=== PATIENT | female | born 1995 | race Caucasian/White ===

== ENCOUNTER 2020-03-09 17:46 | Emergency (ER) | payer OTHER, SELFPAY ==
--- NOTE | 2020-03-09 | XR_ITS ---
EXAMINATION: CHEST 1 VIEW CLINICAL INFORMATION: Shortness of breath. COMPARISON: August 08, 2018. TECHNIQUE: An AP view of the chest is provided. FINDINGS: The cardiac silhouette is not enlarged. The mediastinal and hilar contours are unremarkable. There are neither pleural effusions nor pneumothoraces. There are no consolidations. The osseous structures are unremarkable. XR/XR chest 1V IMPRESSION: No evidence for acute disease.
[2020-03-09 17:58] VITALS: BP 105/75; PULSE 90; RESP 16; TEMP 37.1; O2SAT 99; BMI 32.5
--- NOTE | 2020-03-09 19:06 | ED.GENADULT ---
HPI - General Adult General Chief complaint: General Medical Stated complaint: covid symptoms Time Seen by Provider: 03/09/20 18:06 History of Present Illness HPI narrative: Patient complains of cough body aches runny nose for 2 days after exposure to a COVID positive patient at work, there is no shortness of breath no fever no chills no chest pain no abdominal pain no nausea no vomiting no diarrhea no skin rash Related Data Allergies Allergy/AdvReac Type Severity Reaction Status Date / Time acetaminophen [ACETAMINOPHEN] Allergy Intermediate RASH Unverified 01/12/20 16:22 amoxicillin [AMOXICILLIN] Allergy Intermediate N/V Unverified 01/12/20 16:22 adhesive tape [ADHESIVE TAPE] Allergy Unknown UNKNOWN Unverified 01/12/20 16:22 Penicillins [PCN] Allergy Unknown VOMITING Unverified 01/12/20 16:22 Anesthetics - Gm Type- AdvReac Severe heart rate Unverified 01/12/20 16:22 Parabens drops [ANESTHETICS - GM TYPE] Antibiotic Allergy Unknown vomit Uncoded 03/16/19 00:00 unspecified anesthetic Allergy Unknown lowers Uncoded 03/16/19 00:00 heart rate Review of Systems Review of Systems: Review of systems is positive for cough runny nose body aches There is no chest pain no sputum no shortness of breath no abdominal pain no nausea no vomiting no diarrhea no rash no numbness no weakness no dizziness no confusion no headache Yes all other systems are reviewed and are negative PMFSH Past Medical History Source: nursing notes reviewed Medical History (Updated 03/09/20 @ 19:50 by ARLETTE Arrington) Colostomy hernia Diverticula of colon Hernia SVT (supraventricular tachycardia) Social History Social History Alcohol intake: never Smoked in Last 30 Days: No Use of substances other than those prescribed or required for medical reasons: No Substance Use Type: Marijuana Advance Directives: No Advance Directives Information Provided: Yes Physical Exam Vital Signs: Vital Signs: Last Vital Signs Temp 98.7 F 03/09/20 17:58 Pulse 90 03/09/20 17:58 Resp 16 03/09/20 17:58 BP 105/75 03/09/20 17:58 Pulse Ox 99 03/09/20 17:58 Body Mass Index 32.5 General appearance is A&O x3, speaking in full sentences, no respiratory distress no acute distress and comfortable appearing The eyes are clear no redness no discharge The neck is supple The chest is CTA bilaterally, no adventitious sounds with full equal symmetrical breath sounds The heart no murmurs The abdomen soft nontender Extremities no rash no edema Neuro no focal deficit Course Course Course Narrative: Chest x-ray was normal and patient is discharged home, she remained comfortable throughout ER visit Discharge Plan Discharge Clinical Impression: Acute viral syndrome Patient Disposition: Home, Self-Care Additional Instructions: Chest x-ray was negative COVID test results will be called to you in 2-3 days by phone A negative test does not rule out COVID, if you still have cough and symptoms you may have COVID that was missed by our test so should wear a mask and keep distance from other people as you may be very contagious Return to ER any worse condition or any concerns Stand Alone Forms: Work/School Release
== END 2020-03-09 20:12 | disposition home or self-care (01) ==
PROVIDERS: Physician Assistant Medical; Emergency Provider Emergency Medicine; PCP Nurse Practitioner Family
DX: B34.9 Viral infection, unspecified (principal); R05 Cough; Z20.828 Contact with and (suspected) exposure to other viral communicable diseases
CPT/HCPCS: 71045; 99283; 99284; U0003

== ENCOUNTER 2020-04-29 14:54 | Emergency (ER) | payer OTHER, SELFPAY ==
[2020-04-29 16:54] VITALS: BP 149/89; PULSE 74; RESP 14; TEMP 36.8; O2SAT 100; BMI 32.5
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
== END 2020-04-29 18:12 | disposition home or self-care (01) ==
PROVIDERS: Emergency Provider Emergency Medicine; PCP Nurse Practitioner Family
DX: S39.012A Strain of muscle, fascia and tendon of lower back, initial encounter (principal); S16.1XXA Strain of muscle, fascia and tendon at neck level, initial encounter; V59.9XXA Occupant (driver) (passenger) of pick-up truck or van injured in unspecified traffic accident, initial encounter; Y93.9 Activity, unspecified; Y92.410 Unspecified street and highway as the place of occurrence of the external cause; Y99.9 Unspecified external cause status; Z79.899 Other long term (current) drug therapy
CPT/HCPCS: 99284

== ENCOUNTER 2022-02-28 23:22 | Emergency (ER) | payer MEDICAID, SELFPAY ==
[2022-02-28 23:37] VITALS: BP 142/90; PULSE 93; RESP 18; TEMP 36.8; O2SAT 97; BMI 34.0
[2022-03-01 01:28] LABS: MANUAL DIFF FLAG NO
[2022-03-01 01:29] LABS: Basophils Absolute Auto 0.1 X10*3/uL (0.0-0.2); Basophils Percent Auto 0.4 % (0-2); Eosinophils Absolute Auto 0.1 X10*3/uL (0.0-0.4); Eosinophils Percent Auto 0.5 % (0-4); Hematocrit 37.8 % (37.0-47.0); Hemoglobin 11.9 g/dl (12.0-16.0); Imm Gran Abs Auto 0.08 X10*3/uL (0.00-0.03); Imm Gran Pct Auto 0.6 % (0.0-0.4); Lymphocytes Absolute Auto 1.9 X10*3/uL (1.2-4.9); Mean Corpuscular HGB Conc 31.5 g/dl (31.0-35.0); Mean Corpuscular Hemoglobin 26.4 pg (27.0-33.0); Mean Corpuscular Volume 83.8 fL (80.0-98.0); Monocytes Absolute Auto 0.8 X10*3/uL (0.1-1.2); Monocytes Percent Auto 6.3 % (2-11); Neutrophils Absolute Auto 9.7 x10*3/uL (2.0-8.3); Neutrophils Percent Auto 77.2 % (45-73); Platelet Count 331 X10*3/uL (160-400); Red Blood Count 4.51 X10*6/uL (4.20-5.50); Red Cell Distribution Width 13.7 % (11.0-16.0); White Blood Count 12.6 X10*3/uL (4.8-10.8)
[2022-03-01 01:57] LABS: Alanine Aminotransferase 16 U/L (0-31); Albumin Level 4.3 g/dL (3.5-5.0); Alkaline Phosphatase 66 U/L (39-117); Anion Gap 18 (12-20); Aspartate Amino Transferase 19 U/L (5-31); Bilirubin Total 0.6 mg/dL (0.0-1.0); Blood Urea Nitrogen 9 mg/dL (9-16); Calcium 9.4 mg/dL (8.4-10.2); Carbon Dioxide 22 mmol/L (22-29); Chloride 103 mmol/L (96-108); Creatinine Clr Calc Pharmacy 104.2; Estimated Glomerular Filt Rate > 60; Glucose Random 106 mg/dL (60-115); Sodium 139 mmol/L (135-145); Total Protein 7.6 g/dL (6.5-8.0)
--- NOTE | 2022-03-01 01:58 | ED_ITS ---
HPI - Skin/Abscess/Foreign Bdy General Chief complaint: Skin/Abscess/Foreign Body Stated complaint: cyst behind ear Time Seen by Provider: 03/01/22 01:35 Source: patient Mode of arrival: ambulatory Limitations: no limitations History of Present Illness HPI narrative: Patient comes to the emergency room complaining of cellulitis/abscess behind her left ear. Patient states it has been about 4-5 days. Area behind the left ear on the neck is red, warm and swollen. Related Data Previous Rx's Medication Instructions Recorded cyclobenzaprine 10 mg tablet 5 mg PO TID PRN muscle spasm #20 04/29/20 tabs ibuprofen 800 mg tablet 800 mg PO Q8H PRN pain #30 tabs 04/29/20 ibuprofen 600 mg tablet 600 mg PO TID PRN fever or pain 03/01/22 #14 tabs mupirocin 2 % topical ointment 1 appl topical TID #15 grams 03/01/22 sulfamethoxazole 800 1 tab PO BID #13 tabs 03/01/22 mg-trimethoprim 160 mg tablet (Bactrim DS) Allergies Allergy/AdvReac Type Severity Reaction Status Date / Time adhesive tape [ADHESIVE TAPE] Allergy Unknown UNKNOWN Unverified 01/12/20 16:22 Anesthetics - Gm Type- AdvReac Severe heart rate Unverified 01/12/20 16:22 Parabens drops [ANESTHETICS - GM TYPE] unspecified anesthetic Allergy Unknown lowers Uncoded 03/16/19 00:00 heart rate Review of Systems Review of Systems: Constitutional : No Weight loss, No Fever, No Chills, No Night Sweats, No Fatigue, No Malaise ENT/Mouth : No Hearing loss, No Ear Pain, No Nasal Congestion, No Sinus Pain, No Hoarseness, No sore throat, No Rhinorrhea, No Swallowing Difficulty Eyes: No Eye Pain, No Swelling, No Redness, No Foreign Body, No Discharge, No Vision Changes Cardiovascular : No Chest Pain, No SOB, No Dyspnea on Exertion, No Orthopnea, No Edema, No Palpitations Respiratory : No Cough, No Sputum, No Wheezing, No Smoke Exposure, No Dyspnea Gastrointestinal : No Nausea, No Vomiting, No Diarrhea, No Constipation, No ab dominal Pain, No Hematochezia, No Melena Genitourinary : no irregular bleeding, No Dysuria, No Urinary Frequency, No Hematuria, No Urinary Incontinence, No Urgency, No Flank Pain, No Urinary Flow Changes, No Hesitancy Musculoskeletal : No joint pain, No Myalgias, No Joint Swelling Skin : Cellulitis under the left ear on the left side of neck Neuro : No Weakness, No Numbness, No Paresthesias, No Loss of Consciousness, No Dizziness, No Headache Psych : No Anxiety/Panic, No Depression, No SI/HI/AH/VH, No Social Issues, Heme/Lymph: No Bruising, No Bleeding,No Lymphadenopathy Endocrine : No Polyuria, No Polydipsia, No Temperature Intolerance [facility] Past Medical History Medical History Colostomy hernia Diverticula of colon Hernia SVT (supraventricular tachycardia) Surgical History History of colostomy reversal History of reversal of ileostomy Hx of ileostomy Social History Social History Alcohol intake: never Substance Use Type: Marijuana Advance Directives: No Advance Directives Information Provided: No Physical Exam Vital Signs: Vital Signs: Last Vital Signs Temp 98.2 F 02/28/22 23:37 Pulse 93 02/28/22 23:37 Resp 18 02/28/22 23:37 BP 142/90 H 02/28/22 23:37 Pulse Ox 97 02/28/22 23:37 O2 Del Method 02/28/22 23:37 BMI result Body Mass Index 34.0 Const: Other: Appearance: Alert. Oriented X3. No acute distress. Eyes: Pupils equal, round and reactive to light. ENT: Pharynx normal. See skin below Neck: Normal inspection. Neck supple. No lymph nodes noted. No crepitus CVS: Normal heart rate and rhythm. Pulses normal. Normal S1 and S2 Respiratory: No respiratory distress. Breath sounds normal. No Wheezing. No rales Abdomen: Soft and nontender. No rigidity. No distention. Skin: Skin warm and dry. Patient has with oozing, honey colored crusting on the skin on both earlobes, some areas of the face and chest, patient has a small abscess on the left side of the neck under the left earlobe, patient has multiple excoriations in the face and the chest from picking her skin, impetigo present Extremities: No lower extremity edema. No Lacerations. No Rash Neuro: Oriented X 3. No motor deficit. No sensory deficit. Moving all extremities. No slurred speech. CN 2 through 12 grossly intact Psych: calm, cooperative, normal affect Course Course Course Narrative: Patient has impetigo in her ear lobes and some areas of her face from picking her skin. There is an abscess in the left side of the neck under the left ear lobe. On bedside ultrasound there is a very small abscess, confirmed with Doppler, no flow present. Not a lymph node. Area was numbed with 1% lidocaine 2 mL, a 16 gauge syringe was inserted and aspirated, very small amount pus was extracted, 0.2 mL at the most Patient was given Bactrim in the emergency room. MDM - Skin/Abscess/Foreign Bdy Lab Data Result diagrams: 02/28/22 23:44 02/28/22 23:44 Labs: Lab Results 02/28/22 Range/Units 23:44 WBC 12.6 H (4.8-10.8) X10*3/uL RBC 4.51 (4.20-5.50) X10*6/uL Hgb 11.9 L (12.0-16.0) g/dl Hct 37.8 (37.0-47.0) % MCV 83.8 (80.0-98.0) fL MCH 26.4 L (27.0-33.0) pg MCHC 31.5 (31.0-35.0) g/dl RDW 13.7 (11.0-16.0) % Plt Count 331 (160-400) X10*3/uL MPV 12.0 (9.4-12.3) fL Immature Gran % (Auto) 0.6 H (0.0-0.4) % Neut % (Auto) 77.2 H (45-73) % Lymph % (Auto) 15.0 L (20-40) % Mcminn % (Auto) 6.3 (2-11) % Eos % (Auto) 0.5 (0-4) % Baso % (Auto) 0.4 (0-2) % Lymph # (Auto) 1.9 (1.2-4.9) X10*3/uL Mcminn # (Auto) 0.8 (0.1-1.2) X10*3/uL Eos # (Auto) 0.1 (0.0-0.4) X10*3/uL Baso # (Auto) 0.1 (0.0-0.2) X10*3/uL Abs Immat Gran (auto) 0.08 H (0.00-0.03) X10*3/uL Absolute Neuts (auto) 9.7 H (2.0-8.3) x10*3/uL Absolute Nucleated RBC 0.000 (0.0-0.012) X10*3/uL Nucleated RBC % (auto) 0.0 (0.0-0.2) /100WBC Procedures Abscess I/D Site: neck Side (if applicable): left Local Anesthetic: lidocaine 1% Amount of anesthesia used (mL): 2 Technique: needle aspiration Amount of fluid expressed (mL): 0.2 Sent for culture/gram staining?: No Irrigation: No Packing used?: none Discharge Plan Discharge Clinical Impression: Abscess of skin or subcutaneous tissue, Impetigo Patient Disposition: Home, Self-Care Instructions: Impetigo (ED), Abscess (ED) Additional Instructions: Please follow-up with your primary care physician tomorrow. If you have any worsening or new symptoms, please return to the emergency room or call 911 Prescriptions: New sulfamethoxazole-trimethoprim [Bactrim DS] 800-160 mg tablet 1 tab PO BID Qty: 13 0RF mupirocin 2 % ointment 1 appl topical TID Qty: 15 0RF Rx Instructions: Apply on affected areas ibuprofen 600 mg tablet 600 mg PO TID PRN (Reason: fever or pain) Qty: 14 0RF No Action cyclobenzaprine 10 mg tablet 5 mg PO TID PRN (Reason: muscle spasm) Qty: 20 0RF ibuprofen 800 mg tablet 800 mg PO Q8H PRN (Reason: pain) Qty: 30 0RF
[2022-03-01] MEDS: Sulfamethox/Trimeth 800/160 TABLET 1 TAB PO (02:03)
[2022-03-01 02:06] VITALS: BP 127/77; PULSE 100; RESP 16; TEMP 36.6; O2SAT 98
--- NOTE | 2022-03-01 02:10 | PC.NURSE ---
discharged instructions reviewed with pt. Pt verbalizes understanding.
[2022-03-01] MEDS: Ibuprofen 600 MG TABLET PO (02:12)
== END 2022-03-01 02:14 | disposition home or self-care (01) ==
PROVIDERS: Emergency Provider Emergency Medicine; PCP Nurse Practitioner Family
DX: L02.11 Cutaneous abscess of neck (principal); L01.00 Impetigo, unspecified
CPT/HCPCS: 10060; 36415; 80053; 85025; 99284

== ENCOUNTER 2022-08-24 04:35 | Emergency (ER) | payer MEDICAID, SELFPAY ==
--- NOTE | ~2022-08-24 | CT_ITS ---
EXAMINATION: CT ABDOMEN AND PELVIS WITHOUT CONTRAST CLINICAL INFORMATION: Abdominal pain COMPARISON: CT abdomen pelvis 11/27/2019 TECHNIQUE: Multidetector volumetric imaging was performed from the superior aspect of the liver through the pubic symphysis. Sagittal and coronal reformatted images were obtained on the technologist's workstation. This CT examination was performed using dose optimization techniques as appropriate, variously including the following: *Automated exposure control *Adjustment of mA and/or kV according to patient size (this includes techniques or standardized protocols for targeted exams where dose is matched to indication/reason for exam; i.e. extremities or head) *Use of iterative reconstruction technique DLP: 504 mGy-cm FINDINGS: Visualized lung bases are well aerated. Similar mild elongation of the right hepatic lobe. There is overall diffusely decreased attenuation of the liver. The gallbladder is normal in appearance. The pancreas, spleen and adrenal glands are unremarkable. Symmetrically sized kidneys. No renal calculi or hydronephrosis of either kidney. There is mild asymmetric perinephric stranding on the left kidney. Mild wall thickening of the proximal left ureter. Normal caliber loops of small and large bowel. Mild colonic stool burden. Anastomotic suture lines within the right left abdomen are unremarkable. Normal caliber abdominal aorta. Similar appearing postsurgical changes of the anterior abdominal wall. The bladder is normal in appearance. Unremarkable CT appearance of the uterus. Small amount of free pelvic fluid. Possible right adnexal cysts versus serpiginous fluid structure of the right adnexa. No inguinal lymphadenopathy. No acute osseous abnormality. CT/CT abdomen pelvis wo IV con IMPRESSION: 1. Mild asymmetric perinephric stranding on the left kidney with mild wall thickening of the proximal left ureter. Findings are nonspecific but may represent a recently passed stone. Pyelonephritis/ureteritis is also within the differential. Correlation with urinalysis recommended. 2. Possible right adnexal cysts versus serpiginous fluid structure of the right adnexa. This may be further evaluated with dedicated pelvic ultrasound if clinically indicated. 3. Diffusely decreased liver attenuation suggesting hepatic steatosis. Correlation with liver enzymes recommended. Fleischner guidelines were followed.
[2022-08-24 04:50] VITALS: BP 112/82; PULSE 120; O2SAT 99
[2022-08-24 04:55] VITALS: BP 118/67; PULSE 116; RESP 20; TEMP 37.5; O2SAT 98; BMI 25.7
--- NOTE | 2022-08-24 06:39 | ED_ITS ---
HPI - General Adult General Chief complaint: Abdominal Pain Stated complaint: flank back pain Time Seen by Provider: 08/24/22 06:35 Source: patient and EMS Mode of arrival: EMS Limitations: no limitations History of Present Illness HPI narrative: Patient is a 26 year old assigned female at with no reported medical history presenting to the emergency department today with left lower back pain and flank pain. Patient states that starting yesterday she began to have left sided low back pain that radiates around into her abdomen. Patient denies any dizziness, lightheadedness, nausea, vomiting, fever, chills, blurry vision, double vision, loss of vision, chest pain, difficulty breathing, shortness of breath, night sweats, pain with urination, increased urinary frequency, increased urinary urgency, blood in her urine or stool, syncope or a near syncopal episode, recent trauma or falls, bowel incontinence, bladder incontinence, bowel retention, bladder retention, or any other complaints at this time. Onset (ago): day(s) (1) Location: back and abdomen Radiation: abdomen Severity: mild Relieving factors: none Exacerbating factors: none Associated symptoms: denies other symptoms Treatments prior to arrival: none Related Data Previous Rx's Medication Instructions Recorded cyclobenzaprine 10 mg tablet 5 mg PO TID PRN muscle spasm #20 04/29/20 tabs ibuprofen 800 mg tablet 800 mg PO Q8H PRN pain #30 tabs 04/29/20 ibuprofen 600 mg tablet 600 mg PO TID PRN fever or pain 03/01/22 #14 tabs mupirocin 2 % topical ointment 1 appl topical TID #15 grams 03/01/22 sulfamethoxazole 800 1 tab PO BID #13 tabs 03/01/22 mg-trimethoprim 160 mg tablet (Bactrim DS) cephalexin 500 mg capsule 500 mg PO Q6H 7 days #28 caps 08/24/22 ondansetron 4 mg disintegrating 4 mg PO Q8H 3 days #9 tabs 08/24/22 tablet Allergies Allergy/AdvReac Type Severity Reaction Status Date / Time adhesive tape [ADHESIVE TAPE] Allergy Unknown UNKNOWN Unverified 01/12/20 16:22 Anesthetics - Gm Type- AdvReac Severe heart rate Unverified 01/12/20 16:22 Parabens drops [ANESTHETICS - GM TYPE] unspecified anesthetic Allergy Unknown lowers Uncoded 03/16/19 00:00 heart rate Review of Systems Constitutional: Constitutional: Reports no additional constitutional complaints, Denies chills, Denies fever(s) and Denies night sweats Eyes: Eyes: Reports no additional eye complaints, Denies blurry vision, Denies change in vision, Denies diplopia, Denies eye discharge, Denies loss of vision and Denies eye pain ENT: Denies dizziness Cardiovascular: Cardiovascular: Reports no additional cardiovascular complaints, Denies chest pain, Denies lightheadedness, Denies Loss of Consciousness and Denies dyspnea Respiratory: Respiratory: Reports no additional respiratory complaints and Denies dyspnea Gastrointestinal: Gastrointestinal: Reports no additional gastrointestinal complaints, Reports abdominal pain, Denies melena, Denies hematochezia, Denies change in bowel habits and Denies change in stool character Genitourinary: Genitourinary: Denies hematuria, Denies urinary frequency, Denies dysuria, Denies urinary incontinence, Denies urinary hesitancy and Denies urinary urgency Musculoskeletal: Musculoskeletal: Reports no additional musculoskeletal complaints, Reports back pain, Denies numbness and Denies tingling Neurologic: Denies dizziness, Denies loss of vision, Denies numbness and Denies tingling Psychiatric: Psychiatric: Reports no additional psychiatric complaints Endocrine: Endocrine: Reports no additional endocrine complaints Hematologic/Lymphatic: Hematologic/Lymphatic: Reports no additional hematologic/lymphatic complaints Allergic/Immunologic: Allergic/Immunologic: Reports no additional allergic/immunologic complaints [facility] Past Medical History Attestation statement: The following information was validated with the patient. Source: old records reviewed and nursing notes reviewed Medical History Colostomy hernia Diverticula of colon Hernia SVT (supraventricular tachycardia) Surgical History History of colostomy reversal History of reversal of ileostomy Hx of ileostomy Social History Social History Alcohol intake: never Substance Use Type: Marijuana Advance Directives: No Advance Directives Information Provided: No Physical Exam ED Vital Signs: Vital Signs - 24 hr 08/24/22 04:55 08/24/22 07:34 08/24/22 09:56 Temperature 99.5 F 98.8 F Pulse Rate 116 H 110 H 104 H Respiratory Rate 20 20 16 Blood Pressure 118/67 111/77 99/55 L Pulse Oximetry 98 98 98 Oxygen Delivery Method Room Air Room Air Room Air 08/24/22 12:03 Temperature 100.6 F H Pulse Rate 99 Respiratory Rate 18 Blood Pressure 102/68 Pulse Oximetry 97 Oxygen Delivery Method Room Air BMI result Body Mass Index 25.7 Const General: cooperative, no acute distress, alert and awake Nutritional Appearance: well nourished Orientation/consciousness: patient oriented x3 Limitations: no limitations HENMT Head: Yes normal to inspection and Yes atraumatic Ears: hearing grossly normal bilaterally and external ears normal General nose exam: Normal external nose present, no nasal discharge noted and no epistaxis Face and sinus: Yes normal facial exam, No abrasion and No laceration Mouth: Normal oral and palatal mucosa present, no drooling and no muffled voice Eyes General: appearance normal, both eyes and all related structures Periorbital: periorbital findings normal Eyelids: Yes eyelids normal Conjunctivae: conjunctivae normal Pupils: Equal, round and reactive pupils present EOM: EOMs intact bilaterally Neck Neck: Yes normal visual inspection, Yes full ROM and Yes no lymphadenopathy Chest Chest palpation & inspection: normal inspection of the chest Resp Effort & Inspection: normal respiratory effort and able to speak in complete sentences Auscultation: clear to auscultation bilaterally Cardio Rate: regular rate Rhythm: regular rhythm GI Inspection: Yes normal to inspection Palpation (GI): Soft to palpation, not firm, nontender and no guarding Neuro General: patient oriented x3 and moves all extremities Cranial nerves: Yes Equal, round and reactive pupils present Cognition (Neuro): normal cognition Motor exam (neuro): 5/5 motor strength present throughout Sensory Exam: Normal double simultaneous stimulation for sensation Coordination: [id number] test normal Extrem General: Yes normal to inspection, Yes full ROM and Yes capillary refill normal Psych Appearance: grossly normal Mental Status: mental status grossly normal Affect: normal affect Attitude: cooperative Thought process: Normal thought process present Thought content: Normal thought content present Insight: Good insight present (Psych) Medications Administered Discontinued Medications Generic Name Dose Route Start Last Admin Trade Name Freq PRN Reason Stop Dose Admin Sodium Chloride 1,000 mls @ 999 mls/hr 08/24/22 11:30 08/24/22 11:59 Ns IV 08/24/22 12:30 999 mls/hr .Q1H1M ROSITA Administration Ceftriaxone Sodium 2 gm/ 50 mls @ 100 mls/hr 08/24/22 11:25 08/24/22 11:59 Sodium Chloride IV 08/24/22 11:54 100 mls/hr ONCE ONE Administration Ketorolac Tromethamine 15 mg 08/24/22 11:54 08/24/22 12:00 Ketorolac Tromethamine 15 Mg/Ml Vial IVPUSH 08/24/22 11:55 15 mg ONCE ONE Administration Oxycodone HCl 10 mg 08/24/22 06:59 08/24/22 07:47 Oxycodone Hcl Immed Release 5 Mg Tablet PO 08/24/22 07:00 10 mg ONCE ONE Administration Medical Decision Making Medical Decision Making [facility] Narrative: Patient is a 26 year old assigned female at with no reported medical history presenting to the emergency department today with abdominal pain. Patient's physical exam was unremarkable. Patient's blood work showed an elevated WBC count of 16.2. Patient's urine showed an acute infection. Patient's abdomen/pelvis CT showed possible left sided hydronpehrosis. Patient's clinical presentation is not consistent with sepsis (@1230). I explained my physical exam findings as well as all test results to the patient. I answered all questions asked by the patient. I stressed the importance of the patient taking her medication as prescribed. I stressed the importance of the patient following up with her primary care provider. I stressed the importance of the patient returning to the emergency department immediately if her symptoms were to worsen or if she were to develop any dizziness, shortness of breath, difficulty breathing, chest pain, blurry vision, loss of vision, nausea, vomiting, abdomin al pain, fever, chills, back pain, or any other complaints. Patient verbalized agreement and understanding with this treatment plan and discharge. Differential Diagnosis Differential Diagnoses: The differential diagnosis associated with the presentation includes UTI, pyelonephritis Lab Data [facility] Lab Attestation statement: I reviewed the patient's lab results. 08/24/22 07:41 08/24/22 07:41 Labs: Lab Results 08/24/22 08/24/22 08/24/22 Range/Units 07:41 07:41 07:41 WBC 16.2 H (4.8-10.8) X10*3/uL RBC 4.54 (4.20-5.50) X10*6/uL Hgb 12.2 (12.0-16.0) g/dl Hct 37.4 (37.0-47.0) % MCV 82.4 (80.0-98.0) fL MCH 26.9 L (27.0-33.0) pg MCHC 32.6 (31.0-35.0) g/dl RDW 14.2 (11.0-16.0) % Plt Count 242 D (160-400) X10*3/uL MPV 11.9 (9.4-12.3) fL Immature Gran % (Auto) 0.9 H (0.0-0.4) % Neut % (Auto) 79.0 H (45-73) % Lymph % (Auto) 9.8 L (20-40) % [place] % (Auto) 10.0 (2-11) % Eos % (Auto) 0.0 (0-4) % Baso % (Auto) 0.3 (0-2) % Lymph # (Auto) 1.6 (1.2-4.9) X10*3/uL [place] # (Auto) 1.6 H (0.1-1.2) X10*3/uL Eos # (Auto) 0.0 (0.0-0.4) X10*3/uL Baso # (Auto) 0.1 (0.0-0.2) X10*3/uL Abs Immat Gran (auto) 0.14 H (0.00-0.03) X10*3/uL Absolute Neuts (auto) 12.8 H (2.0-8.3) x10*3/uL Absolute Nucleated RBC 0.000 (0.0-0.012) X10*3/uL Nucleated RBC % (auto) 0.0 (0.0-0.2) /100WBC Smear Tech's Comments VERIFIED Sodium 136 (135-145) mmol/L Potassium 3.4 (3.3-5.1) mmol/L Chloride 101 (96-108) mmol/L Carbon Dioxide 26 (22-29) mmol/L Anion Gap 12 (12-20) BUN 5 L (9-16) mg/dL Creatinine 0.90 (0.5-1.4) mg/dL Estim Creat Clear Calc 88.9 Estimated GFR > 60 Random Glucose 126 H (60-115) mg/dL Lactic Acid (0.5-2.0) mmol/L Calcium 9.2 (8.4-10.2) mg/dL Magnesium 1.8 (1.6-2.6) mg/dL Total Bilirubin 1.2 H (0.0-1.0) mg/dL AST 12 (5-31) U/L ALT 15 (0-31) U/L Alkaline Phosphatase 50 (39-117) U/L Total Protein 6.5 (6.5-8.0) g/dL Albumin 4.0 (3.5-5.0) g/dL Beta HCG, Quant < 2 mIU/mL Urine Color Urine Appearance Urine pH (5.0-9.0) Ur Specific [place] (1.005-1.025) Urine Protein (Neg-Trace) mg/dL Urine Glucose (UA) (Negative) mg/dL Urine Ketones (Negative) mg/dL Urine Blood (Negative) Urine Nitrite (Negative) Ur Leukocyte Esterase (Negative) Urine RBC (0-2) /HPF Urine WBC (0-5) /HPF Ur Squamous Epith Cells (0-2) /HPF Urine Bacteria (None Seen) Hyaline Casts (0-2) /LPF Urine Opiates Screen (Not Detect) Urine Fentanyl Screen (Not Detect) Ur Barbiturates Screen (Not Detect) Ur Phencyclidine Scrn (Not Detect) Ur Amphetamines Screen (Not Detect) U Benzodiazepines Scrn (Not Detect) Urine Cocaine Screen (Not Detect) U Marijuana (THC) Screen (Not Detect) COVID-19 (MENG) Negative (Negative) COVID-19 Clin Com See Note 08/24/22 08/24/22 08/24/22 Range/Units 11:08 11:08 11:49 WBC (4.8-10.8) X10*3/uL RBC (4.20-5.50) X10*6/uL Hgb (12.0-16.0) g/dl Hct (37.0-47.0) % MCV (80.0-98.0) fL MCH (27.0-33.0) pg MCHC (31.0-35.0) g/dl RDW (11.0-16.0) % Plt Count (160-400) X10*3/uL MPV (9.4-12.3) fL Immature Gran % (Auto) (0.0-0.4) % Neut % (Auto) (45-73) % Lymph % (Auto) (20-40) % [place] % (Auto) (2-11) % Eos % (Auto) (0-4) % Baso % (Auto) (0-2) % Lymph # (Auto) (1.2-4.9) X10*3/uL [place] # (Auto) (0.1-1.2) X10*3/uL Eos # (Auto) (0.0-0.4) X10*3/uL Baso # (Auto) (0.0-0.2) X10*3/uL Abs Immat Gran (auto) (0.00-0.03) X10*3/uL Absolute Neuts (auto) (2.0-8.3) x10*3/uL Absolute Nucleated RBC (0.0-0.012) X10*3/uL Nucleated RBC % (auto) (0.0-0.2) /100WBC Smear Tech's Comments Sodium (135-145) mmol/L Potassium (3.3-5.1) mmol/L Chloride (96-108) mmol/L Carbon Dioxide (22-29) mmol/L Anion Gap (12-20) BUN (9-16) mg/dL Creatinine (0.5-1.4) mg/dL Estim Creat Clear Calc Estimated GFR Random Glucose (60-115) mg/dL Lactic Acid 1.0 (0.5-2.0) mmol/L Calcium (8.4-10.2) mg/dL Magnesium (1.6-2.6) mg/dL Total Bilirubin (0.0-1.0) mg/dL AST (5-31) U/L ALT (0-31) U/L Alkaline Phosphatase (39-117) U/L Total Protein (6.5-8.0) g/dL Albumin (3.5-5.0) g/dL Beta HCG, Quant mIU/mL Urine Color Yellow Urine Appearance Turbid Urine pH 5.5 (5.0-9.0) Ur Specific [place] <= 1.005 (1.005-1.025) Urine Protein 30 (1+) H (Neg-Trace) mg/dL Urine Glucose (UA) Negative (Negative) mg/dL Urine Ketones Negative (Negative) mg/dL Urine Blood Small (1+) H (Negative) Urine Nitrite Negative (Negative) Ur Leukocyte Esterase Large (3+) H (Negative) Urine RBC 0-2 (0-2) /HPF Urine WBC >50 H (0-5) /HPF Ur Squamous Epith Cells 0-2 (0-2) /HPF Urine Bacteria 4+ (None Seen) Hyaline Casts 0-2 (0-2) /LPF Urine Opiates Screen Not Detected (Not Detect) Urine Fentanyl Screen POSITIVE H (Not Detect) Ur Barbiturates Screen Not Detected (Not Detect) Ur Phencyclidine Scrn Not Detected (Not Detect) Ur Amphetamines Screen Not Detected (Not Detect) U Benzodiazepines Scrn Not Detected (Not Detect) Urine Cocaine Screen POSITIVE H (Not Detect) U Marijuana (THC) Screen POSITIVE H (Not Detect) COVID-19 (MENG) (Negative) COVID-19 Clin Com Independent Interpretation I performed an independent interpretation of an: Plain X-Ray Interpretation: My interpretation is in agreement with the radiologist's impression of this imaging study. EXAMINATION: CT ABDOMEN AND PELVIS WITHOUT CONTRAST? CLINICAL INFORMATION: Abdominal pain? COMPARISON: CT abdomen pelvis 11/27/2019 TECHNIQUE: Multidetector volumetric imaging was performed from the superior aspect of the liver through the pubic symphysis. Sagittal and coronal reformatted images were obtained on the technologist's workstation.? This CT examination was performed using dose optimization techniques as appropriate, variously including the following: *Automated exposure control *Adjustment of mA and/or kV according to patient size (this includes techniques or standardized protocols for targeted exams where dose is matched to indication/reason for exam; i.e. extremities or head) *Use of iterative reconstruction technique DLP: 504 mGy-cm FINDINGS: Visualized lung bases are well aerated. Similar mild elongation of the right hepatic lobe. There is overall diffusely decreased attenuation of the liver. The gallbladder is normal in appearance. The pancreas, spleen and adrenal glands are unremarkable. Symmetrically sized kidneys. No renal calculi or hydronephrosis of either kidney. There is mild asymmetric perinephric stranding on the left kidney. Mild wall thickening of the proximal left ureter. Normal caliber loops of small and large bowel. Mild colonic stool burden. Anastomotic suture lines within the right left abdomen are unremarkable. Normal caliber abdominal aorta. Similar appearing postsurgical changes of the anterior abdominal wall. The bladder is normal in appearance. Unremarkable CT appearance of the uterus. Small amount of free pelvic fluid. Possible right adnexal cysts versus serpiginous fluid structure of the right adnexa. No inguinal lymphadenopathy. No acute osseous abnormality. CT/CT abdomen pelvis wo IV con IMPRESSION: 1.? Mild asymmetric perinephric stranding on the left kidney with mild wall thickening of the proximal left ureter. Findings are nonspecific but may represent a recently passed stone. Pyelonephritis/ureteritis is also within the differential. Correlation with urinalysis recommended. 2.? Possible right adnexal cysts versus serpiginous fluid structure of the right adnexa. This may be further evaluated with dedicated pelvic ultrasound if clinically indicated. 3.? Diffusely decreased liver attenuation suggesting hepatic steatosis. Correlation with liver enzymes recommended. ? Fleischner guidelines were followed. Dictated By: Isaias Rainey MD Signed By: Electronically signed by Isaias Rainey MD 08/24/22 0918 Discharge Plan Discharge Clinical Impression: Pyelonephritis Patient Disposition: Home, Self-Care Instructions: Kidney Infection (ED) Additional Instructions: Follow up with your primary care provider. Return to the emergency department immediately if your symptoms worsen or if you develop any dizziness, shortness of breath, difficulty breathing, chest pain, blurry vision, loss of vision, nausea, vomiting, abdominal pain, fever, chills, back pain, or any other compla ints. Prescriptions: New cephalexin 500 mg capsule 500 mg PO Q6H 7 Days Qty: 28 0RF ondansetron 4 mg tablet,disintegrating 4 mg PO Q8H 3 Days Qty: 9 0RF No Action cyclobenzaprine 10 mg tablet 5 mg PO TID PRN (Reason: muscle spasm) Qty: 20 0RF ibuprofen 800 mg tablet 800 mg PO Q8H PRN (Reason: pain) Qty: 30 0RF sulfamethoxazole-trimethoprim [Bactrim DS] 800-160 mg tablet 1 tab PO BID Qty: 13 0RF mupirocin 2 % ointment 1 appl topical TID Qty: 15 0RF Rx Instructions: Apply on affected areas ibuprofen 600 mg tablet 600 mg PO TID PRN (Reason: fever or pain) Qty: 14 0RF Referrals: [facility] [Primary Care Provider] - Stand Alone Forms: Work/School Release Interventions: ED Discharge Assessment Last Done: 08/24/22 13:06 Discharge Date/Time: 08/24/22 13:09 Print Language: Lao
[2022-08-24 07:34] VITALS: BP 111/77; PULSE 110; RESP 20; TEMP 37.1; O2SAT 98
[2022-08-24] MEDS: oxyCODONE HCl Immed Release 5 MG TABLET 10 MG PO (07:47)
[2022-08-24 07:55] LABS: Basophils Absolute Auto 0.1 X10*3/uL (0.0-0.2); Basophils Percent Auto 0.3 % (0-2); Hematocrit 37.4 % (37.0-47.0); Hemoglobin 12.2 g/dl (12.0-16.0); Imm Gran Abs Auto 0.14 X10*3/uL (0.00-0.03); Imm Gran Pct Auto 0.9 % (0.0-0.4); Lymphocytes Absolute Auto 1.6 X10*3/uL (1.2-4.9); Lymphocytes Percent Auto 9.8 % (20-40); MANUAL DIFF FLAG SCAN; Mean Corpuscular HGB Conc 32.6 g/dl (31.0-35.0); Mean Corpuscular Hemoglobin 26.9 pg (27.0-33.0); Mean Corpuscular Volume 82.4 fL (80.0-98.0); Mean Platelet Volume 11.9 fL (9.4-12.3); Monocytes Absolute Auto 1.6 X10*3/uL (0.1-1.2); Neutrophils Absolute Auto 12.8 x10*3/uL (2.0-8.3); Platelet Count 242 X10*3/uL (160-400); Red Blood Count 4.54 X10*6/uL (4.20-5.50); Red Cell Distribution Width 14.2 % (11.0-16.0); SCAN SMEAR FLAG 1; White Blood Count 16.2 X10*3/uL (4.8-10.8)
--- NOTE | 2022-08-24 07:55 | PC.NURSE ---
Pt sleeping, respirations even and unlabored. Upon waking up for medications pt complains of 10/10 pain. Labs drawn, awaiting CT scan
[2022-08-24 07:59] LABS: COVID-19 Test Negative (Negative); IDNOW Serial# BCCEAD1C
[2022-08-24 08:13] LABS: Alanine Aminotransferase 15 U/L (0-31); Alkaline Phosphatase 50 U/L (39-117); Anion Gap 12 (12-20); Aspartate Amino Transferase 12 U/L (5-31); Bilirubin Total 1.2 mg/dL (0.0-1.0); Blood Urea Nitrogen 5 mg/dL (9-16); Calcium 9.2 mg/dL (8.4-10.2); Carbon Dioxide 26 mmol/L (22-29); Chloride 101 mmol/L (96-108); Creatinine Clr Calc Pharmacy 88.9; Estimated Glomerular Filt Rate > 60; Glucose Random 126 mg/dL (60-115); Magnesium 1.8 mg/dL (1.6-2.6); Potassium 3.4 mmol/L (3.3-5.1); Sodium 136 mmol/L (135-145); Total Protein 6.5 g/dL (6.5-8.0)
[2022-08-24 08:14] LABS: HCG Quantitative < 2 mIU/mL
[2022-08-24 08:36] LABS: SLIDE REVIEW VERIFIED
[2022-08-24 09:56] VITALS: BP 99/55; PULSE 104; RESP 16; O2SAT 98
[2022-08-24 11:19] LABS: Appearance Urine Turbid; Color Urine Yellow; Glucose Urine UA Negative (Negative); Leukocyte Esterase Urine Large (3+) (Negative); Nitrite Urine Negative (Negative); PH 5.5 (5.0-9.0); Specific Gravity - Urine <= 1.005 (1.005-1.025); UMIC TRIGGER UACC YES; Urine Blood Small (1+) (Negative); Urine Ketones Negative (Negative); Urine Protein 30 (1+) mg/dL (Neg-Trace)
[2022-08-24 11:30] LABS: Amphetamine Screen Urine Not Detected (Not Detect); Barbiturates, Urine Not Detected (Not Detect); Benzodiazepines Screen Urine Not Detected (Not Detect); Cannabinoid Screen Urine POSITIVE (Not Detect); Cocaine Screen Urine POSITIVE (Not Detect); Fentanyl, urine POSITIVE (Not Detect); Opiate Screen Urine Not Detected (Not Detect); Phencyclidine Screen Urine Not Detected (Not Detect)
[2022-08-24 11:31] LABS: Bacteria Urine 4+ (None Seen); Hyaline Casts Urine 0-2 /LPF (0-2); RBC Urine 0-2 /HPF (0-2); Squamous Epithelial Cell Urine 0-2 /HPF (0-2); UACC Culture Trigger YES; WBC Urine >50 /HPF (0-5)
[2022-08-24] MEDS: 0.9 % Sodium Chloride 1,000 ML 999 ML IV (11:59)
[2022-08-24] MEDS: cefTRIAXone sodium 2 GM in 0.9 % Sodium Chloride 50 ML IV (11:59)
[2022-08-24] MEDS: Ketorolac Tromethamine 15 MG/ML VIAL IVPUSH (12:00)
[2022-08-24 12:03] VITALS: BP 102/68; PULSE 99; RESP 18; TEMP 38.1; O2SAT 97
--- NOTE | 2022-08-24 12:58 | MHC.RECOVRN ---
Met with pt in ED6 after provider requested t/w speak with pt regarding UDS +fentanyl. Pt laying in bed, awake, alert, easily engages in conversation. Pt states I only smoke weed, I don't know where fentanyl would come from. Pt educated regarding pressed pills, signs/symptoms of withdrawal, discussed risk of overdose, and harm reduction. Pt actively listened during education. Denies questions or concerns, encouraged to reach out to t/w if needed.
== END 2022-08-24 13:09 | disposition home or self-care (01) ==
PROVIDERS: Physician Assistant Medical; Emergency Provider Emergency Medicine
DX: N12 Tubulo-interstitial nephritis, not specified as acute or chronic (principal); M54.50 Low back pain, unspecified; Z20.822 Contact with and (suspected) exposure to COVID-19; Z20.828 Contact with and (suspected) exposure to other viral communicable diseases; Z79.899 Other long term (current) drug therapy
CPT/HCPCS: 36415; 74176; 80053; 80307; 81001; 83605; 83735; 84702; 85025; 87040; 87086; 87088; 87186; 87635; 96361; 96374; 96375; 99285; J0696; J1885

== ENCOUNTER 2023-02-01 17:10 | Emergency (ER) | payer MEDICAID, SELFPAY | END 2023-02-01 20:33 | disposition left against medical advice (07) | LOC: HO.ED 20:20 | PROVIDERS: Emergency Provider Emergency Medicine; PCP Nurse Practitioner Family | DX: R42 Dizziness and giddiness (principal) ==

== ENCOUNTER 2023-02-01 21:28 | Inpatient (IN) | payer MEDICAID, SELFPAY ==
[2023-02-01 22:21] VITALS: BP 103/73; PULSE 97; RESP 28; TEMP 36; O2SAT 98; BMI 30.1
[2023-02-02] VITALS (8 sets, daily range): BP systolic 118–146; BP diastolic 74–97; PULSE 78–200; RESP 12–26; TEMP 36.8–37; O2SAT 98–100
--- NOTE | 2023-02-02 01:00 | PC.NURSE ---
Pt brought in via w/c from W/R, Pt lethargic, unable to keep conversation, needing redirection to stay awake for assessment. Pt A&Ox3, reports 10/10 constant left hand pain after getting bite by unknown dog yesterday around 5pm. IV line established, blood work collected and sent to lab. Left hand swelling noted with small laceration to palm of hand.
--- NOTE | 2023-02-02 01:12 | ED.GENADULT ---
HPI - General Adult General Chief complaint: Animal Bite Stated complaint: Dog bite Time Seen by Provider: 02/02/23 00:43 Source: patient, RN notes reviewed and old records reviewed Mode of arrival: ambulatory Limitations: no limitations History of Present Illness HPI narrative: 27-year-old female presents for evaluation of a dog bite to her left hand Patient reports that she was bit by dog at 4:30 p.m. yesterday afternoon, approximately 9 hours ago. She states that she did not know the dog, dog not have a call in and was ?a street dog. ? Therefore there is no way for her to determine rabies vaccination status of the dog in question Patient's only injury is her left hand He states that she came to the ED after the accident but then had to leave to pick her daughter up Patient returned to the ED complaining of worsening pain, redness Patient reports smoking marijuana but denies any other drug use She denies any medical history She does not know when her last tetanus shot was Related Data Previous Rx's Medication Instructions Recorded cyclobenzaprine 10 mg tablet 5 mg (1/2 x 10 mg) PO TID PRN 04/29/20 muscle spasm #20 tabs ibuprofen 800 mg tablet 800 mg PO Q8H PRN pain #30 tabs 04/29/20 ibuprofen 600 mg tablet 600 mg PO TID PRN fever or pain 03/01/22 #14 tabs mupirocin 2 % topical ointment 1 appl topical TID #15 grams 03/01/22 sulfamethoxazole 800 1 tab PO BID #13 tabs 03/01/22 mg-trimethoprim 160 mg tablet (Bactrim DS) cephalexin 500 mg capsule 500 mg PO Q6H 7 days #28 caps 08/24/22 ondansetron 4 mg disintegrating 4 mg PO Q8H 3 days #9 tabs 08/24/22 tablet Allergies Allergy/AdvReac Type Severity Reaction Status Date / Time adhesive tape [ADHESIVE TAPE] Allergy Unknown UNKNOWN Verified 02/02/23 01:22 Anesthetics - Gm Type- AdvReac Severe heart rate Verified 02/02/23 01:22 Parabens drops [ANESTHETICS - GM TYPE] amoxicillin AdvReac Anaphylaxis Verified 02/02/23 01:22 unspecified anesthetic Allergy Unknown lowers Uncoded 03/16/19 00:00 heart rate Review of Systems Constitutional: Constitutional: Denies chills and Denies fever(s) Musculoskeletal: Musculoskeletal: Reports arthralgias, Reports joint swelling, Reports limited range of motion and Reports stiffness Integumentary/Breasts: Skin/Breast: Reports erythema and Reports wounds Comments: Left hand PMFSH Past Medical History Medical History Colostomy hernia Diverticula of colon Hernia SVT (supraventricular tachycardia) Surgical History History of colostomy reversal History of reversal of ileostomy Hx of ileostomy Social History Social History Alcohol intake: never Substance Use Type: Marijuana Physical Exam ED Vital Signs: Vital Signs - 24 hr 02/01/23 22:21 Temperature 96.8 F Pulse Rate 97 Respiratory Rate 28 H Blood Pressure 103/73 Pulse Oximetry 98 Oxygen Delivery Method Room Air BMI result Body Mass Index 30.1 Const Other: Patient is somewhat sleepy but arouses to verbal stimuli and will doze off intermittently during the encounter General: no acute distress Nutritional Appearance: well nourished Orientation/consciousness: patient oriented x3 HENMT Head: Yes normocephalic and Yes atraumatic Eyes Eyelids: Yes eyelids normal Conjunctivae: conjunctivae normal Sclerae: sclerae normal Corneas: corneas normal Pupils: Equal, round and reactive pupils present EOM: EOMs intact bilaterally Neck Neck: Yes full ROM Resp Effort & Inspection: normal respiratory effort, able to speak in complete sentences and not labored Cardio Rate: regular rate Rhythm: regular rhythm GI Inspection: No distended Palpation (GI): Soft to palpation, not firm, nontender, no guarding and not rigid Auscultation: normoactive bowel sounds Skin Other: Patient has marked edema almost globally to left hand. There are multiple bite love to the palm and dorsal surface of the left hand. There are scattered bite love to the left 2nd 3rd and 4th fingers. There are no deep lacerations, but mostly superficial puncture wounds. There is some drainage from the wound on the palmar surface of the left hand General skin exam: no rashes or lesions noted and elasticity normal Neuro General: patient oriented x3 Cranial nerves: Yes Equal, round and reactive pupils present and Yes Bilaterally intact EOM present Cognition (Neuro): normal cognition Extrem Other: Patient has significantly reduced range of motion to the fingers left hand. She is unable to fully extend them at the DA P or PIP joints. She is also able to fully make a fist/flex the fingers due to pain swelling. There is no redness edema extending beyond the left wrist. Medications Administered Generic Name Dose Route Start Last Admin Trade Name Freq PRN Reason Stop Dose Admin Sodium Chloride 1,000 mls @ 999 mls/hr 02/02/23 01:00 02/02/23 01:32 Ns IV 02/02/23 02:00 999 mls/hr .Q1H1M ROSITA Administration Discontinued Medications Generic Name Dose Route Start Last Admin Trade Name Freq PRN Reason Stop Dose Admin Diphtheria/Tetanus/Acell Pertussis 0.5 ml 02/02/23 00:51 02/02/23 01:32 Diphth,Pertus(Acell),Tet Adult 0.5 Ml Syringe IM 02/02/23 00:52 0.5 ml .ONCE ONE Administration Ketorolac Tromethamine 30 mg 02/02/23 00:49 02/02/23 01:30 Ketorolac Tromethamine 30 Mg/Ml Vial IVPUSH 02/02/23 00:50 30 mg ONCE ONE Administration Medical Decision Making Medical Decision Making [facility] Narrative: Patient had a dog bite that happened about 9 hours prior to my evaluation. She has marked edema with some drainage from the wound on the palmar surface. She has significantly reduced range of motion of flexion and extension of fingers. There is concern for developing tenosynovitis.. Will plan to admit for IV antibiotic, labs including blood cultures and x-ray imaging pending. The patient has a reported anaphylactic allergy to amoxicillin, so we will not administer Unasyn. Instead will treat with ceftriaxone and metronidazole for dog bite. Patient was updated on rabies vaccine status as well as status posterior. Differential Diagnosis Differential Diagnoses: The differential diagnosis associated with the presentation includes Cellulitis Tenosynovitis Abscess Sepsis Hand fracture Rabies exposure Admission/Observation Consideration of admission/observation: Escalation of care including admission/observation considered Patient will be admitted for IV antibiotics given the significant edema of the hand and progressing cellulitis Consult Healthcare Provider Management of the patient was discussed with: Safety Engineer [employer] (Orthopedic PA, Diana Gillis. She agrees with admission and IV antibiotic. The orthopedic team will see her in the morning) Lab Data [facility] Lab Attestation statement: I reviewed the patient's lab results. Patient has a leukocytosis of 14.4 with a left shift. No significant anemia. 02/02/23 01:18 02/02/23 01:18 Labs: Lab Results 02/02/23 02/02/23 Range/Units 01:18 01:20 WBC 14.4 H (4.8-10.8) X10*3/uL RBC 4.69 (4.20-5.50) X10*6/uL Hgb 12.4 (12.0-16.0) g/dl Hct 38.7 (37.0-47.0) % MCV 82.5 (80.0-98.0) fL MCH 26.4 L (27.0-33.0) pg MCHC 32.0 (31.0-35.0) g/dl RDW 14.6 (11.0-16.0) % Plt Count 302 (160-400) X10*3/uL MPV 11.3 (9.4-12.3) fL Immature Gran % (Auto) 0.6 H (0.0-0.4) % Neut % (Auto) 80.6 H (45-73) % Lymph % (Auto) 10.3 L (20-40) % [place] % (Auto) 7.8 (2-11) % Eos % (Auto) 0.3 (0-4) % Baso % (Auto) 0.4 (0-2) % Lymph # (Auto) 1.5 (1.2-4.9) X10*3/uL [place] # (Auto) 1.1 (0.1-1.2) X10*3/uL Eos # (Auto) 0.1 (0.0-0.4) X10*3/uL Baso # (Auto) 0.1 (0.0-0.2) X10*3/uL Abs Immat Gran (auto) 0.09 H (0.00-0.03) X10*3/uL Absolute Neuts (auto) 11.6 H (2.0-8.3) x10*3/uL Absolute Nucleated RBC 0.000 (0.0-0.012) X10*3/uL Nucleated RBC % (auto) 0.0 (0.0-0.2) /100WBC Lactic Acid 1.4 (0.5-2.0) mmol/L Discharge Plan Discharge Clinical Impression: Bite by animal, Cellulitis Patient Disposition: Admitted As Inpatient
--- NOTE | 2023-02-02 01:54 | PM.IMHP ---
History of Present Illness Date of Service: 02/02/23 Chief Complaint: dog bite 27F denies significant pmh, presented with left hand pain after dog bite same day as presentation, denies fever, chills. has increased pain, decreased ROM. in ED non septic, given rocephin, flagyl (amoxil allergy). Review of Systems Review of Systems: Yes all other systems are reviewed and are negative [facility] Medical History Diverticula of colon Colostomy hernia Hernia SVT (supraventricular tachycardia) Surgical History History of colostomy reversal History of reversal of ileostomy Hx of ileostomy Social History Alcohol intake: never Substance Use Type: Marijuana Advance Directives: No Advance Directives Information Provided: No Meds Allergies Allergy/AdvReac Type Severity Reaction Status Date / Time adhesive tape [ADHESIVE TAPE] Allergy Unknown UNKNOWN Verified 02/02/23 01:22 Anesthetics - Gm Type- AdvReac Severe heart rate Verified 02/02/23 01:22 Parabens drops [ANESTHETICS - GM TYPE] amoxicillin AdvReac Anaphylaxis Verified 02/02/23 01:22 unspecified anesthetic Allergy Unknown lowers Uncoded 03/16/19 00:00 heart rate Active Medications: Current Medications Sodium Chloride (Ns) 1,000 mls @ 999 mls/hr IV .Q1H1M ROSITA Stop: 02/02/23 02:00 Last Admin: 02/02/23 01:32 Dose: 999 mls/hr Ceftriaxone Sodium 1 gm/ (Sodium Chloride) 50 mls @ 100 mls/hr IV Q24H ROSITA Metronidazole (Flagyl) 500 mg in 100 mls @ 100 mls/hr IV Q12H [facility] Sodium Chloride (0.9 % Sodium Chloride Flush 3 Ml Syringe) 3 ml IVFLUSH QSHIFT [facility] Physical Exam Vital Signs and Narrative: Vital Signs: Last Vital Signs Temp 98.6 F 02/02/23 01:42 Pulse 81 02/02/23 01:42 Resp 18 02/02/23 01:42 BP 120/74 02/02/23 01:42 Pulse Ox 100 02/02/23 01:42 O2 Del Method Room Air 02/02/23 01:42 BMI result Body Mass Index 30.1 lethargic, in distress, left hand swelling, erythema, puncture love (see ed note for picture) Results Labs 02/02/23 01:18 02/02/23 01:18 Labs: Laboratory Results - last 24 hr 02/02/23 02/02/23 01:18 01:20 MCV 82.5 MCH 26.4 L MCHC 32.0 RDW 14.6 Plt Count 302 MPV 11.3 Immature Gran % (Auto) 0.6 H Neut % (Auto) 80.6 H Lymph % (Auto) 10.3 L [place] % (Auto) 7.8 Eos % (Auto) 0.3 Baso % (Auto) 0.4 Lymph # (Auto) 1.5 [place] # (Auto) 1.1 Eos # (Auto) 0.1 Baso # (Auto) 0.1 Abs Immat Gran (auto) 0.09 H Absolute Neuts (auto) 11.6 H Absolute Nucleated RBC 0.000 Nucleated RBC % (auto) 0.0 Anion Gap 15 Estim Creat Clear Calc 93.5 Estimated GFR > 60 Random Glucose 75 Lactic Acid 1.4 Calcium 10.1 D C-Reactive Protein 0.57 H Ethyl Alcohol < 10 Assessment and Plan (1) Cellulitis: Status: Acute Plan 27F presented with left hand pain after dog bite left hand cellulitis due to dog bite has pcn allergy rocephin, flagyl follow up cultures ortho consult received rabies and tetatnus in ed full code patient with significant animal bite induced cellulitis in high risk area (hand) rewuiring iv antibiotics and sepcialist evaluation, therefore, expected to require atleast 2 midnights inpatient Time Spent With Patient Time: Total time managing care of this patient today ____ minutes. Quality Stroke Does the patient have a stroke diagnosis?: No VTE Prior VTE?: No VTE Risk Level:: Medical - low VTE Device Contraindication: Treatment Not Indicated VTE Drug Contraindication: Treatment Not Indicated
--- NOTE | 2023-02-02 03:03 | PC.NURSE ---
Domestic animal bite reporting form faxed. Rabies vaccine order set faxed over to pharmacy and short stay.
--- NOTE | 2023-02-02 04:14 | PC.NURSE ---
Upon revital pt appeared to be sleeping, awakens with verbal stimuli, HR noted to be in the 180's. Pt placed on bedside monitor, EKG obtained, Dr. Levine made aware. Pt denies CP, reports Hx of SVT. Pt requesting to use beside commode. Pt bared down and converted from sinus tach to NSR. No new orders at this time.
--- NOTE | 2023-02-02 04:41 | MHC.EDTECH ---
Pt belongings sent with security to [facility] after RN noticed to kitchen knives sticking out of pt bookbag. Pt only has her laptop with her
--- NOTE | 2023-02-02 04:48 | PC.NURSE ---
Addendum entered by Nu Sow RN 02/02/23 08:10: knives taken by security. according to BF they are his. will deffer to security for proper handling of weapons. Original Note: Upon medication administration, Pt was sleeping with arm in backpack, this manual writer noted two kitchen knifes in bag, security notified, belongings secured in decon for safety.
--- NOTE | 2023-02-02 07:14 | PHA.MEDREC ---
Pharmacy Consult ? Medication Reconciliation Pharmacy has completed the medication reconciliation.
--- NOTE | 2023-02-02 09:30 | PM.CNOR ---
History of Present Illness HPI Consult date: 02/02/23 Chief complaint: Dog bite Narrative: 27 yo with 24 hr s/p dog bite to volar left hand Urine + for fentanyl/cocaine/opiate. Patient denies drug use PMFSH Past Medical History Medical History Diverticula of colon Colostomy hernia Hernia SVT (supraventricular tachycardia) Surgical History Surgical History History of colostomy reversal History of reversal of ileostomy Hx of ileostomy Social History Social History Alcohol intake: current Alcohol intake frequency: holidays/special occasions only Patient Tobacco Use Status: Never used Tobacco Smoked in Last 30 Days: No Use of substances other than those prescribed or required for medical reasons: No Substance Use Type: Marijuana Advance Directives: No Advance Directives Information Provided: No Nutrition Risks: No Nutritional Risk Meds Allergies Allergy/AdvReac Type Severity Reaction Status Date / Time adhesive tape [ADHESIVE TAPE] Allergy Unknown UNKNOWN Verified 02/02/23 01:22 Anesthetics - Gm Type- AdvReac Severe heart rate Verified 02/02/23 01:22 Parabens drops [ANESTHETICS - GM TYPE] amoxicillin AdvReac Anaphylaxis Verified 02/02/23 01:22 unspecified anesthetic Allergy Unknown lowers Uncoded 03/16/19 00:00 heart rate Active Medications: Current Medications Ceftriaxone Sodium 1 gm/ (Sodium Chloride) 50 mls @ 100 mls/hr IV Q24H ROSITA Metronidazole (Flagyl) 500 mg in 100 mls @ 100 mls/hr IV Q12H [facility] Sodium Chloride (0.9 % Sodium Chloride Flush 3 Ml Syringe) 3 ml IVFLUSH QSHIFT ROSITA Home Medications Medication Instructions Recorded Confirmed Last Taken Type No Known Home Meds 02/02/23 02/02/23 Unknown History Physical Exam Vital Signs: Vital Signs: Last Vital Signs Temp 98.6 F 02/02/23 01:42 Pulse 110 H 02/02/23 07:46 Resp 21 H 02/02/23 07:46 BP 119/88 02/02/23 07:46 Pulse Ox 99 02/02/23 07:46 O2 Del Method Room Air 02/02/23 07:46 BMI result Body Mass Index 30.1 Extrem: Other: exam difficult as patient is only partially responsive to verbal cues. She is arousable. Her left hand has a wound over the palmar crease just ulnar to the thenar emminenece. Sensation is grossly intact and she can move her digits although painful. She has minimal pain wiht passive stretch and the flexor compartment appears unaffected. There is swelling of the thenar emminence and pain with palpation. Results Labs 02/02/23 01:18 02/02/23 01:18 Labs: Abnormal lab results 02/02/23 02/02/23 Range/Units 01:18 04:16 WBC 14.4 H (4.8-10.8) X10*3/uL MCH 26.4 L (27.0-33.0) pg Immature Gran % (Auto) 0.6 H (0.0-0.4) % Neut % (Auto) 80.6 H (45-73) % Lymph % (Auto) 10.3 L (20-40) % Abs Immat Gran (auto) 0.09 H (0.00-0.03) X10*3/uL Absolute Neuts (auto) 11.6 H (2.0-8.3) x10*3/uL C-Reactive Protein 0.57 H (< or = 0.50) mg/dL Urine Opiates Screen POSITIVE H (Not Detect) Urine Fentanyl Screen POSITIVE H (Not Detect) Urine Cocaine Screen POSITIVE H (Not Detect) H & H 02/02/23 Range/Units 01:18 Hgb 12.4 (12.0-16.0) g/dl Hct 38.7 (37.0-47.0) % All other labs normal. Assessment and Plan (1) Bite by animal: Status: Acute Plan Dog bite with swelling No apparent tendon or nerve injury although exam difficult 2/2 patient somnulence Thenar emminence swollen but not obviosuly infected I recommend splint immobilization and elevation and continue IV abx Will eval again to insure swelling improved and should be NPO after midnight in case it worsens Time Spent With Patient Time: Total time managing care of this patient today ____ minutes. Procedures Date of Service Date of Service: 02/02/23
--- NOTE | 2023-02-02 09:47 | PC.NURSE ---
SPLINT APPLIED BY ELLY DUMONT
--- NOTE | 2023-02-02 13:01 | PM.EVENT ---
Event Note Date of Service: 02/02/23 Event Note: Date of service at discharge: 02/02/23 discharge summary: Final diagnosis: Hand cellulitis Polysubstance use. Patient was admitted for left hand cellulitis after dog bite : Started on IV antibiotic and blood cultures sent-seen by Ortho plan was to re-evaluate in the morning if does not improve she needs surgical procedure, in addition patient's urine is also positive for cocaine, opioids, fentanyl. Patient came to the floor this morning and decided to go against medical advice-she said she wants to go to her (could not explain the reason). She understand the risk of leaving against medical advice including worsening of her hand infection as well as says progressed to sepsis, limb loss, even . She also refused to talk to the Addiction Team. Told when she was leaving we can give p.o. antibiotic but not as good as IV. Also told her to go to nearest emergency room and get further treatment for her cellulitis . She understands the risks fully, alert oriented x3, able to repeat to be back. She decided to leave AMA. Staff was present during above conversation. Time Spent With Patient Time: Total time managing care of this patient today ____ minutes.
--- NOTE | 2023-02-02 13:01 | PC.NURSE ---
Patient left AMA, said she is concerned about her partner who uses drugs, and hasn't picked up her calls. Nurse co supervisor grounds and landscape and MD are aware. MD and myself tried to educate the patient about the health risks of leaving AMA. The patient left at 12:55pm.
--- NOTE | 2023-02-02 13:40 | MHC.RECOVRN ---
This health science writer received addiction consult. Pt admitted for dog bite infection. Pt UDS positive opiates, fentanyl, tess. Upon chart review, pt states only smokes cannabis. This health science writer went to meet with patient, patient had left AMA.
== END 2023-02-02 12:55 | disposition left against medical advice (07) | DRG 383 ==
LOC: HO.ED 02-02 01:46 → HO.EDOVER 02-02 01:56 → HO.S3 02-02 08:43
PROVIDERS: Admitting Provider Internal Medicine; Emergency Provider Emergency Medicine; Visit Provider Internal Medicine
DX: L03.114 Cellulitis of left upper limb (principal); I47.10 Supraventricular tachycardia, unspecified; S60.572A Other superficial bite of hand of left hand, initial encounter; W54.0XXA Bitten by dog, initial encounter; Z88.0 Allergy status to penicillin; Z23 Encounter for immunization; Z20.3 Contact with and (suspected) exposure to rabies
CPT/HCPCS: 36415; 73130; 80048; 80307; 83605; 85025; 85652; 86140; 87040; 90375; 90675; 90715; 93005; 99221; 99285; J0696; J1885; J2270; J2405

== ENCOUNTER → 2023-02-02 01:52 | Outpatient (BNV) | payer MEDICAID, SELFPAY | PROVIDERS: Admitting Provider Internal Medicine; Emergency Provider Emergency Medicine; Visit Provider Orthopaedic Surgery | DX: T14.8XXA Other injury of unspecified body region, initial encounter (principal) | CPT/HCPCS: 99223 ==

== ENCOUNTER → 2023-02-02 01:52 | Outpatient (BNV) | payer MEDICAID, SELFPAY | PROVIDERS: Admitting Provider Internal Medicine; Emergency Provider Emergency Medicine; Visit Provider Internal Medicine | DX: L03.114 Cellulitis of left upper limb (principal); S61.452A Open bite of left hand, initial encounter; W54.0XXA Bitten by dog, initial encounter | CPT/HCPCS: 99222; 99499 ==

== ENCOUNTER 2023-02-03 09:51 | Inpatient (IN) | payer MEDICAID, SELFPAY ==
[2023-02-03 10:35] VITALS: BP 118/80; BP 124/80; PULSE 104; PULSE 114; RESP 15; TEMP 36.5; O2SAT 100; O2SAT 98; BMI 31.0
--- NOTE | 2023-02-03 11:10 | ED_ITS ---
HPI - General Adult General Chief complaint: General Medical Stated complaint: dog bite Time Seen by Provider: 02/03/23 11:10 Source: patient, EMS, RN notes reviewed and old records reviewed Mode of arrival: EMS Limitations: no limitations History of Present Illness HPI narrative: 27 year old female with pmhx significant for polysubstance abuse presents to the ED today via EMS with left hand pain/ swelling s/p dog bite yesterday at 0430. Endorses dog bite to left hand by straclarence rebolledobull with unknown vaccination status. She was [place] [facility] [place] where she received IV antibiotics and rabies vaccination. She was evaluated by the orthopedic surgery team and was admitted to medicine for cellulitis with developing tenosynovitis for treatment with IV antibiotics however left AMA to go find my . She presents this morning with increased heart rate (noted to be 150 bpm at home) and worsening pain/ swelling of the left hand, now extending to her left wrist and forearm. Rates pain 10/10, worse with movement of the hand. Denies any drainage from the wound. Endorses nausea without vomiting. Denies fever, chills, chest pain, SOB, left elbow or left shoulder pain. Endorses occasional cocaine use. Denies IVDU. Related Data Previous Rx's Medication Instructions Recorded cefuroxime axetil 500 mg tablet 500 mg PO Q12H #14 tabs 02/03/23 metronidazole 500 mg tablet 500 mg PO Q12H #14 tabs 02/03/23 Allergies Allergy/AdvReac Type Severity Reaction Status Date / Time adhesive tape [ADHESIVE TAPE] Allergy Unknown UNKNOWN Verified 02/02/23 01:22 Anesthetics - Gm Type- AdvReac Severe heart rate Verified 02/02/23 01:22 Parabens drops [ANESTHETICS - GM TYPE] amoxicillin AdvReac Anaphylaxis Verified 02/02/23 01:22 unspecified anesthetic Allergy Unknown lowers Uncoded 03/16/19 00:00 heart rate Review of Systems 2 Review of Systems: Constitutional: No fever, chills, fatigue, night sweats, weight changes ENT/Mouth: No ear pain, hearing loss, nasal congestion, sinus pain, rhinorrhea, sore throat Eyes: No eye pain, swelling, redness, vision changes, discharge Cardio: No chest pain, palpitations, CESPEDES, orthopnea, peripheral edema Pulm: No SOB, cough, sputum, wheezing, dyspnea, hemoptysis GI: + nausea, No vomiting, hematemesis, abdominal pain, diarrhea, constipation, hematochezia, melena : No irregular bleeding, dysuria, frequency, urgency, hesitancy, hematuria, flank pain, urinary flow changes, urinary incontinence or retention MSK: No back pain, neck pain, + left hand/wrist/forearm pain Skin: No lesions, rashes Neuro: No weakness, numbness, paresthesias, LOC, dizziness, headache All other systems reviewed and are negative. [facility] Past Medical History Attestation statement: The following information was validated with the patient. Source: old records reviewed and nursing notes reviewed Medical History Diverticula of colon Colostomy hernia Hernia SVT (supraventricular tachycardia) Surgical History History of colostomy reversal History of reversal of ileostomy Hx of ileostomy Social History Social History Household Members: Spouse Housing: Apartment Do you presently have visiting nurse or other home services: No Alcohol intake: current Alcohol intake frequency: holidays/special occasions only Patient Tobacco Use Status: Never used Tobacco Smoked in Last 30 Days: No Use of substances other than those prescribed or required for medical reasons: Yes Substance Use Type: Marijuana Advance Directives: No Advance Directives Information Provided: No Nutrition Risks: No Nutritional Risk Patient : No Physical Exam ED Vital Signs: Vital Signs - 24 hr 02/03/23 10:35 02/03/23 12:16 Temperature 97.7 F 98.7 F Pulse Rate 104 H 80 Respiratory Rate 15 14 Blood Pressure 124/80 118/77 Pulse Oximetry 100 100 Oxygen Delivery Method Room Air Room Air BMI result Body Mass Index 31.0 Patient initially tachycardic to 104. Normotensive and afebrile. Const General: cooperative, no acute distress, alert, awake and poor hygiene Orientation/consciousness: patient oriented x3 Limitations: no limitations HENMT Head: Yes normal to inspection Ears: hearing grossly normal bilaterally Eyes General: appearance normal, both eyes and all related structures Pupils: Equal, round and reactive pupils present EOM: EOMs intact bilaterally Neck Neck: Yes normal visual inspection Resp Effort & Inspection: normal respiratory effort and able to speak in complete sentences Auscultation: clear to auscultation bilaterally Cardio Rate: regular rate Rhythm: regular rhythm Heart sounds: S1 normal heart sound present and S2 normal heart sound present Peripheral pulses: Peripheral pulses 2+ throughout Back/Spine/Pelvis Other: No midline spinous tenderness. No step off deformity. Skin Other: + Refer to images below + Left hand with significant edema, erythema, and warmth extending from finger tips to mid-forearm. No lymphangitis. + Puncture wound noted to dorsum of left hand with a second puncture wound noted to the palmar aspect of the left hand at the base of the 4th digit without fluctuance, drainage, or pointing. Abrasion to the palmar aspect of left hand. No active bleeding. Rashes: no rashes Neuro General: patient oriented x3 and gait normal Cranial nerves: Yes Equal, round and reactive pupils present Extrem Other: + Refer to images below + Limited ROM of left fingers due to swelling. Unable to close left fist + 2+ radial pulses b/l + Capillary refill <2 seconds to b/l UE Psych Other: + Somnolent but easily arousable Appearance: disheveled Course Course Course Narrative: 1205-- CBC with leukocytosis to 12.8 with left shift. Chemistry without acute electrolyte abnormalities requiring intervention. Lactic acid 0.8. COVID negative. > Xray of left hand obtained yesterday without osseous abnormality however show significant soft tissue swelling. There is no need to repeat imaging at this time. > Patient initially tachycardic to 104 however now normalized. She is normotensive and afebrile. I do not suspect sepsis. > Patient receiving IV ceftriaxone and flagyl at this time and toradol and tylenol for pain. 1239-- Discussed case with supervising Dominique CHONG. I consulted Brendan Mullins (ARLETTE) and Dr. Myles with orthopedic surgery who evaluated patient in ED and agree that this patient would benefit from admission to medicine for IV antibiotic therapy. > Discussed case with hospitalist Dr. Souza and Marina Matos (ARLETTE) who agree to admit patient to medicine for cellulitis and IV antibiotic therapy. Marina Matos to put in admission orders. Medications Administered Discontinued Medications Generic Name Dose Route Start Last Admin Trade Name Freq PRN Reason Stop Dose Admin Acetaminophen 650 mg 02/03/23 12:23 02/03/23 12:39 Acetaminophen 325 Mg Tablet PO 02/03/23 12:24 650 mg ONCE ONE Administration Ceftriaxone Sodium 2 gm/ 50 mls @ 100 mls/hr 02/03/23 11:35 02/03/23 12:40 Sodium Chloride IV 02/03/23 12:04 Infused ONCE ONE Infusion Metronidazole 500 mg in 100 mls @ 100 mls/hr 02/03/23 11:35 02/03/23 13:38 Flagyl IV 02/03/23 12:34 Infused ONCE ONE Infusion Vancomycin HCl 2,000 mg in 500 mls @ 250 mls/hr 02/03/23 13:45 02/03/23 17:07 Vancomycin/Ns IV 02/03/23 15:44 Infused ONCE ONE Infusion Ibuprofen 600 mg 02/03/23 10:46 02/03/23 10:49 Ibuprofen 600 Mg Tablet PO 02/03/23 10:47 600 mg ONCE ONE Administration Ketorolac Tromethamine 30 mg 02/03/23 12:23 02/03/23 12:38 Ketorolac Tromethamine 30 Mg/Ml Vial IVPUSH 02/03/23 12:24 30 mg ONCE ONE Administration Morphine Sulfate 2 mg 02/03/23 13:18 02/03/23 14:29 Morphine Sulfate 4 Mg/Ml Cartridge IVPUSH 2 mg Q4H PRN Administration Pain, Severe (Pain Scale 7-10) Protocol Ondansetron HCl 4 mg 02/03/23 10:42 02/03/23 10:45 Ondansetron Odt 4 Mg Tab.Rapdis TRANSLINGU 02/03/23 10:43 4 mg ONCE ONE Administration Sodium Chloride 3 ml 02/03/23 16:00 02/03/23 15:06 0.9 % Sodium Chloride Flush 3 Ml Syringe IVFLUSH Not Given QSHIFT [facility] Medical Decision Making Medical Decision Making MDM Narrative: 27 year old female with pmhx significant for polysubstance abuse presents to the ED today via EMS with left hand pain/ swelling s/p dog bite yesterday at 0430. Patient initially tachycardic to 104, now HR has normalized. She is normotensive and afebrile. Patient appears disheveled and somnolent however easily arousable. AOX3. Left hand with significant edema, erythema, and warmth extending from finger tips to mid-forearm. Puncture wound noted to dorsum of left hand with a second puncture wound noted to the palmar aspect of the left hand at the base of the 4th digit without fluctuance, drainage, or pointing. Abrasion to the palmar aspect of left hand. No active bleeding. Limited ROM of left fingers due to swelling with inability to close left fist. NV intact distally. Exam non focal. Clinical concern for cellulitis, tenosynovitis, abscess. Plan at this time is to obtain labs, give IV abx/ pain control, consult orthopedics/hospitalist and present for re-admission. Differential Diagnosis Differential Diagnoses: The differential diagnosis associated with the presentation includes As above. Admission/Observation Consideration of admission/observation: Escalation of care including admission/observation considered Patient admitted to medicine to receive intravenous antibiotics for cellulitis. Consult Healthcare Provider Management of the patient was discussed with: Hospitalist (Dr. Souza, Marina Matos (ARLETTE)) and Skein Winder (Orthopedic surgery (Brendan Mullins and Dr. Myles)) Lab Data MDM Lab Attestation statement: I reviewed the patient's lab results. As above. 02/03/23 12:03 02/03/23 12:03 Labs: Lab Results 02/03/23 Range/Units 12:03 WBC 12.8 H (4.8-10.8) X10*3/uL RBC 4.65 (4.20-5.50) X10*6/uL Hgb 12.3 (12.0-16.0) g/dl Hct 38.9 (37.0-47.0) % MCV 83.7 (80.0-98.0) fL MCH 26.5 L (27.0-33.0) pg MCHC 31.6 (31.0-35.0) g/dl RDW 14.7 (11.0-16.0) % Plt Count 273 (160-400) X10*3/uL MPV 12.1 (9.4-12.3) fL Immature Gran % (Auto) 0.5 H (0.0-0.4) % Neut % (Auto) 82.6 H (45-73) % Lymph % (Auto) 9.2 L (20-40) % [place] % (Auto) 6.9 (2-11) % Eos % (Auto) 0.6 (0-4) % Baso % (Auto) 0.2 (0-2) % Lymph # (Auto) 1.2 (1.2-4.9) X10*3/uL [place] # (Auto) 0.9 (0.1-1.2) X10*3/uL Eos # (Auto) 0.1 (0.0-0.4) X10*3/uL Baso # (Auto) 0.0 (0.0-0.2) X10*3/uL Abs Immat Gran (auto) 0.07 H (0.00-0.03) X10*3/uL Absolute Neuts (auto) 10.6 H (2.0-8.3) x10*3/uL Absolute Nucleated RBC 0.000 (0.0-0.012) X10*3/uL Nucleated RBC % (auto) 0.0 (0.0-0.2) /100WBC Sodium 137 (135-145) mmol/L Potassium 4.0 (3.3-5.1) mmol/L Chloride 107 (96-108) mmol/L Carbon Dioxide 22 (22-29) mmol/L Anion Gap 12 (12-20) BUN 8 L (9-16) mg/dL Creatinine 0.69 (0.5-1.4) mg/dL Estim Creat Clear Calc 125.5 Estimated GFR > 60 Random Glucose 93 (60-115) mg/dL Lactic Acid 0.8 (0.5-2.0) mmol/L Calcium 9.1 D (8.4-10.2) mg/dL Magnesium 2.1 (1.6-2.6) mg/dL Total Bilirubin 0.5 (0.0-1.0) mg/dL AST 14 (5-31) U/L ALT 12 (0-31) U/L Alkaline Phosphatase 49 (39-117) U/L Total Protein 6.9 (6.5-8.0) g/dL Albumin 3.9 (3.5-5.0) g/dL COVID-19 (MENG) Negative (Negative) COVID-19 Clin Com See Note External Record Review External record reviewed: Inpatient record Prescription Management I considered prescription management with: Pain Medication and Antibiotic Chronic Conditions Patient?s care impacted by: Other (polysubstance abuse) Social Determinants Patient?s care significantly limited by Social Determinants of Health including: Low income, Alcoholism and drug addiction in family, Problems related to primary support group and Other Social Determinant of Health Critical Care Time Critical Care Time Critical Care Time: Yes Total Critical Care Time: 60 Attestation: Critical care time in the amount of 60 minutes has been provided to the patient in terms of direct patient care, frequent reevaluation, consultation with hospitalist and orthopedic surgery, review and interpretation of medical data and results, and management of potentially life-threatening conditions. This is all outside of any medical procedures. Discharge Plan Discharge Clinical Impression: Bite by animal, Cellulitis Patient Disposition: Left Against Medical Advice Interventions: ED Discharge Assessment Last Done: 02/03/23 17:19 Discharge Date/Time: 02/03/23 18:02
[2023-02-03 12:16] VITALS: BP 118/77; PULSE 80; RESP 14; TEMP 37.1; O2SAT 100
[2023-02-03 12:18] VITALS: PULSE 86
--- NOTE | 2023-02-03 12:19 | PC.NURSE ---
pt a&ox4, vss, air sampling and monitoring applied - NSR, reporting increased 10/10 pain/swelling/warmth to left hand, seen at ED yesterday for same - left AMA, prior plan for sx consult. 20G IV right hand placed by EMS, delay in abx due to add on blood cultures, tech at bedside drawing cultures. medicated per JUN. no new orders at this time.
[2023-02-03 12:33] LABS: Alanine Aminotransferase 12 U/L (0-31); Albumin Level 3.9 g/dL (3.5-5.0); Alkaline Phosphatase 49 U/L (39-117); Anion Gap 12 (12-20); Aspartate Amino Transferase 14 U/L (5-31); Bilirubin Total 0.5 mg/dL (0.0-1.0); Blood Urea Nitrogen 8 mg/dL (9-16); Calcium 9.1 mg/dL (8.4-10.2); Carbon Dioxide 22 mmol/L (22-29); Chloride 107 mmol/L (96-108); Creatinine Clr Calc Pharmacy 125.5; Estimated Glomerular Filt Rate > 60; Glucose Random 93 mg/dL (60-115); Magnesium 2.1 mg/dL (1.6-2.6); Sodium 137 mmol/L (135-145); Total Protein 6.9 g/dL (6.5-8.0)
--- NOTE | 2023-02-03 13:33 | P.HPHOSP_ITS ---
History of Present Illness Date of Service: 02/03/23 Attending physician on admission: [facility] Chief Complaint: dog bite, hand swelling/infection 27-year-old female with history of polysubstance abuse presents to the ED for evaluation of dog bite to the left hand that occurred yesterday morning. She was admitted to Medicine for management of cellulitis related to dog bite yesterday and left against medical advice later that day. She return to the ED earlier today for re-evaluation with worsening erythema and swelling of the left hand. Patient reports she did not know the dog or vaccination status and was given rabies vaccine and tetanus updated while in the ED yesterday. X-ray of the left hand yesterday did not reveal any acute osseous abnormality but showed soft tissue swelling along the dorsum of the hand. She was evaluated by Orthopedic surgery yesterday who did not appreciate any abscess but recommended admission for IV antibiotics. While in the ED yesterday, urine tox screen positive for cocaine, fentanyl, opiates. Patient today denies any IV drug use but does endorse occasional cocaine use as well as marijuana. She is endorsing worsening pain and swelling of the left hand with erythema spreading to the forearm. In the ED, vital stable, no fevers. There is a leukocytosis of 12.8. Renal function and electrolyte levels normal. COVID-19 negative. In the ED, received IV ceftriaxone and Flagyl as well as IV ketorolac and acetaminophen. She is still rating her pain a 10/10. She is here today with her who is disheveled and somnolant but arousable in the exam room. Review of Systems 2 Review of Systems: General: No fevers, malaise, unintentional weight loss Cardiovascular: No chest pain, palpitations, or leg edema Respiratory: No shortness of breath, wheezing, cough GI: No abdominal pain, nausea, vomiting, diarrhea, constipation, melena, hematochezia : No dysuria, hematuria, increased urinary frequency, decreased urinary output MSK: No myalgia, back pain Neuro: No headaches, weakness, paresthesias Skin: +redness, +warmth, +swelling left hand PMFSH Medical History Diverticula of colon Colostomy hernia Hernia SVT (supraventricular tachycardia) Surgical History History of colostomy reversal History of reversal of ileostomy Hx of ileostomy Social History Household Members: Spouse Housing: Apartment Do you presently have visiting nurse or other home services: No Alcohol intake: current Alcohol intake frequency: holidays/special occasions only Patient Tobacco Use Status: Never used Tobacco Smoked in Last 30 Days: No Use of substances other than those prescribed or required for medical reasons: Yes Substance Use Type: Marijuana Advance Directives: No Advance Directives Information Provided: No Patient : No Meds Allergies Allergy/AdvReac Type Severity Reaction Status Date / Time adhesive tape [ADHESIVE TAPE] Allergy Unknown UNKNOWN Verified 02/02/23 01:22 Anesthetics - Gm Type- AdvReac Severe heart rate Verified 02/02/23 01:22 Parabens drops [ANESTHETICS - GM TYPE] amoxicillin AdvReac Anaphylaxis Verified 02/02/23 01:22 unspecified anesthetic Allergy Unknown lowers Uncoded 03/16/19 00:00 heart rate Home Medications Medication Instructions Recorded Confirmed Last Taken Type No Known Home Meds 02/02/23 02/02/23 Unknown History Physical Exam 2 Vital Signs and Narrative: Vital Signs: Last Vital Signs Temp 98.7 F 02/03/23 12:16 Pulse 80 02/03/23 12:16 Resp 14 02/03/23 12:16 BP 118/77 02/03/23 12:16 Pulse Ox 100 02/03/23 12:16 O2 Del Method Room Air 02/03/23 12:16 BMI result Body Mass Index 31.0 Constitutional - Awake and Alert, No apparent distress Eyes - PERRLA, EOMI Cardiovascular - S1S2, RRR, No edema. 2+ radial pulses Respiratory - Normal lung expansion, Normal respiratory effort, No respiratory distress, CTA bilaterally Extremities - no calf tenderness bilaterally, no swelling MSK - see below. Unable to close left fist with limited rom fingers 2/2 swelling Skin - Significant swelling left hand with erythema and warmth extending the mid forearm with punture wound to the dorsum of the hand without purulent drainage or fluctuance. The palmar aspect of the hand has puncture wound at the base of the 4th finger and abrasion Neurological - Alert & oriented x3, sensation in tact Psychological - Appropriate affect Results Labs 02/03/23 12:03 02/03/23 12:03 Labs: Laboratory Results - last 24 hr 02/03/23 12:03 MCV 83.7 MCH 26.5 L MCHC 31.6 RDW 14.7 Plt Count 273 MPV 12.1 Immature Gran % (Auto) 0.5 H Neut % (Auto) 82.6 H Lymph % (Auto) 9.2 L [place] % (Auto) 6.9 Eos % (Auto) 0.6 Baso % (Auto) 0.2 Lymph # (Auto) 1.2 [place] # (Auto) 0.9 Eos # (Auto) 0.1 Baso # (Auto) 0.0 Abs Immat Gran (auto) 0.07 H Absolute Neuts (auto) 10.6 H Absolute Nucleated RBC 0.000 Nucleated RBC % (auto) 0.0 Anion Gap 12 Estim Creat Clear Calc 125.5 Estimated GFR > 60 Random Glucose 93 Lactic Acid 0.8 Calcium 9.1 D Magnesium 2.1 Total Bilirubin 0.5 AST 14 ALT 12 Alkaline Phosphatase 49 Total Protein 6.9 Albumin 3.9 COVID-19 (MENG) Negative COVID-19 Clin Com See Note Assessment and Plan (1) Cellulitis: Status: Acute (2) Bite by animal: Status: Acute Plan 27-year-old female with history of polysubstance abuse admitted for cellulitis left hand secondary to dog bite #Cellulitis LUE due to dog bite -received initial rabies vaccine in ED, tetanus updated 02/02 -Requires follow up rabies vaccines on D3 (02/05), D7 (02/09), and D14 (02/16) -IV vancomycin, ceftriaxone, and Flagyl (patient is penicillin allergic)- initiated 02/03 -pain management p.r.n. -appreciate orthopedic surgery input -per Orthopedic surgery, no abscess appreciated. Hold on further imaging -follow CBC, cultures # polysubstance abuse -patient admits to cocaine use -urine tox screen positive for cocaine, opiates, fentanyl -addiction medicine consult DVT prophylaxis- SCPs, early ambulation Full code Pt requires inpatient stay at least 2 midnights for management of acute extensive cellulitis of the left upper extremity secondary to dog bite with significantly limited range of motion requiring IV antibiotics and close monitoring with x-ray consultation Time Spent With Patient Time: Total time managing care of this patient today ____ minutes. Quality Stroke Does the patient have a stroke diagnosis?: No VTE Prior VTE?: No VTE Risk Level:: Medical - moderate - high VTE Device Contraindication: N/A - Device Ordered VTE Drug Contraindication: Treatment Not Indicated
--- NOTE | 2023-02-03 14:19 | PM.CNOR ---
History of Present Illness HPI Consult date: 02/03/23 Chief complaint: cellulitis dog bite Narrative: 27 yo female with h/o IVDU who sustained a dog bite to the left hand 2 days ago. She noticed increased pain and swelling - she was seen in the ED 1 day ago received iv abx and left AMA. She returns today with worsening pain. She was given another dose of iv abx and admitted to the medical service and orthopedics was consulted for further recommendations. Review of Systems Review of Systems: Yes all other systems are reviewed and are negative [facility] Past Medical History Medical History Diverticula of colon Colostomy hernia Hernia SVT (supraventricular tachycardia) Surgical History Surgical History History of colostomy reversal History of reversal of ileostomy Hx of ileostomy Social History Social History Household Members: Spouse Housing: Apartment Do you presently have visiting nurse or other home services: No Alcohol intake: current Alcohol intake frequency: holidays/special occasions only Patient Tobacco Use Status: Never used Tobacco Smoked in Last 30 Days: No Use of substances other than those prescribed or required for medical reasons: Yes Substance Use Type: Marijuana Advance Directives: No Advance Directives Information Provided: No Nutrition Risks: No Nutritional Risk Patient : No Meds Allergies Allergy/AdvReac Type Severity Reaction Status Date / Time adhesive tape [ADHESIVE TAPE] Allergy Unknown UNKNOWN Verified 02/02/23 01:22 Anesthetics - Gm Type- AdvReac Severe heart rate Verified 02/02/23 01:22 Parabens drops [ANESTHETICS - GM TYPE] amoxicillin AdvReac Anaphylaxis Verified 02/02/23 01:22 unspecified anesthetic Allergy Unknown lowers Uncoded 03/16/19 00:00 heart rate Active Medications: Current Medications Acetaminophen (Acetaminophen 325 Mg Tablet) 650 mg PO Q6H PRN PRN Reason: Pain, Mild (Pain Scale 1-3) Docusate Sodium (Docusate Sodium 100 Mg Capsule) 100 mg PO DAILY PRN PRN Reason: Constipation Vancomycin HCl (Vancomycin/Ns) 2,000 mg in 500 mls @ 250 mls/hr IV ONCE ONE Stop: 02/03/23 15:44 Ceftriaxone Sodium 1 gm/ (Sodium Chloride) 50 mls @ 100 mls/hr IV Q24H RSOITA Metronidazole (Flagyl) 500 mg in 100 mls @ 100 mls/hr IV Q12H ROSITA Ketorolac Tromethamine (Ketorolac Tromethamine 30 Mg/Ml Vial) 15 mg IVPUSH Q6H PRN PRN Reason: Pain, Moderate(Pain Scale 4-6) Stop: 02/08/23 13:17 Morphine Sulfate (Morphine Sulfate 4 Mg/Ml Cartridge) 2 mg IVPUSH Q4H PRN; Protocol PRN Reason: Pain, Severe (Pain Scale 7-10) Ondansetron HCl (Ondansetron Hcl 4 Mg/2 Ml Vial) 4 mg IVPUSH Q8H PRN PRN Reason: Nausea and Vomiting Pharmacy Consult (Consult Rx Vancomycin Dosing) 1 each MISCELLANE DAILY PRN PRN Reason: Consult order Sodium Chloride (0.9 % Sodium Chloride Flush 3 Ml Syringe) 3 ml IVFLUSH QSHIFT ROSITA Physical Exam Vital Signs: Vital Signs: Last Vital Signs Temp 98.7 F 02/03/23 12:16 Pulse 80 02/03/23 12:16 Resp 14 02/03/23 12:16 BP 118/77 02/03/23 12:16 Pulse Ox 100 02/03/23 12:16 O2 Del Method Room Air 02/03/23 12:16 BMI result Body Mass Index 31.0 Const: General: cooperative and no acute distress Orientation/consciousness: patient oriented x3 Resp: Effort & Inspection: normal respiratory effort and able to speak in complete sentences Cardio: Peripheral pulses: Peripheral pulses 2+ throughout Neuro: General: patient oriented x3 Extrem: Other: Left hand puncture wound on the palmar aspect of the hand and also on the dorsum of the hand. There is diffuse swelling and redness throughout hte hand - no localized abscess noted. No fluctulance. She has pain with flex/ext of the digits, pulses present. Results Labs 02/03/23 12:03 02/03/23 12:03 Labs: Abnormal lab results 02/03/23 Range/Units 12:03 WBC 12.8 H (4.8-10.8) X10*3/uL MCH 26.5 L (27.0-33.0) pg Immature Gran % (Auto) 0.5 H (0.0-0.4) % Neut % (Auto) 82.6 H (45-73) % Lymph % (Auto) 9.2 L (20-40) % Abs Immat Gran (auto) 0.07 H (0.00-0.03) X10*3/uL Absolute Neuts (auto) 10.6 H (2.0-8.3) x10*3/uL BUN 8 L (9-16) mg/dL H & H 02/03/23 Range/Units 12:03 Hgb 12.3 (12.0-16.0) g/dl Hct 38.9 (37.0-47.0) % All other labs normal. Assessment and Plan (1) Cellulitis: Status: Acute (2) Bite by animal: Status: Acute Plan Continue IV abx-splint for comfort -no surgical intervention at this time as there is no evidence of obvious abscess formation -will continue to follow Time Spent With Patient Time: Total time managing care of this patient today ____ minutes. Procedures Date of Service Date of Service: 02/03/23
--- NOTE | 2023-02-03 14:41 | PHA.MEDREC ---
Pharmacy Consult ? Medication Reconciliation Pharmacy has completed the medication reconciliation. Patient reports no medications at home.
[2023-02-03 14:58] VITALS: BP 109/58; PULSE 84; RESP 15; TEMP 36.4
--- NOTE | 2023-02-03 17:06 | PC.NURSE ---
pt requesting to leave AMA, advised by this RN and ED provider of risks. admitting provider notified.
--- NOTE | 2023-02-03 17:23 | PC.NURSE ---
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 IV removed, splint placed by ortho intact.
--- NOTE | 2023-02-03 17:34 | PM.DS ---
DS: Providers Provider Date of Service: 02/03/23 <ARLETTE Hernandez - Last Filed: 02/03/23 17:38> Date of admission: 02/03/23 13:12 <ARLETTE Hernandez - Last Filed: 02/03/23 17:38> Date of discharge: 02/03/23 <ARLETTE Hernandez - Last Filed: 02/03/23 17:38> Primary care physician: None Physician <ARLETTE Hernandez - Last Filed: 02/03/23 17:38> Admitting clinician: Marina Matos <ARLETTE Hernandez - Last Filed: 02/03/23 17:38> Attending physician on admission: Yang Beebe <ARLETTE Hernandez - Last Filed: 02/03/23 17:38> Consults: 02/03/23 12:53 Consult to Orthopedics Routine Consulting Provider: [facility] Reason for consultation: hand cellulitis, dog bite 02/03/23 13:51 Addiction Medicine Routine Consulting Provider: Addiction Covering Reason for consultation: polysubstance abuse <ARLETTE Hernandez - Last Filed: 02/03/23 17:38> Attending physician on discharge: Landry Souza <ARLETTE Hernandez - Last Filed: 02/03/23 17:38> Discharging clinician: Marina Matos <ARLETTE Hernandez - Last Filed: 02/03/23 17:38> DS: Diagnosis Discharge Diagnosis (1) Cellulitis: Status: Acute <ARLETTE Hernandez - Last Filed: 02/03/23 17:38> (2) Bite by animal: Status: Acute <ARLETTE Hernandez - Last Filed: 02/03/23 17:38> DS: Summary Hospital Course Hospital Course: HPI and admission by this author 02/03/2023: 27-year-old female with history of polysubstance abuse presents to the ED for evaluation of dog bite to the left hand that occurred yesterday morning. She was admitted to Medicine for management of cellulitis related to dog bite yesterday and left against medical advice later that day. She return to the ED earlier today for re-evaluation with worsening erythema and swelling of the left hand. Patient reports she did not know the dog or vaccination status and was given rabies vaccine and tetanus updated while in the ED yesterday. X-ray of the left hand yesterday did not reveal any acute osseous abnormality but showed soft tissue swelling along the dorsum of the hand. She was evaluated by Orthopedic surgery yesterday who did not appreciate any abscess but recommended admission for IV antibiotics. While in the ED yesterday, urine tox screen positive for cocaine, fentanyl, opiates. Patient today denies any IV drug use but does endorse occasional cocaine use as well as marijuana. She is endorsing worsening pain and swelling of the left hand with erythema spreading to the forearm. In the ED, vital stable, no fevers. There is a leukocytosis of 12.8. Renal function and electrolyte levels normal. COVID-19 negative. In the ED, received IV ceftriaxone and Flagyl as well as IV ketorolac and acetaminophen. She is still rating her pain a 10/10. She is here today with her who is disheveled and somnolant but arousable in the exam room. Hospital course: Patient readmitted for IV antibiotics for management of worsening cellulitis of the left upper extremity related to dog bite after leaving against medical advice yesterday. She was admitted on ceftriaxone and Flagyl. Unfortunately, patient is again leaving against medical advice. She has been educated on the risks of worsening infection, sepsis, bacteremia, loss of limb, or . She has signed AMA form. She is alert and oriented x3 and expresses understanding. Advised to return for worsening symptoms. Prescriptions for cefuroxime 500 mg b.i.d. and Flagyl 500 mg b.i.d. sent to pharmacy. <ARLETTE Hernandez - Last Filed: 02/03/23 17:38> Status at Discharge Functional status at discharge: independent ambulation <ARLETTE Hernandez - Last Filed: 02/03/23 17:38> Time Spent with Patient Time attestation: Total time managing care of this patient today ____ minutes. <ARLETTE Hernandez - Last Filed: 02/03/23 17:38> Discharge coordination time: Greater than 30 minutes <ARLETTE Hernandez - Last Filed: 02/03/23 17:38> Quality: Safe Use of Opioids Does Pt have an Active Cancer Diagnosis on the Problem List?: No <ARLETTE Hernandez - Last Filed: 02/03/23 17:38> Quality: Stroke Does the patient have a stroke diagnosis?: No <ARLETTE Hernandez - Last Filed: 02/03/23 17:38> Physical Exam Vital Signs: Vital Signs: Last Vital Signs Temp 97.5 F 02/03/23 14:58 Pulse 84 02/03/23 14:58 Resp 15 02/03/23 14:58 BP 109/58 L 02/03/23 14:58 Pulse Ox 100 02/03/23 12:16 O2 Del Method Room Air 02/03/23 14:58 BMI result Body Mass Index 31.0 <ARLETTE Hernandez - Last Filed: 02/03/23 17:38> Const: Other: Alert, oriented x3 left AMA <Landry Souza MD - Last Filed: 02/13/23 07:21> DS: Data Data Completed and Pending Labs on day of discharge: Laboratory Results - last 24 hr 02/03/23 12:03 WBC 12.8 H RBC 4.65 Hgb 12.3 Hct 38.9 MCV 83.7 MCH 26.5 L MCHC 31.6 RDW 14.7 Plt Count 273 MPV 12.1 Immature Gran % (Auto) 0.5 H Neut % (Auto) 82.6 H Lymph % (Auto) 9.2 L [place] % (Auto) 6.9 Eos % (Auto) 0.6 Baso % (Auto) 0.2 Lymph # (Auto) 1.2 [place] # (Auto) 0.9 Eos # (Auto) 0.1 Baso # (Auto) 0.0 Abs Immat Gran (auto) 0.07 H Absolute Neuts (auto) 10.6 H Absolute Nucleated RBC 0.000 Nucleated RBC % (auto) 0.0 Sodium 137 Potassium 4.0 Chloride 107 Carbon Dioxide 22 Anion Gap 12 BUN 8 L Creatinine 0.69 Estim Creat Clear Calc 125.5 Estimated GFR > 60 Random Glucose 93 Lactic Acid 0.8 Calcium 9.1 D Magnesium 2.1 Total Bilirubin 0.5 AST 14 ALT 12 Alkaline Phosphatase 49 Total Protein 6.9 Albumin 3.9 COVID-19 (MENG) Negative COVID-19 Clin Com See Note <ARLETTE Hernandez - Last Filed: 02/03/23 17:38> Discharge Plan Discharge Anticipated Discharge Date/Time: 02/03/23 17:27 <ARLETTE Hernandez - Last Filed: 02/03/23 17:38> Patient Disposition: Left Against Medical Advice <ARLETTE Hernandez - Last Filed: 02/03/23 17:38> Discharge Diagnosis: Cellulitis left upper extremity, dog bite <ARLETTE Hernandez - Last Filed: 02/03/23 17:38> Cellulitis left upper extremity, dog bite <Landry Souza MD - Last Filed: 02/13/23 07:21> Referrals: Physician,None [Primary Care Provider] - 1 Week <ARLETTE Hernandez - Last Filed: 02/03/23 17:38> Discharge Medications: New metronidazole 500 mg tablet 500 mg PO Q12H Qty: 14 0RF Rx Instructions: DO NOT DRINK ALCOHOL WHILE ON MEDICATION cefuroxime axetil 500 mg tablet 500 mg PO Q12H Qty: 14 0RF <ARLETTE Hernandez - Last Filed: 02/03/23 17:38> Discharge Orders: Discharge Order (Routine); Ordered 02/03/23 Ordered By: Marina Matos <ARLETTE Hernandez - Last Filed: 02/03/23 17:38> Diet: Advance to usual diet <ARLETTE Hernandez - Last Filed: 02/03/23 17:38> Advance to usual diet <Landry Souza MD - Last Filed: 02/13/23 07:21> Activity on Discharge: As tolerated <ARLETTE Hernandez - Last Filed: 02/03/23 17:38> As tolerated <Landry Souza MD - Last Filed: 02/13/23 07:21> Stand Alone Forms: Against Medical Advice <ARLETTE Hernandez - Last Filed: 02/03/23 17:38> Care Plan Goals: YOU ARE LEAVING AGAINST MEDICAL ADVICE You have a worsening cellulitis secondary to a dog bite that requires antibiotics. I am sending you home with flagyl and cefuroxime. Take as prescribed. I do not feel these will be adequate and strongly advise you remain in the hospital for IV antibiotics as well as your rabies vaccinations. Return to the ED for any fevers, worsening erythema, swelling, pain, purulent drainage. You have been advised of the risks of leaving against medical advice which include worsening infection, sepsis, bacteremia, loss of limb, . You were also given a rabies prophylactic vaccination yesterday. You require additional rabies vaccine from our ed 02/05, 02/09, and 02/16 <ARLETTE Hernandez - Last Filed: 02/03/23 17:38> Health Concerns: as above <ARLETTE Hernandez - Last Filed: 02/03/23 17:38> Plan of Treatment: as above <ARLETTE Hernandez - Last Filed: 02/03/23 17:38> Assessment: as above <ARLETTE Hernandez - Last Filed: 02/03/23 17:38> Discharge Date/Time: 02/03/23 18:00 <ARLETTE Hernandez - Last Filed: 02/03/23 17:38>
--- NOTE | 2023-02-03 18:01 | PC.NURSE ---
pt declined to wait for paperwork. advised that medications would go to her pharmacy. pt acknowledged understand and stated she would pick them up on her way home. provider aware.
== END 2023-02-03 18:00 | disposition left against medical advice (07) | DRG 383 ==
LOC: HO.ED 11:31 → HO.EDOVER 13:37 → HO.S3 17:23 → HO.EDOVER 17:33
PROVIDERS: Physician Assistant Medical; Admitting Provider Physician Assistant; Emergency Provider Student in an Organized Health Care Education/Training Program; Visit Provider Internal Medicine
DX: L03.114 Cellulitis of left upper limb (principal); F19.10 Other psychoactive substance abuse, uncomplicated; S60.572A Other superficial bite of hand of left hand, initial encounter; W54.0XXA Bitten by dog, initial encounter; Z20.822 Contact with and (suspected) exposure to COVID-19
CPT/HCPCS: 36415; 80053; 83605; 83735; 85025; 87040; 87635; 99221; 99285; J0696; J1885; J2270; J3370

== ENCOUNTER → 2023-02-03 13:12 | Outpatient (BNV) | payer MEDICAID, SELFPAY | PROVIDERS: Admitting Provider Physician Assistant; Emergency Provider Student in an Organized Health Care Education/Training Program; Visit Provider Physician Assistant | DX: L03.90 Cellulitis, unspecified (principal); T14.8XXA Other injury of unspecified body region, initial encounter | CPT/HCPCS: 99231 ==

== ENCOUNTER → 2023-02-03 13:12 | Outpatient (BNV) | payer MEDICAID, SELFPAY | PROVIDERS: Admitting Provider Physician Assistant; Emergency Provider Student in an Organized Health Care Education/Training Program; Visit Provider Physician Assistant | DX: L03.90 Cellulitis, unspecified (principal); T14.8XXA Other injury of unspecified body region, initial encounter | CPT/HCPCS: 99223; 99239 ==

== ENCOUNTER 2023-02-04 14:05 | Emergency (ER) | payer MEDICAID, SELFPAY ==
[2023-02-04 14:15] VITALS: BP 119/78; PULSE 104; RESP 20; TEMP 37; O2SAT 99; BMI 32.1
[2023-02-04 14:44] LABS: MANUAL DIFF FLAG NO
[2023-02-04 14:45] LABS: Basophils Percent Auto 0.2 % (0-2); Eosinophils Absolute Auto 0.1 X10*3/uL (0.0-0.4); Eosinophils Percent Auto 1.2 % (0-4); Hematocrit 34.1 % (37.0-47.0); Imm Gran Abs Auto 0.06 X10*3/uL (0.00-0.03); Imm Gran Pct Auto 0.6 % (0.0-0.4); Lymphocytes Absolute Auto 0.9 X10*3/uL (1.2-4.9); Lymphocytes Percent Auto 8.4 % (20-40); Mean Corpuscular HGB Conc 32.3 g/dl (31.0-35.0); Mean Corpuscular Hemoglobin 26.4 pg (27.0-33.0); Mean Platelet Volume 11.7 fL (9.4-12.3); Monocytes Absolute Auto 0.6 X10*3/uL (0.1-1.2); Monocytes Percent Auto 5.2 % (2-11); Neutrophils Absolute Auto 9.1 x10*3/uL (2.0-8.3); Neutrophils Percent Auto 84.4 % (45-73); Platelet Count 271 X10*3/uL (160-400); Red Blood Count 4.16 X10*6/uL (4.20-5.50); Red Cell Distribution Width 14.7 % (11.0-16.0); White Blood Count 10.7 X10*3/uL (4.8-10.8)
[2023-02-04 15:05] LABS: Lactic Acid 0.9 mmol/L (0.5-2.0)
[2023-02-04 15:07] LABS: C Reactive Protein 4.52 mg/dL (< or = 0.50)
[2023-02-04 17:55] VITALS: BP 126/85; PULSE 95; RESP 18; TEMP 36.7; O2SAT 100
== END 2023-02-04 19:04 | disposition left against medical advice (07) ==
PROVIDERS: Emergency Provider Emergency Medicine
DX: M79.602 Pain in left arm (principal); Z79.899 Other long term (current) drug therapy
CPT/HCPCS: 36415; 83605; 85025; 86140; 87040; 99282; 99283

== ENCOUNTER 2023-05-31 06:38 | Emergency (ER) | payer MEDICAID, SELFPAY ==
[2023-05-31 07:13] VITALS: BP 131/77; PULSE 84; RESP 16; TEMP 36.2; O2SAT 100; BMI 29.2
--- NOTE | 2023-05-31 08:07 | ED_ITS ---
HPI - General Adult General Chief complaint: ETOH/Substance Use Stated complaint: Seeking Detox Time Seen by Provider: 05/31/23 06:49 Source: patient Mode of arrival: ambulatory History of Present Illness HPI narrative: 27-year-old female who arrives stating that she is in withdrawals from heroin and crack, she states that her last use was 6 hours ago. She denies any other medical history, denies being SI or HI and denies any fever/chills/shortness of breath/chest pain/palpitations. Related Data Previous Rx's Medication Instructions Recorded cefuroxime axetil 500 mg tablet 500 mg PO Q12H #14 tabs 02/03/23 metronidazole 500 mg tablet 500 mg PO Q12H #14 tabs 02/03/23 Allergies Allergy/AdvReac Type Severity Reaction Status Date / Time adhesive tape [ADHESIVE TAPE] Allergy Unknown UNKNOWN Verified 02/04/23 14:25 Anesthetics - Gm Type- AdvReac Severe heart rate Verified 02/04/23 14:25 Parabens drops [ANESTHETICS - GM TYPE] amoxicillin AdvReac Anaphylaxis Verified 02/04/23 14:25 unspecified anesthetic Allergy Unknown lowers Uncoded 02/04/23 14:25 heart rate Review of Systems Review of Systems: Pertinent positives and negatives as stated in HPI [facility] Past Medical History Source: nursing notes reviewed Medical History Diverticula of colon Colostomy hernia Hernia SVT (supraventricular tachycardia) Surgical History History of colostomy reversal History of reversal of ileostomy Hx of ileostomy Social History Social History Household Members: Spouse Housing: Apartment Do you presently have visiting nurse or other home services: No Alcohol intake: current Alcohol intake frequency: holidays/special occasions only Patient Tobacco Use Status: Never used Tobacco Substance Use Type: Marijuana Physical Exam ED Vital Signs: Vital Signs - 24 hr 05/31/23 07:13 Temperature 97.1 F Pulse Rate 84 Respiratory Rate 16 Blood Pressure 131/77 Pulse Oximetry 100 Oxygen Delivery Method Room Air BMI result Body Mass Index 29.2 VITAL SIGNS: Reviewed. GENERAL: Well developed, well nourished, in no acute distress. HEAD: Normocephalic/atraumatic EYES: PERRLA, EOMI EARS: Ext canals without abnormality NOSE: Nares patent bilateral OROPHARYNX: no oral lesions noted, posterior pharynx clear NECK: Supple, no adenopathy LUNGS: Normal breath sounds. No adventitious sounds or accessory muscle use. SpO2<100> CARDIOVASCULAR: Regular rate and rhythm without noted murmurs ABDOMEN: Soft, non-tender, non-distended with bowel sounds. MUSCULOSKELETAL: No tenderness, deformities, or effusions noted on gross inspection. EXTREMITIES: No cyanosis, clubbing or edema. SKIN: Inspection of the skin reveals no rashes NEUROLOGIC: Alert and oriented x 3. Strength and sensation to light touch were grossly intact x 4, cranial nerves 2-12 are grossly intact. Medical Decision Making Medical Decision Making [facility] Narrative: 27-year-old female with history and clinical presentation of polysubstance use, there are no reported or observed signs of psychiatric complaints, there are no constitutional symptoms, patient is homeless, will provide 0.1mg clonidine as well as information regarding [facility] and shelters. Review of vital signs are within normal limits. Differential Diagnosis Differential Diagnoses: The differential diagnosis associated with the presentation includes Please see the discussion above Admission/Observation Consideration of admission/observation: Escalation of care including admission/observation considered Please see the discussion above Discharge Plan Discharge Clinical Impression: Polysubstance use disorder Patient Disposition: Home, Self-Care Instructions: Polysubstance Abuse (ED) Additional Instructions: Please follow-up with the shelters and temporary housing resources that you have been provided. In addition, I highly encourage you to follow-up with the [facility], you have been provided information for this resource which is here in [place]. Return to the ER for any worsening symptoms. Prescriptions: No Action metronidazole 500 mg tablet 500 mg PO Q12H Qty: 14 0RF Rx Instructions: DO NOT DRINK ALCOHOL WHILE ON MEDICATION cefuroxime axetil 500 mg tablet 500 mg PO Q12H Qty: 14 0RF
[2023-05-31] MEDS: cloNIDine HCL 0.1 MG TABLET PO (08:20)
[2023-05-31] MEDS: Naloxone HCl Nasal TAKE HOME 4 MG SPRAY 8 MG NOSTRILALT (08:20)
[2023-05-31 08:23] VITALS: BP 127/78; PULSE 65; PULSE 95; RESP 16
--- NOTE | 2023-05-31 08:41 | PC.NURSE ---
pt discharged with take home narcan and resources for detox. pt given warm blankets and food to warm up for now. pt aware that will need to leave once bed is needed since they are already discharged.
== END 2023-05-31 09:24 | disposition home or self-care (01) ==
PROVIDERS: Emergency Provider Student in an Organized Health Care Education/Training Program
DX: F11.23 Opioid dependence with withdrawal (principal); F14.23 Cocaine dependence with withdrawal; Z79.899 Other long term (current) drug therapy; Z71.51 Drug abuse counseling and surveillance of drug abuser
CPT/HCPCS: 99284

== ENCOUNTER 2023-06-06 04:09 | Emergency (ER) | payer MEDICAID, SELFPAY ==
[2023-06-06 04:16] VITALS: BP 136/68; PULSE 110; O2SAT 99; BMI 28.6
--- NOTE | 2023-06-06 04:20 | PC.NURSE ---
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
[2023-06-06 04:23] VITALS: BP 127/81; PULSE 102; RESP 17; TEMP 37.1; O2SAT 96
--- NOTE | 2023-06-06 04:36 | ED.OVERDOSE ---
HPI - Overdose General Chief Complaint: Overdose Stated Complaint: Wants Detox Time Seen by Provider: 06/06/23 04:32 Source: patient Limitations: no limitations History of Present Illness HPI Narrative: Patient with history of polysubstance abuse heroin and cocaine been here multiple times comes here asking for help but been sleeping since he arrived patient is homeless Related Data Previous Rx's Medication Instructions Recorded cefuroxime axetil 500 mg tablet 500 mg PO Q12H #14 tabs 02/03/23 metronidazole 500 mg tablet 500 mg PO Q12H #14 tabs 02/03/23 Allergies Allergy/AdvReac Type Severity Reaction Status Date / Time adhesive tape [ADHESIVE TAPE] Allergy Unknown UNKNOWN Verified 02/04/23 14:25 Anesthetics - Gm Type- AdvReac Severe heart rate Verified 02/04/23 14:25 Parabens drops [ANESTHETICS - GM TYPE] amoxicillin AdvReac Anaphylaxis Verified 02/04/23 14:25 unspecified anesthetic Allergy Unknown lowers Uncoded 02/04/23 14:25 heart rate Review of Systems Review of Systems: Yes all other systems are reviewed and are negative [facility] Past Medical History Medical History Diverticula of colon Colostomy hernia Hernia SVT (supraventricular tachycardia) Surgical History History of colostomy reversal History of reversal of ileostomy Hx of ileostomy Social History Social History Household Members: Spouse Housing: Apartment Do you presently have visiting nurse or other home services: No Alcohol intake: current Alcohol intake frequency: a few times a week Patient Tobacco Use Status: Never used Tobacco Substance Use Type: Crack/Cocaine Last Used Substance: Just Prior to Admission Advance Directives: No Advance Directives Information Provided: No Physical Exam Vital Signs: Vital Signs: Last Vital Signs Temp 98.7 F 06/06/23 04:23 Pulse 102 H 06/06/23 04:23 Resp 17 06/06/23 04:23 BP 127/81 06/06/23 04:23 Pulse Ox 96 06/06/23 04:23 O2 Del Method Room Air 06/06/23 04:23 BMI result Body Mass Index 28.6 Appearance: Sleeping but easily arousable No acute distress. Eyes: PERRL ENT: Pharynx normal. Oral Mucosa moist Neck: Normal inspection. Neck supple. CVS: Normal heart rate and rhythm. Pulses normal. Respiratory: No respiratory distress. Equal air entry bilateral, no wheezing/rales/rhonchi Abdomen: Soft and nontender. Bowel sounds are present, no mass palpable, no CVA tenderness Skin: Skin warm and dry. Normal skin color. Normal skin turgor. Extremities: No lower extremity edema. No calf tenderness psych: Mood stable Neuro: Intoxicated no focal deficits Medical Decision Making Medical Decision Making MDM Narrative: Patient with polysubstance abuse denies any significant depression or SI does not want any detox like to sleep in the ER would like to go home when wakes up Discharge Plan Discharge Clinical Impression: Polysubstance abuse Patient Disposition: Still a Patient Instructions: Polysubstance Abuse (ED) Additional Instructions: Stop using drugs Follow-up with detox Prescriptions: No Action metronidazole 500 mg tablet 500 mg PO Q12H Qty: 14 0RF Rx Instructions: DO NOT DRINK ALCOHOL WHILE ON MEDICATION cefuroxime axetil 500 mg tablet 500 mg PO Q12H Qty: 14 0RF
[2023-06-06 06:47] VITALS: PULSE 77; O2SAT 98
[2023-06-06 07:21] VITALS: BP 102/69; PULSE 78; RESP 19; O2SAT 95
--- NOTE | 2023-06-06 09:50 | PC.NURSE ---
aox4. calm, coop. pt is now awake. eating breakfast. no resp distress. +CMS. mesaged md ward to see if pt ready for d/c as prev shift said when pt awakens can be d/c'd. attempting to call [facility] for a ride- pt is unsure of which [facility] center she goes to. no answer from [facility]
[2023-06-06 10:00] VITALS: BP 102/63; PULSE 83; RESP 16; TEMP 36.4; O2SAT 98
--- NOTE | 2023-06-06 10:03 | PC.NURSE ---
tried another [facility] location. no answer
--- NOTE | 2023-06-06 10:05 | PC.NURSE ---
tried third location of [facility] at [facility] as pt states unaware of which one she attends. no answer
--- NOTE | 2023-06-06 10:17 | PC.NURSE ---
pt ate breakfast well. currently eating ice cream. conversing without distress. able to sign paper. aox4. answers all questions appropriately. breathing well. +CMS. denies pain. no si/hi. no iv present. per md ward ready for discharge
--- NOTE | 2023-06-06 10:18 | PC.NURSE ---
pt states has place to go in [facility]
--- NOTE | 2023-06-06 10:36 | PC.NURSE ---
given narcan take home kit per MAR- pt educated, demonstrates knows how to use. walked in the [place] to [facility]. pt dressed herself in [place], given all belongings and a bus pass. eating ice creams after her breakfast. talking. answers all questions appropriately.
== END 2023-06-06 10:38 | disposition home or self-care (01) ==
PROVIDERS: Emergency Provider Internal Medicine
DX: F19.10 Other psychoactive substance abuse, uncomplicated (principal)
CPT/HCPCS: 99283; 99285

== ENCOUNTER 2023-09-30 07:38 | Emergency (ER) | payer OTHER, SELFPAY ==
[2023-09-30 07:49] VITALS: BP 118/84; PULSE 64; O2SAT 99
--- NOTE | 2023-09-30 07:49 | ED.PSYCH ---
HPI - Psych General Chief Complaint: General Medical Stated Complaint: SI STATEMENTS EARLIER ,NO LONGER FEELS SI PER EMS Time Seen by Provider: 09/30/23 07:41 Source: patient, EMS and old records reviewed Mode of arrival: EMS Limitations: other (not answering much) History of Present Illness ED Provider: SHELIA HPI Narrative: 27 yo female with PMH of polysubstance abuse who was in police custody last night and reportedly all night made SI statements she now states she feels better but will not answer many questions. She denies trauma. MD complaint: feels depressed Onset (ago): week(s) Duration: intermittent History of same: Yes Relieving factors: none Exacerbating factors: drug use and other Context: recent drug abuse and significant life stressor Associated psychiatric symptoms: depression Associated symptoms: denies other symptoms Treatments prior to arrival: none Related Data Previous Rx's ?Medication ?Instructions ?Recorded cefuroxime axetil 500 mg tablet 500 mg PO Q12H #14 tabs 02/03/23 metronidazole 500 mg tablet 500 mg PO Q12H #14 tabs 02/03/23 Allergies Allergy/AdvReac Type Severity Reaction Status Date / Time adhesive tape [ADHESIVE TAPE] Allergy Unknown UNKNOWN Verified 09/30/23 07:53 Anesthetics - Gm Type- AdvReac Severe heart rate Verified 09/30/23 07:53 Parabens drops [ANESTHETICS - GM TYPE] amoxicillin AdvReac Anaphylaxis Verified 09/30/23 07:53 unspecified anesthetic Allergy Unknown lowers Uncoded 09/30/23 07:53 heart rate Review of Systems Review of Systems: Constitutional : No Fever, No Chills ENT/Mouth : No Ear Pain, No Nasal Congestion, No sore throat Eyes: No Eye Pain, No Swelling, No Redness Cardiovascular : No Chest Pain, No SOB Respiratory : No Cough, No Sputum, No Dyspnea Gastrointestinal : No Nausea, No Vomiting, No Diarrhea, No Hematochezia, No Melena Genitourinary : No Dysuria, No Urinary Frequency, No Hematuria Musculoskeletal : No Myalgias Skin : No Skin Lesions, No rash Neuro : No Weakness, No Numbness, No Paresthesias, No Dizziness, No Headache Psych : positive Anxiety, positive Depression, no SI/HI All other systems reviewed and are negative PMFSH Past Medical History Attestation statement: The following information was validated with the patient. Source: old records reviewed Medical History Diverticula of colon Colostomy hernia Hernia SVT (supraventricular tachycardia) Surgical History History of colostomy reversal History of reversal of ileostomy Hx of ileostomy Social History Social History Household Members: Spouse Housing: Apartment Do you presently have visiting nurse or other home services: No Alcohol intake: current Alcohol intake frequency: a few times a week Patient Tobacco Use Status: Never used Tobacco Substance Use Type: Crack/Cocaine Advance Directives: No Do you have a plan to hurt others: No Plan Physical Exam Vital Signs: Vital Signs: Last Vital Signs Temp 98.6 F 09/30/23 12:16 Pulse 66 09/30/23 12:16 Resp 16 09/30/23 12:16 BP 125/77 09/30/23 12:16 Pulse Ox 100 09/30/23 12:16 O2 Del Method Room Air 09/30/23 12:16 BMI result Body Mass Index 31.1 Appearance: sleepy but woken by voice Oriented X3. No acute distress. Eyes: Pupils equal, round and reactive to light. ENT: Pharynx normal. atraumatic Neck: Normal inspection. Neck supple. CVS: Normal heart rate and rhythm. Pulses normal. Respiratory: No respiratory distress. Breath sounds normal. Abdomen: Soft and nontender. Skin: Skin warm and dry. multiple scabbed picked areas but no abscess or cellulitis noted Extremities: No lower extremity edema. Neuro: Oriented X 3. No motor deficit. No sensory deficit. CN2-12 intact Course Course Course Narrative: observation care revealed that the patient does not meet psychiatric necessity for hospitalization. final disposition discussed with the patient. The patient completed observation care at 2pm. Total time in observation care was 6 hours. Medical Decision Making Medical Decision Making [facility] Narrative: 27 yo female with PMH of polysubstance abuse here with c/o making SI statements all night she is very withdrawn appears sleepy but no trauma - at this time will monitor obtain labs, drug screen offer CARE team and addiction medicine consult service. Differential Diagnosis Differential Diagnoses: The differential diagnosis associated with the presentation includes polysubstance abuse, depression, SI Admission/Observation Consideration of admission/observation: Escalation of care including admission/observation considered physician observation started at 807am pending CARE team Consult Healthcare Provider Management of the patient was discussed with: Behavioral Health Provider cleared patient declines any services Lab Data MDM Lab Attestation statement: I reviewed the patient's lab results. 09/30/23 08:21 09/30/23 08:21 Labs: Lab Results 09/30/23 09/30/23 Range/Units 08:21 10:36 WBC 9.1 (4.8-10.8) X10*3/uL RBC 4.59 (4.20-5.50) X10*6/uL Hgb 12.8 (12.0-16.0) g/dl Hct 39.3 (37.0-47.0) % MCV 85.6 (80.0-98.0) fL MCH 27.9 (27.0-33.0) pg MCHC 32.6 (31.0-35.0) g/dl RDW 15.7 (11.0-16.0) % Plt Count 276 (160-400) X10*3/uL MPV 11.7 (9.4-12.3) fL Immature Gran % (Auto) 0.5 H (0.0-0.4) % Neut % (Auto) 73.8 H (45-73) % Lymph % (Auto) 17.9 L (20-40) % [place] % (Auto) 6.6 (2-11) % Eos % (Auto) 0.8 (0-4) % Baso % (Auto) 0.4 (0-2) % Lymph # (Auto) 1.6 (1.2-4.9) X10*3/uL [place] # (Auto) 0.6 (0.1-1.2) X10*3/uL Eos # (Auto) 0.1 (0.0-0.4) X10*3/uL Baso # (Auto) 0.0 (0.0-0.2) X10*3/uL Abs Immat Gran (auto) 0.05 H (0.00-0.03) X10*3/uL Absolute Neuts (auto) 6.7 (2.0-8.3) x10*3/uL Absolute Nucleated RBC 0.000 (0.0-0.012) X10*3/uL Nucleated RBC % (auto) 0.0 (0.0-0.2) /100WBC Sodium 143 (135-145) mmol/L Potassium 3.3 (3.3-5.1) mmol/L Chloride 105 (96-108) mmol/L Carbon Dioxide 27 (22-29) mmol/L Anion Gap 14 (12-20) BUN 8 L (9-16) mg/dL Creatinine 0.80 (0.5-1.4) mg/dL Estim Creat Clear Calc 100.6 Estimated GFR > 60 Random Glucose 94 (60-115) mg/dL Calcium 9.1 (8.4-10.2) mg/dL Total Bilirubin 0.5 (0.0-1.0) mg/dL Direct Bilirubin 0.2 (0.0-0.5) mg/dL AST 14 (5-31) U/L ALT 16 (0-31) U/L Alkaline Phosphatase 49 (39-117) U/L Total Protein 7.0 (6.5-8.0) g/dL Albumin 4.2 (3.5-5.0) g/dL Beta HCG, Quant < 2 mIU/mL Urine Opiates Screen POSITIVE H (Not Detect) Ur Buprenorphine Scrn Not Detected (Not Detect) ng/mL Ur Oxycodone Screen Not Detected (Not Detect) ng/mL Urine Methadone Screen Not Detected (Not Detect) ng/mL Urine Fentanyl Screen POSITIVE H (Not Detect) Ur Barbiturates Screen Not Detected (Not Detect) Ur Phencyclidine Scrn Not Detected (Not Detect) Ur Amphetamines Screen Not Detected (Not Detect) U Benzodiazepines Scrn Not Detected (Not Detect) Urine Cocaine Screen POSITIVE H (Not Detect) U Marijuana (THC) Screen Not Detected (Not Detect) Independent Historian Clinical information obtained from an independent historian. History obtained from or confirmed by: EMS External Record Review External record reviewed: Inpatient record Social Determinants Patient?s care significantly limited by Social Determinants of Health including: Problems related to primary support group Discharge Plan Discharge Clinical Impression: Polysubstance abuse Patient Disposition: Home, Self-Care Instructions: Polysubstance Abuse (ED) Additional Instructions: return for any worsening symptoms or concerns. Prescriptions: No Action metronidazole 500 mg tablet 500 mg PO Q12H Qty: 14 0RF Rx Instructions: DO NOT DRINK ALCOHOL WHILE ON MEDICATION cefuroxime axetil 500 mg tablet 500 mg PO Q12H Qty: 14 0RF Print Language: Welsh
[2023-09-30 07:52] VITALS: BP 127/82; PULSE 81; RESP 16; TEMP 36.8; O2SAT 93; BMI 31.1
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
--- NOTE | 2023-09-30 08:21 | PC.NURSE ---
pt belongings searched by security. belongings obtained/placed in the pod closet.
[2023-09-30 08:25] LABS: MANUAL DIFF FLAG NO
[2023-09-30 08:34] LABS: Basophils Percent Auto 0.4 % (0-2); Eosinophils Absolute Auto 0.1 X10*3/uL (0.0-0.4); Eosinophils Percent Auto 0.8 % (0-4); Hematocrit 39.3 % (37.0-47.0); Hemoglobin 12.8 g/dl (12.0-16.0); Imm Gran Abs Auto 0.05 X10*3/uL (0.00-0.03); Imm Gran Pct Auto 0.5 % (0.0-0.4); Lymphocytes Absolute Auto 1.6 X10*3/uL (1.2-4.9); Lymphocytes Percent Auto 17.9 % (20-40); Mean Corpuscular HGB Conc 32.6 g/dl (31.0-35.0); Mean Corpuscular Hemoglobin 27.9 pg (27.0-33.0); Mean Corpuscular Volume 85.6 fL (80.0-98.0); Mean Platelet Volume 11.7 fL (9.4-12.3); Monocytes Absolute Auto 0.6 X10*3/uL (0.1-1.2); Monocytes Percent Auto 6.6 % (2-11); Neutrophils Absolute Auto 6.7 x10*3/uL (2.0-8.3); Neutrophils Percent Auto 73.8 % (45-73); Platelet Count 276 X10*3/uL (160-400); Red Blood Count 4.59 X10*6/uL (4.20-5.50); Red Cell Distribution Width 15.7 % (11.0-16.0); White Blood Count 9.1 X10*3/uL (4.8-10.8)
[2023-09-30 08:48] LABS: Alanine Aminotransferase 16 U/L (0-31); Albumin Level 4.2 g/dL (3.5-5.0); Alkaline Phosphatase 49 U/L (39-117); Anion Gap 14 (12-20); Aspartate Amino Transferase 14 U/L (5-31); Bilirubin Direct 0.2 mg/dL (0.0-0.5); Bilirubin Total 0.5 mg/dL (0.0-1.0); Blood Urea Nitrogen 8 mg/dL (9-16); Calcium 9.1 mg/dL (8.4-10.2); Carbon Dioxide 27 mmol/L (22-29); Chloride 105 mmol/L (96-108); Creatinine Clr Calc Pharmacy 100.6; Estimated Glomerular Filt Rate > 60; Glucose Random 94 mg/dL (60-115); Potassium 3.3 mmol/L (3.3-5.1); Sodium 143 mmol/L (135-145)
[2023-09-30 08:53] LABS: HCG Quantitative < 2 mIU/mL
--- NOTE | 2023-09-30 10:36 | PC.NURSE ---
urine obtained/sent to lab.
--- NOTE | 2023-09-30 10:49 | PC.NURSE ---
pt speaking w/ CARE team at this time.
[2023-09-30 11:00] LABS: Amphetamine Screen Urine Not Detected (Not Detect); Barbiturates, Urine Not Detected (Not Detect); Benzodiazepines Screen Urine Not Detected (Not Detect); Buprenorphine Scr Not Detected (Not Detect); Cannabinoid Screen Urine Not Detected (Not Detect); Cocaine Screen Urine POSITIVE (Not Detect); Fentanyl, urine POSITIVE (Not Detect); Methadone Screen, Urine Not Detected (Not Detect); Opiate Screen Urine POSITIVE (Not Detect); Oxycodone Screen Urine Not Detected (Not Detect); Phencyclidine Screen Urine Not Detected (Not Detect)
[2023-09-30 12:16] VITALS: BP 125/77; PULSE 66; RESP 16; TEMP 37; O2SAT 100
[2023-09-30] MEDS: Naloxone HCl Nasal TAKE HOME 4 MG SPRAY 8 MG NOSTRILALT (14:06)
[2023-09-30 14:10] VITALS: BP 125/77; PULSE 66; RESP 16; TEMP 37; O2SAT 100
== END 2023-09-30 14:11 | disposition home or self-care (01) ==
PROVIDERS: Emergency Provider Emergency Medicine
DX: F19.10 Other psychoactive substance abuse, uncomplicated (principal); R45.851 Suicidal ideations; F41.9 Anxiety disorder, unspecified; F32.A Depression, unspecified; Z79.899 Other long term (current) drug therapy
CPT/HCPCS: 36415; 80048; 80076; 80307; 84702; 85025; 99283; S9485

== ENCOUNTER 2023-11-29 04:00 | Emergency (ER) | payer MEDICAID, SELFPAY ==
--- NOTE | ~2023-11-29 | CT_ITS ---
EXAMINATION: CT brain and CT cervical spine. CLINICAL INDICATION: AMS. COMPARISON: Cervical spine x-ray 05/10/2007. TECHNIQUE: 2 mm thin axial and reformatted 2 mm thin sagittal and coronal images of cervical spine were obtained. Subsequently axial 3 mm thin and reformatted 2 mm thin sagittal and coronal and images of cervical spine were obtained. DLP [id number]. This CT examination was performed using dose optimization technique as appropriate, variously including the following: Automated exposure control Adjustment of MA and/or KV according to patient size(this includes techniques or standardized protocols for targeted exams where dose is matched to indication/reason for exam; extremities or head. Use of iterative reconstruction techniques. FINDINGS: Brain: There is no acute intra-axial, extra-axial bleed, masses or midline shift. There is no acute infarction evolution. There is no edema. The uribe to white matter differentiation is maintained normal. The lateral ventricles are symmetrical in size and configuration without enlargement. Bone windows reveal no calvarial abnormality. There is no scalp soft tissue abnormality. Cervical spine: There is mild straightening of cervical lordosis. There is mild positional scoliosis of cervical dorsal junction. The vertebral heights, alignment and disc heights are normal. There is no visible acute fracture, dislocation or subluxation seen. The prevertebral and paravertebral soft tissues are normal. CT/CT cervical spine wo IV con IMPRESSION: Unremarkable CT brain without contrast. Mild straightening of cervical lordosis otherwise unremarkable CT cervical spine exam.
--- NOTE | ~2023-11-29 | CT_ITS ---
EXAMINATION: CT brain and CT cervical spine. CLINICAL INDICATION: AMS. COMPARISON: Cervical spine x-ray 05/10/2007. TECHNIQUE: 2 mm thin axial and reformatted 2 mm thin sagittal and coronal images of cervical spine were obtained. Subsequently axial 3 mm thin and reformatted 2 mm thin sagittal and coronal and images of cervical spine were obtained. DLP 1622. This CT examination was performed using dose optimization technique as appropriate, variously including the following: Automated exposure control Adjustment of MA and/or KV according to patient size(this includes techniques or standardized protocols for targeted exams where dose is matched to indication/reason for exam; extremities or head. Use of iterative reconstruction techniques. FINDINGS: Brain: There is no acute intra-axial, extra-axial bleed, masses or midline shift. There is no acute infarction evolution. There is no edema. The uribe to white matter differentiation is maintained normal. The lateral ventricles are symmetrical in size and configuration without enlargement. Bone windows reveal no calvarial abnormality. There is no scalp soft tissue abnormality. Cervical spine: There is mild straightening of cervical lordosis. There is mild positional scoliosis of cervical dorsal junction. The vertebral heights, alignment and disc heights are normal. There is no visible acute fracture, dislocation or subluxation seen. The prevertebral and paravertebral soft tissues are normal. CT/CT head/brain wo IV con IMPRESSION: Unremarkable CT brain without contrast. Mild straightening of cervical lordosis otherwise unremarkable CT cervical spine exam.
--- NOTE | ~2023-11-29 | XR_ITS ---
Examination: Chest and left wrist:. CLINICAL INDICATION: Found underground with AMS. COMPARISON: Chest 03/09/2020 and right wrist 01/25/2011. FINDINGS: Chest one view: The lungs are expanded and clear. The heart size and pulmonary vascularity is normal. No gross bony abnormality seen. Left wrist: There is no visible acute fracture, dislocation or subluxation. The soft tissues are normal. There is soft tissue abrasion along the volar aspect of distal forearm. XR/XR chest 1V IMPRESSION: 1. Unremarkable chest exam. 2. There is soft tissue abrasion along the volar aspect of distal forearm. No acute fracture or dislocation seen.
--- NOTE | ~2023-11-29 | XR_ITS ---
Examination: Chest and left wrist:. CLINICAL INDICATION: Found underground with AMS. COMPARISON: Chest 03/09/2020 and right wrist 01/25/2011. FINDINGS: Chest one view: The lungs are expanded and clear. The heart size and pulmonary vascularity is normal. No gross bony abnormality seen. Left wrist: There is no visible acute fracture, dislocation or subluxation. The soft tissues are normal. There is soft tissue abrasion along the volar aspect of distal forearm. XR/XR wrist LT min 3V IMPRESSION: 1. Unremarkable chest exam. 2. There is soft tissue abrasion along the volar aspect of distal forearm. No acute fracture or dislocation seen.
[2023-11-29 04:12] VITALS: BP 105/72; BP 97/57; PULSE 81; PULSE 83; RESP 16; TEMP 36.8; O2SAT 100; O2SAT 99; BMI 31.6
--- NOTE | 2023-11-29 05:46 | PC.NURSE ---
resting quietly on stretcher, with eyes closed, resp with ease, cont plan of care
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
--- NOTE | 2023-11-29 07:05 | PC.NURSE ---
report given to Radha PATEL
[2023-11-29] MEDS: Diphth,Pertus(ACell),Tet Adult 0.5 ML SYRINGE IM (07:10)
[2023-11-29 07:13] VITALS: BP 114/84; PULSE 92; RESP 16; TEMP 36.8; O2SAT 100
--- NOTE | 2023-11-29 07:14 | PC.NURSE ---
this RN resumed care of pt at 0645. a&ox4. vss and up to date. pt c/o 1010 pain in left forearm - affected area wrapped by previous RN. tetanus shot administered per provider order. pt aware urine sample is needed. pt waiting to go to CT at this time. no sob/wob noted. respirations even/unlabored. plan of care ongoing. call hyman placed within reach.
[2023-11-29 08:10] LABS: MANUAL DIFF FLAG NO
[2023-11-29 08:15] LABS: Basophils Absolute Auto 0.1 X10*3/uL (0.0-0.2); Basophils Percent Auto 0.8 % (0-2); Eosinophils Percent Auto 0.3 % (0-4); Hematocrit 35.5 % (37.0-47.0); Hemoglobin 11.8 g/dl (12.0-16.0); Imm Gran Abs Auto 0.04 X10*3/uL (0.00-0.03); Imm Gran Pct Auto 0.4 % (0.0-0.4); Lymphocytes Absolute Auto 2.2 X10*3/uL (1.2-4.9); Lymphocytes Percent Auto 23.7 % (20-40); Mean Corpuscular HGB Conc 33.2 g/dl (31.0-35.0); Mean Corpuscular Hemoglobin 27.8 pg (27.0-33.0); Mean Corpuscular Volume 83.5 fL (80.0-98.0); Mean Platelet Volume 11.6 fL (9.4-12.3); Monocytes Absolute Auto 0.7 X10*3/uL (0.1-1.2); Monocytes Percent Auto 8.1 % (2-11); Neutrophils Absolute Auto 6.1 x10*3/uL (2.0-8.3); Neutrophils Percent Auto 66.7 % (45-73); Platelet Count 389 X10*3/uL (160-400); Red Blood Count 4.25 X10*6/uL (4.20-5.50); Red Cell Distribution Width 14.1 % (11.0-16.0); White Blood Count 9.2 X10*3/uL (4.8-10.8)
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
[2023-11-29 08:23] LABS: Amphetamine Screen Urine Not Detected (Not Detect); Barbiturates, Urine Not Detected (Not Detect); Benzodiazepines Screen Urine Not Detected (Not Detect); Buprenorphine Scr Not Detected (Not Detect); Cannabinoid Screen Urine Not Detected (Not Detect); Cocaine Screen Urine POSITIVE (Not Detect); Fentanyl, urine POSITIVE (Not Detect); Methadone Screen, Urine Positive (Not Detect); Opiate Screen Urine POSITIVE (Not Detect); Oxycodone Screen Urine Not Detected (Not Detect); Phencyclidine Screen Urine Not Detected (Not Detect)
[2023-11-29 08:28] LABS: Salicylate < 5.0 mg/dL (15-30)
[2023-11-29 08:34] LABS: Alanine Aminotransferase 17 U/L (0-31); Albumin Level 4.3 g/dL (3.5-5.0); Alkaline Phosphatase 53 U/L (39-117); Anion Gap 13 (12-20); Aspartate Amino Transferase 28 U/L (5-31); Bilirubin Total 0.7 mg/dL (0.0-1.0); Blood Urea Nitrogen 9 mg/dL (9-16); Calcium 9.3 mg/dL (8.4-10.2); Carbon Dioxide 27 mmol/L (22-29); Chloride 106 mmol/L (96-108); Creatinine Clr Calc Pharmacy 101.8; Estimated Glomerular Filt Rate > 60; Ethanol < 10 mg/dL; Glucose Random 103 mg/dL (60-115); HCG Quantitative < 2 mIU/mL; Magnesium 2.4 mg/dL (1.6-2.6); Potassium 3.3 mmol/L (3.3-5.1); Sodium 143 mmol/L (135-145); Total Protein 7.2 g/dL (6.5-8.0)
[2023-11-29 08:47] VITALS: BP 129/78; PULSE 83; RESP 16; O2SAT 100
--- NOTE | 2023-11-29 10:00 | PC.NURSE ---
pt continues to be ready for discharge but does not seem sober enough to leave at this time. woke pt up so she is able to have sandwich/gingerale. will discharge pt when appropriate.
[2023-11-29 12:25] VITALS: BP 129/85; PULSE 93; RESP 16; O2SAT 100
[2023-11-29 14:06] VITALS: BP 140/85; PULSE 89; RESP 16; O2SAT 97
[2023-11-29 14:07] VITALS: BP 140/85; PULSE 89; RESP 16; TEMP 36.8; O2SAT 97
== END 2023-11-29 14:08 | disposition home or self-care (01) ==
PROVIDERS: Physician Assistant; Emergency Provider Emergency Medicine
DX: S61.512A Laceration without foreign body of left wrist, initial encounter (principal); S50.812A Abrasion of left forearm, initial encounter; S61.532A Puncture wound without foreign body of left wrist, initial encounter; R51.9 Headache, unspecified; R07.89 Other chest pain; M25.532 Pain in left wrist; Y08.89XA Assault by other specified means, initial encounter; Y93.89 Activity, other specified; Y92.89 Other specified places as the place of occurrence of the external cause; Y99.8 Other external cause status; Z79.899 Other long term (current) drug therapy; Z23 Encounter for immunization
CPT/HCPCS: 36415; 70450; 71045; 72125; 73110; 80053; 80179; 80307; 83735; 84702; 85025; 90471; 90715; 99284

== ENCOUNTER 2023-12-06 20:22 | Emergency (ER) | payer MEDICAID, SELFPAY ==
[2023-12-06 20:33] VITALS: BP 101/50; PULSE 125; RESP 22; TEMP 36.9; O2SAT 100; BMI 27.5
--- NOTE | 2023-12-06 21:20 | MHC.EDTECH ---
Pt changed over by security, pt had narcotics in her bra [facility], pt changed over into a green hospital gown, pt is uncooperative at the moment and refusing all care by this Tech
--- NOTE | 2023-12-06 21:51 | MHC.EDTECH ---
PT is refusing vital signs
--- NOTE | 2023-12-06 23:54 | ED.GENADULT ---
HPI - General Adult General Chief complaint: Overdose Stated complaint: OD, 4mg narcan, alert Time Seen by Provider: 12/06/23 23:30 Source: patient, EMS and RN notes reviewed Mode of arrival: EMS Limitations: other (Patient not cooperative with H&P) History of Present Illness ED Provider: Bettye MOYA narrative: 28-year-old female presents for evaluation of reported drug overdose Patient was found lying in the street with a reported overdose on heroin per EMS The patient was given nasal Narcan 4 mg by EMS with good effect Per EMS, the patient was complaining of abdominal pain that she rated as 8/10 She offers no complaints when I asked her if she had any She acknowledge my presence in the room but did not answer any questions other than to say ?I do not know when I asked why she wasn't answering questions. When I asked her if she used any drugs today that was reported by EMS she only shrugs her shoulders I asked her if she had any abdominal pain and she did not reply at all Apparently EMS found the patient with drug paraphernalia when they found the patient. Related Data Allergies Allergy/AdvReac Type Severity Reaction Status Date / Time acetaminophen [From Tylenol] Allergy Rash Verified 12/06/23 20:36 amoxicillin Allergy Rash Verified 12/06/23 20:36 Review of Systems Review of Systems: The patient is not cooperative with review of systems questioning [facility] Social History Social History Smoked in Last 30 Days: Yes Use of substances other than those prescribed or required for medical reasons: Yes Substance Use Type: Crack/Cocaine and Heroin Substance Use Frequency: Chronic Longstanding Last Used Substance: Just Prior to Admission Advance Directives: No Advance Directives Information Provided: No Do you have a plan to hurt others: No Plan Patient : No Physical Exam ED Vital Signs: Vital Signs - 24 hr 12/06/23 20:33 12/07/23 00:25 12/07/23 01:34 Temperature 98.4 F 99.5 F Pulse Rate 125 H 96 92 Respiratory Rate 22 H 25 H 23 H Blood Pressure 101/50 L 105/67 117/81 Pulse Oximetry 100 100 100 Oxygen Delivery Method Room Air Room Air Room Air 12/07/23 05:15 12/07/23 05:59 12/07/23 07:58 Temperature 97.8 F 98.0 F 98.1 F Pulse Rate 93 93 98 Respiratory Rate 22 H 21 H 17 Blood Pressure 134/91 H 131/89 119/74 Pulse Oximetry 98 100 100 Oxygen Delivery Method Room Air Room Air Room Air 12/07/23 08:00 12/07/23 10:00 12/07/23 12:02 Temperature 98.1 F 98.8 F Pulse Rate 86 98 108 H Respiratory Rate 14 22 H 23 H Blood Pressure 130/84 138/91 H 123/80 Pulse Oximetry 100 100 Oxygen Delivery Method Room Air Room Air BMI result Body Mass Index 27.5 Const Other: No obvious signs of trauma. General: comfortable, no acute distress, alert and awake Nutritional Appearance: well nourished [facility] Head: Yes normocephalic and Yes atraumatic Throat: Yes posterior oropharynx normal Eyes Eyelids: Yes eyelids normal Conjunctivae: conjunctivae normal Sclerae: sclerae normal Corneas: corneas normal Pupils: Equal, round and reactive pupils present EOM: EOMs intact bilaterally Neck Neck: Yes full ROM Resp Effort & Inspection: normal respiratory effort, able to speak in complete sentences, no audible wheezes and not labored Auscultation: clear to auscultation bilaterally Cardio Rate: regular rate Rhythm: regular rhythm GI Inspection: No distended Palpation (GI): Soft to palpation, not firm, no guarding and not rigid Skin General skin exam: no rashes or lesions noted and elasticity normal Neuro Cranial nerves: Yes Equal, round and reactive pupils present and Yes Bilaterally intact EOM present Extrem Other: Moving all extremities well without any obvious deformities Course Course Course Narrative: 2945 12/07/23 -- patient seen by addiction medicine (ronit). Declining any services at this time. Patient to be discharged home with Narcan. > patient ambulating with steady gait. She has been treated with potassium 4 hypokalemia at 2.8. All other labs WNL. She is stable for discharge home at this time. Observation care revealed that the patient does not meet medical necessity for hospitalization. Final disposition discussed with the patient. The patient completed observation care at 1231, total time in observation care was 16 hours. Medications Administered Discontinued Medications Generic Name Dose Route Start Last Admin Trade Name Freq PRN Reason Stop Dose Admin Potassium Chloride 40 meq 12/07/23 00:57 12/07/23 08:51 Potassium Chloride Er 20 Meq Tab.Er.Prt PO 12/07/23 00:58 40 meq ONCE ONE Administration Medical Decision Making Medical Decision Making [facility] Narrative: 28-year-old female presents for evaluation of reported drug overdose. The patient does not offer any complaints to me, she does not confirm or deny that she was using drugs. There are no objective signs of trauma. The patient did have good effect from Narcan by EMS which indicates a likely drug overdose. I ordered labs and a drug screen. Differential Diagnosis Differential Diagnoses: The differential diagnosis associated with the presentation includes Substance abuse Overdose Encephalopathy Bipolar disorder Delirium Lab Data [facility] Lab Attestation statement: I reviewed the patient's lab results. Patient has a mild leukocytosis to 11.8 K which is likely related to substance abuse. Hemoglobin is just below normal 11.9, this may be her baseline. Patient's electrolytes were significant for a potassium of 2.8, renal function within normal limits, mild elevation of AST, ALT in total bilirubin which may also be related to substance abuse. She has no abdominal tenderness on exam but did complain of abdominal pain for EMS. Plan to re-evaluate when sober and offered addiction medicine consult if the patient would like it 12/07/23 00:31 12/07/23 00:31 Labs: Lab Results 12/07/23 12/07/23 Range/Units 00:31 01:37 WBC 11.8 H (4.8-10.8) X10*3/uL RBC 4.38 (4.20-5.50) X10*6/uL Hgb 11.9 L (12.0-16.0) g/dl Hct 37.2 (37.0-47.0) % MCV 84.9 (80.0-98.0) fL MCH 27.2 (27.0-33.0) pg MCHC 32.0 (31.0-35.0) g/dl RDW 14.6 (11.0-16.0) % Plt Count 242 (160-400) X10*3/uL MPV 11.7 (9.4-12.3) fL Immature Gran % (Auto) 0.5 H (0.0-0.4) % Neut % (Auto) 96.1 H (45-73) % Lymph % (Auto) 2.3 L (20-40) % [place] % (Auto) 0.7 L (2-11) % Eos % (Auto) 0.1 (0-4) % Baso % (Auto) 0.3 (0-2) % Lymph # (Auto) 0.3 L (1.2-4.9) X10*3/uL [place] # (Auto) 0.1 (0.1-1.2) X10*3/uL Eos # (Auto) 0.0 (0.0-0.4) X10*3/uL Baso # (Auto) 0.0 (0.0-0.2) X10*3/uL Abs Immat Gran (auto) 0.06 H (0.00-0.03) X10*3/uL Absolute Neuts (auto) 11.4 H (2.0-8.3) x10*3/uL Absolute Nucleated RBC 0.000 (0.0-0.012) X10*3/uL Nucleated RBC % (auto) 0.0 (0.0-0.2) /100WBC Smear Tech's Comments VERIFIED Sodium 141 (135-145) mmol/L Potassium 2.8 L* (3.3-5.1) mmol/L Chloride 104 (96-108) mmol/L Carbon Dioxide 27 (22-29) mmol/L Anion Gap 13 (12-20) BUN 10 (9-16) mg/dL Creatinine 0.95 (0.5-1.4) mg/dL Estim Creat Clear Calc 85.3 Estimated GFR > 60 Random Glucose 99 (60-115) mg/dL Calcium 9.6 (8.4-10.2) mg/dL Total Bilirubin 1.5 H (0.0-1.0) mg/dL AST 78 H (5-31) U/L ALT 34 H (0-31) U/L Alkaline Phosphatase 83 (39-117) U/L Total Protein 6.7 (6.5-8.0) g/dL Albumin 4.1 (3.5-5.0) g/dL Lipase 17 (8-78) U/L Beta HCG, Quant < 2 mIU/mL Salicylates < 5.0 L (15-30) mg/dL Acetaminophen < 3 (<30) mcg/mL Ethyl Alcohol < 10 mg/dL COVID-19 ([facility]) Negative (Negative) COVID-19 Clin Com See Note Discharge Plan Discharge Clinical Impression: Drug overdose, Acute hypokalemia Patient Disposition: Home, Self-Care Instructions: Adult Overdose (ED) Additional Instructions: You met with addiction medicine today and are declining any services at this time. Take them Narcan has been provided to you. Return with new or worsening symptoms. Stop doing drugs. This can kill you. You may follow up with the [facility] outpatient. [facility]: [phone] [place] [id number] Referrals: [facility] [Primary Care Provider] - Print Language: Latvian
[2023-12-07] VITALS (8 sets, daily range): BP systolic 105–138; BP diastolic 67–91; PULSE 86–108; RESP 14–25; TEMP 36.6–37.5; O2SAT 98–100
[2023-12-07 00:41] LABS: Basophils Percent Auto 0.3 % (0-2); Eosinophils Percent Auto 0.1 % (0-4); Hematocrit 37.2 % (37.0-47.0); Hemoglobin 11.9 g/dl (12.0-16.0); Imm Gran Abs Auto 0.06 X10*3/uL (0.00-0.03); Imm Gran Pct Auto 0.5 % (0.0-0.4); Lymphocytes Absolute Auto 0.3 X10*3/uL (1.2-4.9); Lymphocytes Percent Auto 2.3 % (20-40); MANUAL DIFF FLAG SCAN; Mean Corpuscular Hemoglobin 27.2 pg (27.0-33.0); Mean Corpuscular Volume 84.9 fL (80.0-98.0); Mean Platelet Volume 11.7 fL (9.4-12.3); Monocytes Absolute Auto 0.1 X10*3/uL (0.1-1.2); Monocytes Percent Auto 0.7 % (2-11); Neutrophils Absolute Auto 11.4 x10*3/uL (2.0-8.3); Neutrophils Percent Auto 96.1 % (45-73); Platelet Count 242 X10*3/uL (160-400); Red Blood Count 4.38 X10*6/uL (4.20-5.50); Red Cell Distribution Width 14.6 % (11.0-16.0); SCAN SMEAR FLAG 1; White Blood Count 11.8 X10*3/uL (4.8-10.8)
[2023-12-07 00:54] LABS: Alanine Aminotransferase 34 U/L (0-31); Albumin Level 4.1 g/dL (3.5-5.0); Alkaline Phosphatase 83 U/L (39-117); Anion Gap 13 (12-20); Aspartate Amino Transferase 78 U/L (5-31); Bilirubin Total 1.5 mg/dL (0.0-1.0); Blood Urea Nitrogen 10 mg/dL (9-16); Calcium 9.6 mg/dL (8.4-10.2); Carbon Dioxide 27 mmol/L (22-29); Chloride 104 mmol/L (96-108); Creatinine Clr Calc Pharmacy 85.3; Estimated Glomerular Filt Rate > 60; Ethanol < 10 mg/dL; Glucose Random 99 mg/dL (60-115); Lipase 17 U/L (8-78); Potassium 2.8 mmol/L (3.3-5.1); Sodium 141 mmol/L (135-145); Total Protein 6.7 g/dL (6.5-8.0)
[2023-12-07 00:59] LABS: SLIDE REVIEW VERIFIED
[2023-12-07 01:00] LABS: HCG Quantitative < 2 mIU/mL
[2023-12-07 01:06] LABS: Acetaminophen LAB < 3 mcg/mL (<30); Salicylate < 5.0 mg/dL (15-30)
[2023-12-07 01:59] LABS: COVID-19 Test Negative (Negative); IDNOW Serial# 08D9AD1C
--- NOTE | 2023-12-07 08:07 | PC.NURSE ---
patient found to be covered in dry feces by this RN,patient woke up to verbal stimuli. patient linens changed and gown changed. patient requested apple juice and water. patient brought apple juice and water. patient diet tray ordered. patient VSS
--- NOTE | 2023-12-07 08:11 | MHC.EDTECH ---
This tech went to introduce herself, pt requested apple juice ans water, call [facility] within reach.
--- NOTE | 2023-12-07 08:33 | MHC.RECOVRN ---
Pts referral currently being reviewed by [facility].
[2023-12-07] MEDS: Potassium Chloride ER 20 MEQ TAB.ER.PRT 40 MEQ PO (08:51)
--- NOTE | 2023-12-07 08:52 | PC.NURSE ---
patient medicated per MAR
--- NOTE | 2023-12-07 09:26 | PC.NURSE ---
patient sitting up eating breakfast
--- NOTE | 2023-12-07 09:37 | MHC.EDTECH ---
Pt had 100% of breakfast, call [facility] within reach.
--- NOTE | 2023-12-07 12:02 | MHC.RECOVRN ---
Addendum entered by Jocelyn Cevallos 12/07/23 12:03: Pt accepted to [facility] pending phone screen. Pts RN attempting to have pt call intake. Original Note: Attempted to meet with pt to complete SUDE. Pt somnolent, unable to engage in conversation.
--- NOTE | 2023-12-07 12:42 | MHC.RECOVRN ---
Met with pt to attempt to complete SUDE, pt declining SUDE and requesting discharge. No longer interested in ATS. Pt denies questions or concerns for t/w. Pt encouraged to present as walk in to [facility] if desired. Provider aware.
--- NOTE | 2023-12-07 13:08 | PC.NURSE ---
patient ambulated off of unit with steady gait and belongings
--- NOTE | 2023-12-07 13:08 | PC.NURSE ---
patient refused take home narcan
== END 2023-12-07 13:09 | disposition home or self-care (01) ==
PROVIDERS: Physician Assistant; Emergency Provider Emergency Medicine
DX: T40.1X1A Poisoning by heroin, accidental (unintentional), initial encounter (principal); R40.4 Transient alteration of awareness; Y92.488 Other paved roadways as the place of occurrence of the external cause; E87.6 Hypokalemia; Z11.52 Encounter for screening for COVID-19; Z79.899 Other long term (current) drug therapy
CPT/HCPCS: 36415; 80053; 80143; 80179; 80307; 83690; 84702; 85025; 87635; 99285

== ENCOUNTER 2024-06-26 07:41 | Emergency (ER) | payer MEDICAID, SELFPAY ==
--- NOTE | ~2024-06-26 | CT_ITS ---
CLINICAL HISTORY: ams CT head without contrast Comparison: 11/29/2023 Findings: No intra-axial mass, midline shift, hydrocephalus, or acute hemorrhage. No significant atrophy-like change or white matter disease. There is no sinus or mastoid fluid. The orbits are within normal limits. No skull fracture. IMPRESSION: 1. No acute intracranial findings. This document has been electronically signed by: Rodger Johnson MD on 06/26/2024 18:46:42
[2024-06-26 07:47] VITALS: BP 106/68; PULSE 128
--- NOTE | 2024-06-26 07:52 | ED_ITS ---
HPI - General Adult General Chief complaint: ETOH/Substance Use Stated complaint: FOUND UNRESPONSIVE Time Seen by Provider: 06/26/24 08:02 Source: patient and EMS Mode of arrival: EMS Limitations: altered mental status (under the influence of drugs ) History of Present Illness ED Provider: ARLETTE Sorenson HPI narrative: 28-year-old female presents to the emergency department after being found unresponsive behind a building, 1st responders gave Narcan( 6 mg IN) , patient arousable immediately after Narcan, medication had good effect. She presents unclear why she is here she states she is fine and continues to fall asleep during my assessment. Denies falls, trauma. Tells me she did not use drugs however. She is sleeping and appears to be in no acute distress. Denies chest pain, shortness of breath, nausea, vomiting, abdominal pain, headache, vision changes, dizziness, weakness, headache, suicidal and homicidal ideation. Related Data Previous Rx's ?Medication ?Instructions ?Recorded cefuroxime axetil 500 mg tablet 500 mg PO Q12H #14 tabs 02/03/23 metronidazole 500 mg tablet 500 mg PO Q12H #14 tabs 02/03/23 bacitracin 500 unit/gram topical 1 appl topical Q8H #14 grams 11/29/23 ointment sulfamethoxazole 800 1 tab PO BID 7 days #14 tabs 11/29/23 mg-trimethoprim 160 mg tablet (Bactrim DS) Allergies Allergy/AdvReac Type Severity Reaction Status Date / Time adhesive tape [ADHESIVE TAPE] Allergy Unknown UNKNOWN Verified 06/26/24 08:11 acetaminophen [From Tylenol] Allergy Rash Verified 06/26/24 08:11 Anesthetics - Gm Type- AdvReac Severe heart rate Verified 06/26/24 08:11 Parabens drops [ANESTHETICS - GM TYPE] amoxicillin AdvReac Anaphylaxis Verified 06/26/24 08:11 unspecified anesthetic Allergy Unknown lowers Uncoded 12/08/23 14:42 heart rate Review of Systems Review of Systems: Yes all other systems are reviewed and are negative PMFSH Past Medical History Attestation statement: The following information was validated with the patient. Source: old records reviewed and nursing notes reviewed Medical History Diverticula of colon Colostomy hernia Hernia SVT (supraventricular tachycardia) Surgical History History of colostomy reversal History of reversal of ileostomy Hx of ileostomy Social History Social History Household Members: Spouse Housing: Apartment Do you presently have visiting nurse or other home services: No Alcohol intake: current Alcohol intake frequency: does not drink Patient Tobacco Use Status: Never used Tobacco Substance Use Type: Crack/Cocaine and Heroin Advance Directives: Yes Advance Directives Information Provided: Yes Advance Directives on File: No Do you have a plan to hurt others: No Plan Physical Exam ED Vital Signs: Vital Signs - 24 hr 06/26/24 08:10 06/26/24 12:33 06/26/24 21:15 Temperature 98.2 F 97.2 F 99.5 F Pulse Rate 93 104 H 102 H Respiratory Rate 16 14 18 Blood Pressure 113/84 114/85 Pulse Oximetry 100 94 97 Oxygen Delivery Method Room Air Room Air Room Air BMI result Body Mass Index 35.5 vss Appearance: Alert.? Oriented X3.? No acute distress.? Head: Normocephalic, atraumatic, no step-offs or deformities Eyes: Pupils equal, round and reactive to light.? Neck: Normal inspection.? Neck supple.? CVS: Normal heart rate and rhythm.? Pulses normal.? Respiratory: No respiratory distress.? Breath sounds normal.? Abdomen: Soft and nontender.? Skin: Skin warm and dry.? Normal skin color.? Normal skin turgor.? Extremities: No lower extremity edema.? No calf ttp. 5/5 strength to bilateral upper and lower extremities Neuro: Oriented X 3.? No motor deficit.? No sensory deficit. CN 2-12 intact Course Reevaluation(s) Reevaluation #1: Urine positive for opiates, fentanyl, cocaine, marijuana. Ambulatory with steady gait normal coordination. Nonfocal neurological assessment. Patient is seen by recovery who feels as though he would she would be appropriate for detox. Pending bed search. At this time patient will be placed into observation to allow more time to be evaluated by recovery and placement for to be found. Time: 16:07 Medical Decision Making Medical Decision Making MDM Narrative: 28-year-old female presents with substance abuse was found unresponsive by first responders find the building. No falls or trauma physical exam benign history and physical exam concerning for polysubstance abuse. No signs of trauma to head, neck, chest, abdomen or pelvis. Plan labs, UA. patient is awake, alert and oriented x3. Patient denies SI or HI labs were not obtained, patient does not want to get blood work at this Toxicology positive for opiates, fentanyl cocaine and marijuana patient declines waiting for a SUDE eval at this time, 06:00, patient being discharged, ending physician observation Differential Diagnosis Differential Diagnoses: The differential diagnosis associated with the presentation includes ( history and physical exam concerning for polysubstance abuse. No signs of trauma to head, neck, chest, abdomen or pelvis.) Admission/Observation Consideration of admission/observation: Escalation of care including admission/observation considered Lab Data Labs: Lab Results 06/26/24 Range/Units 13:56 Urine Opiates Screen POSITIVE H (Not Detect) Ur Buprenorphine Scrn Not Detected (Not Detect) ng/mL Ur Oxycodone Screen Not Detected (Not Detect) ng/mL Urine Methadone Screen Not Detected (Not Detect) ng/mL Urine Fentanyl Screen POSITIVE H (Not Detect) Ur Barbiturates Screen Not Detected (Not Detect) Ur Phencyclidine Scrn Not Detected (Not Detect) Ur Amphetamines Screen Not Detected (Not Detect) U Benzodiazepines Scrn Not Detected (Not Detect) Urine Cocaine Screen POSITIVE H (Not Detect) U Marijuana (THC) Screen POSITIVE H (Not Detect) External Record Review External record reviewed: Inpatient record, Office record, Outpatient record, Prior outpatient labs, Prior outpatient radiology, Primary care record and Outside ED record Chronic Conditions Patient?s care impacted by: Other (see hpi ) Critical Care Time Critical Care Time Critical Care Time: No Discharge Plan Discharge Clinical Impression: Polysubstance abuse Patient Disposition: Home, Self-Care Instructions: Polysubstance Abuse (ED) Additional Instructions: Overdose You were seen in our Emergency Department for an overdose today. You received narcan in order to reverse the effects of overdose. Narcan only lasts about 45 min to 1 hour in the system. You may have been given narcan to take home with you today, please keep it near you if you are going to use again, so others can use it if needed.? The number one risk for fatal overdose is using alone? [facility] is a 17/11 hotline where you can be on the phone with someone while you use, and they can call for help if they suspect an overdose: [phone] Things to look out for when you leave include severe vomiting or diarrhea, headaches, muscle cramps, fever, coughing, chest pain, or if you feel so short of breath you cannot walk to the bathroom. Please seek care and return any time for worsening symptoms.? You may have been provided with safer injection?items, please take time to take care of YOU and your health. Use new supplies whenever possible to lessen the chances of infections and other illnesses.? If you need more supplies, please go [facility],? [address] [place] [address] OR you can call or text to coordinate delivery of safer supplies. If you decide you want to stop or cut down on how much you?re using, please call the numbers on the list provided to you or you can come to our outpatient Addiction Treatment office [facility] (M-F 9am-5p) [address] [place] [address], [address] [place], [place]. [phone] Prescriptions: No Action sulfamethoxazole-trimethoprim [Bactrim DS] 800-160 mg tablet 1 tab PO BID 7 Days Qty: 14 0RF bacitracin 500 unit/gram ointment 1 appl topical Q8H Qty: 14 0RF metronidazole 500 mg tablet 500 mg PO Q12H Qty: 14 0RF Rx Instructions: DO NOT DRINK ALCOHOL WHILE ON MEDICATION cefuroxime axetil 500 mg tablet 500 mg PO Q12H Qty: 14 0RF Print Language: Cambodian
[2024-06-26 08:10] VITALS: PULSE 93; RESP 16; TEMP 36.8; O2SAT 100; BMI 35.5
--- NOTE | 2024-06-26 08:12 | PC.NURSE ---
brought to room 7 for pipe changer d/t patient not getting out of bed to ambulate to the bathroom. awake during pipe changer, requesting warm blankets. able to obtain oral temp. belongings place in [facility]. belongings list in chart
[2024-06-26 12:33] VITALS: BP 113/84; PULSE 104; RESP 14; TEMP 36.2; O2SAT 94
--- NOTE | 2024-06-26 13:01 | HO.SUDE ---
Met with Sigrid in [facility] where she presented as quite disorganized. Pt was able to awaken and become alert enough to have a discussion. She reported smoking crack and heroin, unable to recall the exact amount. She stated she only smokes it and never has injected. She states that in the past she has been on methadone. She is willing to provide a urine sample and is considering going to ATS. Pt stated I wish I could go back to the day I used and just not use . Pt recognizes that her substance use has negatively impacted her life and relationships. She denies SI/HI/AH/VH. Pt at that time was falling asleep and was not able to contribute meaningfully in the conversation.
--- NOTE | 2024-06-26 14:06 | PC.NURSE ---
patient is able to ambulate to the bathroom, eating and drinking. when asked if interested in detox, patient replies I'm still thinking about it . provided urine sample which was sent to the lab
[2024-06-26 14:14] LABS: Amphetamine Screen Urine Not Detected (Not Detect); Barbiturates, Urine Not Detected (Not Detect); Benzodiazepines Screen Urine Not Detected (Not Detect); Buprenorphine Scr Not Detected (Not Detect); Cannabinoid Screen Urine POSITIVE (Not Detect); Cocaine Screen Urine POSITIVE (Not Detect); Fentanyl, urine POSITIVE (Not Detect); Methadone Screen, Urine Not Detected (Not Detect); Opiate Screen Urine POSITIVE (Not Detect); Oxycodone Screen Urine Not Detected (Not Detect); Phencyclidine Screen Urine Not Detected (Not Detect)
--- NOTE | 2024-06-26 15:12 | MHC.RECOVRN ---
Addendum entered by Gauri Chino RN 06/26/24 15:32: Per staff at [facility] there are no available beds today. Original Note: [facility] referral sent to [facility] in [place] per pt's request.
--- NOTE | 2024-06-26 20:22 | PC.NURSE ---
Pt currently sleeping at the bedside. Breath are even regular and unlabored. No apparent distress noted. Monitoring is ongoing.
[2024-06-26 21:15] VITALS: BP 114/85; PULSE 102; RESP 18; TEMP 37.5; O2SAT 97
--- NOTE | 2024-06-27 00:54 | PC.NURSE ---
Pt continues to be sleeing at the bedside. No apparent distress noted. Breaths are even regular and unlabored with equal chest rises. Monitoring is ongoing.
--- NOTE | 2024-06-27 05:55 | PC.NURSE ---
Pt is awake, aox4, walking with a steady gait, expresses desire to leave. Request food and drink and both provided. Denies SI/HI. made aware.
[2024-06-27 06:01] VITALS: BP 121/93; PULSE 101; RESP 18; TEMP 36.6; O2SAT 100
[2024-06-27 06:16] VITALS: BP 121/93; PULSE 101; RESP 18; TEMP 36.4; O2SAT 100
== END 2024-06-27 06:17 | disposition home or self-care (01) ==
PROVIDERS: Physician Assistant; Emergency Provider Emergency Medicine
DX: R40.4 Transient alteration of awareness (principal); F11.10 Opioid abuse, uncomplicated; F14.10 Cocaine abuse, uncomplicated; F12.10 Cannabis abuse, uncomplicated; Z51.81 Encounter for therapeutic drug level monitoring; Z79.899 Other long term (current) drug therapy
CPT/HCPCS: 70450; 80307; 99284; S9485

== ENCOUNTER → 2024-06-26 16:07 | Outpatient (BNV) | payer MEDICAID, SELFPAY | PROVIDERS: Emergency Provider Emergency Medicine; Visit Provider Specialist | DX: R41.82 Altered mental status, unspecified (principal) | CPT/HCPCS: 70450 ==

== ENCOUNTER 2024-10-11 03:29 | Inpatient (IN) | payer MEDICAID, SELFPAY ==
[2024-10-11] VITALS (23 sets, daily range): BP systolic 90–195; BP diastolic 38–89; PULSE 67–200; RESP 14–22; TEMP 36.4–38.4; O2SAT 94–100; BMI 21.6
--- NOTE | ~2024-10-11 | CT_ITS ---
CLINICAL HISTORY: septic work up CT chest with contrast Comparison: None Findings: The heart is normal size. The visualized thyroid and mediastinum are unremarkable. The lungs exhibit mild dependent changes. The upper abdomen is unremarkable. The bones are intact. IMPRESSION: No acute process in the chest. This document has been electronically signed by: Abhilash Ocampo MD on 10/11/2024 06:34:07
--- NOTE | ~2024-10-11 | CT_ITS ---
CLINICAL HISTORY: septic work up CT abdomen and pelvis with contrast Comparison: None Findings: No consolidation or effusion. The liver, gallbladder, spleen, adrenal glands, pancreas, kidneys, ureters and bladder are unremarkable. No bowel obstruction. Small volume free fluid in the pelvis, axial image 78. There is abnormal phlegmon with possible pockets of abscess in the suggestion of tiny foci of free air along the anterior abdominal and pelvic wall. Significant skin thickening is noted as is subcutaneous edema. No acute osseous finding. Reference axial image 99, series 22 there is a 2 cm asymmetric complex fluid collection in the left perianal region. Impression: Prominent phlegmon with the appearance of small multiloculated fluid collections along the anterior abdominal wall with possible foci of free air. Developing abscesses suspected. Repeat imaging with oral contrast could be considered to exclude this appearance of free air in fact reflecting tethered small bowel loops. Prominent skin thickening and subcutaneous edema. Possible left perianal abscess. This document has been electronically signed by: Abhilash Ocampo MD on 10/11/2024 06:30:16
--- NOTE | ~2024-10-11 | CT_ITS ---
CLINICAL HISTORY: Altered mental status CT head without contrast Comparison: CT/SR - CT HEAD/BRAIN WO IV CON - 06/26/24 16:32 EST Findings: No intra-axial mass, midline shift, hydrocephalus, or acute hemorrhage. No significant atrophy-like change or white matter disease. The visualized paranasal sinuses and mastoid air cells are normal. The orbits are within normal limits. No skull fracture. IMPRESSION: 1. No acute intracranial findings. This document has been electronically signed by: Abhilash Ocampo MD on 10/11/2024 06:33:21
--- NOTE | 2024-10-11 03:21 | ECG_ITS ---
Test Reason : tachy Blood Pressure : */* mmHG Vent. Rate : 86 BPM Atrial Rate : 86 BPM P-R Int : 130 ms QRS Dur : 88 ms QT Int : 338 ms P-R-T Axes : 34 52 47 degrees QTcB Int : 404 ms Normal sinus rhythm Normal ECG When compared with ECG of 02-Feb-2023 03:51, Vent. rate has decreased by 104 bpm Non-specific change in ST segment in Inferior leads ST no longer depressed in Lateral leads T wave inversion no longer evident in Inferior leads Nonspecific T wave abnormality no longer evident in Lateral leads Referred By: Esteban Laird Electronically Signed By: Keegan Irene
[2024-10-11] MEDS: 0.9 % Sodium Chloride 1,000 ML 999 ML IV (03:38)
[2024-10-11] MEDS: diazePAM 10 MG/2 ML CARTRIDGE 5 MG IVPUSH (03:38)
--- NOTE | 2024-10-11 03:39 | ED.AMS ---
HPI - Altered Mental Status General Chief Complaint: General Medical Stated Complaint: tachycardic 200's/?drug use Time Seen by Provider: 10/11/24 03:33 Source: EMS and old records reviewed Mode of arrival: EMS Limitations: other (clinical condition) History of Present Illness ED Provider: HPI narrative: 28-year-old woman with a history of polysubstance use, [place], bystanders called EMS as she was acting erratic, was scott to be in high 90s to 200s on monitor, admitted to crack cocaine use and fentanyl use, also complaining of abdominal pain, his history of colostomy and reversal of colostomy and ileostomy. At the time of my initial evaluation patient is lethargic, with intermittent episodes of agitation. Related Data Previous Rx's ?Medication ?Instructions ?Recorded cefuroxime axetil 500 mg tablet 500 mg PO Q12H #14 tabs 02/03/23 metronidazole 500 mg tablet 500 mg PO Q12H #14 tabs 02/03/23 bacitracin 500 unit/gram topical 1 appl topical Q8H #14 grams 11/29/23 ointment sulfamethoxazole 800 1 tab PO BID 7 days #14 tabs 11/29/23 mg-trimethoprim 160 mg tablet (Bactrim DS) Allergies Allergy/AdvReac Type Severity Reaction Status Date / Time adhesive tape [ADHESIVE TAPE] Allergy Unknown UNKNOWN Verified 10/11/24 03:37 acetaminophen [From Tylenol] Allergy Rash Verified 10/11/24 03:37 Anesthetics - Gm Type- AdvReac Severe heart rate Verified 10/11/24 03:37 Parabens drops [ANESTHETICS - GM TYPE] amoxicillin AdvReac Anaphylaxis Verified 10/11/24 03:37 unspecified anesthetic Allergy Unknown lowers Uncoded 10/11/24 03:37 heart rate Review of Systems Constitutional: Constitutional: Reports as per HPI (Not able to obtain due to her medical condition) [facility] Past Medical History Medical History Diverticula of colon Colostomy hernia Hernia SVT (supraventricular tachycardia) Surgical History History of colostomy reversal History of reversal of ileostomy Hx of ileostomy Social History Social History Household Members: Spouse Housing: Apartment Do you presently have visiting nurse or other home services: No Alcohol intake: current Alcohol intake frequency: does not drink Patient Tobacco Use Status: Never used Tobacco Use of substances other than those prescribed or required for medical reasons: Yes Substance Use Type: Crack/Cocaine and Opiates Substance Use Frequency: Chronic Longstanding Last Used Substance: Just Prior to Admission Advance Directives: No Advance Directives Information Provided: Yes Do you have a plan to hurt others: No Plan Physical Exam ED Vital Signs: Vital Signs - 24 hr 10/11/24 03:32 10/11/24 03:49 10/11/24 04:03 Temperature 100.3 F 100.3 F Pulse Rate 190 H 190 H Respiratory Rate 17 Blood Pressure 124/66 98/52 L Pulse Oximetry 94 Oxygen Delivery Method Room Air 10/11/24 04:13 10/11/24 04:45 10/11/24 04:53 Temperature Pulse Rate 181 H 175 H 168 H Respiratory Rate Blood Pressure 104/47 L 105/40 L 102/38 L Pulse Oximetry Oxygen Delivery Method 10/11/24 05:16 10/11/24 06:00 10/11/24 06:15 Temperature Pulse Rate 167 H 88 79 Respiratory Rate 15 14 Blood Pressure 103/42 L 94/49 L 99/57 L Pulse Oximetry 97 100 Oxygen Delivery Method Room Air Room Air 10/11/24 06:43 10/11/24 06:57 10/11/24 07:01 Temperature 97.5 F Pulse Rate 81 88 Respiratory Rate 16 17 Blood Pressure 105/60 90/59 L Pulse Oximetry 99 98 Oxygen Delivery Method Room Air Room Air BMI result Body Mass Index 21.6 Const Other: Gen: ?Disheveled, no facial trauma HEENT: Pupils 2 mm, reactive to light CV: Tachycardic and regular Resp: ?No wheezing rales rhonchi no stridor moving air well Abd: ?Scars from prior surgery with some surrounding erythema, bowel sounds present MSK: FROM, strength 5/5 all extremities Skin: Erythema of the abdomen Neuro: ?Intermittent episodes of agitation and lethargy, noted to be moving upper and lower extremities symmetrically Medications Administered Generic Name Dose Route Start Last Admin Trade Name Freq PRN Reason Stop Dose Admin Ceftriaxone Sodium 1 gm 10/11/24 05:00 10/11/24 05:02 Ceftriaxone Sodium 1 Gm Vial IVPUSH 1 gm Q12H ROSITA Administration Lactated Ringer's 1,000 mls @ 0 mls/hr 10/11/24 04:15 10/11/24 05:36 Lr IV Infused .Q0M ROSITA Infusion Wide Open Vancomycin HCl 1,500 mg/ 500 mls @ 333.333 mls/hr 10/11/24 07:03 10/11/24 07:08 Sodium Chloride IV 10/11/24 08:32 333.33 mls/hr ONCE ONE Administration Discontinued Medications Generic Name Dose Route Start Last Admin Trade Name Freq PRN Reason Stop Dose Admin Adenosine 6 mg 10/11/24 05:38 10/11/24 05:44 Adenosine 6 Mg/2 Ml Vial IVPUSH 10/11/24 05:39 6 mg ONCE ONE Administration Adenosine 12 mg 10/11/24 05:56 10/11/24 05:56 Adenosine 6 Mg/2 Ml Vial IVPUSH 10/11/24 05:57 12 mg STAT STA Administration Diazepam 5 mg 10/11/24 03:33 10/11/24 03:38 Diazepam 10 Mg/2 Ml Cartridge IVPUSH 10/11/24 03:34 5 mg STAT STA Administration Diltiazem HCl 10 mg 10/11/24 03:59 10/11/24 04:45 Diltiazem Hcl 50 Mg/10 Ml Vial IVPUSH 10/11/24 04:00 10 mg STAT STA Administration Diltiazem HCl 20 mg 10/11/24 05:14 10/11/24 05:16 Diltiazem Hcl 50 Mg/10 Ml Vial IVPUSH 10/11/24 05:15 20 mg STAT STA Administration Sodium Chloride 1,000 mls @ 999 mls/hr 10/11/24 03:45 10/11/24 05:00 Ns IV 10/11/24 04:45 Infused .Q1H1M ROSITA Infusion Acetaminophen 1,000 mg in 100 mls @ 400 mls/hr 10/11/24 04:01 10/11/24 04:23 Ofirmev IV 10/11/24 04:15 Infused ONCE ONE Infusion Calcium Gluconate 2 gm in 100 mls @ 400 mls/hr 10/11/24 05:59 10/11/24 06:40 Calcium Gluconate IV 10/11/24 06:13 Infused ONCE ONE Infusion Vancomycin HCl 1,500 mg/ 500 mls @ 333.333 mls/hr 10/11/24 06:40 10/11/24 07:06 Sodium Chloride IV 10/11/24 08:09 Not Given POSTOP ONE Iohexol 100 ml 10/11/24 04:33 10/11/24 04:33 Iohexol 350 Mg/Ml 100 Ml Infus..Btl IV 10/11/24 04:34 85 ml ONCE ONE Administration Medical Decision Making Medical Decision Making [facility] Narrative: Evaluated with what appears to be overdose, she is tachycardic, this appears to be either sinus tachycardia but isn't very regular rhythm so possibly SVT likely due to crack cocaine use that she admits to and she also has opiates on board and so this is a mixed picture, possibly PCP as well, we will medicate with benzos for further workup, she was noted to be tachycardic and febrile on this is likely due to some sympathomimetic effect, but would also consider workup for infectious etiologies. We will obtain imaging of the brain just to make sure there is no underlying spontaneous brain bleed, imaging of the chest abdomen and pelvis for further workup as well as urinalysis for drugs of abuse and also infection. As far as treating a heart rate that would be cautious about giving her any rate control medications or front instead we will give fluids, benzos as a 1st line of treatment 04:23 patient's heart rate is coming down, we are holding off Cardizem, receiving fluids, we will order ceftriaxone as based on her workup she is meeting SIRS criteria 04:57 urine came back positive for opiates and cocaine, there is evidence for UTI she is receiving IV antibiotics 537: Heart rate is still 1 150s, we will hold off additional Cardizem we will give adenosine she does have history of SVT will trial adenosine as not to affect her blood pressure more. She is getting 1/3 L of IV fluids. 05:57, was given 6 and then 12 mg of adenosine converted to sinus rhythm, ECG with 86 beats per minute no underlying WPW or QTC prolongation, she is still slightly hypotensive and I believe this is from receiving Cardizem, we will give calcium gluconate. BP 105/60 Maps have been over 65, we will add additional antibiotic coverage for CT findings as below. let Dr. Lowry know who told me he will be involved in pt's care Prominent phlegmon with the appearance of small multiloculated fluid collections along the anterior abdominal wall with possible foci of free air. Developing abscesses suspected. Repeat imaging with oral contrast could be considered to exclude this appearance of free air in fact reflecting tethered small bowel loops. Prominent skin thickening and subcutaneous edema. Possible left perianal abscess. Differential Diagnosis Differential Diagnoses: The differential diagnosis associated with the presentation includes Admission/Observation Consideration of admission/observation: Escalation of care including admission/observation considered Consult Healthcare Provider Management of the patient was discussed with: Hospitalist Lab Data MDM Lab Attestation statement: I reviewed the patient's lab results. 10/11/24 03:35 10/11/24 03:35 Labs: Lab Results 10/11/24 10/11/24 Range/Units 03:35 04:02 WBC 14.9 H (4.8-10.8) X10*3/uL RBC 3.96 L (4.20-5.50) X10*6/uL Hgb 10.6 L (12.0-16.0) g/dl Hct 32.3 L (37.0-47.0) % MCV 81.6 (80.0-98.0) fL MCH 26.8 L (27.0-33.0) pg MCHC 32.8 (31.0-35.0) g/dl RDW 14.5 (11.0-16.0) % Plt Count 447 H D (160-400) X10*3/uL MPV 10.8 (9.4-12.3) fL Immature Gran % (Auto) 0.5 H (0.0-0.4) % Neut % (Auto) 82.6 H (45-73) % Lymph % (Auto) 10.6 L (20-40) % [place] % (Auto) 5.9 (2-11) % Eos % (Auto) 0.1 (0-4) % Baso % (Auto) 0.3 (0-2) % Lymph # (Auto) 1.6 (1.2-4.9) X10*3/uL [place] # (Auto) 0.9 (0.1-1.2) X10*3/uL Eos # (Auto) 0.0 (0.0-0.4) X10*3/uL Baso # (Auto) 0.1 (0.0-0.2) X10*3/uL Abs Immat Gran (auto) 0.08 H (0.00-0.03) X10*3/uL Absolute Neuts (auto) 12.3 H (2.0-8.3) x10*3/uL Absolute Nucleated RBC 0.000 (0.0-0.012) X10*3/uL Nucleated RBC % (auto) 0.0 (0.0-0.2) /100WBC Hold Blue Top SEE NOTE Sodium 141 (135-145) mmol/L Potassium 3.7 D (3.3-5.1) mmol/L Chloride 107 (96-108) mmol/L Carbon Dioxide 24 (22-29) mmol/L Anion Gap 14 (12-20) BUN 15 (9-16) mg/dL Creatinine 0.93 (0.5-1.4) mg/dL Estim Creat Clear Calc 80.2 Estimated GFR > 60 Random Glucose 143 H (60-115) mg/dL Calcium 8.9 D (8.4-10.2) mg/dL Magnesium 2.0 (1.6-2.6) mg/dL Total Bilirubin 0.4 (0.0-1.0) mg/dL AST 32 H (5-31) U/L ALT 15 (0-31) U/L Alkaline Phosphatase 64 (39-117) U/L Troponin I High Sens 24.5 H (<3.5-17.0) ng/L Total Protein 7.8 (6.5-8.0) g/dL Albumin 3.9 (3.5-5.0) g/dL TSH 1.45 (0.32-4.0) uIU/mL Urine Color Yellow Urine Appearance Cloudy Urine pH 5.5 (5.0-9.0) Ur Specific [place] >= 1.030 H (1.005-1.025) Urine Protein 30 (1+) H (Neg-Trace) mg/dL Urine Glucose (UA) Negative (Negative) mg/dL Urine Ketones Trace (Negative) mg/dL Urine Blood Negative (Negative) Urine Nitrite Positive H (Negative) Ur Leukocyte Esterase Large (3+) H (Negative) Urine RBC 0-2 (0-2) /HPF Urine WBC >50 H (0-5) /HPF Ur Squamous Epith Cells 0-2 (0-2) /HPF Urine Bacteria 4+ (None Seen) Hyaline Casts 0-2 (0-2) /LPF Urine Opiates Screen POSITIVE H (Not Detect) Ur Buprenorphine Scrn Not Detected (Not Detect) ng/mL Ur Oxycodone Screen Not Detected (Not Detect) ng/mL Urine Methadone Screen Not Detected (Not Detect) ng/mL Urine Fentanyl Screen POSITIVE H (Not Detect) Ur Barbiturates Screen Not Detected (Not Detect) Ur Phencyclidine Scrn Not Detected (Not Detect) Ur Amphetamines Screen Not Detected (Not Detect) U Benzodiazepines Scrn Not Detected (Not Detect) Urine Cocaine Screen POSITIVE H (Not Detect) U Marijuana (THC) Screen Not Detected (Not Detect) Influenza Type A (PCR) NEGATIVE (Negative) Influenza Type B (PCR) NEGATIVE (Negative) RSV RNA Qual (PCR) NEGATIVE (Negative) SARS-CoV-2 RNA (RT-PCR) NEGATIVE (Negative) Independent Interpretation I performed an independent interpretation of an: EKG (188 beats per minute sinus tach versus SVT) Critical Care Time Critical Care Time Critical Care Time: Yes Total Critical Care Time: 75 Attestation: Time is exclusive of separately billable procedures. Time includes: direct patient care, patient reassessment, coordination of patient care, interpretation of data (laboratory data, pulse oximetry, arterial blood gases and chest xrays), review of patient's medical records, medical consultation and documentation of patient care. Procedures excluded from critical care time: central intravenous line placement and electrocardiography. Discharge Plan Discharge Clinical Impression: UTI (urinary tract infection), Polysubstance abuse, SVT (supraventricular tachycardia) Patient Disposition: Admitted As Inpatient Prescriptions: No Action sulfamethoxazole-trimethoprim [Bactrim DS] 800-160 mg tablet 1 tab PO BID 7 Days Qty: 14 0RF bacitracin 500 unit/gram ointment 1 appl topical Q8H Qty: 14 0RF metronidazole 500 mg tablet 500 mg PO Q12H Qty: 14 0RF Rx Instructions: DO NOT DRINK ALCOHOL WHILE ON MEDICATION cefuroxime axetil 500 mg tablet 500 mg PO Q12H Qty: 14 0RF Print Language: Tajik
[2024-10-11 03:41] LABS: MANUAL DIFF FLAG NO
[2024-10-11 03:43] LABS: Basophils Absolute Auto 0.1 X10*3/uL (0.0-0.2); Basophils Percent Auto 0.3 % (0-2); Eosinophils Percent Auto 0.1 % (0-4); Hematocrit 32.3 % (37.0-47.0); Hemoglobin 10.6 g/dl (12.0-16.0); Imm Gran Abs Auto 0.08 X10*3/uL (0.00-0.03); Imm Gran Pct Auto 0.5 % (0.0-0.4); Lymphocytes Absolute Auto 1.6 X10*3/uL (1.2-4.9); Lymphocytes Percent Auto 10.6 % (20-40); Mean Corpuscular HGB Conc 32.8 g/dl (31.0-35.0); Mean Corpuscular Hemoglobin 26.8 pg (27.0-33.0); Mean Corpuscular Volume 81.6 fL (80.0-98.0); Mean Platelet Volume 10.8 fL (9.4-12.3); Monocytes Absolute Auto 0.9 X10*3/uL (0.1-1.2); Monocytes Percent Auto 5.9 % (2-11); Neutrophils Absolute Auto 12.3 x10*3/uL (2.0-8.3); Neutrophils Percent Auto 82.6 % (45-73); Platelet Count 447 X10*3/uL (160-400); Red Blood Count 3.96 X10*6/uL (4.20-5.50); Red Cell Distribution Width 14.5 % (11.0-16.0); White Blood Count 14.9 X10*3/uL (4.8-10.8)
[2024-10-11 04:05] LABS: Alanine Aminotransferase 15 U/L (0-31); Albumin Level 3.9 g/dL (3.5-5.0); Alkaline Phosphatase 64 U/L (39-117); Anion Gap 14 (12-20); Aspartate Amino Transferase 32 U/L (5-31); Bilirubin Total 0.4 mg/dL (0.0-1.0); Blood Urea Nitrogen 15 mg/dL (9-16); Calcium 8.9 mg/dL (8.4-10.2); Carbon Dioxide 24 mmol/L (22-29); Chloride 107 mmol/L (96-108); Creatinine Clr Calc Pharmacy 80.2; Estimated Glomerular Filt Rate > 60; Glucose Random 143 mg/dL (60-115); Potassium 3.7 mmol/L (3.3-5.1); Sodium 141 mmol/L (135-145); Total Protein 7.8 g/dL (6.5-8.0)
[2024-10-11 04:06] LABS: Troponin-I High Sensitivity 24.5 ng/L (<3.5-17.0)
[2024-10-11] MEDS: Acetaminophen 1,000 MG/100 ML PIGGYBACK 400 MG IV (04:08)
[2024-10-11 04:13] LABS: Appearance Urine Cloudy; Color Urine Yellow; Glucose Urine UA Negative (Negative); Leukocyte Esterase Urine Large (3+) (Negative); Nitrite Urine Positive (Negative); PH 5.5 (5.0-9.0); Specific Gravity - Urine >= 1.030 (1.005-1.025); UMIC TRIGGER UACC YES; Urine Blood Negative (Negative); Urine Ketones Trace mg/dL (Negative); Urine Protein 30 (1+) mg/dL (Neg-Trace)
[2024-10-11 04:20] LABS: TSH reflex Free T4 1.45 uIU/mL (0.32-4.0)
[2024-10-11 04:25] LABS: Bacteria Urine 4+ (None Seen); Hyaline Casts Urine 0-2 /LPF (0-2); RBC Urine 0-2 /HPF (0-2); Squamous Epithelial Cell Urine 0-2 /HPF (0-2); UACC Culture Trigger YES; WBC Urine >50 /HPF (0-5)
[2024-10-11] MEDS: Lactated Ringers 1,000 ML 1000 ML IV (04:25)
[2024-10-11] MEDS: iohexoL 350 MG/ML 100 ML INFUS..BTL IV (04:33)
[2024-10-11] MEDS: dilTIAZem HCL 50 MG/10 ML VIAL 10 MG IVPUSH (04:45)
[2024-10-11 04:48] LABS: Amphetamine Screen Urine Not Detected (Not Detect); Barbiturates, Urine Not Detected (Not Detect); Benzodiazepines Screen Urine Not Detected (Not Detect); Buprenorphine Scr Not Detected (Not Detect); Cannabinoid Screen Urine Not Detected (Not Detect); Cocaine Screen Urine POSITIVE (Not Detect); Fentanyl, urine POSITIVE (Not Detect); Influenza A PCR NEGATIVE (Negative); Influenza B PCR NEGATIVE (Negative); Methadone Screen, Urine Not Detected (Not Detect); Opiate Screen Urine POSITIVE (Not Detect); Oxycodone Screen Urine Not Detected (Not Detect); Phencyclidine Screen Urine Not Detected (Not Detect); Resp Syncy Virus RNA Qual PCR NEGATIVE (Negative); SARS COV2 PCR INHOUSE NEGATIVE (Negative)
[2024-10-11] MEDS: cefTRIAXone sodium 1 GM VIAL IVPUSH (05:02)
[2024-10-11] MEDS: dilTIAZem HCL 50 MG/10 ML VIAL 20 MG IVPUSH (05:16)
[2024-10-11] MEDS: Adenosine 6 MG/2 ML VIAL IVPUSH (05:44)
[2024-10-11] MEDS: Adenosine 6 MG/2 ML VIAL 12 MG IVPUSH (05:56)
[2024-10-11] MEDS: Calcium Gluconate/NaCl,Iso-Osm 2 GM/100 ML PLAST..BAG IV (06:05)
--- NOTE | 2024-10-11 06:15 | PC.NURSE ---
Pt arrived via EMS [place] [employer] [place] with erratic behavior. Pt arrives reporting use of crack/cocaine and fentanyl. Mildly agitated. SVT on the monitor with HR in the 190's. Otherwise VSS. IV lines placed; 20G L AC and 18G on the R FA. Pt tolerated well. Labs obtained and pt medicated as per JUN. 2L of fluids given along with cardizem with no effect on cardiac activity or HR. Pt changed over into hospital attire. Multiple accumulation of dirt and callous on both feet. Red warm swollen area noted on the LLQ. Pt reports discomfort and guarding in that area. Pt warm to touch with rectal temp 100.3. Tylenol given. Straight cath done per verbal order. Approx 25cc of yellow urine collected and sent to the lab. Pt tolerated well. Following administration of fluids, ab, and cardizem pt continued to be in SVT and HR 170-180's. Adenosine 6mg given via ivpush with no effect. A second dose of Adenosine 12mg given IV with good effect and NSR on monitor, HR 80;s. Pt tolerated well. Pt is currently sleeping in no apparent distress. BP has remained 90-105's systolic. Breaths are even regular and unlabored. Monitoring is ongoing.
--- NOTE | 2024-10-11 07:03 | PC.NURSE ---
assumed care of pt approx 0700. resting comfortably in bed. Respirations even and unlabored. BP's soft, low 90's systolic. pt is afebrile.
[2024-10-11] MEDS: vancomycin HCL 1,500 MG in 0.9 % Sodium Chloride 500 ML 333.33 MG IV (07:08)
--- NOTE | 2024-10-11 07:10 | PC.NURSE ---
provider placed wrong order for patient vanco dosing, asked this RN to correct with 1500mg vanco IV
[2024-10-11] MEDS: Lactated Ringers 1,000 ML 100 ML IVCONT ×2 (08:36→18:32)
--- NOTE | 2024-10-11 08:43 | PC.NURSE ---
Per , will change lovenox timing to later today
--- NOTE | 2024-10-11 08:47 | P.HPHOSP_ITS ---
History of Present Illness Date of Service: 10/11/24 Chief Complaint: AMS 8-year-old female with a past medical history of polysubstance use, SVT, prior intra-abdominal surgery with colostomy and reversal who was brought to [facility] ED by EMS for erratic behavior. The patient is currently sedated and unable to provide a meaningful history. Hence the history is obtained from the ED provider's note. Apparently the patient was acting erratically at a gas station at which point EMS was called. She was noted to be tachycardic 90s to 200 on monitor. Reportedly the patient admitted to using crack cocaine and fentanyl. Patient also reportedly complained of abdominal pain and stated a history of colostomy and reversal. In the emergency room the patient was found to be in SVT and was treated with 10 mg of IV Cardizem with initial improvement in heart rate. Subsequently her heart rate increased and was given 6 mg followed by 12 mg of adenosine at which point she converted to normal sinus rhythm. The patient did have a drop in blood pressure at this time which was felt secondary to medications. Further workup revealed leukocytosis of 14,000, CT imaging with findings suggestive of early abscess of the anterior abdominal wall. The patient has been treated with IV ceftriaxone and IV vancomycin along with multiple L of fluid. She had been sedated with IV diazepam. She will now be admitted for further workup. The patient is seen and examined in the ED around 08:30. She is sedated but does respond to verbal stimuli. She is able to tell me her name and that she is at [facility]. She is not oriented to date nor the circumstances under which he is in the emergency room. Review of Systems 2 Review of Systems: unable to complete ROS due to mental status [facility] Medical History Diverticula of colon Colostomy hernia Hernia SVT (supraventricular tachycardia) Surgical History History of colostomy reversal History of reversal of ileostomy Hx of ileostomy Social History Household Members: Spouse Housing: Apartment Do you presently have visiting nurse or other home services: No Alcohol intake: current Alcohol intake frequency: does not drink Patient Tobacco Use Status: Tobacco use Unknown Use of substances other than those prescribed or required for medical reasons: Yes Substance Use Type: Crack/Cocaine and Opiates Substance Use Frequency: Chronic Longstanding Last Used Substance: Just Prior to Admission Advance Directives: No Advance Directives Information Provided: Yes Do you have a plan to hurt others: No Plan Nutrition Risks: No Nutritional Risk Meds Allergies Allergy/AdvReac Type Severity Reaction Status Date / Time adhesive tape [ADHESIVE TAPE] Allergy Unknown UNKNOWN Verified 10/11/24 03:37 acetaminophen [From Tylenol] Allergy Rash Verified 10/11/24 03:37 Anesthetics - Gm Type- AdvReac Severe heart rate Verified 10/11/24 03:37 Parabens drops [ANESTHETICS - GM TYPE] amoxicillin AdvReac Anaphylaxis Verified 10/11/24 03:37 unspecified anesthetic Allergy Unknown lowers Uncoded 10/11/24 03:37 heart rate Active Medications: Current Medications Ceftriaxone Sodium (Ceftriaxone Sodium 1 Gm Vial) 1 gm IVPUSH Q12H [facility] Last Admin: 10/11/24 05:02 Dose: 1 gm Lactated Ringer's (Lr) 1,000 mls @ 100 mls/hr IVCONT .Q10H [facility] Last Admin: 10/11/24 08:36 Dose: 100 mls/hr Melatonin (Melatonin 3 Mg Tablet) 6 mg PO BEDTIME PRN PRN Reason: Insomnia Pharmacy Consult (Consult Rx Vancomycin Dosing) 1 each MISCELLANE DAILY PRN PRN Reason: Consult order Sodium Chloride (0.9 % Sodium Chloride Flush 3 Ml Syringe) 3 ml IVFLUSH QSHIFT [facility] Physical Exam 2 Vital Signs and Narrative: Vital Signs: Last Vital Signs Temp 97.6 F 10/11/24 08:03 Pulse 88 10/11/24 08:19 Resp 16 10/11/24 08:19 BP 111/75 10/11/24 08:19 Pulse Ox 97 10/11/24 08:19 O2 Del Method Room Air 10/11/24 08:19 BMI result Body Mass Index 21.6 Const: Other: Constitutional - lethargic but responds to verbal stimuli; oriented to self and location, otherwise disoriented Eyes - PERRLA, EOMI Cardiovascular - S1S2, RRR, No edema Respiratory - Normal lung expansion, Normal respiratory effort, No respiratory distress, CTA bilaterally Gastrointestinal - soft, thickening of skin with erythema and warmth most pronounced in the lower abdominal wall; indurated without fluctuance - No CVA tenderness Extremities - no calf tenderness bilaterally, no swelling Musculoskeletal - Normal inspection, normal ROM Skin - Warm/Dry Neurological - sedated; moving all 4 extremities spontaneous Results Labs 10/11/24 03:35 10/11/24 03:35 Labs: Laboratory Results - last 24 hr 10/11/24 10/11/24 03:35 04:02 MCV 81.6 MCH 26.8 L MCHC 32.8 RDW 14.5 Plt Count 447 H D MPV 10.8 Immature Gran % (Auto) 0.5 H Neut % (Auto) 82.6 H Lymph % (Auto) 10.6 L [place] % (Auto) 5.9 Eos % (Auto) 0.1 Baso % (Auto) 0.3 Lymph # (Auto) 1.6 [place] # (Auto) 0.9 Eos # (Auto) 0.0 Baso # (Auto) 0.1 Abs Immat Gran (auto) 0.08 H Absolute Neuts (auto) 12.3 H Absolute Nucleated RBC 0.000 Nucleated RBC % (auto) 0.0 Hold Blue Top SEE NOTE Anion Gap 14 Estim Creat Clear Calc 80.2 Estimated GFR > 60 Random Glucose 143 H Calcium 8.9 D Magnesium 2.0 Total Bilirubin 0.4 AST 32 H ALT 15 Alkaline Phosphatase 64 Troponin I High Sens 24.5 H Total Protein 7.8 Albumin 3.9 TSH 1.45 Urine Color Yellow Urine Appearance Cloudy Urine pH 5.5 Ur Specific [place] >= 1.030 H Urine Protein 30 (1+) H Urine Glucose (UA) Negative Urine Ketones Trace Urine Blood Negative Urine Nitrite Positive H Ur Leukocyte Esterase Large (3+) H Urine RBC 0-2 Urine WBC >50 H Ur Squamous Epith Cells 0-2 Urine Bacteria 4+ Hyaline Casts 0-2 Urine Opiates Screen POSITIVE H Ur Buprenorphine Scrn Not Detected Ur Oxycodone Screen Not Detected Urine Methadone Screen Not Detected Urine Fentanyl Screen POSITIVE H Ur Barbiturates Screen Not Detected Ur Phencyclidine Scrn Not Detected Ur Amphetamines Screen Not Detected U Benzodiazepines Scrn Not Detected Urine Cocaine Screen POSITIVE H U Marijuana (THC) Screen Not Detected Influenza Type A (PCR) NEGATIVE Influenza Type B (PCR) NEGATIVE RSV RNA Qual (PCR) NEGATIVE SARS-CoV-2 RNA (RT-PCR) NEGATIVE Assessment and Plan (1) SVT (supraventricular tachycardia): Status: Acute (2) Polysubstance abuse: Status: Acute Plan 28 yo F with a history of polysubstance abuse brought in by EMS for confusion. Fount to have cellulitis/early abscess of the abdominal wall + SVT in the ED. Being admitted for further work up and treatment. 1. Toxic/metabolic encephalopathy multifactorial, including substance abuse + underlying infection 2. Cellulitis/early abscess of the abdominal wall given rocehpin/vancomcyin in the ED will continue the same gen surg consult check lactate 3. UTI positive UA, pt unable to endorse symptoms given mental status at this time rocephin as above f/u cultures 5. ? SVT likely due to substance abuse + infection s/p cardizem x 2 + adenosine x 2 doses monitor on tele -- consult cardiology if recurrent 6. Polysubstance abuse UDS+ for opiates, fentanyl, cocaine addiction medicine consult once pt more awake 7. Elevated trop likely from SVT trend and monitor on tele Full Code DVT pptx, Lovenox Med rec pending -- continue baseline meds as appropriate. Pt with toxic/metabolic encephalopathy due to underlying infection complicated by SVT requiring IV antibiotics, cardiac monitoring with specialist evaluation therefore expected to require at a minimum 2 midnights in the hospital for treatment/evaluation/monitoring. Hence, will be admitted as inpatient. Quality Stroke Does the patient have a stroke diagnosis?: No VTE Prior VTE?: No VTE Risk Level:: Medical - moderate - high VTE Device Contraindication: N/A - Device Ordered VTE Drug Contraindication: N/A - Med Ordered
[2024-10-11 09:45] LABS: Lactic Acid 1.4 mmol/L (0.5-2.0)
[2024-10-11 09:52] LABS: Troponin-I High Sensitivity 13.2 ng/L (<3.5-17.0)
[2024-10-11 09:54] LABS: HCG Quantitative < 2 mIU/mL
--- NOTE | 2024-10-11 10:14 | PHA.MEDREC ---
Addendum entered by Shira Sarmiento [facility] 10/11/24 11:20: reviewed, patient has no recent medication claims. Original Note: Pharmacy Consult ? Medication Reconciliation Pharmacy has attempted to complete the med rec. Tried speaking with pt multiple times with no luck with her being sedated. I spoke with pt mother (Bharat) over the phone and she did not know what the pt was taking at this time stating I know she has a heart condition that she was prescribed maybe 'Metoprolol' for? , but im not sure if she is taking that or not ; I have no claims for Heart medications. I had put in the med rec Unobtainable since we were not able to confirm anything and will be stopping back in to try and meet with it pt.
--- NOTE | 2024-10-11 10:34 | MHC.EDTECH ---
Pt was awake requesting assistance onto bed aleman. Requesting pain meds for abd pain AMANDA crain. Sheets and gown changed.
[2024-10-11] MEDS: Acetaminophen 325 MG TABLET 650 MG PO (11:58)
--- NOTE | 2024-10-11 11:59 | PC.NURSE ---
Pt temp noted to be 100.9, notified, and PRN tylenol admin
--- NOTE | 2024-10-11 12:21 | P.CONGS_ITS ---
History of Present Illness Consult details Consult date: 10/11/24 Narrative: [age] year old female with polysubstance abuse, brought to the ER by EMS after being [place] station acting erratically. She admits to taking cocaine and fentanyl. In view of her overall mental status, she could not provide a good history. However, she apparently had mentioned she had abdominal pain. She has a complex surgical history of the abdomen is. She apparently had a laparotomy and a colostomy in the past which had been reverse Currently, she is unable to provide any history. She was in SVT and had to be given adenosine earlier. Again, she is unable to respond to any patient is currently although she is moving extremities spontaneously and open her eyes a little bit. Review of Systems 2 Review of Systems: Yes Unobtainable due to mental condition [facility] Past Medical History Medical History (Updated 10/12/24 @ 11:42 by Ileana Watson CNP) Abdominal pain Diverticula of colon Colostomy hernia Hernia SVT (supraventricular tachycardia) Surgical History Surgical History History of colostomy reversal History of reversal of ileostomy Hx of ileostomy Social History Social History Household Members: Family Housing: Apartment Do you presently have visiting nurse or other home services: No Alcohol intake: current Alcohol intake frequency: does not drink Comment: refused socks, gets up impulsive. Patient Tobacco Use Status: Never used Tobacco Substance Use Type: Crack/Cocaine and Opiates service: No Meds Allergies Allergy/AdvReac Type Severity Reaction Status Date / Time adhesive tape (ADHESIVE TAPE) Allergy Unknown UNKNOWN Verified 10/11/24 03:37 acetaminophen (From Tylenol) Allergy Rash Verified 10/11/24 03:37 Anesthetics - Gm Type- AdvReac Severe heart rate Verified 10/11/24 03:37 Parabens (ANESTHETICS - drops GM TYPE) amoxicillin AdvReac Anaphylaxis Verified 10/11/24 03:37 unspecified anesthetic Allergy Unknown lowers Uncoded 10/11/24 03:37 heart rate Active Medications: Current Medications Acetaminophen (Acetaminophen 325 Mg Tablet) 650 mg PO Q6H PRN PRN Reason: PAINFEV Last Admin: 10/11/24 11:58 Dose: 650 mg Ceftriaxone Sodium (Ceftriaxone Sodium 1 Gm Vial) 1 gm IVPUSH Q24H [facility] Enoxaparin Sodium (Enoxaparin Sodium 40 Mg/0.4 Ml Syringe) 40 mg SUBCUT Q24H [facility] Lactated Ringer's (Lr) 1,000 mls @ 100 mls/hr IVCONT .Q10H [facility] Last Admin: 10/11/24 08:36 Dose: 100 mls/hr Vancomycin HCl 750 mg/ Sodium (Chloride) 265 mls @ 265 mls/hr IV Q12H [facility] Melatonin (Melatonin 3 Mg Tablet) 6 mg PO BEDTIME PRN PRN Reason: Insomnia Morphine Sulfate (Morphine Sulfate 4 Mg/Ml Cartridge) 4 mg IVPUSH Q4H PRN; Protocol PRN Reason: Pain, Severe (Pain Scale 7-10) Pharmacy Consult (Consult Rx Vancomycin Dosing) 1 each MISCELLANE DAILY PRN PRN Reason: Consult order Sodium Chloride (0.9 % Sodium Chloride Flush 3 Ml Syringe) 3 ml IVFLUSH QSHIFT [facility] Physical Exam 2 Vital Signs: Vital Signs: Last Vital Signs Temp 101.2 F H 10/11/24 12:00 Pulse 102 H 10/11/24 12:00 Resp 22 H 10/11/24 12:00 BP 138/81 10/11/24 12:00 Pulse Ox 100 10/11/24 12:00 O2 Del Method Room Air 10/11/24 12:00 BMI result Body Mass Index 21.6 Results Labs 10/13/24 07:28 10/13/24 07:28 Labs: Abnormal lab results 10/11/24 10/11/24 Range/Units 03:35 04:02 WBC 14.9 H (4.8-10.8) X10*3/uL RBC 3.96 L (4.20-5.50) X10*6/uL Hgb 10.6 L (12.0-16.0) g/dl Hct 32.3 L (37.0-47.0) % MCH 26.8 L (27.0-33.0) pg Plt Count 447 H D (160-400) X10*3/uL Immature Gran % (Auto) 0.5 H (0.0-0.4) % Neut % (Auto) 82.6 H (45-73) % Lymph % (Auto) 10.6 L (20-40) % Abs Immat Gran (auto) 0.08 H (0.00-0.03) X10*3/uL Absolute Neuts (auto) 12.3 H (2.0-8.3) x10*3/uL Random Glucose 143 H (60-115) mg/dL AST 32 H (5-31) U/L Troponin I High Sens 24.5 H (<3.5-17.0) ng/L Ur Specific Barbeau >= 1.030 H (1.005-1.025) Urine Protein 30 (1+) H (Neg-Trace) mg/dL Urine Nitrite Positive H (Negative) Ur Leukocyte Esterase Large (3+) H (Negative) Urine WBC >50 H (0-5) /HPF Urine Opiates Screen POSITIVE H (Not Detect) Urine Fentanyl Screen POSITIVE H (Not Detect) Urine Cocaine Screen POSITIVE H (Not Detect) Short CBC 10/11/24 Range/Units 03:35 WBC 14.9 H (4.8-10.8) X10*3/uL Hgb 10.6 L (12.0-16.0) g/dl Hct 32.3 L (37.0-47.0) % Plt Count 447 H D (160-400) X10*3/uL BMP 10/11/24 03:35 Sodium 141 Potassium 3.7 D Chloride 107 Carbon Dioxide 24 BUN 15 Creatinine 0.93 Calcium 8.9 D Liver Function 10/11/24 Range/Units 03:35 Total Bilirubin 0.4 (0.0-1.0) mg/dL AST 32 H (5-31) U/L ALT 15 (0-31) U/L Alkaline Phosphatase 64 (39-117) U/L Albumin 3.9 (3.5-5.0) g/dL Urine 10/11/24 Range/Units 04:02 Urine Color Yellow Urine Appearance Cloudy Urine pH 5.5 (5.0-9.0) Ur Specific Barbeau >= 1.030 H (1.005-1.025) Urine Protein 30 (1+) H (Neg-Trace) mg/dL Urine Glucose (UA) Negative (Negative) mg/dL All other labs normal. Imaging Abdomen CT scan report/results: report reviewed and image reviewed CT scan - pelvis: report reviewed and image reviewed Additional studies: Prominent phlegmon with the appearance of small multiloculated fluid collections along the anterior abdominal wall with possible foci of free air. Developing abscesses suspected. Repeat imaging with oral contrast could be considered to exclude this appearance of free air in fact reflecting tethered small bowel loops. Prominent skin thickening and subcutaneous edema. Possible left perianal abscess. Assessment and Plan (1) Abdominal pain: Status: Acute 28 year old female with substance abuse, here for altered mental status and SVT I have been consulted because of the phlegmonous changes in the abdominal wall along with question of free air within the peritoneum underneath this. I have reviewed her CAT scan images with the radiologist. It appears that air seen underneath the abdominal wall is likely from small bowel loops. She does have a phlegmonous changes in the subcutaneous layer and this area as well so we can not entirely ruled out an enterocutaneous fistula. She has been reported to have complex surgeries on her abdomen including colostomy and reversal Her exam is otherwise benign. She has other medical issues currently but we will follow him closely while she is in the hospital it may be best to keep her on bowel rest for now as well. I am uncertain if she has been using her abdominal wall for injections or illicit drugs. Procedures Date of Service Date of Service: 10/14/24
--- NOTE | 2024-10-11 13:56 | MHC.RECOVRN ---
Attempted to meet with pt. in ED 4 following referral received for polysubstance use. Pt in bed sleeping. Did not awake to voice x 2. Will re attempt eval once pt more alert. ACS services available PRN
[2024-10-11] MEDS: Morphine Sulfate 4 MG/ML CARTRIDGE IVPUSH ×2 (14:20→19:25)
[2024-10-11] MEDS: Enoxaparin Sodium 40 MG/0.4 ML SYRINGE SUBCUT (15:04)
--- NOTE | 2024-10-11 15:08 | PM.EVENT ---
Event Note Date of Service: 10/12/24 Event Note: Seen multiple times today Had been sleeping, appears somewhat comfortable Wakes up when aroused, does complain of tenderness on the old incision Still does not provide much with regards to history Abdomen otherwise soft Stable vital sign Had some low-grade temp IV antibiotics IV fluids Bowel rest for now - okay to have ice chips Question of phlegmonous changes in the abdominal wall, small bowel loops appear very adherent to the abdominal wall on midline We will continue to follow closely Time Spent With Patient Time: Total time managing care of this patient today ____ minutes.
[2024-10-11] MEDS: vancomycin HCL 750 MG in 0.9 % Sodium Chloride 250 ML 265 MG IV (19:21)
[2024-10-12] VITALS (10 sets, daily range): BP systolic 111–161; BP diastolic 71–100; PULSE 50–166; RESP 16–20; TEMP 36.1–37; O2SAT 96–100
[2024-10-12] MEDS: Morphine Sulfate 4 MG/ML CARTRIDGE IVPUSH ×2 (02:10→05:55)
[2024-10-12] MEDS: Lactated Ringers 1,000 ML 100 ML IVCONT ×2 (05:17→16:04)
[2024-10-12] MEDS: Metoprolol Tartrate 5 MG/5 ML VIAL IV (05:45)
[2024-10-12 05:52] LABS: Glucose, Whole Blood 105 mg/dL (60-115)
[2024-10-12] MEDS: Adenosine 6 MG/2 ML VIAL IVPUSH (05:58)
--- NOTE | 2024-10-12 06:00 | PC.NURSE ---
around 0530 patient went into SVT, per Dr. Sam attempt valsalva maneuver. patient HR not responding [employer] called. EKG obtained. ordered obtained for metoprolol 5mg IVP, administered. no response to metoprolol. per MD give adenosine 6mg IVP, patient converted to sinus rhythm, cardiology consult ordered
--- NOTE | 2024-10-12 06:12 | PM.EVENT ---
Event Note Date of Service: 10/12/24 Event Note: Rapid response note: SVT: Rapid response was called in around 05:45 S patient went into SVT with heart rate as high as 190s. Blood pressure was 130s / 80s. Patient was asymptomatic. Tried Valsalva with no improvement Tried metoprolol 5 mg IV x1 with no improvement Followed by patient was given 1 dose of adenosine 6 mg IV x1. Heart rate improved to 80s. Will continue to monitor on telemetry Echocardiogram TSH Cardiology consult Time Spent With Patient Time: Total time managing care of this patient today ____ minutes.
[2024-10-12] MEDS: cefTRIAXone sodium 1 GM VIAL IVPUSH (06:14)
[2024-10-12] MEDS: vancomycin HCL 750 MG in 0.9 % Sodium Chloride 250 ML 265 MG IV (06:14)
[2024-10-12 06:37] LABS: Hemoglobin 9.7 g/dl (12.0-16.0); Mean Corpuscular HGB Conc 32.3 g/dl (31.0-35.0); Mean Corpuscular Hemoglobin 26.2 pg (27.0-33.0); Mean Corpuscular Volume 81.1 fL (80.0-98.0); Mean Platelet Volume 11.4 fL (9.4-12.3); Platelet Count 329 X10*3/uL (160-400); Red Cell Distribution Width 14.6 % (11.0-16.0); White Blood Count 5.7 X10*3/uL (4.8-10.8)
[2024-10-12 06:51] LABS: Alanine Aminotransferase 7 U/L (0-31); Albumin Level 3.3 g/dL (3.5-5.0); Alkaline Phosphatase 44 U/L (39-117); Anion Gap 11 (12-20); Aspartate Amino Transferase 18 U/L (5-31); Bilirubin Total 0.5 mg/dL (0.0-1.0); Blood Urea Nitrogen 4 mg/dL (9-16); Calcium 8.9 mg/dL (8.4-10.2); Carbon Dioxide 23 mmol/L (22-29); Chloride 107 mmol/L (96-108); Estimated Glomerular Filt Rate > 60; Glucose Random 108 mg/dL (60-115); Potassium 3.3 mmol/L (3.3-5.1); Sodium 138 mmol/L (135-145)
--- NOTE | 2024-10-12 07:00 | CA_ITS ---
Transthoracic Echocardiogram Patient (Last, First, Middle): Sigrid Salas, Gender: Female Date of : 1995 Age: 28 Procedure Date: 10/12/2024 Procedure Type: Transthoracic Echocardiogram [place] [facility] [place]: 165.1 cm Weight: 58.97 kg BSA: 1.65 m2 Heart Rate: 56 bpm BP: 136 / 80 mmHg Event Planner: Referring MD: Keven Sam MD Symptoms: svt Study Quality: Adequate ECG Rhythm: Bradycardia Conclusions: - Normal left ventricular size and systolic function. There is mildly increased left ventricular wall thickness. The visually estimated ejection fraction is between 60-65%. - Normal right ventricular cavity size and systolic function. - The left atrium is moderately dilated. The right atrium is mildly dilated. - There is mild dilatation of the ascending aorta measuring 3.50 cm. Findings Left Ventricle Normal left ventricular size and systolic function. There is mildly increased left ventricular wall thickness. The visually estimated ejection fraction is between 60-65%. There is no evidence of regional wall motion abnormalities. Diastolic function is normal for age. Right Ventricle Normal right ventricular cavity size and systolic function. Atria The left atrium is moderately dilated. The right atrium is mildly dilated. Aortic Valve Normal aortic valve structure and function. There is no aortic valve stenosis. There is no aortic valve regurgitation. Mitral Valve The mitral valve appears normal. There is no mitral valve regurgitation. There is no mitral valve stenosis. Pulmonic Valve The pulmonic valve is likely normal. Tricuspid Valve Normal tricuspid valve structure. There is mild to moderate tricuspid valve regurgitation. Tricuspid regurgitation envelope is inadequate for calculation of right ventricular systolic pressure. Normal right atrial pressure. Great Vessels There is mild dilatation of the ascending aorta measuring 3.50 cm. The visualized portions of the pulmonary artery and branches are normal. Venous The inferior vena cava is normal in size and collapses greater than 50% with inspiration. Pericardium/Pleural There is no evidence of pericardial effusion. Prior Study Comparison No prior study available for comparison. Measurements 2D Linear Measurements IVSd: 1.12 0.6-0.9/0.6-1.0 cm LVIDd: 5.01 3.9-5.3/4.2-5.9 cm LVIDd Index: 3.04 2.4-3.2/2.2-3.1 cm/m2 LVIDs: 3.13 2.0-3.6 cm LVPWd: 1.17 0.7-1.1 cm LA Diam: 4.30 2.7-3.8/3.0-4.0 cm LAIDs Index: 2.61 1.5-2.3 cm/m2 LV Mass: 273.80 67-162/88-224 g LV Mass Index: 165.94 43-95/49-115 g/m2 LVOT Diam: 2.30 3.0+(-)1.3 cm 2D Systolic Function EF Teich: 67.00 >55% Mitral Valve MV Pk E: 0.96 MV PK A: 0.56 MV Decel Time: 214.00 E/A: 1.70 E'Lateral: 15.70 E'Medial: 10.40 E/E' Med: 9.30 E/E' Lat: 6.10 PHT: 63.00 MVA PHT: 3.49 Decel Liberty: 4.51 Aortic Valve AoV Pk Patrick: 1.69 AoV Mn Patrick: 1.08 AoV VTI: 0.40 AoV Pk Grad: 11.00 Aov Mn Grad: 6.00 COOPER Cont.VTI: 2.69 LVOT LVOT Pk Patrick: 1.15 LVOT Mn Patrick: 0.70 LVOT VTI: 0.26 LVOT Pk Grad: 5.00 LVOT Mn Grad: 2.00 LVOT Diam: 2.30 LVOT Area: 4.15 Diastolic Function MV Pk E: 0.96 MV Pk A: 0.56 E/A: 1.70 E'Medial: 10.40 E/E' Med: 9.30 E' Laterial: 15.70 E/E' Lat: 6.10 Right Ventricle TAPSE (mm): 30.90 Tricuspid Valve TR Pk Patrick: 2.62 TR Pk Grad: 27.00 Great Vessels Aorta Sinus of Valsalva: 2.90 2.0-3.5 cm Ao Asc: 3.50 2.1-3.4 cm Pulmonary Valve PV Pk Patrick: 1.07 Peak PV Grad: 5.00 Updated in Other Vendor System with Status of Final Keegan Irene MD electronically signed on 10/12/2024 5:07:46 PM with status of Final
[2024-10-12 07:55] LABS: Magnesium 1.7 mg/dL (1.6-2.6)
--- NOTE | 2024-10-12 08:09 | P.PNGS_ITS ---
Subjective Subjective Date of Service: 10/13/24 Interval history: Reported to have SVT early this morning Given metoprolol and adenosine Otherwise no significant changes in mental status She has been sleeping most of the night Asked for morphine early this morning Physical Exam 2 Vital Signs: Vital Signs: Last Vital Signs Temp 97.9 F 10/12/24 07:12 Pulse 61 10/12/24 07:12 Resp 17 10/12/24 07:12 BP 136/80 10/12/24 07:12 Pulse Ox 98 10/12/24 07:12 O2 Del Method Room Air 10/12/24 07:12 BMI result Body Mass Index 21.6 Const: Other: Asleep, opens eyes ambulation but does not really have a lot of verbal output General: comfortable Resp: Effort & Inspection: normal respiratory effort Cardio: Rate: regular rate GI: Palpation (GI): Soft to palpation, not firm, Tenderness to palpation present (GI) (Tender along incision, no obvious fluctuance), no guarding and not rigid Objective Data Active Medications Acetaminophen (Acetaminophen 325 Mg Tablet) 650 mg PO Q6H PRN PRN Reason: PAINFEV Last Admin: 10/11/24 11:58 Dose: 650 mg Documented By: ALISHA Ceftriaxone Sodium (Ceftriaxone Sodium 1 Gm Vial) 1 gm IVPUSH Q24H [facility] Last Admin: 10/12/24 06:14 Dose: 1 gm Documented By: MIRIAN Enoxaparin Sodium (Enoxaparin Sodium 40 Mg/0.4 Ml Syringe) 40 mg SUBCUT Q24H [facility] Last Admin: 10/11/24 15:04 Dose: 40 mg Documented By: FRAN Lactated Ringer's (Lr) 1,000 mls @ 100 mls/hr IVCONT .Q10H [facility] Last Admin: 10/12/24 05:17 Dose: 100 mls/hr Documented By: MIRIAN Vancomycin HCl 750 mg/ Sodium (Chloride) 265 mls @ 265 mls/hr IV Q12H [facility] Last Infusion: 10/12/24 07:24 Dose: Infused Documented By: MIRIAN Melatonin (Melatonin 3 Mg Tablet) 6 mg PO BEDTIME PRN PRN Reason: Insomnia Metoprolol Tartrate (Metoprolol Tartrate 5 Mg/5 Ml Vial) 5 mg IV Q4H PRN PRN Reason: HR >120 Last Admin: 10/12/24 05:45 Dose: 5 mg Documented By: MIRIAN Morphine Sulfate (Morphine Sulfate 4 Mg/Ml Cartridge) 4 mg IVPUSH Q4H PRN; Protocol PRN Reason: Pain, Severe (Pain Scale 7-10) Last Admin: 10/12/24 05:55 Dose: 4 mg Documented By: MIRIAN Pharmacy Consult (Consult Rx Vancomycin Dosing) 1 each MISCELLANE DAILY PRN PRN Reason: Consult order Sodium Chloride (0.9 % Sodium Chloride Flush 3 Ml Syringe) 3 ml IVFLUSH QSHIFT [facility] Last Admin: 10/11/24 22:29 Dose: Not Given Documented By: MIRIAN Non-Admin Reason: IV Running Labs 10/13/24 07:28 10/13/24 07:28 Labs: Laboratory Results - last 24 hr 10/11/24 10/12/24 10/12/24 09:24 05:47 06:20 MCV 81.1 MCH 26.2 L MCHC 32.3 RDW 14.6 Plt Count 329 D MPV 11.4 Absolute Nucleated RBC 0.000 Nucleated RBC % (auto) 0.0 Anion Gap 11 L Estim Creat Clear Calc 131.0 Estimated GFR > 60 POC Glucose 105 Random Glucose 108 Lactic Acid 1.4 Calcium 8.9 Magnesium 1.7 Total Bilirubin 0.5 AST 18 ALT 7 Alkaline Phosphatase 44 Troponin I High Sens 13.2 Total Protein 7.0 Albumin 3.3 L Beta HCG, Quant < 2 Microbiology Microbiology Results: Microbiology 10/11/24 04:02 Blood Culture - Preliminary Blood - Venous No growth after 24 hours. 10/11/24 04:02 Blood Culture - Preliminary Blood - Venous No growth after 24 hours. Procedures Date of Service Date of Service: 10/13/24 Progress Note: A&P Assessment and plan (1) Abdominal pain: Status: Acute Assessment and Plan: No fever since last night Hemodynamically stable Abdomen soft Has had cardiac issues he had SVTs - cardiology consulted by the hospitalist service On IV antibiotics - note of phlegmonous changes in the abdominal wall, with small bowel loops underneath this She has a history of laparotomy and colostomy Okay to start on clear liquids We will continue to follow closely Time Spent With Patient Time: Total time managing care of this patient today ____ minutes. Quality Stroke Does the patient have a stroke diagnosis?: No VTE Prior VTE?: No VTE Risk Level:: Medical - moderate - high VTE Device Contraindication: N/A - Device Ordered VTE Drug Contraindication: N/A - Med Ordered
[2024-10-12 08:11] LABS: Thyroid Stimulating Hormone 0.22 uIU/mL (0.32-4.0)
--- NOTE | 2024-10-12 08:47 | MHC.CM.PN ---
CM attempted to meet with Patient at bedside but she was unarousable to calling her name. CM spoke with Only Contact/Mother @ listed #. Patient was living with her Mother prior to going to nursing home but has been living on the streets since she was released from nursing home 4-5 months ago. Returning to the community VS Recovery Team intervention R/T Polysubstance Abuse is the tentative plan and CM has initiated and will follow for dc planning. Patient has no PCP nor HCP. Transportation is TBD.
[2024-10-12] MEDS: Acetaminophen 325 MG TABLET 650 MG PO ×3 (10:56→23:21)
--- NOTE | 2024-10-12 11:41 | HO.ADDICT_ITS ---
History of Present Illness Date of Service: 10/12/2024 Chief Complaint: SVT drug abuse AMS abscess Reason for Consult: [place] Sources of Information: patient interviewed (minimal participation) and chart reviewed HPI Narrative: Patient is a 28 year old female with history of OUD, who presented to ED via ambulance [place] was [place] behaving erratically. HR in 190's --SVT requiring cardizem and adenosine to convert to NSR. While in ED patient reporting abdominal pain--found to have cellulitis of abdominal wall--of note patient recently had colostomy reversal. Subsequently admitted for SVT, UTI, and toxic encephalopathy--secondary to substance use. Patient seen in room 459. She is sleeping upon approach, wakes briefly to voice, but appears to quickly fall back to sleep. Required frequent verbal prompts to answer questions. States she has been using btwn 1-3 bundles of fentanyl daily. Reports history of treatment with MOUD--methadone. Unsure when this was, or dose at that time. She appeared somewhat restless--moving her legs often. No diaphoresis noted. Overnight received doses of morphine UDS+ cocaine, fentanyl. Review of Systems Review of Systems Yes Unobtainable due to mental status Diagnostics Vital Signs (24Hr): Vital Signs - 24 hr 10/11/24 11:48 10/11/24 12:00 10/11/24 13:57 Temperature 100.9 F H 101.2 F H 100.1 F Pulse Rate 100 102 H 110 H Respiratory Rate 20 22 H 20 Blood Pressure 112/70 138/81 126/73 Pulse Oximetry 100 100 98 Oxygen Delivery Method Room Air Room Air Room Air 10/11/24 16:00 10/11/24 16:35 10/11/24 19:52 Temperature 100.0 F 98.0 F 100.5 F H Pulse Rate 91 99 86 Respiratory Rate 22 H 16 16 Blood Pressure 148/89 H 135/76 137/73 Pulse Oximetry 97 98 97 Oxygen Delivery Method Room Air Room Air Room Air 10/11/24 23:51 10/12/24 04:00 10/12/24 05:30 Temperature 99.4 F 97.8 F Pulse Rate 67 62 164 H Respiratory Rate 16 16 Blood Pressure 136/86 161/93 H 131/95 H Pulse Oximetry 98 99 Oxygen Delivery Method Room Air Room Air 10/12/24 05:35 10/12/24 05:55 10/12/24 06:05 Temperature Pulse Rate 166 H 166 H 70 Respiratory Rate Blood Pressure 136/100 H 118/85 111/71 Pulse Oximetry Oxygen Delivery Method 10/12/24 07:12 10/12/24 11:17 Temperature 97.9 F 97.0 F Pulse Rate 61 62 Respiratory Rate 17 20 Blood Pressure 136/80 139/84 Pulse Oximetry 98 100 Oxygen Delivery Method Room Air Room Air BMI result Body Mass Index 21.6 Labs 10/12/24 06:20 10/12/24 06:20 Labs: Laboratory Results - last 48 hr 10/11/24 10/11/24 10/11/24 03:35 04:02 09:24 WBC 14.9 H RBC 3.96 L Hgb 10.6 L Hct 32.3 L MCV 81.6 MCH 26.8 L MCHC 32.8 RDW 14.5 Plt Count 447 H D MPV 10.8 Immature Gran % (Auto) 0.5 H Neut % (Auto) 82.6 H Lymph % (Auto) 10.6 L [place] % (Auto) 5.9 Eos % (Auto) 0.1 Baso % (Auto) 0.3 Lymph # (Auto) 1.6 [place] # (Auto) 0.9 Eos # (Auto) 0.0 Baso # (Auto) 0.1 Abs Immat Gran (auto) 0.08 H Absolute Neuts (auto) 12.3 H Absolute Nucleated RBC 0.000 Nucleated RBC % (auto) 0.0 Hold Blue Top SEE NOTE Sodium 141 Potassium 3.7 D Chloride 107 Carbon Dioxide 24 Anion Gap 14 BUN 15 Creatinine 0.93 Estim Creat Clear Calc 80.2 Estimated GFR > 60 POC Glucose Random Glucose 143 H Lactic Acid 1.4 Calcium 8.9 D Magnesium 2.0 Total Bilirubin 0.4 AST 32 H ALT 15 Alkaline Phosphatase 64 Troponin I High Sens 24.5 H 13.2 Total Protein 7.8 Albumin 3.9 TSH 1.45 Beta HCG, Quant < 2 Urine Color Yellow Urine Appearance Cloudy Urine pH 5.5 Ur Specific [place] >= 1.030 H Urine Protein 30 (1+) H Urine Glucose (UA) Negative Urine Ketones Trace Urine Blood Negative Urine Nitrite Positive H Ur Leukocyte Esterase Large (3+) H Urine RBC 0-2 Urine WBC >50 H Ur Squamous Epith Cells 0-2 Urine Bacteria 4+ Hyaline Casts 0-2 Urine Opiates Screen POSITIVE H Ur Buprenorphine Scrn Not Detected Ur Oxycodone Screen Not Detected Urine Methadone Screen Not Detected Urine Fentanyl Screen POSITIVE H Ur Barbiturates Screen Not Detected Ur Phencyclidine Scrn Not Detected Ur Amphetamines Screen Not Detected U Benzodiazepines Scrn Not Detected Urine Cocaine Screen POSITIVE H U Marijuana (THC) Screen Not Detected Influenza Type A (PCR) NEGATIVE Influenza Type B (PCR) NEGATIVE RSV RNA Qual (PCR) NEGATIVE SARS-CoV-2 RNA (RT-PCR) NEGATIVE 10/12/24 10/12/24 05:47 06:20 WBC 5.7 RBC 3.70 L Hgb 9.7 L Hct 30.0 L MCV 81.1 MCH 26.2 L MCHC 32.3 RDW 14.6 Plt Count 329 D MPV 11.4 Immature Gran % (Auto) Neut % (Auto) Lymph % (Auto) [place] % (Auto) Eos % (Auto) Baso % (Auto) Lymph # (Auto) [place] # (Auto) Eos # (Auto) Baso # (Auto) Abs Immat Gran (auto) Absolute Neuts (auto) Absolute Nucleated RBC 0.000 Nucleated RBC % (auto) 0.0 Hold Blue Top Sodium 138 Potassium 3.3 Chloride 107 Carbon Dioxide 23 Anion Gap 11 L BUN 4 L Creatinine 0.57 Estim Creat Clear Calc 131.0 Estimated GFR > 60 POC Glucose 105 Random Glucose 108 Lactic Acid Calcium 8.9 Magnesium 1.7 Total Bilirubin 0.5 AST 18 ALT 7 Alkaline Phosphatase 44 Troponin I High Sens Total Protein 7.0 Albumin 3.3 L TSH 0.22 L Beta HCG, Quant Urine Color Urine Appearance Urine pH Ur Specific [place] Urine Protein Urine Glucose (UA) Urine Ketones Urine Blood Urine Nitrite Ur Leukocyte Esterase Urine RBC Urine WBC Ur Squamous Epith Cells Urine Bacteria Hyaline Casts Urine Opiates Screen Ur Buprenorphine Scrn Ur Oxycodone Screen Urine Methadone Screen Urine Fentanyl Screen Ur Barbiturates Screen Ur Phencyclidine Scrn Ur Amphetamines Screen U Benzodiazepines Scrn Urine Cocaine Screen U Marijuana (THC) Screen Influenza Type A (PCR) Influenza Type B (PCR) RSV RNA Qual (PCR) SARS-CoV-2 RNA (RT-PCR) Mental Status Exam Mental Status Exam Level of Consciousness: Drowsy Patient Behavior: Cooperative (with mulitple verbal prompts) Affect Description: Blunted (drowsy, sleeping ) Speech Pattern: Soft-Spoken Medications Medications Current Medications Acetaminophen (Acetaminophen 325 Mg Tablet) 650 mg PO Q6H PRN PRN Reason: PAINFEV Last Admin: 10/12/24 10:56 Dose: 650 mg Ceftriaxone Sodium (Ceftriaxone Sodium 1 Gm Vial) 1 gm IVPUSH Q24H [facility] Last Admin: 10/12/24 06:14 Dose: 1 gm Enoxaparin Sodium (Enoxaparin Sodium 40 Mg/0.4 Ml Syringe) 40 mg SUBCUT Q24H [facility] Last Admin: 10/11/24 15:04 Dose: 40 mg Lactated Ringer's (Lr) 1,000 mls @ 100 mls/hr IVCONT .Q10H [facility] Last Admin: 10/12/24 05:17 Dose: 100 mls/hr Vancomycin HCl 750 mg/ Sodium (Chloride) 265 mls @ 265 mls/hr IV Q12H [facility] Last Infusion: 10/12/24 07:24 Dose: Infused Melatonin (Melatonin 3 Mg Tablet) 6 mg PO BEDTIME PRN PRN Reason: Insomnia Methadone HCl (Methadone Hcl 20 Mg/2 Ml Oral.Conc) 20 mg PO ONCE PRN PRN Reason: Opiate Withdrawal Metoprolol Tartrate (Metoprolol Tartrate 5 Mg/5 Ml Vial) 5 mg IV Q4H PRN PRN Reason: HR >120 Last Admin: 10/12/24 05:45 Dose: 5 mg Morphine Sulfate (Morphine Sulfate 4 Mg/Ml Cartridge) 4 mg IVPUSH Q4H PRN; Protocol PRN Reason: Pain, Severe (Pain Scale 7-10) Last Admin: 10/12/24 05:55 Dose: 4 mg Pharmacy Consult (Consult Rx Vancomycin Dosing) 1 each MISCELLANE DAILY PRN PRN Reason: Consult order Sodium Chloride (0.9 % Sodium Chloride Flush 3 Ml Syringe) 3 ml IVFLUSH QSHIFT [facility] Last Admin: 10/11/24 22:29 Dose: Not Given Allergies Allergies Allergy/AdvReac Type Severity Reaction Status Date / Time adhesive tape (ADHESIVE TAPE) Allergy Unknown UNKNOWN Verified 10/11/24 03:37 acetaminophen (From Tylenol) Allergy Rash Verified 10/11/24 03:37 Anesthetics - Gm Type- AdvReac Severe heart rate Verified 10/11/24 03:37 Parabens (ANESTHETICS - drops GM TYPE) amoxicillin AdvReac Anaphylaxis Verified 10/11/24 03:37 unspecified anesthetic Allergy Unknown lowers Uncoded 10/11/24 03:37 heart rate Assessment & Plan Assessment & Plan (1) Opioid use disorder: Status: Acute Code(s): F11.90 - Opioid use, unspecified, uncomplicated Assessment and Plan: * methadone 20mg X1 PRN for withdrawal ordered, once patient is more alert will titrate dose * once more alert, will obtain additional history and place referral to OTP * HIV and Hepatitis screen Total time managing care of this patient today ___20_ minutes. PMFSH Past Medical History Medical History (Updated 10/12/24 @ 11:42 by Ileana Watson CNP) Abdominal pain Diverticula of colon Colostomy hernia Hernia SVT (supraventricular tachycardia) Surgical History Surgical History History of colostomy reversal History of reversal of ileostomy Hx of ileostomy Social History Social History Household Members: Family Housing: Apartment Do you presently have visiting nurse or other home services: No Alcohol intake: current Alcohol intake frequency: does not drink Comment: refused socks, gets up impulsive. Patient Tobacco Use Status: Never used Tobacco Substance Use Type: Crack/Cocaine and Opiates service: No
[2024-10-12] MEDS: methADONE HCl 20 MG/2 ML ORAL.CONC PO (12:21)
--- NOTE | 2024-10-12 13:39 | HO.PM.IMPN ---
Subjective Subjective Date of Service: 10/12/24 Interval History: seen and examined this morning follow up for SVT, abdominal pain Had rapid response this morning due to SVT, Valsalva and metoprolol given with no improvement. Required 1 dose of IV adenosine 6 mg Patient currently asymptomatic other than abdominal pain Review of Systems Review of Systems: Yes all other systems are reviewed and are negative Constitutional Constitutional: Denies chills and Denies fever(s) Cardiovascular Cardiovascular: Denies chest pain, Denies palpitations and Denies dyspnea Respiratory Respiratory: Denies cough and Denies dyspnea Endocrine Endocrine: Denies palpitations Physical Exam Vital Signs: Vital Signs: Last Vital Signs Temp 97.0 F 10/12/24 11:17 Pulse 62 10/12/24 11:17 Resp 20 10/12/24 11:17 BP 139/84 10/12/24 11:17 Pulse Ox 100 10/12/24 11:17 O2 Del Method Room Air 10/12/24 11:17 BMI result Body Mass Index 21.6 Const: Other: Asleep, opens eyes ambulation but does not really have a lot of verbal output General: cooperative, no acute distress, alert and awake Nutritional Appearance: average body habitus Orientation/consciousness: patient oriented x3 Resp: Effort & Inspection: normal respiratory effort, able to speak in complete sentences, no respiratory distress and no use of accessory muscles Cardio: Rate: regular rate GI: Other: Lower midline abdominal scar. Abdomen soft, nondistended, tender with minimal palpation Palpation (GI): Soft to palpation, not firm, Tenderness to palpation present (GI) (Tender along incision, no obvious fluctuance), no guarding and not rigid Neuro: General: patient oriented x3, moves all extremities and CN's II-XI intact bilaterally Objective Data Active Medications Acetaminophen (Acetaminophen 325 Mg Tablet) 650 mg PO Q6H PRN PRN Reason: PAINFEV Last Admin: 10/12/24 10:56 Dose: 650 mg Documented By: DHAVAL Ceftriaxone Sodium (Ceftriaxone Sodium 1 Gm Vial) 1 gm IVPUSH Q24H [facility] Last Admin: 10/12/24 06:14 Dose: 1 gm Documented By: MIRIAN Enoxaparin Sodium (Enoxaparin Sodium 40 Mg/0.4 Ml Syringe) 40 mg SUBCUT Q24H [facility] Last Admin: 10/11/24 15:04 Dose: 40 mg Documented By: FRAN Lactated Ringer's (Lr) 1,000 mls @ 100 mls/hr IVCONT .Q10H [facility] Last Admin: 10/12/24 05:17 Dose: 100 mls/hr Documented By: MIRIAN Vancomycin HCl 750 mg/ Sodium (Chloride) 265 mls @ 265 mls/hr IV Q12H [facility] Last Infusion: 10/12/24 07:24 Dose: Infused Documented By: MIRIAN Melatonin (Melatonin 3 Mg Tablet) 6 mg PO BEDTIME PRN PRN Reason: Insomnia Methadone HCl (Methadone Hcl 20 Mg/2 Ml Oral.Conc) 20 mg PO ONCE PRN PRN Reason: Opiate Withdrawal Last Admin: 10/12/24 12:21 Dose: 20 mg Documented By: DHAVAL Co-signed By: STEVE Metoprolol Tartrate (Metoprolol Tartrate 5 Mg/5 Ml Vial) 5 mg IV Q4H PRN PRN Reason: HR >120 Last Admin: 10/12/24 05:45 Dose: 5 mg Documented By: MIRIAN Morphine Sulfate (Morphine Sulfate 4 Mg/Ml Cartridge) 4 mg IVPUSH Q4H PRN; Protocol PRN Reason: Pain, Severe (Pain Scale 7-10) Last Admin: 10/12/24 05:55 Dose: 4 mg Documented By: MIRIAN Pharmacy Consult (Consult Rx Vancomycin Dosing) 1 each MISCELLANE DAILY PRN PRN Reason: Consult order Sodium Chloride (0.9 % Sodium Chloride Flush 3 Ml Syringe) 3 ml IVFLUSH QSHIFT [facility] Last Admin: 10/12/24 12:30 Dose: Not Given Documented By: DHAVAL Non-Admin Reason: IV Running Labs 10/12/24 06:20 10/12/24 06:20 Labs: Laboratory Results - last 24 hr 10/12/24 10/12/24 05:47 06:20 MCV 81.1 MCH 26.2 L MCHC 32.3 RDW 14.6 Plt Count 329 D MPV 11.4 Absolute Nucleated RBC 0.000 Nucleated RBC % (auto) 0.0 Anion Gap 11 L Estim Creat Clear Calc 131.0 Estimated GFR > 60 POC Glucose 105 Random Glucose 108 Calcium 8.9 Magnesium 1.7 Total Bilirubin 0.5 AST 18 ALT 7 Alkaline Phosphatase 44 Total Protein 7.0 Albumin 3.3 L TSH 0.22 L Microbiology Microbiology Results: Microbiology 10/11/24 04:02 Urine Culture - Preliminary Urine Catheterized - Straight Catheter Gram negative brandon 10/11/24 04:02 Blood Culture - Preliminary Blood - Venous No growth after 24 hours. 10/11/24 04:02 Blood Culture - Preliminary Blood - Venous No growth after 24 hours. Assessment and Plan (1) SVT (supraventricular tachycardia): Status: Acute (2) Abdominal pain: Status: Acute Plan This is a 28 yo F with a history of polysubstance abuse brought in by EMS for confusion. Fount to have cellulitis/early abscess of the abdominal wall + SVT in the ED. Being admitted for further work up and treatment. 1. Toxic/metabolic encephalopathy multifactorial, including substance abuse + underlying infection improving 2. sepsis due to Cellulitis/early abscess of the abdominal wall continue rocehpin/vancomcyin gen surg following Blood cultures negative to date 3. UTI rocephin as above Urine culture growing Gram-negative rods 5. SVT Has history of SVT likely due to substance abuse + infection Echocardiogram obtained, report pending Cardiology consult pending continue prn metoprolol TSH low, free T4 pending 6. Polysubstance abuse UDS+ for opiates, fentanyl, cocaine addiction medicine consult - started on methadone 7. Elevated trop likely from SVT Flat Full Code DVT pptx, Lovenox Pt with toxic/metabolic encephalopathy due to underlying infection complicated by SVT requiring IV antibiotics, cardiac monitoring with specialist evaluation therefore expected to require at a minimum 2 midnights in the hospital for treatment/evaluation/monitoring Quality Stroke Does the patient have a stroke diagnosis?: No VTE Prior VTE?: No VTE Risk Level:: Medical - moderate - high VTE Device Contraindication: N/A - Device Ordered VTE Drug Contraindication: N/A - Med Ordered
--- NOTE | 2024-10-12 14:08 | PM.EVENT ---
Event Note Date of Service: 10/13/24 Event Note: Seen on afternoon rounds She has been sleeping most of the day Heart rate noted to be lower in the 40s Blood pressure steady She looks comfortable Abdomen is soft although with some tenderness in the midline incision Hemodynamically stable No fever We will continue current care for now Cardiology follow up - echocardiogram done earlier Time Spent With Patient Time: Total time managing care of this patient today ____ minutes.
--- NOTE | 2024-10-12 15:31 | P.CONCA_ITS ---
History of Present Illness History of Present Illness Date of Service: 10/12/24 Requesting physician: Zoey Iyer Chief complaint: SVT drug abuse Abdominal abscess Narrative: [age] year female who we have been asked to see for SVT. She has background history of SVT. She has history of substance abuse and smokes crack cocaine. She previously had abdominal surgeries and now presenting with abdominal pain and there is abdominal wall abscess. She was in pain at the time of interview. She apparently had narrow complex tachycardia overnight and received adenosine. She has documented history of supraventricular tachycardia. Telemetry was reviewed and the arrhythmia started with premature ventricular complex at clearly had a start and termination. She is saying at home she gets episodes where she bears down and is able to break these. She has tried cold water on her face which does not work. [facility] Past Medical History Medical History (Updated 10/12/24 @ 11:42 by Ileana Watson CNP) Abdominal pain Diverticula of colon Colostomy hernia Hernia SVT (supraventricular tachycardia) Surgical History Surgical History History of colostomy reversal History of reversal of ileostomy Hx of ileostomy Social History Social History Household Members: Family Housing: Apartment Do you presently have visiting nurse or other home services: No Alcohol intake: current Alcohol intake frequency: does not drink Comment: refused socks, gets up impulsive. Patient Tobacco Use Status: Never used Tobacco Substance Use Type: Crack/Cocaine and Opiates service: No Meds Allergies Allergy/AdvReac Type Severity Reaction Status Date / Time adhesive tape (ADHESIVE TAPE) Allergy Unknown UNKNOWN Verified 10/11/24 03:37 acetaminophen (From Tylenol) Allergy Rash Verified 10/11/24 03:37 Anesthetics - Gm Type- AdvReac Severe heart rate Verified 10/11/24 03:37 Parabens (ANESTHETICS - drops GM TYPE) amoxicillin AdvReac Anaphylaxis Verified 10/11/24 03:37 unspecified anesthetic Allergy Unknown lowers Uncoded 10/11/24 03:37 heart rate Active Medications: Current Medications Acetaminophen (Acetaminophen 325 Mg Tablet) 650 mg PO Q6H PRN PRN Reason: PAINFEV Last Admin: 10/12/24 10:56 Dose: 650 mg Ceftriaxone Sodium (Ceftriaxone Sodium 1 Gm Vial) 1 gm IVPUSH Q24H [facility] Last Admin: 10/12/24 06:14 Dose: 1 gm Enoxaparin Sodium (Enoxaparin Sodium 40 Mg/0.4 Ml Syringe) 40 mg SUBCUT Q24H [facility] Last Admin: 10/11/24 15:04 Dose: 40 mg Lactated Ringer's (Lr) 1,000 mls @ 100 mls/hr IVCONT .Q10H [facility] Last Admin: 10/12/24 05:17 Dose: 100 mls/hr Vancomycin HCl 750 mg/ Sodium (Chloride) 265 mls @ 265 mls/hr IV Q12H [facility] Last Infusion: 10/12/24 07:24 Dose: Infused Melatonin (Melatonin 3 Mg Tablet) 6 mg PO BEDTIME PRN PRN Reason: Insomnia Methadone HCl (Methadone Hcl 20 Mg/2 Ml Oral.Conc) 20 mg PO ONCE PRN PRN Reason: Opiate Withdrawal Last Admin: 10/12/24 12:21 Dose: 20 mg Metoprolol Tartrate (Metoprolol Tartrate 5 Mg/5 Ml Vial) 5 mg IV Q4H PRN PRN Reason: HR >120 Last Admin: 10/12/24 05:45 Dose: 5 mg Morphine Sulfate (Morphine Sulfate 4 Mg/Ml Cartridge) 4 mg IVPUSH Q4H PRN; Protocol PRN Reason: Pain, Severe (Pain Scale 7-10) Last Admin: 10/12/24 05:55 Dose: 4 mg Pharmacy Consult (Consult Rx Vancomycin Dosing) 1 each MISCELLANE DAILY PRN PRN Reason: Consult order Sodium Chloride (0.9 % Sodium Chloride Flush 3 Ml Syringe) 3 ml IVFLUSH QSHIFT [facility] Last Admin: 10/12/24 12:30 Dose: Not Given Home Medications ?Medication ?Instructions ?Recorded ?Confirmed ?Last Taken ?Type Unobtainable 10/11/24 10/11/24 Unknown History Physical Exam 2 Vital Signs: Vital Signs: Last Vital Signs Temp 98.6 F 10/12/24 15:15 Pulse 50 10/12/24 15:15 Resp 18 10/12/24 15:15 BP 158/88 H 10/12/24 15:15 Pulse Ox 96 10/12/24 15:15 O2 Del Method Room Air 10/12/24 15:15 BMI result Body Mass Index 21.6 GENERAL APPEARANCE: In pain due to abdominal abscess. NECK: no carotid bruit, no jugular venous distention. SKIN: no suspicious lesions, warm and dry. HEART: no murmurs, regular rate and rhythm. Bradycardic. LUNGS: clear to auscultation bilaterally. ABDOMEN: soft, nontender. EXTREMITIES: no edema. PERIPHERAL PULSES: equal. NEUROLOGIC: No gross deficits, AAO X 3 Objective Labs and Meds 10/12/24 06:20 10/12/24 06:20 Lab results: Laboratory Results - last 24 hr 10/12/24 10/12/24 05:47 06:20 WBC 5.7 RBC 3.70 L Hgb 9.7 L Hct 30.0 L MCV 81.1 MCH 26.2 L MCHC 32.3 RDW 14.6 Plt Count 329 D MPV 11.4 Absolute Nucleated RBC 0.000 Nucleated RBC % (auto) 0.0 Sodium 138 Potassium 3.3 Chloride 107 Carbon Dioxide 23 Anion Gap 11 L BUN 4 L Creatinine 0.57 Estim Creat Clear Calc 131.0 Estimated GFR > 60 POC Glucose 105 Random Glucose 108 Calcium 8.9 Magnesium 1.7 Total Bilirubin 0.5 AST 18 ALT 7 Alkaline Phosphatase 44 Total Protein 7.0 Albumin 3.3 L TSH 0.22 L Assessment and Plan (1) Polysubstance abuse: Status: Acute (2) SVT (supraventricular tachycardia): Status: Acute Plan [age] year female with polysubstance abuse presenting for abdominal pain due to abdominal wall abscess. She smokes crack cocaine but does not inject herself. Currently on antibiotics. She had runs of supraventricular tachycardia likely related to stress of infection. Also crack cocaine use can increase susceptibility. Currently bradycardic but quite sedated and drowsy appearing. Occasional junctional beats were also noted on the telemetry. I think these are related to increased vagal tone due to over-sedation. Use methadone with care. Avoid any metoprolol and diltiazem standing doses. Obviously if she goes into supraventricular tachycardia then we may have to treat that. As she starts improving and pain control is better and heart rate is improving then we can discuss starting any AV scott blockers. In the long run she may benefit from ablation but she needs to stop using drugs 1st. We will follow along with you. Thank you for allowing me to participate in the care of your patient. Please feel free to contact me if you have any questions. Procedures Date of Service Date of Service: 10/12/24
[2024-10-12 16:03] LABS: Free T4 (Free Thyroxine) 0.98 ng/dL (0.71-1.85)
[2024-10-12] MEDS: Enoxaparin Sodium 40 MG/0.4 ML SYRINGE SUBCUT (16:04)
[2024-10-12] MEDS: 0.9 % Sodium Chloride Flush 3 ML SYRINGE IVFLUSH (16:06)
[2024-10-12 17:19] LABS: Vancomycin Random 4.1 mcg/mL (15-20)
--- NOTE | 2024-10-12 17:27 | HE.PHANOTE ---
RE: VANCO DOSING Trough came back as 4.1 mg/L and renal function has improved. Dose is increased to 1250 mg q12h, next trough is scheduled for 10/13/24 @1700.
[2024-10-12] MEDS: vancomycin HCL 1,250 MG in 0.9 % Sodium Chloride 250 ML 166.67 MG IV (18:27)
[2024-10-12] MEDS: Melatonin 3 MG TABLET 6 MG PO (23:21)
[2024-10-13] MEDS: Lactated Ringers 1,000 ML 100 ML IVCONT (02:30)
[2024-10-13 04:00] VITALS: BP 159/85; PULSE 56; RESP 17; TEMP 36.7; O2SAT 99
[2024-10-13] MEDS: cefTRIAXone sodium 1 GM VIAL IVPUSH (04:19)
[2024-10-13] MEDS: vancomycin HCL 1,250 MG in 0.9 % Sodium Chloride 250 ML 166.67 MG IV (06:20)
[2024-10-13] MEDS: Acetaminophen 325 MG TABLET 650 MG PO (07:40)
[2024-10-13 07:43] VITALS: BP 113/65; PULSE 59; RESP 14; TEMP 36.7; O2SAT 98
[2024-10-13 08:00] LABS: Creatinine Clr Calc Pharmacy 126.6; Estimated Glomerular Filt Rate > 60
[2024-10-13 08:13] LABS: Hematocrit 32.1 % (37.0-47.0); Hemoglobin 10.4 g/dl (12.0-16.0); Mean Corpuscular HGB Conc 32.4 g/dl (31.0-35.0); Mean Corpuscular Hemoglobin 26.6 pg (27.0-33.0); Mean Corpuscular Volume 82.1 fL (80.0-98.0); Mean Platelet Volume 11.7 fL (9.4-12.3); Platelet Count 373 X10*3/uL (160-400); Red Blood Count 3.91 X10*6/uL (4.20-5.50); Red Cell Distribution Width 14.7 % (11.0-16.0); White Blood Count 6.6 X10*3/uL (4.8-10.8)
[2024-10-13 08:34] LABS: HIV AB/AG Nonreactive (Nonreactive); HIV Num 1 0.46 S/CO (0.00-0.99); ~Hepatitis C Antibody Nonreactive (Nonreactive)
--- NOTE | 2024-10-13 10:25 | P.PNGS_ITS ---
Subjective Subjective Date of Service: 10/13/24 Interval history: No events reported overnight Says she feels much better Hungry and wants to eat Much less tenderness in the abdomen More alert this morning Physical Exam 2 Vital Signs: Vital Signs: Last Vital Signs Temp 98.0 F 10/13/24 07:43 Pulse 59 10/13/24 07:43 Resp 14 10/13/24 07:43 BP 113/65 10/13/24 07:43 Pulse Ox 98 10/13/24 07:43 O2 Del Method Room Air 10/13/24 07:43 BMI result Body Mass Index 21.6 Const: Other: More alert compared to yesterday, answers some questions General: comfortable and no acute distress Resp: Effort & Inspection: normal respiratory effort Cardio: Rate: regular rate GI: Palpation (GI): Soft to palpation, not firm, Tenderness to palpation present (GI) (Some tenderness in the midline) and no guarding Objective Data Active Medications Acetaminophen (Acetaminophen 325 Mg Tablet) 650 mg PO Q6H PRN PRN Reason: PAINFEV Last Admin: 10/13/24 07:40 Dose: 650 mg Documented By: ROZ Ceftriaxone Sodium (Ceftriaxone Sodium 1 Gm Vial) 1 gm IVPUSH Q24H [facility] Last Admin: 10/13/24 04:19 Dose: 1 gm Documented By: MIRIAN Enoxaparin Sodium (Enoxaparin Sodium 40 Mg/0.4 Ml Syringe) 40 mg SUBCUT Q24H [facility] Last Admin: 10/12/24 16:04 Dose: 40 mg Documented By: DHAVAL Vancomycin HCl 1,250 mg/ (Sodium Chloride) 250 mls @ 166.667 mls/hr IV Q12H [facility] Last Infusion: 10/13/24 07:54 Dose: Infused Documented By: ROZ Melatonin (Melatonin 3 Mg Tablet) 6 mg PO BEDTIME PRN PRN Reason: Insomnia Last Admin: 10/12/24 23:21 Dose: 6 mg Documented By: MIRIAN Methadone HCl (Methadone Hcl 20 Mg/2 Ml Oral.Conc) 20 mg PO ONCE PRN PRN Reason: Opiate Withdrawal Last Admin: 10/12/24 12:21 Dose: 20 mg Documented By: DHAVAL Co-signed By: STEVE Morphine Sulfate (Morphine Sulfate 4 Mg/Ml Cartridge) 4 mg IVPUSH Q4H PRN; Protocol PRN Reason: Pain, Severe (Pain Scale 7-10) Last Admin: 10/12/24 05:55 Dose: 4 mg Documented By: MIRIAN Pharmacy Consult (Consult Rx Vancomycin Dosing) 1 each MISCELLANE DAILY PRN PRN Reason: Consult order Sodium Chloride (0.9 % Sodium Chloride Flush 3 Ml Syringe) 3 ml IVFLUSH QSHIFT [facility] Last Admin: 10/13/24 07:40 Dose: Not Given Documented By: ROZ Non-Admin Reason: IV Running Labs 10/13/24 07:28 10/13/24 07:28 Labs: Laboratory Results - last 24 hr 10/12/24 10/12/24 10/13/24 06:20 16:55 07:28 MCV 82.1 MCH 26.6 L MCHC 32.4 RDW 14.7 Plt Count 373 MPV 11.7 Absolute Nucleated RBC 0.000 Nucleated RBC % (auto) 0.0 Hold Purple Top SEE NOTE Estim Creat Clear Calc 126.6 Estimated GFR > 60 Free T4 0.98 Random Vancomycin 4.1 L Hepatitis C Ab (EIA) Nonreactive HIV 1&2 Ab/P24 Ag 4thGn Nonreactive Microbiology Microbiology Results: Microbiology 10/11/24 04:02 Urine Culture - Final Urine Catheterized - Straight Catheter Escherichia coli 10/11/24 04:02 Blood Culture - Preliminary Blood - Venous No growth after 48 hours. 10/11/24 04:02 Blood Culture - Preliminary Blood - Venous No growth after 48 hours. Procedures Date of Service Date of Service: 10/13/24 Progress Note: A&P Assessment and plan (1) Abdominal pain: Status: Acute Assessment and Plan: With note of question of phlegmonous changes on the abdominal wall Abdomen otherwise soft and benign Tolerating clear liquids well Much less tender More alert Looks comfortable overall Okay to start on regular diet later today Continue antibiotics We will follow Time Spent With Patient Time: Total time managing care of this patient today ____ minutes. Quality Stroke Does the patient have a stroke diagnosis?: No VTE Prior VTE?: No VTE Risk Level:: Medical - moderate - high VTE Device Contraindication: N/A - Device Ordered VTE Drug Contraindication: N/A - Med Ordered
--- NOTE | 2024-10-13 10:43 | MHC.CM.PN ---
Per RN, Patient is leaving AMA; Shuttle ride arranged to take Patient to [address] [place] [address] in [place] @ 11:20, after Patient showers, per her request.
[2024-10-13] MEDS: methADONE HCl 20 MG/2 ML ORAL.CONC 30 MG PO (10:54)
--- NOTE | 2024-10-13 10:57 | P.PNADD_ITS ---
Subjective Subjective Date of Service: 10/13/24 Reason For Visit: SVT drug abuse Abdominal abscess Interim History: Patient seen in follow up for [place] Yesterday 10/13, received methadone 20mg, however remained somnolent the remainder of the day Per animal humane agent supervisor, patient bradycardiac following methadone dose administration. Remained in the mid to low 50s Today patient awake, alert. Reporting that she is hungry and wants to eat real food--currently on clears. Reporting mild pain, some withdrawal . Discussed concern with HR and methadone dosing and plan to dose throughout the day based on response to initial dose--patient agreeable. 30 mins later informed by provider that patient would like to discharge. Patient seen again, she is agreeable to dose of methadone before leaving. Overdose prevention discussion as well. She was dressed and ready to leave, but willing to wait for dose and last dose letter. Review of Systems Acute medical concerns: Yes Review of Systems Constitutional: Reports as per HPI Mental Status Exam Mental Status Exam Patient Appearance: Well Grooomed and Appropriate Patient Orientation: Person, Place and Situation Level of Consciousness: Awake, Appropriate and Alert Patient Behavior: Appropriate Affect Description: Calm and Appropriate Speech Pattern: Clear Hallucinations: None Thought Process: Intact Thought Content: positive for Intact Judgement: Fair Diagnostics Vital Signs (24Hr): Vital Signs - 24 hr 10/12/24 11:17 10/12/24 15:15 10/12/24 19:45 Temperature 97.0 F 98.6 F 98.0 F Pulse Rate 62 50 67 Respiratory Rate 20 18 17 Blood Pressure 139/84 158/88 H 139/88 Pulse Oximetry 100 96 98 Oxygen Delivery Method Room Air Room Air Room Air 10/12/24 23:19 10/13/24 04:00 10/13/24 07:43 Temperature 97.9 F 98.0 F 98.0 F Pulse Rate 106 H 56 59 Respiratory Rate 17 17 14 Blood Pressure 142/78 H 159/85 H 113/65 Pulse Oximetry 100 99 98 Oxygen Delivery Method Room Air Room Air Room Air BMI result Body Mass Index 21.6 Labs 10/13/24 07:28 10/13/24 07:28 Labs: Laboratory Results - last 48 hr 10/12/24 10/12/24 10/12/24 05:47 06:20 16:55 WBC 5.7 RBC 3.70 L Hgb 9.7 L Hct 30.0 L MCV 81.1 MCH 26.2 L MCHC 32.3 RDW 14.6 Plt Count 329 D MPV 11.4 Absolute Nucleated RBC 0.000 Nucleated RBC % (auto) 0.0 Hold Purple Top Sodium 138 Potassium 3.3 Chloride 107 Carbon Dioxide 23 Anion Gap 11 L BUN 4 L Creatinine 0.57 Estim Creat Clear Calc 131.0 Estimated GFR > 60 POC Glucose 105 Random Glucose 108 Calcium 8.9 Magnesium 1.7 Total Bilirubin 0.5 AST 18 ALT 7 Alkaline Phosphatase 44 Total Protein 7.0 Albumin 3.3 L TSH 0.22 L Free T4 0.98 Random Vancomycin 4.1 L Hepatitis C Ab (EIA) HIV 1&2 Ab/P24 Ag 4thGn 10/13/24 07:28 WBC 6.6 RBC 3.91 L Hgb 10.4 L Hct 32.1 L MCV 82.1 MCH 26.6 L MCHC 32.4 RDW 14.7 Plt Count 373 MPV 11.7 Absolute Nucleated RBC 0.000 Nucleated RBC % (auto) 0.0 Hold Purple Top SEE NOTE Sodium Potassium Chloride Carbon Dioxide Anion Gap BUN Creatinine 0.59 Estim Creat Clear Calc 126.6 Estimated GFR > 60 POC Glucose Random Glucose Calcium Magnesium Total Bilirubin AST ALT Alkaline Phosphatase Total Protein Albumin TSH Free T4 Random Vancomycin Hepatitis C Ab (EIA) Nonreactive HIV 1&2 Ab/P24 Ag 4thGn Nonreactive Medications Medications Current Medications Acetaminophen (Acetaminophen 325 Mg Tablet) 650 mg PO Q6H PRN PRN Reason: PAINFEV Last Admin: 10/13/24 07:40 Dose: 650 mg Ceftriaxone Sodium (Ceftriaxone Sodium 1 Gm Vial) 1 gm IVPUSH Q24H [facility] Last Admin: 10/13/24 04:19 Dose: 1 gm Enoxaparin Sodium (Enoxaparin Sodium 40 Mg/0.4 Ml Syringe) 40 mg SUBCUT Q24H [facility] Last Admin: 10/12/24 16:04 Dose: 40 mg Vancomycin HCl 1,250 mg/ (Sodium Chloride) 250 mls @ 166.667 mls/hr IV Q12H [facility] Last Infusion: 10/13/24 07:54 Dose: Infused Melatonin (Melatonin 3 Mg Tablet) 6 mg PO BEDTIME PRN PRN Reason: Insomnia Last Admin: 10/12/24 23:21 Dose: 6 mg Methadone HCl (Methadone Hcl 20 Mg/2 Ml Oral.Conc) 20 mg PO ONCE PRN PRN Reason: Opiate Withdrawal Last Admin: 10/12/24 12:21 Dose: 20 mg Morphine Sulfate (Morphine Sulfate 4 Mg/Ml Cartridge) 4 mg IVPUSH Q4H PRN; Protocol PRN Reason: Pain, Severe (Pain Scale 7-10) Last Admin: 10/12/24 05:55 Dose: 4 mg Pharmacy Consult (Consult Rx Vancomycin Dosing) 1 each MISCELLANE DAILY PRN PRN Reason: Consult order Sodium Chloride (0.9 % Sodium Chloride Flush 3 Ml Syringe) 3 ml IVFLUSH QSHIFT [facility] Last Admin: 10/13/24 07:40 Dose: Not Given Allergies Allergies Allergy/AdvReac Type Severity Reaction Status Date / Time adhesive tape (ADHESIVE TAPE) Allergy Unknown UNKNOWN Verified 10/11/24 03:37 acetaminophen (From Tylenol) Allergy Rash Verified 10/11/24 03:37 Anesthetics - Gm Type- AdvReac Severe heart rate Verified 10/11/24 03:37 Parabens (ANESTHETICS - drops GM TYPE) amoxicillin AdvReac Anaphylaxis Verified 10/11/24 03:37 unspecified anesthetic Allergy Unknown lowers Uncoded 10/11/24 03:37 heart rate Assessment & Plan Assessment & Plan (1) Opioid use disorder: Status: Acute Code(s): F11.90 - Opioid use, unspecified, uncomplicated Assessment and Plan: * plan for methadone 40mg, patient requesting 30mg * last dose letter provided * referral to be sent to [facility] * take home narcan provided and patient encouraged to present to ED should abdominal pain worsen or cellulitis persist. Total time managing care of this patient today __40__ minutes.
--- NOTE | 2024-10-13 11:01 | PC.NURSE ---
Pt left AMA at ~1100 accomapnied by OPERATIONS SUPPORT REPRESENTATIVE. [facility] for the [facility] Shuttle. Voucher provided. ARLETTE Iyer and DESSERT CUP MACHINE FEEDER Ileana Watson aware and up to speak to pt. Pt given one dose of methadone before leaving as well as last dose letter and narcan kit. Pt educated on the risks of leaving AMA and verbalized understanding and still stated wish to leave. IVs removed with catheter tips intact, no s/s infection or bleeding noted.
--- NOTE | 2024-10-13 11:52 | P.DS_ITS ---
DS: Providers Provider Date of Service: 10/13/24 Date of admission: 10/11/24 07:21 Date of discharge: 10/13/24 Primary care physician: Unknown Physician Consults: 10/11/24 08:25 Consult to General Surgery Routine Consulting Provider: [facility] Reason for consultation: early abscess 10/11/24 09:01 Addiction Medicine Provider Routine Consulting Provider: Addiction Covering Reason for consultation: polysubstance abuse, admitted for cellulitis/abscess, svt 10/12/24 06:12 Consult to Cardiology Routine Consulting Provider: [facility] Reason for consultation: SVT Attending physician on discharge: Case Jo Discharging clinician: Zoey Iyer DS: Diagnosis Discharge Diagnosis (1) Opioid use disorder: Status: Acute DS: Summary Hospital Course Hospital Course: From H&P on the day of admission 28-year-old female with a past medical history of polysubstance use, SVT, prior intra-abdominal surgery with colostomy and reversal who was brought to [facility] by EMS for erratic behavior. The patient is currently sedated and unable to provide a meaningful history. Hence the history is obtained from the ED provider's note. Apparently the patient was acting erratically [place] a [place] station at which point EMS was called. She was noted to be tachycardic 90s to 200 on monitor. Reportedly the patient admitted to using crack cocaine and fentanyl. Patient also reportedly complained of abdominal pain and stated a history of colostomy and reversal. In the emergency room the patient was found to be in SVT and was treated with 10 mg of IV Cardizem with initial improvement in heart rate. Subsequently her heart rate increased and was given 6 mg followed by 12 mg of adenosine at which point she converted to normal sinus rhythm. The patient did have a drop in blood pressure at this time which was felt secondary to medications. Further workup revealed leukocytosis of 14,000, CT imaging with findings suggestive of early abscess of the anterior abdominal wall. The patient has been treated with IV ceftriaxone and IV vancomycin along with multiple L of fluid. She had been sedated with IV diazepam. She will now be admitted for further workup. The patient is seen and examined in the ED around 08:30. She is sedated but does respond to verbal stimuli. She is able to tell me her name and that she is at [facility]. She is not oriented to date nor the circumstances under which he is in the emergency room. 1. Toxic/metabolic encephalopathy multifactorial, including substance abuse + underlying infection Resolved. Patient woke up and is awake, alert and requesting of the of leave the hospital against medical advice. She was awake and alert at the time she left the hospital 2. sepsis due to Cellulitis/early abscess of the abdominal wall Initially treated with rocehpin/vancomcyin gen surg following, no surgical intervention was planned Blood cultures negative to date In order to minimize harm we will discharge with a course of oral doxycycline 3. UTI Urine culture grew E coli. As above in order to minimize harm we will discharge with a course of oral cefuroxime 5. SVT Has history of SVT likely due to substance abuse + infection Echocardiogram obtained, report pending Seen by cardiology due to bradycardia no plan to start scheduled medication at this time. No further episodes of SVT 6. Polysubstance abuse UDS+ for opiates, fentanyl, cocaine addiction medicine consult - started on methadone. Says she will follow-up in the clinic 7. Elevated trop likely from SVT Flat Patient elected to leave the hospital against medical advice Time Attestation Discharge Coordination Time (in mins): 32 Quality: Safe Use of Opioids Does Pt have an Active Cancer Diagnosis on the Problem List?: No Quality: Stroke Does the patient have a stroke diagnosis?: No Physical Exam Vital Signs: Vital Signs: Last Vital Signs Temp 98.0 F 10/13/24 07:43 Pulse 59 10/13/24 07:43 Resp 14 10/13/24 07:43 BP 113/65 10/13/24 07:43 Pulse Ox 98 10/13/24 07:43 O2 Del Method Room Air 10/13/24 07:43 BMI result Body Mass Index 21.6 Const: General: alert and awake Nutritional Appearance: average body habitus Orientation/consciousness: patient oriented x3 Neuro: General: patient oriented x3 DS: Data Data Completed and Pending Labs on day of discharge: Laboratory Results - last 24 hr 10/12/24 10/12/24 10/13/24 06:20 16:55 07:28 WBC 6.6 RBC 3.91 L Hgb 10.4 L Hct 32.1 L MCV 82.1 MCH 26.6 L MCHC 32.4 RDW 14.7 Plt Count 373 MPV 11.7 Absolute Nucleated RBC 0.000 Nucleated RBC % (auto) 0.0 Hold Purple Top SEE NOTE Creatinine 0.59 Estim Creat Clear Calc 126.6 Estimated GFR > 60 Free T4 0.98 Random Vancomycin 4.1 L Hepatitis C Ab (EIA) Nonreactive HIV 1&2 Ab/P24 Ag 4thGn Nonreactive Preliminary micro results at discharge 10/11/24 04:02 Blood Culture - Preliminary Blood - Venous No growth after 48 hours. 10/11/24 04:02 Blood Culture - Preliminary Blood - Venous No growth after 48 hours. Discharge Plan Discharge Patient Disposition: Left Against Medical Advice Discharge Diagnosis: UTI abdominal wall cellulitis with possible early abscess polysubstance use Referrals: Physician,Unknown J [Primary Care Provider, Medical] - 1 Week Discharge Medications: New cefuroxime axetil 500 mg tablet 500 mg PO Q12H 7 Days Qty: 14 0RF doxycycline monohydrate 100 mg tablet 100 mg PO BID 7 Days Qty: 14 0RF Discharge Orders: Discharge Order (Routine); Ordered 10/13/24 Ordered By: Zoey Iyer Print Language: Algerian Care Plan Goals: See below Health Concerns: UTI Abdominal wall cellulitis with possible early abscess Polysubstance use SVT Plan of Treatment: Recommended to stay in the hospital for further management however elected to leave against medical advice In order to minimize harm we will send antibiotics for UTI and to cover skin. Urge to returns to the hospital with any worsening of symptoms Assessment: See discharge summary Discharge Date/Time: 10/13/24 11:00
--- NOTE | 2024-10-13 12:31 | P.CDIM_ITS ---
PROVIDER RESPONSE TEXT: To clarify, the appropriate diagnosis supported by the clinical indicators: Diagnosis was present on admission and is now resolved QUERY TEXT: PHYSICIAN'S DOCUMENTATION REQUEST Date of Query: 10/13/2024 07:49 AM EDT Patient Name: TOSHIA LIMA Admit Date: 10/11/2024 Dear Zoey CHONG, A review of the medical record indicates additional documentation may be needed. Please review below and update the documentation accordingly. Clinical Indicators: The diagnosis of possible overdose was documented on 10/11/24 within the workup in ED. ED:: Evaluated with what appears to be overdose, she is tachycardic, intermittent episodes of agitation and lethargy noted. Pt arrived via EMS [place] [employer] [place] behavior. SVT likely due to crack cocaine use and also opiates so this is a mixed picture, possibly PCP as well. Medicate with Benzos for further workup. UA positive for opiates and cocaine with evidence of UTI. Please clarify the following: Overdose Diagnosis was present on admission and is now resolved Diagnosis was present on admission and is still being monitored, evaluated, or treated Diagnosis was ruled out Diagnosis is still a likely, suspected, probable diagnosis Other (explain) Clinically unable to determine (explain) Thank you, Corrine Mcghee, CCS, CDIS Use of terms such as suspected, likely, concern for, or probable (associated with a specific diagnosis that is being evaluated, monitored, or treated as if it exists) are acceptable and can be coded in the inpatient setting, when documented at the time of discharge. Please use your independent medical judgment in providing your response. THIS QUERY IS PART OF THE PERMANENT MEDICAL RECORD
== END 2024-10-13 11:00 | disposition left against medical advice (07) | DRG 812 ==
LOC: HO.ED 07:28 → HO.EDOVER 07:36 → HO.IMC 15:39
PROVIDERS: Family Medicine; Nurse Practitioner Psychiatric/Mental Health; Admitting Provider Student in an Organized Health Care Education/Training Program; Emergency Provider Emergency Medicine; Visit Provider Physician Assistant Medical
DX: T40.2X1A Poisoning by other opioids, accidental (unintentional), initial encounter (principal); G92.8 Other toxic encephalopathy; A41.9 Sepsis, unspecified organism; B96.20 Unspecified Escherichia coli [E. coli] as the cause of diseases classified elsewhere; I47.10 Supraventricular tachycardia, unspecified; L02.211 Cutaneous abscess of abdominal wall; L03.311 Cellulitis of abdominal wall; F19.10 Other psychoactive substance abuse, uncomplicated; N39.0 Urinary tract infection, site not specified; Z20.822 Contact with and (suspected) exposure to COVID-19; Z79.899 Other long term (current) drug therapy
CPT/HCPCS: 0241U; 36415; 70450; 71260; 74177; 80053; 80202; 80307; 81001; 82565; 82947; 83605; 83735; 84439; 84443; 84484; 84702; 85025; 85027; 86803; 87040; 87086; 87088; 87186; 87389; 93005; 93306; 99285; J0131; J0153; J0613; J0696; J1650; J2270; J3360; J3370; J3371; J7120; Q9967

== ENCOUNTER → 2024-10-11 03:37 | Outpatient (BNV) | payer MEDICAID, SELFPAY | PROVIDERS: Emergency Provider Emergency Medicine; Visit Provider Radiology Vascular & Interventional Radiology | DX: L02.211 Cutaneous abscess of abdominal wall (principal); Z03.89 Encounter for observation for other suspected diseases and conditions ruled out; R41.82 Altered mental status, unspecified | CPT/HCPCS: 70450; 71260; 74177 ==

== ENCOUNTER 2024-10-11 07:21 | Outpatient (BNV) | payer MEDICAID, SELFPAY | END 2024-10-12 07:00 | PROVIDERS: Admitting Provider Student in an Organized Health Care Education/Training Program; Emergency Provider Emergency Medicine; Visit Provider Internal Medicine Cardiovascular Disease | DX: I51.7 Cardiomegaly (principal); I36.1 Nonrheumatic tricuspid (valve) insufficiency | CPT/HCPCS: 93306 ==

== ENCOUNTER → 2024-10-11 07:21 | Outpatient (BNV) | payer MEDICAID, SELFPAY | PROVIDERS: Admitting Provider Student in an Organized Health Care Education/Training Program; Emergency Provider Emergency Medicine; Visit Provider Surgery | DX: R10.9 Unspecified abdominal pain (principal) | CPT/HCPCS: 99232; 99499 ==

== ENCOUNTER → 2024-10-11 07:21 | Outpatient (BNV) | payer MEDICAID, SELFPAY | PROVIDERS: Admitting Provider Student in an Organized Health Care Education/Training Program; Emergency Provider Emergency Medicine; Visit Provider Family Medicine | DX: I47.10 Supraventricular tachycardia, unspecified (principal); F19.10 Other psychoactive substance abuse, uncomplicated | CPT/HCPCS: 99223; 99233; 99239; 99499 ==

== ENCOUNTER → 2024-10-11 07:21 | Outpatient (BNV) | payer OTHER, SELFPAY | PROVIDERS: Admitting Provider Student in an Organized Health Care Education/Training Program; Emergency Provider Emergency Medicine; Visit Provider Nurse Practitioner Psychiatric/Mental Health | DX: F11.90 Opioid use, unspecified, uncomplicated (principal) | CPT/HCPCS: 99231; 99232 ==

== ENCOUNTER → 2024-10-11 07:21 | Outpatient (BNV) | payer MEDICAID, SELFPAY | PROVIDERS: Admitting Provider Student in an Organized Health Care Education/Training Program; Emergency Provider Emergency Medicine; Visit Provider Internal Medicine Cardiovascular Disease | DX: F19.10 Other psychoactive substance abuse, uncomplicated (principal); I47.10 Supraventricular tachycardia, unspecified | CPT/HCPCS: 93010; 99223 ==

== ENCOUNTER 2024-10-19 17:55 | Emergency (ER) | payer MEDICAID, SELFPAY ==
[2024-10-19 18:07] VITALS: BP 90/69; PULSE 202; RESP 23; TEMP 36.7; O2SAT 100
--- NOTE | 2024-10-19 18:08 | ED_ITS ---
HPI - General Adult General Chief complaint: General Medical Stated complaint: Heroin use, feels different than usual, tachy Time Seen by Provider: 10/19/24 18:04 Source: patient Mode of arrival: EMS Limitations: no limitations History of Present Illness ED Provider: HPI narrative: Patient's history of substance abuse was smoking heroin does also have history of SVT after smoking heroin 2 hours ago patient fell her heart is racing and called the EMS when EMS reached patient's heart rate was not 170s patient has refused medical treatment after arrival in the ER says that she does not want to be treated will like to go home and feeling normal at this time although heart rate was in 170s patient has refused any management patient is alert oriented x4 at this time and aware what is going on Related Data Previous Rx's ?Medication ?Instructions ?Recorded cefuroxime axetil 500 mg tablet 500 mg PO Q12H 7 days #14 tabs 10/13/24 doxycycline monohydrate 100 mg 100 mg PO BID 7 days #1 4 tabs 10/13/24 tablet Allergies Allergy/AdvReac Type Severity Reaction Status Date / Time adhesive tape (ADHESIVE TAPE) Allergy Unknown UNKNOWN Verified 10/19/24 18:15 acetaminophen (From Tylenol) Allergy Rash Verified 10/19/24 18:15 Anesthetics - Gm Type- AdvReac Severe heart rate Verified 10/19/24 18:15 Parabens (ANESTHETICS - drops GM TYPE) amoxicillin AdvReac Anaphylaxis Verified 10/19/24 18:15 unspecified anesthetic Allergy Unknown lowers Uncoded 10/19/24 18:15 heart rate Review of Systems Review of Systems: Yes all other systems are reviewed and are negative PMFSH Past Medical History Medical History Abdominal pain Diverticula of colon Colostomy hernia Hernia SVT (supraventricular tachycardia) Surgical History History of colostomy reversal History of reversal of ileostomy Hx of ileostomy Social History Social History Household Members: Family Housing: Apartment Do you presently have visiting nurse or other home services: No Alcohol intake: current Alcohol intake frequency: does not drink Comment: refused socks, gets up impulsive. Patient Tobacco Use Status: Never used Tobacco Substance Use Type: Crack/Cocaine and Opiates Advance Directives: No Advance Directives Information Provided: No service: No Physical Exam ED Vital Signs: Vital Signs - 24 hr 10/19/24 18:07 10/19/24 18:13 10/19/24 18:19 Temperature 98.1 F 98.1 F 98.1 F Pulse Rate 202 H 202 H 202 H Respiratory Rate 23 H 23 H 23 H Blood Pressure 90/69 90/69 90/69 Pulse Oximetry 100 100 100 Oxygen Delivery Method Room Air Room Air Room Air BMI result Body Mass Index 28.3 Appearance: Alert. Oriented X3. No acute distress. Eyes: PERRLA, No Nystagmus ENT: Pharynx normal. Oral Mucosa moist Neck: Normal inspection. Neck supple. CVS: Tachycardic sinus rhythm Respiratory: No respiratory distress. Equal air entry bilateral, no wheezing/rales/rhonchi Abdomen: Soft and nontender. Bowel sounds are present, no mass palpable, no CVA tenderness Skin: Skin warm and dry. Normal skin color. Normal skin turgor. Extremities: No lower extremity edema. No calf tenderness Neuro: Oriented X 3. No motor deficit. No sensory deficit.No cerebellar signs , cranial nerves II-XII intact Medical Decision Making Medical Decision Making MDM Narrative: Patient is likely in his VT at this time patient is not in any influence of drugs alert oriented x4 refusing any medical attention aware that not treating the heart rate can lead to her and syncope. Patient is signed against medical advice Discharge Plan Discharge Clinical Impression: SVT (supraventricular tachycardia), Polysubstance abuse Patient Disposition: Left Against Medical Advice Instructions: Supraventricular Tachycardia (ED), Polysubstance Use Disorder (ED) Additional Instructions: Opiate use disorder You were seen in our Emergency Department today for treatment of opiate use disorder. You may have been dosed with medication for opiate use disorder (MOUD) in the form of suboxone or methadone. You may experience feeling some withdrawal symptoms and this is normal. The? dose in the Emergency Department is a starting dose and meant to be titrated up once you follow up with a clinic. Please do not feel discouraged, it is a process. The nurse has reviewed with you where to follow up and what information to bring with you, to continue treatment. You also may have been given naloxone (narcan) to take home with you. This medication is used to potentially treat opiate overdose. If you decide you want to stop or cut down on how much you?re using, you can call or walk into our outpatient Addiction Treatment office: [facility] (M-F 9am-5p) [address], [address] [phone] You may have been provided with safer injection?items, please take time to take care of YOU and your health. Use new supplies whenever possible to lessen the chances of infections and other illnesses.? ?If you need more supplies, please go [employer],? [address] [place], [place] you can call or text to coordinate delivery of safer supplies. You were also provided a list of several treatment providers in the area.? If you experience any worsening symptoms you cannot control please return to the ED or call 911. Please follow up at your next appointment. Things to look out for are fevers, chest pain, shortness of breath, severe pain, dizziness, fainting or any other concerns. You have signed against medical advice with your heart rate ranging about 170 You may need medication as soon as possible Does come back to the hospital for further management Prescriptions: No Action cefuroxime axetil 500 mg tablet 500 mg PO Q12H 7 Days Qty: 14 0RF doxycycline monohydrate 100 mg tablet 100 mg PO BID 7 Days Qty: 14 0RF Stand Alone Forms: Against Medical Advice, Substance Abuse Outpt Detox Interventions: ED Discharge Assessment Last Done: 10/19/24 18:19 Discharge Date/Time: 10/19/24 18:21 Print Language: Italian
[2024-10-19 18:09] VITALS: BP 147/86; PULSE 177; O2SAT 98
[2024-10-19 18:13] VITALS: BP 90/69; PULSE 202; RESP 23; TEMP 36.7; O2SAT 100; BMI 28.3
--- NOTE | 2024-10-19 18:17 | PC.NURSE ---
Pt refusing all medical care on arrival to ER; MD at bedside to speak with pt regarding the risks of leaving AMA; pt alert, awake, ambulatory; pt aware of dangers of leaving with HR of 202; pt signed AMA form and left ER ambulatory after pt spoke with
[2024-10-19 18:19] VITALS: BP 90/69; PULSE 202; RESP 23; TEMP 36.7; O2SAT 100
== END 2024-10-19 18:21 | disposition left against medical advice (07) ==
PROVIDERS: Emergency Provider Internal Medicine
DX: F11.188 Opioid abuse with other opioid-induced disorder (principal); F14.10 Cocaine abuse, uncomplicated; I47.10 Supraventricular tachycardia, unspecified
CPT/HCPCS: 99282

== ENCOUNTER 2024-10-23 21:42 | Emergency (ER) | payer MEDICAID, SELFPAY ==
[2024-10-23 21:59] VITALS: BP 190/116; BP 96/61; PULSE 195; PULSE 92; RESP 14; O2SAT 96; BMI 28.6
--- NOTE | 2024-10-23 22:00 | ECG_ITS ---
Test Reason : SVT Blood Pressure : */* mmHG Vent. Rate : 98 BPM Atrial Rate : 98 BPM P-R Int : 144 ms QRS Dur : 90 ms QT Int : 372 ms P-R-T Axes : 65 47 27 degrees QTcB Int : 474 ms Normal sinus rhythm Normal ECG When compared with ECG of 12-Oct-2024 05:35, Normal sinus rhythm has replaced Supraventricular tachycardia Vent. rate has decreased by [address] no longer depressed in Lateral leads Nonspecific T wave abnormality, improved in Inferior leads Nonspecific T wave abnormality no longer evident in Lateral leads Referred By: Carleen Leonard Electronically Signed By: ARMINDA TAN MD
[2024-10-23] MEDS: diazePAM 10 MG/2 ML CARTRIDGE 5 MG IVPUSH ×2 (22:07→22:37)
[2024-10-23] MEDS: Adenosine 6 MG/2 ML VIAL 12 MG IVPUSH (22:07)
[2024-10-23] MEDS: Adenosine 6 MG/2 ML VIAL IVPUSH (22:07)
--- NOTE | 2024-10-23 22:09 | ED_ITS ---
HPI - Arrhythmia/Palpitations General Chief Complaint: Arrhythmia/Palpitations Stated Complaint: SMOKED CRACK, SVT Time Seen by Provider: 10/23/24 21:59 Source: EMS Mode of arrival: EMS Limitations: altered mental status History of Present Illness ED Provider: Dr. Carleen Leonard HPI narrative: patient comes to the emergency room via ambulance. EMS states that the patient found crack cocaine on the floor and smoked it. , unclear who called EMS. However, when they arrived, patient was found to be tachycardic, heart rate in the 190s to 200s. The electrocardiogram done by EMS shows SVT. On arrival, patient has altered mental status, answering yes no questions, twitching, throwing kicks and punches without meaning to hurt anyone. Patient looks very uncomfortable. Patient admits that she has been using Crack cocaine Related Data Previous Rx's ?Medication ?Instructions ?Recorded cefuroxime axetil 500 mg tablet 500 mg PO Q12H 7 days #14 tabs 10/13/24 doxycycline monohydrate 100 mg 100 mg PO BID 7 days #1 4 tabs 10/13/24 tablet metoprolol tartrate 25 mg tablet 25 mg PO BID 30 days #60 tabs 10/24/24 Allergies Allergy/AdvReac Type Severity Reaction Status Date / Time adhesive tape (ADHESIVE TAPE) Allergy Unknown UNKNOWN Verified 10/23/24 22:04 acetaminophen (From Tylenol) Allergy Rash Verified 10/23/24 22:04 Anesthetics - Gm Type- AdvReac Severe heart rate Verified 10/23/24 22:04 Parabens (ANESTHETICS - drops GM TYPE) amoxicillin AdvReac Anaphylaxis Verified 10/23/24 22:04 unspecified anesthetic Allergy Unknown lowers Uncoded 10/19/24 18:15 heart rate Review of Systems 2 Review of Systems: Yes Unobtainable due to mental status PMFSH Past Medical History Medical History Abdominal pain Diverticula of colon Colostomy hernia Hernia SVT (supraventricular tachycardia) Surgical History History of colostomy reversal History of reversal of ileostomy Hx of ileostomy Social History Social History Household Members: Family Housing: Apartment Do you presently have visiting nurse or other home services: No Alcohol intake: current Alcohol intake frequency: does not drink Comment: refused socks, gets up impulsive. Patient Tobacco Use Status: Never used Tobacco Smoked in Last 30 Days: No Use of substances other than those prescribed or required for medical reasons: Yes Substance Use Type: Crack/Cocaine and Heroin Substance Use Frequency: Chronic Longstanding Last Used Substance: Just Prior to Admission Advance Directives: No Advance Directives Information Provided: No service: No Physical Exam 2 Vital Signs: Vital Signs: Last Vital Signs Temp 98.6 F 10/24/24 08:47 Pulse 89 10/24/24 08:47 Resp 20 10/24/24 08:47 BP 139/97 H 10/24/24 08:47 Pulse Ox 98 10/24/24 08:47 O2 Del Method Room Air 10/24/24 08:47 O2 Flow Rate 2 10/23/24 22:48 Oxygen Flow Rate 4 10/23/24 21:59 BMI result Body Mass Index 28.6 Const: Other: Appearance: Alert. patient is under the influence of drugs versus alcohol or both Eyes: Pupils equal, round and reactive to light. ENT: Pharynx normal. Neck: Normal inspection. Neck supple. No lymph nodes noted. No crepitus CVS: patient tachycardic, heart rate in the 190s to 200 Pulses normal. Normal S1 and S2 Respiratory: No respiratory distress. Breath sounds normal. No Wheezing. No rales Abdomen: Soft and nontender. No rigidity. No distention. Skin: Skin warm and dry. Normal skin color. Normal skin turgor. Extremities: No lower extremity edema. No Lacerations. No Rash Neuro: Oriented X 3. No motor deficit. No sensory deficit. Moving all extremities. No slurred speech. CN 2 through 12 grossly intact Psych: anxious, arms and legs flailing, patient apologizing, does not meet to hurt anyone, he is feels restless Course Course Course Narrative: on arrival, EMS EKG shows SVT. Patient's heart rate in the 190s patient was given 6 mg of adenosine IV with no success, then patient was given 12 mg of adenosine the patient's heart rate improved from 190 to 90. patient is still very restless, patient needed to be given IM diazepam, 5 mg which work well. Patient is sleeping comfortably. All of patient's labs pending. Patient receiving IV fluids. Reevaluation(s) Reevaluation #1: Dr. Dick Ramirez: The patient was signed out to me by the previous emergency physician. The patient is a 28-year-old with a history of intermittent supraventricular tachycardia. She also has a history of crack cocaine abuse. She apparently was brought to the hospital after she was using crack and developed palpitations. She was in SVT. she was treated with IV diazepam and IV adenosine with conversion to a normal sinus rhythm. At the time that the patient's care was turned over to me she was sleeping after having received the diazepam. She was in a sinus rhythm. The plan was to monitor her until she was stable and either have her discharged or possibly talk to the recovery team. The patient had labs that were unremarkable. The patient has slept for many hours during which time she was on a monitor and was in sinus rhythm. Towards the end of my shift the patient developed a narrow complex tachycardia again which I thought was consistent with a recurrence of her SVT. She was given a dose of IV diltiazem with conversion to a sinus rhythm. She ultimately woke up and requested a meal. She was given a breakfast tray which she ate. She was offered the opportunity to speak to the recovery team or the care team. She did not wish to speak to either. She says that she has been prescribed metoprolol in the past for her SVT. I will send a prescription for metoprolol to her pharmacy. She complained of chest pain. On exam she seems to have chest wall tenderness which reproduces her pain. I suspect she has chest wall pain. She was offered but declined ibuprofen and acetaminophen. She is encouraged to work on getting a primary care doctor. She is encouraged to avoid using crack cocaine in the future. She was ultimately discharged. Medications Administered Discontinued Medications Generic Name Dose Route Start Last Admin Trade Name Freq PRN Reason Stop Dose Admin Adenosine 6 mg 10/23/24 21:59 10/23/24 22:07 Adenosine 6 Mg/2 Ml Vial IVPUSH 10/23/24 22:00 6 mg STAT STA Administration Adenosine 12 mg 10/23/24 21:59 10/23/24 22:07 Adenosine 6 Mg/2 Ml Vial IVPUSH 10/23/24 22:00 12 mg ONCE ONE Administration Diazepam 5 mg 10/23/24 21:59 10/23/24 22:07 Diazepam 10 Mg/2 Ml Cartridge IVPUSH 10/23/24 22:00 5 mg STAT STA Administration Diazepam 5 mg 10/23/24 22:08 10/23/24 22:37 Diazepam 10 Mg/2 Ml Cartridge IVPUSH 10/23/24 22:09 5 mg STAT STA Administration Diltiazem HCl 20 mg 10/24/24 06:43 10/24/24 06:46 Diltiazem Hcl 50 Mg/10 Ml Vial IVPUSH 10/24/24 06:44 20 mg STAT STA Administration Sodium Chloride 1,000 mls @ 999 mls/hr 10/23/24 22:45 10/23/24 23:48 Ns IV 10/23/24 23:45 Infused .Q1H1M ROSITA Infusion Sodium Chloride 1,000 mls @ 999 mls/hr 10/24/24 06:45 10/24/24 08:43 Ns IV 10/24/24 07:45 Infused .Q1H1M ROSITA Infusion Ibuprofen 400 mg 10/24/24 08:25 10/24/24 08:41 Ibuprofen 400 Mg Tablet PO 10/24/24 08:26 Not Given ONCE ONE Metoprolol Tartrate 25 mg 10/24/24 08:25 10/24/24 08:42 Metoprolol Tartrate 25 Mg Tablet PO 10/24/24 08:26 Not Given ONCE ONE Protocol Medical Decision Making Medical Decision Making [facility] Narrative: My interpretation of labs: No significant abnormality this is hematology and chemistry, normal troponin, normal BNP after the 5 mg of IV diazepam, patient's blood pressure became a bit self, in the low 90s, patient receiving IV fluids, put on 2 L nasal cannula for comfort, patient is sleeping and resting comfortably., Patient remains in sinus rhythm. EKG obtained after they IV push of adenosine 6 and 12 mg, patient's patient has sinus rhythm, heart rate 98, no ST segment depression or elevation, no T- wave inversion, QTC 474 I reviewed patient's medical records, patient was seen here / discharge 4 days ago when the inpatient floor. Patient had an abscess and also SVT. This time, patient has no fever or any obvious signs of active infection. physician observation started at 23:00 Differential Diagnosis Differential Diagnoses: The differential diagnosis associated with the presentation includes Admission/Observation Consideration of admission/observation: Escalation of care including admission/observation considered Lab Data MDM Lab Attestation statement: I reviewed the patient's lab results. 10/23/24 22:09 10/23/24 22:09 Labs: Lab Results 10/23/24 Range/Units 22:09 WBC 9.8 (4.8-10.8) X10*3/uL RBC 4.25 (4.20-5.50) X10*6/uL Hgb 11.2 L (12.0-16.0) g/dl Hct 34.9 L (37.0-47.0) % MCV 82.1 (80.0-98.0) fL MCH 26.4 L (27.0-33.0) pg MCHC 32.1 (31.0-35.0) g/dl RDW 15.1 (11.0-16.0) % Plt Count 317 (160-400) X10*3/uL MPV 11.2 (9.4-12.3) fL Immature Gran % (Auto) 0.3 (0.0-0.4) % Neut % (Auto) 50.4 (45-73) % Lymph % (Auto) 39.0 (20-40) % [place]y % (Auto) 8.4 (2-11) % Eos % (Auto) 1.1 (0-4) % Baso % (Auto) 0.8 (0-2) % Lymph # (Auto) 3.8 (1.2-4.9) X10*3/uL [place] # (Auto) 0.8 (0.1-1.2) X10*3/uL Eos # (Auto) 0.1 (0.0-0.4) X10*3/uL Baso # (Auto) 0.1 (0.0-0.2) X10*3/uL Abs Immat Gran (auto) 0.03 (0.00-0.03) X10*3/uL Absolute Neuts (auto) 4.9 (2.0-8.3) x10*3/uL Absolute Nucleated RBC 0.000 (0.0-0.012) X10*3/uL Nucleated RBC % (auto) 0.0 (0.0-0.2) /100WBC Sodium 142 (135-145) mmol/L Potassium 3.9 (3.3-5.1) mmol/L Chloride 107 (96-108) mmol/L Carbon Dioxide 25 (22-29) mmol/L Anion Gap 14 (12-20) BUN 12 (9-16) mg/dL Creatinine 0.86 (0.5-1.4) mg/dL Estim Creat Clear Calc 92.5 Estimated GFR > 60 Random Glucose 84 (60-115) mg/dL Calcium 9.2 (8.4-10.2) mg/dL Magnesium 1.9 (1.6-2.6) mg/dL Total Bilirubin 0.6 (0.0-1.0) mg/dL Direct Bilirubin 0.2 (0.0-0.5) mg/dL AST 39 H (5-31) U/L ALT 26 (0-31) U/L Alkaline Phosphatase 64 (39-117) U/L Troponin I High Sens 3.1 D (<3.5-17.0) ng/L B-Natriuretic Peptide 15 (<100) pg/mL Total Protein 8.0 (6.5-8.0) g/dL Albumin 4.4 (3.5-5.0) g/dL Ethyl Alcohol < 10 mg/dL Independent Interpretation I performed an independent interpretation of an: EKG Critical Care Time Critical Care Time Critical Care Time: Yes Total Critical Care Time: 60 Attestation: I have personally provided critical care time. Time includes review of lab data, radiology results, discussion with consultants, and monitoring for potential decompensation. Intervention performed as documented. Discharge Plan Discharge Clinical Impression: SVT (supraventricular tachycardia), Polysubstance abuse Patient Disposition: Home, Self-Care Instructions: Supraventricular Tachycardia (ED) Additional Instructions: A prescription for metoprolol has been sent to your pharmacy. Please take this medication 2 times a day. I hope this prevents additional episodes of racing heart. Please do your best to try to avoid using cocaine or crack in the future. This will only make your rapid heart rate problems worse. Please try to get a regular doctor. I recommend going to the [facility] to try to sign up for a regular doctor there. Return to the emergency room if you feel significantly worse. Prescriptions: New metoprolol tartrate 25 mg tablet 25 mg PO BID 30 Days Qty: 60 0RF No Action cefuroxime axetil 500 mg tablet 500 mg PO Q12H 7 Days Qty: 14 0RF doxycycline monohydrate 100 mg tablet 100 mg PO BID 7 Days Qty: 14 0RF Referrals: [facility] [Provider Group] [facility] [Provider Group] Referral Note: Crack cocaine use Interventions: ED Discharge Assessment Last Done: 10/24/24 08:47 Discharge Date/Time: 10/24/24 08:48 Print Language: Chinese
[2024-10-23 22:13] LABS: MANUAL DIFF FLAG NO
[2024-10-23 22:14] LABS: Basophils Absolute Auto 0.1 X10*3/uL (0.0-0.2); Basophils Percent Auto 0.8 % (0-2); Eosinophils Absolute Auto 0.1 X10*3/uL (0.0-0.4); Eosinophils Percent Auto 1.1 % (0-4); Hematocrit 34.9 % (37.0-47.0); Hemoglobin 11.2 g/dl (12.0-16.0); Imm Gran Abs Auto 0.03 X10*3/uL (0.00-0.03); Imm Gran Pct Auto 0.3 % (0.0-0.4); Lymphocytes Absolute Auto 3.8 X10*3/uL (1.2-4.9); Mean Corpuscular HGB Conc 32.1 g/dl (31.0-35.0); Mean Corpuscular Hemoglobin 26.4 pg (27.0-33.0); Mean Corpuscular Volume 82.1 fL (80.0-98.0); Mean Platelet Volume 11.2 fL (9.4-12.3); Monocytes Absolute Auto 0.8 X10*3/uL (0.1-1.2); Monocytes Percent Auto 8.4 % (2-11); Neutrophils Absolute Auto 4.9 x10*3/uL (2.0-8.3); Neutrophils Percent Auto 50.4 % (45-73); Platelet Count 317 X10*3/uL (160-400); Red Blood Count 4.25 X10*6/uL (4.20-5.50); Red Cell Distribution Width 15.1 % (11.0-16.0); White Blood Count 9.8 X10*3/uL (4.8-10.8)
[2024-10-23 22:30] LABS: Alanine Aminotransferase 26 U/L (0-31); Albumin Level 4.4 g/dL (3.5-5.0); Alkaline Phosphatase 64 U/L (39-117); Anion Gap 14 (12-20); Aspartate Amino Transferase 39 U/L (5-31); Bilirubin Direct 0.2 mg/dL (0.0-0.5); Bilirubin Total 0.6 mg/dL (0.0-1.0); Blood Urea Nitrogen 12 mg/dL (9-16); Calcium 9.2 mg/dL (8.4-10.2); Carbon Dioxide 25 mmol/L (22-29); Chloride 107 mmol/L (96-108); Creatinine Clr Calc Pharmacy 92.5; Estimated Glomerular Filt Rate > 60; Ethanol < 10 mg/dL; Glucose Random 84 mg/dL (60-115); Magnesium 1.9 mg/dL (1.6-2.6); Potassium 3.9 mmol/L (3.3-5.1); Sodium 142 mmol/L (135-145)
[2024-10-23 22:34] LABS: B Type Natriuretic Peptide 15 pg/mL (<100)
[2024-10-23 22:36] LABS: Troponin-I High Sensitivity 3.1 ng/L (<3.5-17.0)
[2024-10-23] MEDS: 0.9 % Sodium Chloride 1,000 ML 999 ML IV (22:47)
[2024-10-23 22:48] VITALS: BP 94/60; PULSE 90; RESP 11; TEMP 37; O2SAT 100
--- NOTE | 2024-10-23 23:22 | PC.NURSE ---
Report received from RN. Pt on stretcher asleep, occasional thrashing and moaning. Call hyman in reach.
[2024-10-24] VITALS (7 sets, daily range): BP systolic 105–139; BP diastolic 71–97; PULSE 74–161; RESP 12–21; TEMP 37; O2SAT 96–100
--- NOTE | 2024-10-24 | ECG_ITS ---
Test Reason : tachy Blood Pressure : */* mmHG Vent. Rate : 162 BPM Atrial Rate : 162 BPM P-R Int : 120 ms QRS Dur : 82 ms QT Int : 288 ms P-R-T Axes : * 54 108 degrees QTcB Int : 472 ms Sinus tachycardia Nonspecific ST and T wave abnormality Abnormal ECG When compared with ECG of 23-Oct-2024 22:01, Vent. rate has increased by 64 bpm Nonspecific T wave abnormality now evident in Lateral leads Referred By: Dick Ramirez Electronically Signed By: ARMINDA TAN MD
[2024-10-24] MEDS: dilTIAZem HCL 50 MG/10 ML VIAL 20 MG IVPUSH (06:46)
[2024-10-24] MEDS: 0.9 % Sodium Chloride 1,000 ML 999 ML IV (06:46)
--- NOTE | 2024-10-24 08:17 | PC.NURSE ---
patient is awake and alert, given breakfast tray and two ice cream
--- NOTE | 2024-10-24 08:42 | PC.NURSE ---
patient refused PO meds per MAR. patient alert and awake, ambulated with steady gait to bathroom to get dress. transport shuttle contacted for patient ride. IV removed.
--- NOTE | 2024-10-24 08:47 | PC.NURSE ---
patient ambulated off unit with steady gait. given cranberry juice and ice cream. patient has dc papers and transport van ticket
== END 2024-10-24 08:48 | disposition home or self-care (01) ==
PROVIDERS: Emergency Medicine; Emergency Provider Emergency Medicine
DX: F14.288 Cocaine dependence with other cocaine-induced disorder (principal); I47.10 Supraventricular tachycardia, unspecified; R00.2 Palpitations; R06.02 Shortness of breath
CPT/HCPCS: 36415; 80048; 80076; 80307; 83735; 83880; 84484; 85025; 93005; 96361; 96374; 96375; 99285; J0153; J3360

== ENCOUNTER → 2024-10-23 22:00 | Outpatient (BNV) | payer MEDICAID, SELFPAY | PROVIDERS: Emergency Provider Emergency Medicine; Visit Provider Internal Medicine Cardiovascular Disease | DX: I47.10 Supraventricular tachycardia, unspecified (principal) | CPT/HCPCS: 93010 ==

== ENCOUNTER → 2024-10-24 06:41 | Outpatient (BNV) | payer MEDICAID, SELFPAY | PROVIDERS: Emergency Provider Emergency Medicine; Visit Provider Internal Medicine Cardiovascular Disease | DX: R00.0 Tachycardia, unspecified (principal) | CPT/HCPCS: 93010 ==

== ENCOUNTER 2024-10-27 18:25 | Emergency (ER) | payer MEDICAID, SELFPAY ==
[2024-10-27 18:33] VITALS: BP 116/72; BP 144/92; PULSE 144; PULSE 83; RESP 16; TEMP 36.8; O2SAT 95; O2SAT 98; BMI 28.3
--- NOTE | 2024-10-27 19:04 | MHC.EDTECH ---
Pts belongings are in the [facility]
--- NOTE | 2024-10-27 19:43 | ED_ITS ---
HPI - Overdose General Chief Complaint: Overdose Stated Complaint: smoked crack 1 hour ago Time Seen by Provider: 10/27/24 18:46 History of Present Illness ED Provider: Tom Bowman MD HPI Narrative: This is a 28-year-old female who presents by EMS. Good mandaeism bystander found the patient sleeping on the side of the road it is a warm hot day today in the sun. There was no witnessed fall or other injuries. The patient acknowledged smoking crack cocaine earlier in the day had no other complaints no SI no HI. Reported a history of SVT and was tachycardic 145 transiently EMS on arrival she was in sinus rhythm normal vitals. She denies any acute symptoms or underlying medical history. She specifically denies fever, headache, injury, chest pain, cough, abdominal pain nausea vomiting, skin lesions. Related Data Previous Rx's ?Medication ?Instructions ?Recorded cefuroxime axetil 500 mg tablet 500 mg PO Q12H 7 days #14 tabs 10/13/24 doxycycline monohydrate 100 mg 100 mg PO BID 7 days #1 4 tabs 10/13/24 tablet metoprolol tartrate 25 mg tablet 25 mg PO BID 30 days #60 tabs 10/24/24 Allergies Allergy/AdvReac Type Severity Reaction Status Date / Time adhesive tape (ADHESIVE TAPE) Allergy Unknown UNKNOWN Verified 10/27/24 19:45 acetaminophen (From Tylenol) Allergy Rash Verified 10/27/24 19:45 Anesthetics - Gm Type- AdvReac Severe heart rate Verified 10/27/24 19:45 Parabens (ANESTHETICS - drops GM TYPE) amoxicillin AdvReac Anaphylaxis Verified 10/27/24 19:45 unspecified anesthetic Allergy Unknown lowers Uncoded 10/27/24 19:45 heart rate PMFSH Past Medical History Medical History Abdominal pain Diverticula of colon Colostomy hernia Hernia SVT (supraventricular tachycardia) Surgical History History of colostomy reversal History of reversal of ileostomy Hx of ileostomy Social History Social History Household Members: Family Housing: Apartment Do you presently have visiting nurse or other home services: No Alcohol intake: current Alcohol intake frequency: does not drink Comment: refused socks, gets up impulsive. Patient Tobacco Use Status: Never used Tobacco Substance Use Type: Crack/Cocaine and Heroin Advance Directives: No Advance Directives Information Provided: No service: No Physical Exam Const: Other: EXAM: Gen: Alert, disheveled, unkempt. No obvious signs of externally of injury. She is cooperative and calm Head: Atraumatic Eyes: Anicteric, Normal conjunctiva. Pupils 3-4 mm symmetric and reactive ENT: Moist mucosa, no pallor. ? Neck: Supple. Skin: ?No observable rash or bruising on exposed or examined skin Respiratory: Breathing comfortably, No distress.Clear to auscultation bilaterally, symmetric chest expansion, No wheeze, rales, ronchi. Cardiovascular: Regular rate and rhythm. No murmurs or rub. Well perfused periphery, warm extremities. No edema. ? Abdominal: No FOCAL TENDERNESS. Soft, no objective distension. No palpable masses or obvious organomegaly. ?No guarding, no rebound tenderness or other peritoneal findings. : No flank tenderness. Neuro: Alert. Gross movement of all extremities intact. ? Psych: Calm. Cooperative. MSK: No grossly visible deformity. Vital signs: See flowsheet Medical Decision Making Medical Decision Making MDM Narrative: Medical Decision Making: [age] female EMS was called and came to evaluate her while she was sleeping on the street. She denies fall she has no clinical signs of injury or acute toxidrome or withdrawal syndrome. She declined any detox or other addiction resources that I offered. She did not want any lab work done and I feel has capacity to make this decision is she is alert oriented and understands her reason for presentation and has been forthcoming with or drug use. Testing Interpreted Independently: Na Radiology or Lab testing Results Reviewed: Not Applicable Consults: Not Applicable Independent Historians/External Chart Reviews: Not Applicable Social Determinants of Health Impacting MDM/Planning: Chronic homelessness, poverty, substance use disorder Discharge Plan Discharge Clinical Impression: Crack cocaine overdose Patient Disposition: Home, Self-Care Instructions: Cocaine Use Disorder (ED) Additional Instructions: DISCHARGE DIAGNOSES: Cocaine use disorder, homelessness HISTORY OF PRESENTATION: ?You were found in the street by a bystander who was concerned about her welfare. EMS found you and on transport to us you had heart rate of 145. bulatory EMERGENCY DEPARTMENT COURSE,TESTS, TREATMENTS: While in the ED today your likely episode of rapid heart rate r esolved and may have been a transient episode of SVT possibly triggered by crack cocaine. In the emergency department he had no signs of injury or any acute complaints. You declined any labs or workup. You had a meal of food and were am DISCHARGE MEDICATIONS: ?[We have made no changes to your regular medication regimen] FOLLOW-UP: ?Call your primary or general physician soon as possible to discuss your symptoms, your ED visit and to discuss follow up plans PCP follow up INSTRUCTIONS ?& RETURN PRECAUTIONS: If any symptoms change first call your primary physician, if it is after-hours your primary doctors office should have a provider vision rehabilitation therapist you can speak with. If the symptoms are severe or very concerning to you then call 911 or return to the ED. [[id number]] Tom Bowman MD Emergency Physician [facility] Prescriptions: No Action cefuroxime axetil 500 mg tablet 500 mg PO Q12H 7 Days Qty: 14 0RF doxycycline monohydrate 100 mg tablet 100 mg PO BID 7 Days Qty: 14 0RF metoprolol tartrate 25 mg tablet 25 mg PO BID 30 Days Qty: 60 0RF Referrals: [facility] [Provider Group, Addiction Medicine] Print Language: Haitian
[2024-10-27 19:54] VITALS: BP 116/72; PULSE 83; RESP 16; TEMP 36.8; O2SAT 98
== END 2024-10-27 20:03 | disposition home or self-care (01) ==
PROVIDERS: Emergency Provider Emergency Medicine
DX: T40.5X1A Poisoning by cocaine, accidental (unintentional), initial encounter (principal); Y92.9 Unspecified place or not applicable; R00.0 Tachycardia, unspecified; Z79.899 Other long term (current) drug therapy
CPT/HCPCS: 99282

== ENCOUNTER 2024-10-28 03:27 | Emergency (ER) | payer MEDICAID, SELFPAY ==
[2024-10-28] VITALS (7 sets, daily range): BP systolic 104–155; BP diastolic 66–108; PULSE 76–204; RESP 13–17; TEMP 36.7; O2SAT 94–100; BMI 30.7
[2024-10-28] MEDS: diazePAM 10 MG/2 ML CARTRIDGE IM (03:47)
--- NOTE | 2024-10-28 03:49 | ECG_ITS ---
Test Reason : SVT Blood Pressure : */* mmHG Vent. Rate : 95 BPM Atrial Rate : 95 BPM P-R Int : 138 ms QRS Dur : 84 ms QT Int : 360 ms P-R-T Axes : 63 43 26 degrees QTcB Int : 452 ms Normal sinus rhythm Normal ECG When compared with ECG of 24-Oct-2024 06:41, Normal sinus rhythm has replaced Supraventricular tachycardia Vent. rate has decreased by 67 bpm Non-specific change in ST segment in Lateral leads Nonspecific T wave abnormality no longer evident in Lateral leads Referred By: Alex Mcnamara Electronically Signed By: ARMINDA TAN MD
[2024-10-28 04:21] LABS: MANUAL DIFF FLAG NO
[2024-10-28 04:22] LABS: Hematocrit 31.2 % (37.0-47.0); Hemoglobin 10.0 g/dl (12.0-16.0); Imm Gran Abs Auto 0.03 X10*3/uL (0.00-0.03); Imm Gran Pct Auto 0.4 % (0.0-0.4); Lymphocytes Absolute Auto 1.6 X10*3/uL (1.2-4.9); Mean Corpuscular HGB Conc 32.1 g/dl (31.0-35.0); Mean Corpuscular Hemoglobin 26.5 pg (27.0-33.0); Mean Corpuscular Volume 82.5 fL (80.0-98.0); NRBC Abs Auto 0.000 X10*3/uL (0.0-0.012); NRBC Pct Auto 0.0 /100WBC (0.0-0.2); Platelet Count 224 X10*3/uL (160-400); Red Blood Count 3.78 X10*6/uL (4.20-5.50); White Blood Count 8.4 X10*3/uL (4.8-10.8)
[2024-10-28 04:38] LABS: Alanine Aminotransferase 20 U/L (0-31); Albumin Level 3.9 g/dL (3.5-5.0); Alkaline Phosphatase 64 U/L (39-117); Anion Gap 12 (12-20); Aspartate Amino Transferase 37 U/L (5-31); Blood Urea Nitrogen 11 mg/dL (9-16); Calcium 8.7 mg/dL (8.4-10.2); Carbon Dioxide 26 mmol/L (22-29); Chloride 106 mmol/L (96-108); Creatinine Clr Calc Pharmacy 95.6; Estimated Glomerular Filt Rate > 60; Potassium 4.1 mmol/L (3.3-5.1); Sodium 140 mmol/L (135-145); Total Protein 6.9 g/dL (6.5-8.0)
--- NOTE | 2024-10-28 04:45 | ED.PSYCH ---
HPI - Psych General Chief Complaint: ETOH/Substance Use Stated Complaint: TOOK BAG OF HEROIN Time Seen by Provider: 10/28/24 03:57 Source: EMS Mode of arrival: EMS Limitations: altered mental status History of Present Illness ED Provider: Dr. Carleen Leonard HPI Narrative: patient comes to the emergency room via EMS. Patient was discharged from the ER a few hours ago. patient is altered, under the influence of drugs, can not give any history. Patient was found by police department in the street acting erratic. Patient reports using crack cocaine but unable to give much history. When EMS picked up the patient, patient's heart rate was a proximally 205. On arrival to the emergency room, between 180 and 190. Patient known to have cocaine induced SVT. Patient isn't able to give any significant history, altered mental status, under the influence of drugs. Related Data Previous Rx's ?Medication ?Instructions ?Recorded cefuroxime axetil 500 mg tablet 500 mg PO Q12H 7 days #14 tabs 10/13/24 doxycycline monohydrate 100 mg 100 mg PO BID 7 days #14 tabs 10/13/24 tablet metoprolol tartrate 25 mg tablet 25 mg PO BID 30 days #60 tabs 10/24/24 Allergies Allergy/AdvReac Type Severity Reaction Status Date / Time adhesive tape (ADHESIVE TAPE) Allergy Unknown UNKNOWN Verified 10/28/24 03:40 acetaminophen (From Tylenol) Allergy Rash Verified 10/28/24 03:40 Anesthetics - Gm Type- AdvReac Severe heart rate Verified 10/28/24 03:40 Parabens (ANESTHETICS - drops GM TYPE) amoxicillin AdvReac Anaphylaxis Verified 10/28/24 03:40 unspecified anesthetic Allergy Unknown lowers Uncoded 10/28/24 03:40 heart rate Review of Systems Review of Systems: Yes Unobtainable due to mental status and Other ( Under the influence of drugs) [facility] Past Medical History Medical History Abdominal pain Diverticula of colon Colostomy hernia Hernia SVT (supraventricular tachycardia) Surgical History History of colostomy reversal History of reversal of ileostomy Hx of ileostomy Social History Social History Household Members: Family Housing: Apartment Do you presently have visiting nurse or other home services: No Unable to assess alcohol history related to: Unknown Alcohol intake: current Alcohol intake frequency: does not drink Comment: refused socks, gets up impulsive. Patient Tobacco Use Status: Never used Tobacco Use of substances other than those prescribed or required for medical reasons: Yes Substance Use Type: Crack/Cocaine Advance Directives: No Do you have a plan to hurt others: No Plan service: No Physical Exam Vital Signs: Vital Signs: Last Vital Signs Pulse 77 10/28/24 10:14 Resp 17 10/28/24 10:14 BP 155/108 H 10/28/24 10:14 Pulse Ox 100 10/28/24 10:14 O2 Del Method Room Air 10/28/24 10:14 BMI result Body Mass Index 30.7 Const: Other: Appearance: awake, confused, under the influence of drugs , yelling random words, throwing punches and kicks without any control , patient on trying to harm anyone Eyes: Pupils equal, round and reactive to light. ENT: Pharynx normal. Neck: Normal inspection. Neck supple. No lymph nodes noted. No crepitus CVS: heart rate between 180 and 190, on the monitor SVT Respiratory: No respiratory distress. Breath sounds normal. No Wheezing. No rales Abdomen: Soft and nontender. No rigidity. No distention. Skin: Skin warm and dry. Normal skin color. Normal skin turgor. Extremities: No lower extremity edema. No Lacerations. No Rash Neuro: moves all extremities, randomly throws punches and kicks into the your Psych: under the influence of drugs, unable to give any history. Admits to using drugs Course Course Course Narrative: on arrival, patient was put in the monitor, patient has SVT again. Patient was given initially 10 mg of IM diazepam since we can could not get An IV line because she was putting too much. after the 10 mg of diazepam, it was easier to hold the patient. However, patient is still very combative, had no effect on the heart rate. Patient is still in the 180s to 190s 6 mg of adenosine was given, unsuccessful, 12 mg of adenosine were given subsequently, heart rate improved to the 90s patient now sleeping all of patient's labs pending. Medications Administered Discontinued Medications Generic Name Dose Route Start Last Admin Trade Name Freq PRN Reason Stop Dose Admin Adenosine 6 mg 10/28/24 04:43 10/28/24 04:46 Adenosine 6 Mg/2 Ml Vial IVPUSH 10/28/24 04:44 6 mg ONCE ONE Administration Adenosine 12 mg 10/28/24 04:43 10/28/24 04:46 Adenosine 6 Mg/2 Ml Vial IVPUSH 10/28/24 04:44 12 mg STAT STA Administration Diazepam 10 mg 10/28/24 03:43 10/28/24 03:47 Diazepam 10 Mg/2 Ml Cartridge IM 10/28/24 03:44 10 mg STAT STA Administration Medical Decision Making Medical Decision Making [facility] Narrative: All of patient's labs pending. EKG after 6+ 12 mg of adenosine: Sinus rhythm, heart rate 95, no ST segment depression or elevation, no T-wave inversion, QTC 452 There is no significant acute abnormality in patient's labs: Patient is chronically anemic, hemoglobin 10.0. Chemistry within normal limits, LFTs normal, troponin normal. Patient's ETOH negative patient is calm, sleeping, stable physician observation started at pending: TSH/free T4 hCG Patient's TSH is normal. test is negative. In the morning patient is awake alert ambulatory eating understands that she should not be using recreational drugs patient to be discharged home follow-up on an outpatient basis. Differential Diagnosis Differential Diagnoses: The differential diagnosis associated with the presentation includes Polysubstance abuse hyperthyroid Admission/Observation Consideration of admission/observation: Escalation of care including admission/observation considered ( given patient's SVT and initial presentation, observation was considered.) Lab Data [facility] Lab Attestation statement: I reviewed the patient's lab results. 10/28/24 04:17 10/28/24 04:17 Labs: Lab Results 10/28/24 Range/Units 04:17 WBC 8.4 (4.8-10.8) X10*3/uL RBC 3.78 L (4.20-5.50) X10*6/uL Hgb 10.0 L (12.0-16.0) g/dl Hct 31.2 L (37.0-47.0) % MCV 82.5 (80.0-98.0) fL MCH 26.5 L (27.0-33.0) pg MCHC 32.1 (31.0-35.0) g/dl RDW 15.2 (11.0-16.0) % Plt Count 224 D (160-400) X10*3/uL MPV 11.4 (9.4-12.3) fL Immature Gran % (Auto) 0.4 (0.0-0.4) % Neut % (Auto) 70.8 (45-73) % Lymph % (Auto) 19.5 L (20-40) % Lares % (Auto) 7.5 (2-11) % Eos % (Auto) 1.0 (0-4) % Baso % (Auto) 0.8 (0-2) % Lymph # (Auto) 1.6 (1.2-4.9) X10*3/uL Lares # (Auto) 0.6 (0.1-1.2) X10*3/uL Eos # (Auto) 0.1 (0.0-0.4) X10*3/uL Baso # (Auto) 0.1 (0.0-0.2) X10*3/uL Abs Immat Gran (auto) 0.03 (0.00-0.03) X10*3/uL Absolute Neuts (auto) 5.9 (2.0-8.3) x10*3/uL Absolute Nucleated RBC 0.000 (0.0-0.012) X10*3/uL Nucleated RBC % (auto) 0.0 (0.0-0.2) /100WBC Sodium 140 (135-145) mmol/L Potassium 4.1 (3.3-5.1) mmol/L Chloride 106 (96-108) mmol/L Carbon Dioxide 26 (22-29) mmol/L Anion Gap 12 (12-20) BUN 11 (9-16) mg/dL Creatinine 0.79 (0.5-1.4) mg/dL Estim Creat Clear Calc 95.6 Estimated GFR > 60 Random Glucose 84 (60-115) mg/dL Calcium 8.7 (8.4-10.2) mg/dL Magnesium 2.1 (1.6-2.6) mg/dL Total Bilirubin 0.4 (0.0-1.0) mg/dL AST 37 H (5-31) U/L ALT 20 (0-31) U/L Alkaline Phosphatase 64 (39-117) U/L Troponin I High Sens 5.9 D (<3.5-17.0) ng/L B-Natriuretic Peptide 22 (<100) pg/mL Total Protein 6.9 (6.5-8.0) g/dL Albumin 3.9 (3.5-5.0) g/dL TSH 2.04 (0.32-4.0) uIU/mL Beta HCG, Quant < 2 mIU/mL Ethyl Alcohol < 10 mg/dL Independent Interpretation I performed an independent interpretation of an: EKG (Sinus heart rate is 90 GA QRS QTC within normal limits is no acute ST segment elevation.) Social Determinants Patient?s care significantly limited by Social Determinants of Health including: Problems related to primary support group Critical Care Time Critical Care Time Critical Care Time: Yes Total Critical Care Time: 60 Attestation: I have personally provided critical care time. Time includes review of lab data, radiology results, discussion with consultants, and monitoring for potential decompensation. Intervention performed as documented. Discharge Plan Discharge Clinical Impression: SVT (supraventricular tachycardia), Polysubstance abuse Patient Disposition: Home, Self-Care Prescriptions: No Action cefuroxime axetil 500 mg tablet 500 mg PO Q12H 7 Days Qty: 14 0RF doxycycline monohydrate 100 mg tablet 100 mg PO BID 7 Days Qty: 14 0RF metoprolol tartrate 25 mg tablet 25 mg PO BID 30 Days Qty: 60 0RF Referrals: [facility] [Physician, Medical] Referral Note: Please stop using recreational drugs Print Language: [place]ican
[2024-10-28] MEDS: Adenosine 6 MG/2 ML VIAL IVPUSH (04:46)
[2024-10-28] MEDS: Adenosine 6 MG/2 ML VIAL 12 MG IVPUSH (04:46)
[2024-10-28 05:16] LABS: Troponin-I High Sensitivity 5.9 ng/L (<3.5-17.0)
[2024-10-28 05:19] LABS: B Type Natriuretic Peptide 22 pg/mL (<100)
[2024-10-28 05:23] LABS: Magnesium 2.1 mg/dL (1.6-2.6)
--- NOTE | 2024-10-28 07:01 | PC.NURSE ---
assumed care of patient. patient resting comfortably in stretcher, even unlabored respirations. patient remains on 2 cardiac monitors d/t medication administration. patient sleeping and vitals WNL.
--- NOTE | 2024-10-28 10:28 | PC.NURSE ---
Pt awake slightly agitated, requesting ice cream and to call mother to come pick her up. Patient speaking clear full sentences. patient given water to drink first. patient tolerated without issues. meal provided. made aware
--- NOTE | 2024-10-28 11:11 | PC.NURSE ---
Patient slow to get up/ leave/ resistive to leaving the department. Security called to escort patient out of dept. Patient observed walking out of dept with a steady gait.
== END 2024-10-28 11:13 | disposition home or self-care (01) ==
PROVIDERS: Physician Assistant; Emergency Provider Emergency Medicine
DX: I47.10 Supraventricular tachycardia, unspecified (principal); F11.188 Opioid abuse with other opioid-induced disorder; F14.10 Cocaine abuse, uncomplicated; R94.31 Abnormal electrocardiogram [ECG] [EKG]; Z79.899 Other long term (current) drug therapy; Z51.81 Encounter for therapeutic drug level monitoring; Z71.51 Drug abuse counseling and surveillance of drug abuser
CPT/HCPCS: 36415; 80053; 80307; 83735; 83880; 84443; 84484; 84702; 85025; 93005; 96372; 96374; 99285; J0153; J3360

== ENCOUNTER → 2024-10-28 03:49 | Outpatient (BNV) | payer MEDICAID, SELFPAY | PROVIDERS: Emergency Provider Emergency Medicine; Visit Provider Internal Medicine Cardiovascular Disease | DX: I47.10 Supraventricular tachycardia, unspecified (principal) | CPT/HCPCS: 93010 ==

== ENCOUNTER 2024-11-15 21:49 | Emergency (ER) | payer MEDICAID, SELFPAY ==
[2024-11-15 21:55] VITALS: BP 111/80; PULSE 81; RESP 20; O2SAT 99; BMI 26.2
--- NOTE | 2024-11-15 21:57 | ECG_ITS ---
Test Reason : OVERDOSE Blood Pressure : */* mmHG Vent. Rate : 70 BPM Atrial Rate : 70 BPM P-R Int : 136 ms QRS Dur : 84 ms QT Int : 380 ms P-R-T Axes : 39 55 32 degrees QTcB Int : 410 ms Normal sinus rhythm Normal ECG When compared with ECG of 28-Oct-2024 03:56, No significant change was found Referred By: Carleen Leonard Electronically Signed By: Keegan Irene
--- NOTE | 2024-11-15 21:58 | ED.GENADULT ---
HPI - General Adult General Chief complaint: Overdose Stated complaint: Heroine/crack use Time Seen by Provider: 11/15/24 21:57 Source: EMS Mode of arrival: EMS Limitations: altered mental status History of Present Illness ED Provider: Dr. Carleen Leonard HPI narrative: Patient comes to the emergency room via ambulance. According to EMS, police department had to be called 3 times in a 24 hour. Because the patient had signs still/symptoms of overdose. This 3rd time, they may the patient calm. Patient is altered. Patient did accept that she uses crack cocaine and heroin. When EMS arrived, the patient's heart rate was in the 170s, EKG showed SVT. Patient was given 6 +12 mg of adenosine IV. By the time that the patient arrived in the emergency room, patient's heart rate was in the 90s. Patient awake, confused. Patient admits to polysubstance abuse. Denies chest pain or shortness of breath. Denies SI or HI Related Data Previous Rx's ?Medication ?Instructions ?Recorded cefuroxime axetil 500 mg tablet 500 mg PO Q12H 7 days #14 tabs 10/13/24 doxycycline monohydrate 100 mg 100 mg PO BID 7 days #14 tabs 10/13/24 tablet metoprolol tartrate 25 mg tablet 25 mg PO BID 30 days #60 tabs 10/24/24 Allergies Allergy/AdvReac Type Severity Reaction Status Date / Time adhesive tape (ADHESIVE TAPE) Allergy Unknown UNKNOWN Verified 11/26/24 19:27 acetaminophen (From Tylenol) Allergy Rash Verified 11/26/24 19:27 Anesthetics - Gm Type- AdvReac Severe heart rate Verified 11/26/24 19:27 Parabens (ANESTHETICS - drops GM TYPE) amoxicillin AdvReac Anaphylaxis Verified 11/26/24 19:27 unspecified anesthetic Allergy Unknown lowers Uncoded 11/26/24 19:27 heart rate Review of Systems Review of Systems: Constitutional : No Weight loss, No Fever, No Chills, No Night Sweats, No Fatigue, No Malaise ENT/Mouth : No Hearing loss, No Ear Pain, No Nasal Congestion, No Sinus Pain, No Hoarseness, No sore throat, No Rhinorrhea, No Swallowing Difficulty Eyes: No Eye Pain, No Swelling, No Redness, No Foreign Body, No Discharge, No Vision Changes Cardiovascular : No Chest Pain, No SOB, No Dyspnea on Exertion, No Orthopnea, No Edema, No Palpitations Respiratory : No Cough, No Sputum, No Wheezing, No Smoke Exposure, No Dyspnea Gastrointestinal : No Nausea, No Vomiting, No Diarrhea, No Constipation, No abdominal Pain, No Hematochezia, No Melena Genitourinary : no irregular bleeding, No Dysuria, No Urinary Frequency, No Hematuria, No Urinary Incontinence, No Urgency, No Flank Pain, No Urinary Flow Changes, No Hesitancy Musculoskeletal : No joint pain, No Myalgias, No Joint Swelling Skin : No Skin Lesions, No rash Neuro : No Weakness, No Numbness, No Paresthesias, No Loss of Consciousness, No Dizziness, No Headache Psych : No Anxiety/Panic, No Depression, denies SI or HI, admits to polysubstance abuse Heme/Lymph: No Bruising, No Bleeding,No Lymphadenopathy Endocrine : No Polyuria, No Polydipsia, No Temperature Intolerance PMFSH Past Medical History Medical History Abdominal pain Diverticula of colon Colostomy hernia Hernia SVT (supraventricular tachycardia) Surgical History History of colostomy reversal History of reversal of ileostomy Hx of ileostomy Social History Social History Household Members: Family Housing: Apartment Do you presently have visiting nurse or other home services: No Unable to assess alcohol history related to: Refusing to respond Alcohol intake: current Alcohol intake frequency: does not drink Comment: refused socks, gets up impulsive. Patient Tobacco Use Status: Never used Tobacco Substance Use Type: Crack/Cocaine service: No Physical Exam ED Exam Exam: Appearance: Alert. Somnolent but easily arousable, No acute distress. Eyes: Pupils equal, round and reactive to light. ENT: Pharynx normal. Neck: Normal inspection. Neck supple. No lymph nodes noted. No crepitus CVS: Normal heart rate and rhythm. Pulses normal. Normal S1 and S2 Respiratory: No respiratory distress. Breath sounds normal. No Wheezing. No rales Abdomen: Soft and nontender. No rigidity. No distention. Skin: Skin warm and dry. Normal skin color. Normal skin turgor. Extremities: No lower extremity edema. No Lacerations. No Rash Neuro: Moving all extremities. No slurred speech. CN 2 through 12 grossly intact Psych: calm, cooperative, somnolent Vital Signs: Vital Signs - 24 hr 11/15/24 21:55 11/16/24 00:43 11/16/24 02:00 Temperature 97.3 F 98.3 F Pulse Rate 81 70 68 Respiratory Rate 20 14 14 Blood Pressure 111/80 122/76 139/95 H Pulse Oximetry 99 100 98 Oxygen Delivery Method Room Air Room Air Room Air 11/16/24 03:47 11/16/24 06:03 11/16/24 08:00 Temperature 98.1 F 98.6 F Pulse Rate 93 64 70 Respiratory Rate 20 18 22 H Blood Pressure 133/82 129/94 H 131/84 Pulse Oximetry 99 100 97 Oxygen Delivery Method Room Air Room Air Room Air 11/16/24 09:28 11/16/24 10:00 11/16/24 11:57 Temperature 98.6 F Pulse Rate 73 87 72 Respiratory Rate 17 24 H 25 H Blood Pressure 138/73 128/84 153/79 H Pulse Oximetry 97 99 99 Oxygen Delivery Method Room Air Room Air Room Air BMI result Body Mass Index 26.2 Course Course Course Narrative: Prior to arrival to the ED, patient received a total of 18 mg of adenosine for SVT. On arrival to the ED, heart rate in the 90s. Patient admits to using heroin and crack cocaine Denies SI or HI All of patient's labs pending Physician observation started at 22:07 Reevaluation(s) Reevaluation #1: Seven 07/14/2024 09:27 and the patient is now awake and alert no SI no HI we will consult assistant baseball coach Time: 09:28 Reevaluation #2: 11/16/2024 12:34 patient is awake and alert oriented x3 refused detox does not want to talk to the assistant baseball coach she is asking for discharge Time: 12:34 Medical Decision Making Differential Diagnosis Differential Diagnoses: The differential diagnosis associated with the presentation includes (SVT, heroin abuse, crack cocaine abuse. Overdose) Admission/Observation Consideration of admission/observation: Escalation of care including admission/observation considered (Patient is under physician observation waiting to become clinically sober/awake and alert) Lab Data 11/15/24 22:03 11/15/24 22:03 Labs: Lab Results 11/15/24 11/16/24 Range/Units 22:03 09:35 WBC 7.7 (4.8-10.8) X10*3/uL RBC 4.25 (4.20-5.50) X10*6/uL Hgb 11.1 L (12.0-16.0) g/dl Hct 34.8 L (37.0-47.0) % MCV 81.9 (80.0-98.0) fL MCH 26.1 L (27.0-33.0) pg MCHC 31.9 (31.0-35.0) g/dl RDW 15.0 (11.0-16.0) % Plt Count 317 D (160-400) X10*3/uL MPV 11.4 (9.4-12.3) fL Immature Gran % (Auto) 0.4 (0.0-0.4) % Neut % (Auto) 63.3 (45-73) % Lymph % (Auto) 27.7 (20-40) % Brule % (Auto) 6.8 (2-11) % Eos % (Auto) 0.9 (0-4) % Baso % (Auto) 0.9 (0-2) % Lymph # (Auto) 2.1 (1.2-4.9) X10*3/uL Brule # (Auto) 0.5 (0.1-1.2) X10*3/uL Eos # (Auto) 0.1 (0.0-0.4) X10*3/uL Baso # (Auto) 0.1 (0.0-0.2) X10*3/uL Abs Immat Gran (auto) 0.03 (0.00-0.03) X10*3/uL Absolute Neuts (auto) 4.9 (2.0-8.3) x10*3/uL Absolute Nucleated RBC 0.000 (0.0-0.012) X10*3/uL Nucleated RBC % (auto) 0.0 (0.0-0.2) /100WBC Sodium 143 (135-145) mmol/L Potassium 3.8 (3.3-5.1) mmol/L Chloride 112 H (96-108) mmol/L Carbon Dioxide 23 (22-29) mmol/L Anion Gap 12 (12-20) BUN 10 (9-16) mg/dL Creatinine 0.79 (0.5-1.4) mg/dL Estim Creat Clear Calc 99.5 Estimated GFR > 60 Random Glucose 79 (60-115) mg/dL Calcium 8.8 (8.4-10.2) mg/dL Magnesium 2.1 (1.6-2.6) mg/dL Total Bilirubin 0.5 (0.0-1.0) mg/dL Direct Bilirubin 0.2 (0.0-0.5) mg/dL AST 31 (5-31) U/L ALT 17 (0-31) U/L Alkaline Phosphatase 66 (39-117) U/L B-Natriuretic Peptide 33 (<100) pg/mL Total Protein 7.1 (6.5-8.0) g/dL Albumin 4.1 (3.5-5.0) g/dL Beta HCG, Quant < 2 mIU/mL Urine Color Yellow Urine Appearance Turbid Urine pH 6.5 (5.0-9.0) Ur Specific [place] 1.015 (1.005-1.025) Urine Protein Trace (Neg-Trace) mg/dL Urine Glucose (UA) Negative (Negative) mg/dL Urine Ketones Negative (Negative) mg/dL Urine Blood Small (1+) H (Negative) Urine Nitrite Positive H (Negative) Ur Leukocyte Esterase Large (3+) H (Negative) Urine RBC 0-2 (0-2) /HPF Urine WBC >50 H (0-5) /HPF Ur Squamous Epith Cells 3-5 (0-2) /HPF Urine Bacteria 4+ (None Seen) Hyaline Casts 6-10 (0-2) /LPF Urine Opiates Screen POSITIVE H (Not Detect) Ur Buprenorphine Scrn Not Detected (Not Detect) ng/mL Ur Oxycodone Screen Not Detected (Not Detect) ng/mL Urine Methadone Screen Not Detected (Not Detect) ng/mL Urine Fentanyl Screen POSITIVE H (Not Detect) Ur Barbiturates Screen Not Detected (Not Detect) Ur Phencyclidine Scrn Not Detected (Not Detect) Ur Amphetamines Screen Not Detected (Not Detect) U Benzodiazepines Scrn Not Detected (Not Detect) Urine Cocaine Screen POSITIVE H (Not Detect) U Marijuana (THC) Screen Not Detected (Not Detect) Ethyl Alcohol < 10 mg/dL Discharge Plan Discharge Clinical Impression: Opioid overdose Patient Disposition: Home, Self-Care Instructions: Opioid Use Disorder (ED) Additional Instructions: Please consider detox Prescriptions: No Action cefuroxime axetil 500 mg tablet 500 mg PO Q12H 7 Days Qty: 14 0RF doxycycline monohydrate 100 mg tablet 100 mg PO BID 7 Days Qty: 14 0RF metoprolol tartrate 25 mg tablet 25 mg PO BID 30 Days Qty: 60 0RF Referrals: [facility] [Outside] [facility] [Outside] Interventions: ED Discharge Assessment Last Done: 11/16/24 12:55 Discharge Date/Time: 11/16/24 13:02 Print Language: Korean
[2024-11-15 22:09] LABS: MANUAL DIFF FLAG NO
[2024-11-15 22:21] LABS: Hematocrit 34.8 % (37.0-47.0); Hemoglobin 11.1 g/dl (12.0-16.0); Imm Gran Abs Auto 0.03 X10*3/uL (0.00-0.03); Imm Gran Pct Auto 0.4 % (0.0-0.4); Lymphocytes Absolute Auto 2.1 X10*3/uL (1.2-4.9); Mean Corpuscular HGB Conc 31.9 g/dl (31.0-35.0); Mean Corpuscular Hemoglobin 26.1 pg (27.0-33.0); Mean Corpuscular Volume 81.9 fL (80.0-98.0); NRBC Abs Auto 0.000 X10*3/uL (0.0-0.012); NRBC Pct Auto 0.0 /100WBC (0.0-0.2); Platelet Count 317 X10*3/uL (160-400); Red Blood Count 4.25 X10*6/uL (4.20-5.50); White Blood Count 7.7 X10*3/uL (4.8-10.8)
[2024-11-15 22:35] LABS: Alanine Aminotransferase 17 U/L (0-31); Albumin Level 4.1 g/dL (3.5-5.0); Alkaline Phosphatase 66 U/L (39-117); Anion Gap 12 (12-20); Aspartate Amino Transferase 31 U/L (5-31); Blood Urea Nitrogen 10 mg/dL (9-16); Calcium 8.8 mg/dL (8.4-10.2); Carbon Dioxide 23 mmol/L (22-29); Chloride 112 mmol/L (96-108); Creatinine Clr Calc Pharmacy 99.5; Estimated Glomerular Filt Rate > 60; Magnesium 2.1 mg/dL (1.6-2.6); Potassium 3.8 mmol/L (3.3-5.1); Sodium 143 mmol/L (135-145); Total Protein 7.1 g/dL (6.5-8.0)
[2024-11-15 22:45] LABS: B Type Natriuretic Peptide 33 pg/mL (<100)
--- NOTE | 2024-11-15 23:36 | PC.NURSE ---
took over care from AMANDA Moore, pt is changed over and bedside monitor.
--- NOTE | 2024-11-15 23:43 | PC.NURSE ---
Took over from AMANDA Moore, pt changed over, place on heart monitor, no noted open area to skin, pt is sleeping at this time.
[2024-11-16] VITALS (9 sets, daily range): BP systolic 122–153; BP diastolic 73–95; PULSE 64–93; RESP 14–25; TEMP 36.3–37; O2SAT 97–100
--- NOTE | 2024-11-16 05:37 | PC.NURSE ---
pt is sleeping no sign of distress
--- NOTE | 2024-11-16 05:41 | PC.NURSE ---
Was able to wake pt, pt overdose on heroin, reports using daily, pt extremely sleepy, was about to answer question appropriately but went back to sleep.
--- NOTE | 2024-11-16 07:18 | PC.NURSE ---
Addendum entered by Julianne Morris RN 11/16/24 07:22: Patient is a 29 yo female who presents to the emergency room via ambulance. According to EMS, police department had to be called 3 times in a 24 hour. Because the patient had signs/symptoms of overdose. This 3rd time, the patient appeared altered. Patient did endorse that she uses crack cocaine and heroin. When EMS arrived, the patient's heart rate was in the 170s, EKG showed SVT. Patient was given 6 +12 mg of adenosine IV. By the time that the patient arrived in the emergency room, patient's heart rate was in the 90s. Patient admits to polysubstance abuse. Patient remains lethargic but arousable. band presser maintained and NSR noted. Respirations even and non-labored. Abdomen soft, non-tender with positive bowel sounds. Positive pedal pulses with no edema noted. Plan of care pending until patient more alert. Original Note: Medical History Diverticula of colon Colostomy hernia Hernia SVT (supraventricular tachycardia) Opiate use disorder
--- NOTE | 2024-11-16 09:28 | PC.NURSE ---
Patient awake and requesting breakfast. Able to ambulate to the bathroom with a steady gait. Urine spec obtained and sent.
[2024-11-16 09:44] LABS: Appearance Urine Turbid; Glucose Urine UA Negative (Negative); PH 6.5 (5.0-9.0); Specific Gravity - Urine 1.015 (1.005-1.025); UMIC TRIGGER UACC YES
[2024-11-16 09:56] LABS: UACC Culture Trigger YES
[2024-11-16 10:05] LABS: Cannabinoid Screen Urine Not Detected (Not Detect)
--- NOTE | 2024-11-16 12:34 | PC.NURSE ---
Food provided. Patient is refusing addiction services. Able to ambulate with a steady gait.
--- NOTE | 2024-11-16 13:06 | MHC.CARE ---
Pt was discharged prior to CARE Team conducting a Recovery assessment. Multiple attempts were made throughout the day to awaken pt with no success.
== END 2024-11-16 13:02 | disposition home or self-care (01) ==
PROVIDERS: Emergency Medicine; Emergency Provider Emergency Medicine
DX: T40.1X1A Poisoning by heroin, accidental (unintentional), initial encounter (principal); R40.4 Transient alteration of awareness; F19.10 Other psychoactive substance abuse, uncomplicated; Y92.9 Unspecified place or not applicable; Z79.899 Other long term (current) drug therapy
CPT/HCPCS: 36415; 80048; 80076; 80307; 81001; 83735; 83880; 84702; 85025; 87086; 87088; 87186; 93005; 99284; 99285

== ENCOUNTER → 2024-11-15 21:57 | Outpatient (BNV) | payer MEDICAID, SELFPAY | PROVIDERS: Emergency Provider Emergency Medicine; Visit Provider Internal Medicine Cardiovascular Disease | DX: T40.1X2A Poisoning by heroin, intentional self-harm, initial encounter (principal) | CPT/HCPCS: 93010 ==

== ENCOUNTER 2024-11-23 16:10 | Emergency (ER) | payer MEDICAID, SELFPAY ==
[2024-11-23 16:21] VITALS: BP 105/66; BP 128/92; PULSE 101; PULSE 104; RESP 18; TEMP 36.4; O2SAT 98; BMI 25.7
--- NOTE | 2024-11-23 17:01 | PC.NURSE ---
after triage pt had an apple juice and has calmed down and is now sleeping. welt rougher on, o2 monitor on. vss.
--- NOTE | 2024-11-23 17:45 | PC.NURSE ---
pt changed over during triage with security. in behavioral control. denies SI and HI.
[2024-11-23 17:46] VITALS: PULSE 84; RESP 18; O2SAT 98
[2024-11-23 19:19] VITALS: PULSE 83; RESP 15; O2SAT 98
--- NOTE | 2024-11-23 19:19 | PC.NURSE ---
Upon getting report, came in room to check on patient, respirations are even and unlabored, patient is resting safely on the stretcher. No complaints at this time. Plan of care ongoing. Call hyman is within reach, lights dimmed, with stretcher at lowest position.
[2024-11-23 19:47] VITALS: BP 132/84; PULSE 75; RESP 20; TEMP 36.4; O2SAT 100
[2024-11-23 19:49] LABS: MANUAL DIFF FLAG NO
[2024-11-23 19:54] LABS: Hematocrit 38.4 % (37.0-47.0); Hemoglobin 12.6 g/dl (12.0-16.0); Imm Gran Abs Auto 0.01 X10*3/uL (0.00-0.03); Imm Gran Pct Auto 0.1 % (0.0-0.4); Lymphocytes Absolute Auto 2.2 X10*3/uL (1.2-4.9); Mean Corpuscular HGB Conc 32.8 g/dl (31.0-35.0); Mean Corpuscular Hemoglobin 26.6 pg (27.0-33.0); Mean Corpuscular Volume 81.2 fL (80.0-98.0); NRBC Abs Auto 0.000 X10*3/uL (0.0-0.012); NRBC Pct Auto 0.0 /100WBC (0.0-0.2); Platelet Count 367 X10*3/uL (160-400); Red Blood Count 4.73 X10*6/uL (4.20-5.50); White Blood Count 8.6 X10*3/uL (4.8-10.8)
[2024-11-23 20:09] LABS: Acetaminophen LAB < 3 mcg/mL (<30); Salicylate < 5.0 mg/dL (15-30)
[2024-11-23 20:15] LABS: Alanine Aminotransferase 18 U/L (0-31); Albumin Level 4.6 g/dL (3.5-5.0); Alkaline Phosphatase 76 U/L (39-117); Anion Gap 13 (12-20); Aspartate Amino Transferase 24 U/L (5-31); Blood Urea Nitrogen 10 mg/dL (9-16); Calcium 9.3 mg/dL (8.4-10.2); Carbon Dioxide 30 mmol/L (22-29); Chloride 102 mmol/L (96-108); Creatinine Clr Calc Pharmacy 85.2; Estimated Glomerular Filt Rate > 60; Magnesium 2.3 mg/dL (1.6-2.6); Potassium 3.7 mmol/L (3.3-5.1); Sodium 141 mmol/L (135-145); Total Protein 7.6 g/dL (6.5-8.0)
--- NOTE | 2024-11-23 20:15 | ED_ITS ---
HPI - General Adult General Chief complaint: ETOH/Substance Use Stated complaint: ETOH, heroin and superman stamp Time Seen by Provider: 11/23/24 18:23 Source: patient Limitations: no limitations History of Present Illness ED Provider: Asha Cruz PA-C HPI narrative: 29-year-old female with a history of opiate use disorder, polysubstance abuse who presents intoxicated. Per EMS, the patient had been consuming alcohol and ?super man stamped heroin ?today. The patient began acting erratically, her friends were concerned for her safety and called EMS to the home. Related Data Previous Rx's ?Medication ?Instructions ?Recorded cefuroxime axetil 500 mg tablet 500 mg PO Q12H 7 days #14 tabs 10/13/24 doxycycline monohydrate 100 mg 100 mg PO BID 7 days #1 4 tabs 10/13/24 tablet metoprolol tartrate 25 mg tablet 25 mg PO BID 30 days #60 tabs 10/24/24 Allergies Allergy/AdvReac Type Severity Reaction Status Date / Time adhesive tape (ADHESIVE TAPE) Allergy Unknown UNKNOWN Verified 11/23/24 16:35 acetaminophen (From Tylenol) Allergy Rash Verified 11/15/24 21:57 Anesthetics - Gm Type- AdvReac Severe heart rate Verified 11/15/24 21:57 Parabens (ANESTHETICS - drops GM TYPE) amoxicillin AdvReac Anaphylaxis Verified 11/15/24 21:57 unspecified anesthetic Allergy Unknown lowers Uncoded 11/15/24 21:57 heart rate Review of Systems 2 Review of Systems: Unable to obtain given intoxication Yes all other systems are reviewed and are negative [facility] Past Medical History Attestation statement: The following information was validated with the patient. Medical History Abdominal pain Diverticula of colon Colostomy hernia Hernia SVT (supraventricular tachycardia) Surgical History History of colostomy reversal History of reversal of ileostomy Hx of ileostomy Social History Social History Household Members: Family Housing: Apartment Do you presently have visiting nurse or other home services: No Unable to assess alcohol history related to: Refusing to respond Alcohol intake: current Alcohol intake frequency: does not drink Comment: refused socks, gets up impulsive. Patient Tobacco Use Status: Never used Tobacco Use of substances other than those prescribed or required for medical reasons: Yes Substance Use Type: Crack/Cocaine Substance Use Type Other:: superman stamp Advance Directives: No Advance Directives Information Provided: No service: No Physical Exam ED Vital Signs: Vital Signs - 24 hr 11/23/24 16:21 11/23/24 17:46 11/23/24 19:19 Temperature 97.6 F Pulse Rate 104 H 84 83 Respiratory Rate 18 18 15 Blood Pressure 105/66 Pulse Oximetry 98 98 98 Oxygen Delivery Method Room Air Room Air Room Air 11/23/24 19:47 11/23/24 21:58 11/24/24 02:12 Temperature 97.6 F 98.6 F Pulse Rate 75 80 75 Respiratory Rate 20 18 16 Blood Pressure 132/84 119/81 96/53 L Pulse Oximetry 100 99 99 Oxygen Delivery Method Room Air Room Air Room Air 11/24/24 04:08 11/24/24 07:18 11/24/24 10:12 Temperature 98.6 F 97.8 F Pulse Rate 70 77 86 Respiratory Rate 18 18 18 Blood Pressure 128/89 115/81 143/101 H Pulse Oximetry 99 100 100 Oxygen Delivery Method Room Air Room Air Room Air BMI result Body Mass Index 25.7 Const Other: Somnolent, we will wake with repetitive verbal stimuli, she was awake at 1 point up ambulating eating Orientation/consciousness: patient oriented x3 Resp Effort & Inspection: normal respiratory effort Cardio Other: Normal peripheral perfusion Skin Other: Warm dry no rash Neuro Other: When awake General: patient oriented x3, gait normal, no focal motor deficits and CN's II- XI intact bilaterally Psych Other: Cooperative Course Reevaluation(s) Reevaluation #1: Time: 03:31 Date: 11/24/24 Provider: ARLETTE Alba Patient in physician observation for psychiatric evaluation.? No acute events reported overnight. No current complaints. VS stable.? Patient is in bed search status/pending CARE team evaluation. Will continue to monitor. Time: 03:31 Reevaluation #2: Time: 11:56 Date: 11/24/24 Provider: Taz Iraheta MD Physician observation ended at 11:56 hours. Patient was seen CARE team. The patient is not interested in getting into a drug treatment program at this time. Care team was able to talk to the patient's mother in the mother is going to pursue a section 35 on this patient. The patient is now awake and alert, she denied suicidal or homicidal ideation therefore we can not keep her in the emergency department on a Section 12/against her will. I did tell the patient that her tox screen was positive for opiates, fentanyl and cocaine. Patient was given intranasal Narcan rescue pack to take home with her. Medications Administered Discontinued Medications Generic Name Dose Route Start Last Admin Trade Name Brennan PRN Reason Stop Dose Admin Naloxone HCl 8 mg 11/24/24 12:01 11/24/24 12:14 Naloxone Hcl Nasal Take Home 4 Mg [place] NOSTRILALT 11/24/24 12:02 Not Given ONCE ONE Medical Decision Making Medical Decision Making MDM Narrative: 29-year-old female with a history of opiate use disorder, polysubstance abuse who presents intoxicated. Per EMS, the patient had been consuming alcohol and ?super man stamped heroin ?today. The patient began acting erratically, her friends were concerned for her safety and called EMS to the home. Problem: Polysubstance abuse History: Per EMS I have considered the following differential diagnoses: SI, HI, decompensated psychiatric illness, drug/alcohol intoxication Plan: My plan is to place a womens volleyball coach consult. We have been seeing numerous individuals presents to the emergency department after having use the Superman stamped heroin, there was a prolonged period of somnolence. I feel that she deserves the benefit of that consult. We will screen basic labs, ethanol and drug screen. She is currently stable. I have independently reviewed the following tests: Labs: No leukocytosis, not anemic, no electrolyte abnormality, not , ethanol less than 10 Lab Data 11/23/24 19:44 11/23/24 19:44 Labs: Lab Results 11/23/24 11/24/24 Range/Units 19:44 08:08 WBC 8.6 (4.8-10.8) X10*3/uL RBC 4.73 (4.20-5.50) X10*6/uL Hgb 12.6 (12.0-16.0) g/dl Hct 38.4 (37.0-47.0) % MCV 81.2 (80.0-98.0) fL MCH 26.6 L (27.0-33.0) pg MCHC 32.8 (31.0-35.0) g/dl RDW 15.1 (11.0-16.0) % Plt Count 367 (160-400) X10*3/uL MPV 11.1 (9.4-12.3) fL Immature Gran % (Auto) 0.1 (0.0-0.4) % Neut % (Auto) 64.9 (45-73) % Lymph % (Auto) 25.2 (20-40) % Pope % (Auto) 7.5 (2-11) % Eos % (Auto) 1.6 (0-4) % Baso % (Auto) 0.7 (0-2) % Lymph # (Auto) 2.2 (1.2-4.9) X10*3/uL Pope # (Auto) 0.6 (0.1-1.2) X10*3/uL Eos # (Auto) 0.1 (0.0-0.4) X10*3/uL Baso # (Auto) 0.1 (0.0-0.2) X10*3/uL Abs Immat Gran (auto) 0.01 (0.00-0.03) X10*3/uL Absolute Neuts (auto) 5.6 (2.0-8.3) x10*3/uL Absolute Nucleated RBC 0.000 (0.0-0.012) X10*3/uL Nucleated RBC % (auto) 0.0 (0.0-0.2) /100WBC Sodium 141 (135-145) mmol/L Potassium 3.7 (3.3-5.1) mmol/L Chloride 102 (96-108) mmol/L Carbon Dioxide 30 H (22-29) mmol/L Anion Gap 13 (12-20) BUN 10 (9-16) mg/dL Creatinine 0.88 (0.5-1.4) mg/dL Estim Creat Clear Calc 85.2 Estimated GFR > 60 Random Glucose 75 (60-115) mg/dL Calcium 9.3 (8.4-10.2) mg/dL Magnesium 2.3 (1.6-2.6) mg/dL Total Bilirubin 0.6 (0.0-1.0) mg/dL AST 24 (5-31) U/L ALT 18 (0-31) U/L Alkaline Phosphatase 76 (39-117) U/L Total Protein 7.6 (6.5-8.0) g/dL Albumin 4.6 (3.5-5.0) g/dL Beta HCG, Quant < 2 mIU/mL Salicylates < 5.0 L (15-30) mg/dL Urine Opiates Screen POSITIVE H (Not Detect) Ur Buprenorphine Scrn Not Detected (Not Detect) ng/mL Ur Oxycodone Screen Not Detected (Not Detect) ng/mL Urine Methadone Screen Not Detected (Not Detect) ng/mL Urine Fentanyl Screen POSITIVE H (Not Detect) Acetaminophen < 3 (<30) mcg/mL Ur Barbiturates Screen Not Detected (Not Detect) Ur Phencyclidine Scrn Not Detected (Not Detect) Ur Amphetamines Screen Not Detected (Not Detect) U Benzodiazepines Scrn Not Detected (Not Detect) Urine Cocaine Screen POSITIVE H (Not Detect) U Marijuana (THC) Screen Not Detected (Not Detect) Ethyl Alcohol < 10 mg/dL Discharge Plan Discharge Clinical Impression: Heroin overdose, Cocaine use, Fentanyl use disorder, severe Patient Disposition: Home, Self-Care Additional Instructions: Your urine drug screen was positive for opiates (heroin), fentanyl and cocaine Your are being discharged home with intranasal Narcan. If you are going to continue to use heroin, you should make sure that there is a sober person with you that is not using drugs and that this person can administer intranasal Narcan in the event that you stop breathing. Continue taking medications as prescribed by your providers Opiate use disorder You were seen in our Emergency Department today for treatment of opiate use disorder. If you decide you want to stop or cut down on how much you?re using, you can call or walk into our outpatient Addiction Treatment office: [facility] (M-F 9am-5p) [address], [address] [phone] You may have been provided with safer injection?items, please take time to take care of YOU and your health. Use new supplies whenever possible to lessen the chances of infections and other illnesses.? ?If you need more supplies, please go [facility],? [address] [place] [address] OR you can call or text to coordinate delivery of safer supplies. You were also provided a list of several treatment providers in the area.? If you experience any worsening symptoms you cannot control please return to the ED or call 911. Please follow up at your next appointment. Things to look out for are fevers, chest pain, shortness of breath, severe pain, dizziness, fainting or any other concerns. Prescriptions: No Action cefuroxime axetil 500 mg tablet 500 mg PO Q12H 7 Days Qty: 14 0RF doxycycline monohydrate 100 mg tablet 100 mg PO BID 7 Days Qty: 14 0RF metoprolol tartrate 25 mg tablet 25 mg PO BID 30 Days Qty: 60 0RF Interventions: ED Discharge Assessment Last Done: 11/24/24 12:14 Discharge Date/Time: 11/24/24 12:15 Print Language: Austrian
[2024-11-23 21:58] VITALS: BP 119/81; PULSE 80; RESP 18; O2SAT 99
[2024-11-24 02:12] VITALS: BP 96/53; PULSE 75; RESP 16; TEMP 37; O2SAT 99
[2024-11-24 04:08] VITALS: BP 128/89; PULSE 70; RESP 18; TEMP 37; O2SAT 99
[2024-11-24 07:18] VITALS: BP 115/81; PULSE 77; RESP 18; TEMP 36.6; O2SAT 100
--- NOTE | 2024-11-24 07:19 | PC.NURSE ---
Pt calm, resting quietly with eyes closed. RR even and unlabored. Pt denies any pain at this time. Pt responsive to verbal stimuli after waking patient.
[2024-11-24 08:25] LABS: Cannabinoid Screen Urine Not Detected (Not Detect)
--- NOTE | 2024-11-24 09:18 | PC.NURSE ---
Saw patient with care team. Pt not responding to questions with responses other than mmmhm . Pt was ambulatory to bathroom and eating breakfast independently today, is now non-compliant with medical staff. RR even and unlabored, no visible s/s of distress.
--- NOTE | 2024-11-24 09:37 | MHC.CARE ---
T/w reached out to patient's mother. She reports patient has been on the streets for 2-3 years. Mom reports that she last saw patient two weeks ago, driving by her on the streets. She supects patient has been using opiates for 2-3 years. She reports patient was in detention somewhat recently and from detention she went to rehab on [facility]. She reports belief that patient was sober for a few months possibly. She shares that she tried to help patient with structuring her days/ would bring her to the methadone clinic etc. Then patient vanished per mother, who also shares concern that patient has heart issues, is supposed to be on metroprolol. Mother reports awareness of the section 35 process, and shares intent to go to the courthouse today to pursue this. She will call back when she has more information. In regard to assessing patient, she was not rousable to loud voice or gentle shaking for t/w and RN despite numerous attempts.
[2024-11-24 10:12] VITALS: BP 143/101; PULSE 86; RESP 18; O2SAT 100
--- NOTE | 2024-11-24 11:46 | PC.NURSE ---
Assumed care of this patient at 1100, patient requesting to leave/additional food. Called CARE team, spoke to Rosemary who states her eval is in progress informed CARE team patient is aware/eating so they can further evaluate her.
[2024-11-24 12:14] VITALS: BP 143/101; PULSE 86; RESP 18; TEMP -17.7; TEMP 0; O2SAT 100
== END 2024-11-24 12:15 | disposition home or self-care (01) ==
PROVIDERS: Physician Assistant Medical; Emergency Provider Emergency Medicine Emergency Medical Services
DX: T40.1X1A Poisoning by heroin, accidental (unintentional), initial encounter (principal); Y92.9 Unspecified place or not applicable; F14.90 Cocaine use, unspecified, uncomplicated; F11.20 Opioid dependence, uncomplicated; F10.129 Alcohol abuse with intoxication, unspecified
CPT/HCPCS: 36415; 80053; 80143; 80179; 80307; 83735; 84702; 85025; 99284; S9485

== ENCOUNTER 2024-11-26 19:10 | Emergency (ER) | payer SELFPAY ==
[2024-11-26] VITALS (10 sets, daily range): BP systolic 85–112; BP diastolic 40–79; PULSE 63–190; RESP 12–20; TEMP 35.8–36.7; O2SAT 95–100; BMI 23.8
--- NOTE | ~2024-11-26 | CT_ITS ---
CLINICAL HISTORY: ams CT head without contrast Comparison: CT/SR - CT HEAD/BRAIN WO IV CON - 10/11/24 04:28 EDT Findings: No intra-axial mass, midline shift, hydrocephalus, or acute hemorrhage. No significant atrophy-like change or white matter disease. The visualized paranasal sinuses and mastoid air cells are normal. The orbits are unremarkable. There is no acute fracture. IMPRESSION: 1. No acute intracranial findings. This document has been electronically signed by: Tom Lewis DO on 11/26/2024 21:00:24
--- NOTE | ~2024-11-26 | XR_ITS ---
CLINICAL HISTORY: tachy 1 view chest x-ray Comparison: CT/SR - CT CHEST W IV CON - 10/11/24 04:28 EDT Findings: No consolidation or effusion. Normal size heart. No acute fracture. IMPRESSION: 1. No acute findings. This document has been electronically signed by: Tom Lewis DO on 11/26/2024 22:53:11
[2024-11-26] MEDS: Adenosine 6 MG/2 ML VIAL IVPUSH (19:23)
--- NOTE | 2024-11-26 19:27 | ECG_ITS ---
Test Reason : OVERDOSE Blood Pressure : */* mmHG Vent. Rate : 102 BPM Atrial Rate : 102 BPM P-R Int : 140 ms QRS Dur : 86 ms QT Int : 364 ms P-R-T Axes : 54 33 33 degrees QTcB Int : 474 ms Sinus tachycardia Possible Left atrial enlargement Borderline ECG When compared with ECG of 15-Nov-2024 22:06, QT has lengthened Referred By: Asha Cruz Electronically Signed By: ARMINDA TAN MD
--- NOTE | 2024-11-26 19:34 | PC.NURSE ---
pt presents to ED restless but not combative, unable to remain still on stretcher. placed on tele, 190 SVT. 18g IV placed to RAC. pt given 3mg IV versed. pt calmer, then admin 6mg adenosine. HR 103. pt resting comfortably, on monitor.
--- NOTE | 2024-11-26 19:36 | PC.NURSE ---
unable to scan versed, double RN verification with Regina to verify correct dose.
[2024-11-26 19:51] LABS: Hematocrit 32.2 % (37.0-47.0); Hemoglobin 10.6 g/dl (12.0-16.0); Imm Gran Abs Auto 0.02 X10*3/uL (0.00-0.03); Imm Gran Pct Auto 0.3 % (0.0-0.4); Lymphocytes Absolute Auto 2.3 X10*3/uL (1.2-4.9); MANUAL DIFF FLAG NO; Mean Corpuscular HGB Conc 32.9 g/dl (31.0-35.0); Mean Corpuscular Hemoglobin 26.4 pg (27.0-33.0); Mean Corpuscular Volume 80.1 fL (80.0-98.0); NRBC Abs Auto 0.000 X10*3/uL (0.0-0.012); NRBC Pct Auto 0.0 /100WBC (0.0-0.2); Platelet Count 295 X10*3/uL (160-400); Red Blood Count 4.02 X10*6/uL (4.20-5.50); White Blood Count 6.7 X10*3/uL (4.8-10.8)
[2024-11-26 20:07] LABS: Acetaminophen LAB < 3 mcg/mL (<30); Salicylate < 5.0 mg/dL (15-30)
--- NOTE | 2024-11-26 20:07 | ED_ITS ---
HPI - General Adult General Chief complaint: General Medical Stated complaint: Combative, Drug use Time Seen by Provider: 11/26/24 19:25 Source: EMS Limitations: other (Altered mental status) History of Present Illness ED Provider: Asha Cruz PA-C HPI narrative: 29-year-old female with a history of polysubstance abuse including crack cocaine, with prior induced SVT, presents intoxicated. Patient was found down on the ground in the street, she was combative, EMS unable to obtain vitals secondary to her agitation. Related Data Previous Rx's ?Medication ?Instructions ?Recorded cefuroxime axetil 500 mg tablet 500 mg PO Q12H 7 days #14 tabs 10/13/24 doxycycline monohydrate 100 mg 100 mg PO BID 7 days #1 4 tabs 10/13/24 tablet metoprolol tartrate 25 mg tablet 25 mg PO BID 30 days #60 tabs 10/24/24 Allergies Allergy/AdvReac Type Severity Reaction Status Date / Time adhesive tape (ADHESIVE TAPE) Allergy Unknown UNKNOWN Verified 11/26/24 19:27 acetaminophen (From Tylenol) Allergy Rash Verified 11/26/24 19:27 Anesthetics - Gm Type- AdvReac Severe heart rate Verified 11/26/24 19:27 Parabens (ANESTHETICS - drops GM TYPE) amoxicillin AdvReac Anaphylaxis Verified 11/26/24 19:27 unspecified anesthetic Allergy Unknown lowers Uncoded 11/26/24 19:27 heart rate Review of Systems 2 Review of Systems: Unable to obtain as patient is altered Yes all other systems are reviewed and are negative PMFSH Past Medical History Attestation statement: The following information was validated with the patient. Medical History Abdominal pain Diverticula of colon Colostomy hernia Hernia SVT (supraventricular tachycardia) Surgical History History of colostomy reversal History of reversal of ileostomy Hx of ileostomy Social History Social History Household Members: Family Housing: Apartment Do you presently have visiting nurse or other home services: No Unable to assess alcohol history related to: Refusing to respond Alcohol intake: current Alcohol intake frequency: does not drink Comment: refused socks, gets up impulsive. Patient Tobacco Use Status: Never used Tobacco Substance Use Type: Crack/Cocaine service: No Physical Exam ED Vital Signs: Vital Signs - 24 hr 11/26/24 19:17 11/26/24 19:29 11/26/24 20:17 Temperature 98.0 F 97.0 F Pulse Rate 190 H 103 H 90 Respiratory Rate 17 20 13 Blood Pressure 105/50 L 99/54 L 94/40 L Pulse Oximetry 95 95 96 Oxygen Delivery Method Room Air Room Air 11/26/24 20:48 11/26/24 21:46 11/26/24 22:04 Temperature 96.5 F L Pulse Rate 90 71 Respiratory Rate 16 12 Blood Pressure 85/46 L 90/50 L Pulse Oximetry 98 95 Oxygen Delivery Method Room Air Room Air 11/26/24 22:05 11/26/24 22:58 11/26/24 23:32 Temperature 96.6 F L 97.0 F Pulse Rate 77 63 75 Respiratory Rate 13 12 13 Blood Pressure 102/66 91/50 L 112/79 Pulse Oximetry 96 100 Oxygen Delivery Method Room Air Room Air Room Air 11/26/24 23:57 11/27/24 01:10 11/27/24 05:12 Temperature 97.2 F 97.3 F 98.1 F Pulse Rate 79 83 75 Respiratory Rate 20 14 19 Blood Pressure 101/61 100/53 L 110/72 Pulse Oximetry 100 98 96 Oxygen Delivery Method Room Air Room Air Room Air 11/27/24 06:24 11/27/24 08:12 11/27/24 10:12 Temperature 98.4 F 99 F 99.3 F Pulse Rate 83 79 86 Respiratory Rate 19 12 19 Blood Pressure 122/70 136/94 H 140/93 H Pulse Oximetry 96 98 99 Oxygen Delivery Method Room Air Room Air Room Air 11/27/24 13:36 11/27/24 13:39 Temperature 99.3 F 99.0 F Pulse Rate 86 93 Respiratory Rate 19 16 Blood Pressure 140/93 H 144/103 H Pulse Oximetry 99 95 Oxygen Delivery Method Room Air Room Air BMI result Body Mass Index 23.8 Const Other: Awake, combative on the bed, struggling, agitated, diaphoretic, appears older than stated age, no obvious sign of head trauma, not communicative Resp Effort & Inspection: normal respiratory effort Cardio Other: Normal peripheral perfusion Skin Other: Warm dry no rash Neuro General: no focal motor deficits and CN's II-XI intact bilaterally Extrem Other: Moving all extremities independently Psych Other: Intoxicated Course Reevaluation(s) Reevaluation #1: Patient required additional Versed to obtain a CT scan. Her pressures are down trending, she is not tachycardic, she is hypothermic 96.5 rectal, I am initiating sepsis protocol adding blood cultures, lactic, she has already received weight based IV fluids, giving ceftriaxone. At 10:22 p.m. on November 26, a sepsis focused exam was performed. Time: 22:22 Reevaluation #2: Pressures have stabilized, Reevaluation #3: Lactic 1.1 Medications Administered Discontinued Medications Generic Name Dose Route Start Last Admin Trade Name Freq PRN Reason Stop Dose Admin Adenosine 6 mg 11/26/24 19:18 11/26/24 19:23 Adenosine 6 Mg/2 Ml Vial IVPUSH 11/26/24 19:19 6 mg ONCE ONE Administration Ceftriaxone Sodium 2 gm 11/26/24 22:22 11/26/24 22:43 Ceftriaxone Sodium 2 Gm Vial IVPUSH 11/26/24 22:23 2 gm ONCE ONE Administration Sodium Chloride 1,000 mls @ 999 mls/hr 11/26/24 19:30 11/26/24 20:37 Ns IV 11/26/24 20:30 Infused .Q1H1M ROSITA Infusion Sodium Chloride 1,000 mls @ 999 mls/hr 11/26/24 20:30 11/26/24 21:43 Ns IV 11/26/24 21:30 Infused .Q1H1M ROSITA Infusion Potassium Chloride 10 meq in 100 mls @ 100 mls/hr 11/26/24 20:30 11/27/24 00:45 Potassium Chloride/H20 IV 11/27/24 00:29 Infused Q1H ROSITA Infusion Sodium Chloride 500 mls @ 500 mls/hr 11/26/24 22:04 11/26/24 23:29 Ns IV 11/26/24 23:03 Infused .Q1H ONE Infusion Midazolam HCl 3 mg 11/26/24 19:19 11/26/24 19:23 Midazolam Hcl 2 Mg/2 Ml Vial IVPUSH 11/26/24 19:20 3 mg ONCE ONE Administration Midazolam HCl 3 mg 11/26/24 20:25 11/26/24 20:28 Midazolam Hcl 2 Mg/2 Ml Vial IVPUSH 11/26/24 20:26 3 mg ONCE ONE Administration Naloxone HCl 8 mg 11/27/24 12:59 11/27/24 13:57 Naloxone Hcl Nasal Take Home 4 Mg [place] NOSTRILALT 11/27/24 13:00 8 mg ONCE ONE Administration Medical Decision Making Medical Decision Making [facility] Narrative: 29-year-old female with a history of polysubstance abuse including crack cocaine, with prior induced SVT, presents intoxicated. Patient was found down on the ground in the street, she was combative, EMS unable to obtain vitals secondary to her agitation. Problem: Polysubstance abuse, SVT History: Per EMS I have considered the following differential diagnoses: Toxic ingestion, SI, HI, drug/alcohol intoxication, decompensated psychiatric illness, intracranial hemorrhage Plan: The patient is intoxicated and agitated, she has a history of using crack cocaine, and for SVT. She is currently looking as if she is on SVT in the monitor, her rate is variable, 190-178, we will be pushing adenosine. We will also be giving 3 mg of Versed IV. IV fluids given as well. We will be screening broad labs, we will treat her as a toxic ingestion, we will obtain an EKG. Given the patient was found down on the ground, I am scanning her head, there is no way to tell whether she fell traumatically and struck her head. I have independently reviewed the following tests: Labs: No leukocytosis, not anemic, potassium subtly low at 3.1, no additional electrolyte abnormalities, troponin less than 2.7, not , pending drug screen.... Lactic 1.1, Adding 40 mEq of potassium Urine infected, U tox positive for opiates, fentanyl, benzodiazepine, cocaine, ethanol less than 10 Chest x-ray:Findings: No consolidation or effusion. Normal size heart. No acute fracture. IMPRESSION: 1. No acute findings. EKG: Sinus tachycardia, rate of 102, no ischemic changes no ectopy, QTC 474 CT brain:Findings: No intra-axial mass, midline shift, hydrocephalus, or acute hemorrhage. No significant atrophy-like change or white matter disease. The visualized paranasal sinuses and mastoid air cells are normal. The orbits are unremarkable. There is no acute fracture. IMPRESSION: 1. No acute intracranial findings. 13:30 Patient in a sinus rhythm right now. No suicidal homicidal ideation. Did not want detox. Care team went to see patient patient refused any additional care. Wants to leave. A Narcan kit was given. Patient is currently in stable condition. Will discharge home. Lab Data 11/26/24 19:45 11/26/24 19:45 Labs: Lab Results 11/26/24 11/26/24 11/26/24 Range/Units 19:45 22:16 22:58 WBC 6.7 (4.8-10.8) X10*3/uL RBC 4.02 L (4.20-5.50) X10*6/uL Hgb 10.6 L (12.0-16.0) g/dl Hct 32.2 L (37.0-47.0) % MCV 80.1 (80.0-98.0) fL MCH 26.4 L (27.0-33.0) pg MCHC 32.9 (31.0-35.0) g/dl RDW 15.0 (11.0-16.0) % Plt Count 295 (160-400) X10*3/uL MPV 10.8 (9.4-12.3) fL Immature Gran % (Auto) 0.3 (0.0-0.4) % Neut % (Auto) 55.5 (45-73) % Lymph % (Auto) 34.2 (20-40) % Patrick % (Auto) 8.1 (2-11) % Eos % (Auto) 1.1 (0-4) % Baso % (Auto) 0.8 (0-2) % Lymph # (Auto) 2.3 (1.2-4.9) X10*3/uL Patrick # (Auto) 0.5 (0.1-1.2) X10*3/uL Eos # (Auto) 0.1 (0.0-0.4) X10*3/uL Baso # (Auto) 0.1 (0.0-0.2) X10*3/uL Abs Immat Gran (auto) 0.02 (0.00-0.03) X10*3/uL Absolute Neuts (auto) 3.7 (2.0-8.3) x10*3/uL Absolute Nucleated RBC 0.000 (0.0-0.012) X10*3/uL Nucleated RBC % (auto) 0.0 (0.0-0.2) /100WBC Sodium 140 (135-145) mmol/L Potassium 3.1 L (3.3-5.1) mmol/L Chloride 106 (96-108) mmol/L Carbon Dioxide 26 (22-29) mmol/L Anion Gap 11 L (12-20) BUN 10 (9-16) mg/dL Creatinine 0.81 (0.5-1.4) mg/dL Estim Creat Clear Calc 98.7 Estimated GFR > 60 Random Glucose 81 (60-115) mg/dL Lactic Acid 1.1 (0.5-2.0) mmol/L Calcium 8.3 L D (8.4-10.2) mg/dL Magnesium 1.8 (1.6-2.6) mg/dL Total Bilirubin 0.9 (0.0-1.0) mg/dL AST 26 (5-31) U/L ALT 18 (0-31) U/L Alkaline Phosphatase 70 (39-117) U/L Troponin I High Sens < 2.7 D (<3.5-17.0) ng/L Total Protein 6.6 (6.5-8.0) g/dL Albumin 4.1 (3.5-5.0) g/dL Beta HCG, Quant < 2 mIU/mL Urine Color Yellow Urine Appearance Clear Urine pH 5.5 (5.0-9.0) Ur Specific [place] 1.020 (1.005-1.025) Urine Protein Trace (Neg-Trace) mg/dL Urine Glucose (UA) Negative (Negative) mg/dL Urine Ketones Trace (Negative) mg/dL Urine Blood Negative (Negative) Urine Nitrite Positive H (Negative) Ur Leukocyte Esterase Small (1+) H (Negative) Urine RBC 0-2 (0-2) /HPF Urine WBC 11-20 H (0-5) /HPF Ur Squamous Epith Cells 0-2 (0-2) /HPF Urine Bacteria 2+ (None Seen) Hyaline Casts 3-5 (0-2) /LPF Salicylates < 5.0 L (15-30) mg/dL Urine Opiates Screen POSITIVE H (Not Detect) Ur Buprenorphine Scrn Not Detected (Not Detect) ng/mL Ur Oxycodone Screen Not Detected (Not Detect) ng/mL Urine Methadone Screen Not Detected (Not Detect) ng/mL Urine Fentanyl Screen POSITIVE H (Not Detect) Acetaminophen < 3 (<30) mcg/mL Ur Barbiturates Screen Not Detected (Not Detect) Ur Phencyclidine Scrn Not Detected (Not Detect) Ur Amphetamines Screen Not Detected (Not Detect) U Benzodiazepines Scrn POSITIVE H (Not Detect) Urine Cocaine Screen POSITIVE H (Not Detect) U Marijuana (THC) Screen Not Detected (Not Detect) Ethyl Alcohol < 10 mg/dL Critical Care Time Critical Care Time Critical Care Time: Yes Total Critical Care Time: 45 Attestation: I Asha Cruz PA-C have personally performed 45 minutes of critical care time not including lines and procedures. ; SVT requiring adenosine, sepsis, toxic ingestion, Discharge Plan Discharge Clinical Impression: UTI (urinary tract infection), SVT (supraventricular tachycardia), Sepsis, Polysubstance abuse Patient Disposition: Home, Self-Care Instructions: Urinary Tract Infection in Women (ED) Additional Instructions: You were seen in our Emergency Department for a toxic ingetion. You received narcan in order to reverse the effects of overdose. The number one risk for fatal overdose is using alone? [employer] is a 17/11 hotline where you can be on the phone with someone while you use, and they can call for help if they suspect an overdose: [phone] Things to look out for when you leave include severe vomiting or diarrhea, headaches, muscle cramps, fever, coughing, chest pain, or if you feel so short of breath you cannot walk to the bathroom. Please seek care and return any time for worsening symptoms.? You may have been provided with safer injection?items, please take time to take care of YOU and your health. Use new supplies whenever possible to lessen the chances of infections and other illnesses.? If you need more supplies, please go [facility],? [address] [place] [address] OR you can call or text to coordinate delivery of safer supplies. You are declining any detox today. If you decide you want to stop or cut down on how much you?re using, please call the numbers on the list provided to you or you can come to our outpatient Addiction Treatment office [facility] (M-F 9am-5p) [address] [place] [address] [address] [place], [place]. [phone] You also have a urinary tract infection. I am starting you on Ceftin, an antibiotic. Take this as prescribed over the next 7 days. Return with any new or worsening symptoms. Prescriptions: No Action cefuroxime axetil 500 mg tablet 500 mg PO Q12H 7 Days Qty: 14 0RF doxycycline monohydrate 100 mg tablet 100 mg PO BID 7 Days Qty: 14 0RF metoprolol tartrate 25 mg tablet 25 mg PO BID 30 Days Qty: 60 0RF Referrals: Physician,Unknown J [Primary Care Provider, Medical] Referral Note: Please follow-up on an outpatient basis. Please stop using recreational drugs and go to detox. Interventions: ED Discharge Assessment Last Done: 11/27/24 13:36 Discharge Date/Time: 11/27/24 14:02 Print Language: Algerian
[2024-11-26 20:14] LABS: Alanine Aminotransferase 18 U/L (0-31); Albumin Level 4.1 g/dL (3.5-5.0); Alkaline Phosphatase 70 U/L (39-117); Anion Gap 11 (12-20); Aspartate Amino Transferase 26 U/L (5-31); Blood Urea Nitrogen 10 mg/dL (9-16); Calcium 8.3 mg/dL (8.4-10.2); Carbon Dioxide 26 mmol/L (22-29); Chloride 106 mmol/L (96-108); Creatinine Clr Calc Pharmacy 98.7; Estimated Glomerular Filt Rate > 60; Magnesium 1.8 mg/dL (1.6-2.6); Potassium 3.1 mmol/L (3.3-5.1); Sodium 140 mmol/L (135-145); Total Protein 6.6 g/dL (6.5-8.0); Troponin-I High Sensitivity < 2.7 ng/L (<3.5-17.0)
[2024-11-26] MEDS: Potassium Chloride/H20 10 MEQ/100 ML PIGGYBACK 100 MEQ IV ×4 (20:37→23:45)
--- NOTE | 2024-11-26 21:31 | ECG_ITS ---
Test Reason : cp Blood Pressure : */* mmHG Vent. Rate : 67 BPM Atrial Rate : 67 BPM P-R Int : 154 ms QRS Dur : 86 ms QT Int : 402 ms P-R-T Axes : 18 63 40 degrees QTcB Int : 424 ms Normal sinus rhythm with sinus arrhythmia Normal ECG When compared with ECG of 26-Nov-2024 19:27, Vent. rate has decreased by 35 bpm Referred By: Arpit Yates Electronically Signed By: ARMINDA TAN MD
--- NOTE | 2024-11-26 22:52 | PC.NURSE ---
pt awake, requesting ice cream. pt attempted to use commode for UA. unable to go. assist back to bed. given food per provider, encourage to stay awake while eating. sitter at bedside. pt agreed to temp sensing arnold. 16F placed. core temp 96.4. UA collected. warm blankets given.
[2024-11-26 23:05] LABS: Appearance Urine Clear; Glucose Urine UA Negative (Negative); PH 5.5 (5.0-9.0); Specific Gravity - Urine 1.020 (1.005-1.025); UMIC TRIGGER UACC YES
[2024-11-26 23:10] LABS: UACC Culture Trigger YES
[2024-11-26 23:47] LABS: Cannabinoid Screen Urine Not Detected (Not Detect)
[2024-11-27] VITALS (7 sets, daily range): BP systolic 100–144; BP diastolic 53–103; PULSE 75–93; RESP 12–19; TEMP 36.3–37.4; O2SAT 95–99
--- NOTE | 2024-11-27 09:03 | MHC.RECOVRN ---
Attempted to meet with Sigrid in ED16, pt unabe to wake up, snoring loudly, will re-attempt to approach at a later time.
--- NOTE | 2024-11-27 13:14 | MHC.RECOVRN ---
Addendum entered by Gauri Chino RN 11/27/24 13:18: Narcan and safer injection kit to be offered at discharge Original Note: Approach pt again and she is requesting to leave, declines all recovery interventions at this time.
[2024-11-27] MEDS: Naloxone HCl Nasal TAKE HOME 4 MG SPRAY 8 MG NOSTRILALT (13:57)
--- NOTE | 2024-11-27 13:57 | PC.NURSE ---
Patient given two take home doses of narcan
== END 2024-11-27 14:02 | disposition home or self-care (01) ==
PROVIDERS: Physician Assistant Medical; Emergency Provider Internal Medicine
DX: F19.929 Other psychoactive substance use, unspecified with intoxication, unspecified (principal); R45.1 Restlessness and agitation; I47.10 Supraventricular tachycardia, unspecified; A41.9 Sepsis, unspecified organism; N39.0 Urinary tract infection, site not specified
CPT/HCPCS: 36415; 70450; 71045; 80053; 80143; 80179; 80307; 81001; 83605; 83735; 84484; 84702; 85025; 87040; 87086; 87088; 87186; 93005; 96361; 96374; 96375; 96376; 99285; 99291; J0153; J0696; J2250; J3480

== ENCOUNTER → 2024-11-26 19:27 | Outpatient (BNV) | payer SELFPAY | PROVIDERS: Emergency Provider Internal Medicine; Visit Provider Internal Medicine Cardiovascular Disease | DX: R00.0 Tachycardia, unspecified (principal); R07.9 Chest pain, unspecified | CPT/HCPCS: 93010 ==

== ENCOUNTER → 2024-11-26 20:14 | Outpatient (BNV) | payer SELFPAY | PROVIDERS: Emergency Provider Internal Medicine; Visit Provider Family Medicine | DX: R41.82 Altered mental status, unspecified (principal) | CPT/HCPCS: 70450; 71045 ==

== ENCOUNTER 2024-12-05 17:17 | Emergency (ER) | payer SELFPAY ==
[2024-12-05] VITALS (7 sets, daily range): BP systolic 81–117; BP diastolic 37–81; PULSE 48–97; RESP 10–19; TEMP 36.3–36.6; O2SAT 94–100; BMI 22.6
--- NOTE | 2024-12-05 17:36 | ED_ITS ---
HPI - General Adult General Chief complaint: Overdose Stated complaint: ERRATIC BEHAVIOR ?SUBSTANCE USE Time Seen by Provider: 12/05/24 17:35 History of Present Illness ED Provider: Ashley MOYA narrative: The patient is a 29-year-old female with a history of polysubstance use disorder who was brought to the hospital by ambulance. Paramedics state that they found the patient behaving strangely in a park. She was standing up and shaking a great deal. Police had called for EMS because of her bizarre behavior. She apparently had told the police that she had ?done a bag. ? The patient arrived agitated and flailing her extremities. She said that she felt very restless but could not give any other specific history. A review of previous ER visits shows that she has tested positive for cocaine, fentanyl, and opioids in the past. Related Data Previous Rx's ?Medication ?Instructions ?Recorded cefuroxime axetil 500 mg tablet 500 mg PO Q12H 7 days #14 tabs 10/13/24 doxycycline monohydrate 100 mg 100 mg PO BID 7 days #1 4 tabs 10/13/24 tablet metoprolol tartrate 25 mg tablet 25 mg PO BID 30 days #60 tabs 10/24/24 Allergies Allergy/AdvReac Type Severity Reaction Status Date / Time adhesive tape (ADHESIVE TAPE) Allergy Unknown UNKNOWN Verified 12/07/24 20:21 acetaminophen (From Tylenol) Allergy Rash Verified 12/07/24 20:21 Anesthetics - Gm Type- AdvReac Severe heart rate Verified 12/07/24 20:21 Parabens (ANESTHETICS - drops GM TYPE) amoxicillin AdvReac Anaphylaxis Verified 12/07/24 20:21 unspecified anesthetic Allergy Unknown lowers Uncoded 12/07/24 20:21 heart rate Review of Systems 2 Review of Systems: Yes Unobtainable due to mental status PMFSH Past Medical History Medical History Abdominal pain Diverticula of colon Colostomy hernia Hernia SVT (supraventricular tachycardia) Surgical History History of colostomy reversal History of reversal of ileostomy Hx of ileostomy Social History Social History Household Members: Family Housing: Apartment Do you presently have visiting nurse or other home services: No Unable to assess alcohol history related to: Unable to respond Alcohol intake: current Alcohol intake frequency: does not drink Comment: refused socks, gets up impulsive. Patient Tobacco Use Status: Never used Tobacco Smoked in Last 30 Days: Yes Use of substances other than those prescribed or required for medical reasons: Yes Substance Use Type: Crack/Cocaine and Heroin Advance Directives: No Advance Directives Information Provided: Yes service: No Physical Exam ED Vital Signs: Vital Signs - 24 hr 12/05/24 17:40 12/05/24 17:56 12/05/24 17:56 Temperature 97.8 F Pulse Rate 96 97 Pulse Rate [Monitor] 96 Respiratory Rate 10 L 11 L Blood Pressure 104/52 L 87/37 L Pulse Oximetry 94 94 Oxygen Delivery Method Room Air Room Air 12/05/24 18:00 12/05/24 20:00 12/05/24 22:00 Temperature Pulse Rate 92 49 L 48 L Pulse Rate [Monitor] Respiratory Rate 10 L 12 11 L Blood Pressure 81/40 L 101/65 107/77 Pulse Oximetry 95 100 100 Oxygen Delivery Method Room Air Room Air Room Air 12/05/24 23:43 12/05/24 23:51 12/06/24 02:06 Temperature 97.3 F Pulse Rate 54 55 49 L Pulse Rate [Monitor] Respiratory Rate 14 19 16 Blood Pressure 117/81 117/81 135/88 Pulse Oximetry 100 100 99 Oxygen Delivery Method Room Air Room Air Room Air 12/06/24 04:29 12/06/24 05:54 12/06/24 11:44 Temperature 97.6 F Pulse Rate 64 64 64 Pulse Rate [Monitor] Respiratory Rate 16 16 16 Blood Pressure 125/95 H 138/89 138/89 Pulse Oximetry 100 99 99 Oxygen Delivery Method Room Air Room Air Room Air BMI result Body Mass Index 22.6 Const Other: The patient arrived extremely agitated and restless HENMN Other: Face is symmetrical. Airway was clear. Mucous membranes moist. Eyes Other: Pupils are round equal, conjunctivae are clear, extraocular movements intact General: appearance normal, both eyes and all related structures Neck Neck: Yes normal visual inspection, Yes full ROM and Yes no lymphadenopathy Resp Effort & Inspection: normal respiratory effort Auscultation: clear to auscultation bilaterally Cardio Rate: regular rate Rhythm: regular rhythm Heart sounds: S1 normal heart sound present and S2 normal heart sound present GI Other: The patient has multiple surgical scars in the lower abdomen. He has been a soft and does not seem tender. Skin Other: The patient had some flushing to the skin of the face. Elsewhere the skin seemed unremarkable. There were no track love. Neuro Other: The patient was awake but extremely agitated and restless, thrashing on the stretcher. She would speak but could not be convinced to stop moving in an extremely restless and dangerous manner. Pupils were round equal, extraocular movements seem intact, face seems symmetrical, when she spoke she seemed capable of fairly clear speech, she had symmetrical strength in all of her extremities. She seemed severely agitated and intoxicated but without focal findings. Extrem Other: No deformities to the extremities. No peripheral edema. Course Reevaluation(s) Reevaluation #1: On re-examination at this time the patient is awake alert eating and drinking she was seen by the crisis team she does not want any help she is requesting discharge. At this time we will discharge the patient home. No SI no HI Time: 12:47 Medications Administered Discontinued Medications Generic Name Dose Route Start Last Admin Trade Name Williamsq PRN Reason Stop Dose Admin Sodium Chloride 1,000 mls @ 999 mls/hr 12/05/24 17:45 12/05/24 18:43 Ns IV 12/05/24 18:45 Infused .Q1H1M ROSITA Infusion Lactated Ringer's 1,000 mls @ 999 mls/hr 12/05/24 18:15 12/05/24 19:46 Lr IV 12/05/24 19:15 Infused .Q1H1M ROSITA Infusion Midazolam HCl 10 mg 12/05/24 17:36 12/05/24 17:44 Midazolam Hcl 5 Mg/Ml Vial IM 12/05/24 17:37 10 mg ONCE ONE Administration Naloxone HCl 8 mg 12/06/24 12:48 12/06/24 13:09 Naloxone Hcl Nasal Take Home 4 Mg [place] NOSTRILALT 12/06/24 12:49 8 mg ONCE ONE Administration Olanzapine 10 mg 12/05/24 17:36 12/05/24 17:44 Olanzapine 10 Mg Vial IM 12/05/24 17:37 10 mg ONCE ONE Administration Medical Decision Making Medical Decision Making MDM Narrative: The patient arrived acutely agitated and thrashing. She seemed to be in the throes of some kind of an intoxication, presumably opioid, possibly associated with medetomidine. Since she was acutely agitated she required sedation. She was given 10 mg of IM midazolam and 10 mg of IM olanzapine. This seemed to provide good sedation. She did not require mechanical restraints. IV access was established and she was given IV fluids. She has a white count of 6.2 with a normal differential. Chemistries show normal renal function and unremarkable electrolytes. Ethanol is negative The patient was given IV fluids. She has been observed. Given her essentially negative medical workup I think she can likely be observed until she is awake enough for further discussion. Perhaps she will need to be seen by the recovery team if she would like that when she is awake. The patient will be placed in physician observation as of 22:00 on 12/05/2024. Lab Data 12/05/24 17:51 12/05/24 17:51 Labs: Lab Results 12/05/24 Range/Units 17:51 WBC 6.2 (4.8-10.8) X10*3/uL RBC 4.18 L (4.20-5.50) X10*6/uL Hgb 11.0 L (12.0-16.0) g/dl Hct 34.3 L (37.0-47.0) % MCV 82.1 (80.0-98.0) fL MCH 26.3 L (27.0-33.0) pg MCHC 32.1 (31.0-35.0) g/dl RDW 15.1 (11.0-16.0) % Plt Count 275 (160-400) X10*3/uL MPV 11.3 (9.4-12.3) fL Immature Gran % (Auto) 0.3 (0.0-0.4) % Neut % (Auto) 58.6 (45-73) % Lymph % (Auto) 32.5 (20-40) % [place] % (Auto) 6.3 (2-11) % Eos % (Auto) 1.3 (0-4) % Baso % (Auto) 1.0 (0-2) % Lymph # (Auto) 2.0 (1.2-4.9) X10*3/uL [place] # (Auto) 0.4 (0.1-1.2) X10*3/uL Eos # (Auto) 0.1 (0.0-0.4) X10*3/uL Baso # (Auto) 0.1 (0.0-0.2) X10*3/uL Abs Immat Gran (auto) 0.02 (0.00-0.03) X10*3/uL Absolute Neuts (auto) 3.7 (2.0-8.3) x10*3/uL Absolute Nucleated RBC 0.000 (0.0-0.012) X10*3/uL Nucleated RBC % (auto) 0.0 (0.0-0.2) /100WBC Sodium 145 (135-145) mmol/L Potassium 3.6 (3.3-5.1) mmol/L Chloride 111 H (96-108) mmol/L Carbon Dioxide 26 (22-29) mmol/L Anion Gap 12 (12-20) BUN 10 (9-16) mg/dL Creatinine 0.79 (0.5-1.4) mg/dL Estim Creat Clear Calc 97.4 Estimated GFR > 60 Random Glucose 86 (60-115) mg/dL Calcium 9.2 D (8.4-10.2) mg/dL Total Bilirubin 0.4 (0.0-1.0) mg/dL Direct Bilirubin 0.2 (0.0-0.5) mg/dL AST 25 (5-31) U/L ALT 17 (0-31) U/L Alkaline Phosphatase 73 (39-117) U/L Total Protein 6.9 (6.5-8.0) g/dL Albumin 4.4 (3.5-5.0) g/dL Beta HCG, Quant < 2 mIU/mL Ethyl Alcohol < 10 mg/dL Critical Care Time Critical Care Time Critical Care Time: Yes Total Critical Care Time: 35 Attestation: The patient was critically ill with a high probability of imminent or life- threatening deterioration. ?I spent greater than 30 minutes of discontinuous time evaluating the patient, delivering critical care at the bedside, discussing evaluating data with consultants. ?Critical care time does not include time spent performing separately billable procedures or teaching. ?Time spent performing critical care with 35 minutes. Discharge Plan Discharge Clinical Impression: Restlessness and agitation, Acute drug overdose, Substance use disorder Patient Disposition: Home, Self-Care Instructions: Adult Overdose (ED) Additional Instructions: You refused any help for the drug abuse, we will give you a does not Narcan to go Prescriptions: No Action cefuroxime axetil 500 mg tablet 500 mg PO Q12H 7 Days Qty: 14 0RF doxycycline monohydrate 100 mg tablet 100 mg PO BID 7 Days Qty: 14 0RF metoprolol tartrate 25 mg tablet 25 mg PO BID 30 Days Qty: 60 0RF Interventions: ED Discharge Assessment Last Done: 12/06/24 13:02 Discharge Date/Time: 12/06/24 13:18 Print Language: Bengali
--- NOTE | 2024-12-05 17:38 | ECG_ITS ---
Test Reason : OD Blood Pressure : */* mmHG Vent. Rate : 91 BPM Atrial Rate : 91 BPM P-R Int : 144 ms QRS Dur : 92 ms QT Int : 402 ms P-R-T Axes : 73 52 34 degrees QTcB Int : 494 ms Normal sinus rhythm Prolonged QT Abnormal ECG When compared with ECG of 26-Nov-2024 21:31, QT has lengthened Referred By: Dick Ramirez Electronically Signed By: Keegan Irene
[2024-12-05] MEDS: OLANZapine 10 MG VIAL IM (17:44)
[2024-12-05 18:02] LABS: MANUAL DIFF FLAG NO
[2024-12-05 18:05] LABS: Hematocrit 34.3 % (37.0-47.0); Hemoglobin 11.0 g/dl (12.0-16.0); Imm Gran Abs Auto 0.02 X10*3/uL (0.00-0.03); Imm Gran Pct Auto 0.3 % (0.0-0.4); Lymphocytes Absolute Auto 2.0 X10*3/uL (1.2-4.9); Mean Corpuscular HGB Conc 32.1 g/dl (31.0-35.0); Mean Corpuscular Hemoglobin 26.3 pg (27.0-33.0); Mean Corpuscular Volume 82.1 fL (80.0-98.0); NRBC Abs Auto 0.000 X10*3/uL (0.0-0.012); NRBC Pct Auto 0.0 /100WBC (0.0-0.2); Platelet Count 275 X10*3/uL (160-400); Red Blood Count 4.18 X10*6/uL (4.20-5.50); White Blood Count 6.2 X10*3/uL (4.8-10.8)
--- NOTE | 2024-12-05 18:07 | PC.NURSE ---
Addendum entered by Julianne Morris RN 12/05/24 18:08: Patient is a 29-year-old female with a history of polysubstance abuse including crack cocaine, with prior induced SVT, presents intoxicated. Patient was found in the park, with bizarre and erratic behavior requiring police intervention. Patient arrives impulsive, erratic and bizarre requiring IM medication to control her behavior. environmental monitoring technician applied and NSR noted. Respirations even and non-labored. Abdomen soft, non-tender with positive bowel sounds. Positive pedal pulses with no edema. Patient noted to be sl hypotension post medication. Provider aware and fluids infusing as ordered. Original Note: Medical History Abdominal pain Diverticula of colon Colostomy hernia He
[2024-12-05 18:19] LABS: Alanine Aminotransferase 17 U/L (0-31); Albumin Level 4.4 g/dL (3.5-5.0); Alkaline Phosphatase 73 U/L (39-117); Anion Gap 12 (12-20); Aspartate Amino Transferase 25 U/L (5-31); Blood Urea Nitrogen 10 mg/dL (9-16); Calcium 9.2 mg/dL (8.4-10.2); Carbon Dioxide 26 mmol/L (22-29); Chloride 111 mmol/L (96-108); Creatinine Clr Calc Pharmacy 97.4; Estimated Glomerular Filt Rate > 60; Potassium 3.6 mmol/L (3.3-5.1); Sodium 145 mmol/L (135-145); Total Protein 6.9 g/dL (6.5-8.0)
[2024-12-05] MEDS: Lactated Ringers 1,000 ML 999 ML IV (18:45)
--- NOTE | 2024-12-06 00:30 | MHC.EDTECH ---
pt changed over by previous staff, belongings found to be in [place] on shelf 2.
[2024-12-06 02:06] VITALS: BP 135/88; PULSE 49; RESP 16; O2SAT 99
[2024-12-06 04:29] VITALS: BP 125/95; PULSE 64; RESP 16; TEMP 36.4; O2SAT 100
[2024-12-06 05:54] VITALS: BP 138/89; PULSE 64; RESP 16; O2SAT 99
--- NOTE | 2024-12-06 06:55 | PC.NURSE ---
This RN assumd care of patient @ 0700. Patient noted to be sleeping in bed comfortably, seizure pads in place. IV 20G in right forearm. VSS and up to date. Patient arousable but goes back to sleep. Go with CARE team in to see patient, patient didnt want to speak at this time. Patient changed over. Plan of care on going
--- NOTE | 2024-12-06 10:35 | MHC.CARE ---
Attempted to meet with pt at: 0700 - Unable to awaken pt 1030 - Unable to awaken pt
[2024-12-06 11:44] VITALS: BP 138/89; PULSE 64; RESP 16; O2SAT 99
--- NOTE | 2024-12-06 11:46 | PC.NURSE ---
Patient still sleeping Attempted to wake patient, patient just rolled over to other side of bed. No signs of distress noted
--- NOTE | 2024-12-06 12:30 | MHC.CARE ---
Pt has declined Recovery resources and referrals.
--- NOTE | 2024-12-06 12:40 | MHC.CARE ---
Pt has declined all referrals and resource options
[2024-12-06 13:02] VITALS: BP 121/84; PULSE 51; RESP 14; TEMP 36.3; O2SAT 97
[2024-12-06] MEDS: Naloxone HCl Nasal TAKE HOME 4 MG SPRAY 8 MG NOSTRILALT (13:09)
== END 2024-12-06 13:18 | disposition home or self-care (01) ==
PROVIDERS: Emergency Medicine; Emergency Provider Emergency Medicine
DX: T40.2X4A Poisoning by other opioids, undetermined, initial encounter (principal); R45.1 Restlessness and agitation; Y92.89 Other specified places as the place of occurrence of the external cause
CPT/HCPCS: 36415; 80048; 80076; 80307; 84702; 85025; 93005; 96360; 96361; 96372; 99285; J2250; J2359; J7120; S9485

== ENCOUNTER → 2024-12-05 17:38 | Outpatient (BNV) | payer SELFPAY | PROVIDERS: Emergency Provider Emergency Medicine; Visit Provider Internal Medicine Cardiovascular Disease | DX: R94.31 Abnormal electrocardiogram [ECG] [EKG] (principal) | CPT/HCPCS: 93010 ==

== ENCOUNTER 2024-12-07 20:07 | Emergency (ER) | payer SELFPAY ==
--- NOTE | 2024-12-07 | ECG_ITS ---
Test Reason : OVERDOSE Blood Pressure : */* mmHG Vent. Rate : 63 BPM Atrial Rate : 63 BPM P-R Int : 130 ms QRS Dur : 88 ms QT Int : 388 ms P-R-T Axes : 39 46 24 degrees QTcB Int : 397 ms Normal sinus rhythm Normal ECG When compared with ECG of 05-Dec-2024 18:16, QT has shortened Referred By: Arpit Yates Electronically Signed By: Keegan Irene
[2024-12-07 20:18] VITALS: BP 128/72; PULSE 118; O2SAT 95; BMI 29.2
--- NOTE | 2024-12-07 20:32 | ED.OVERDOSE ---
HPI - Overdose General Chief Complaint: Overdose Stated Complaint: DRUG USE Time Seen by Provider: 12/07/24 20:24 Source: patient Mode of arrival: ambulatory Limitations: no limitations History of Present Illness ED Provider: HPI Narrative: Patient's history of substance abuse noted heroin and cocaine prior to arrival was found on the side of the street semi-responsive no Narcan was given patient denied any overdosing/SI Related Data Previous Rx's ?Medication ?Instructions ?Recorded cefuroxime axetil 500 mg tablet 500 mg PO Q12H 7 days #14 tabs 10/13/24 doxycycline monohydrate 100 mg 100 mg PO BID 7 days #14 tabs 10/13/24 tablet metoprolol tartrate 25 mg tablet 25 mg PO BID 30 days #60 tabs 10/24/24 Allergies Allergy/AdvReac Type Severity Reaction Status Date / Time adhesive tape (ADHESIVE TAPE) Allergy Unknown UNKNOWN Verified 12/07/24 20:21 acetaminophen (From Tylenol) Allergy Rash Verified 12/07/24 20:21 Anesthetics - Gm Type- AdvReac Severe heart rate Verified 12/07/24 20:21 Parabens (ANESTHETICS - drops GM TYPE) amoxicillin AdvReac Anaphylaxis Verified 12/07/24 20:21 unspecified anesthetic Allergy Unknown lowers Uncoded 12/07/24 20:21 heart rate Review of Systems Review of Systems: Yes all other systems are reviewed and are negative [facility] Past Medical History Medical History Abdominal pain Diverticula of colon Colostomy hernia Hernia SVT (supraventricular tachycardia) Surgical History History of colostomy reversal History of reversal of ileostomy Hx of ileostomy Social History Social History Household Members: Family Housing: Apartment Do you presently have visiting nurse or other home services: No Unable to assess alcohol history related to: Unable to respond Alcohol intake: current Alcohol intake frequency: does not drink Comment: refused socks, gets up impulsive. Patient Tobacco Use Status: Never used Tobacco Smoked in Last 30 Days: Yes Use of substances other than those prescribed or required for medical reasons: Yes Substance Use Type: Crack/Cocaine and Heroin Advance Directives: No Advance Directives Information Provided: Yes service: No Physical Exam Vital Signs: Vital Signs: Last Vital Signs Temp 96.6 F L 12/08/24 17:37 Pulse 77 12/08/24 17:37 Resp 12 12/08/24 17:37 BP 129/85 12/08/24 17:37 Pulse Ox 100 12/08/24 17:37 O2 Del Method Room Air 12/08/24 17:37 BMI result Body Mass Index 29.2 Appearance: Alert. Eating food drinking p.o. fluids. No acute distress. Eyes: PERRLA, No Nystagmus ENT: Pharynx normal. Oral Mucosa moist Neck: Normal inspection. Neck supple. CVS: Normal heart rate and rhythm. Pulses normal. Respiratory: No respiratory distress. Equal air entry bilateral, no wheezing/rales/rhonchi Abdomen: Soft and nontender. Bowel sounds are present, no mass palpable, no CVA tenderness Skin: Skin warm and dry. Normal skin color. Normal skin turgor. Extremities: No lower extremity edema. No calf tenderness Neuro: Oriented X 3. No motor deficit. No sensory deficit.No cerebellar signs , cranial nerves II-XII intact Course Course Course Narrative: 7:48 PM 12/08/2024 (Mariel CHONG): This provider did not received sign-out on the patient but at this time has assumed the patient's care per RN request. Based on RN report and chart review the patient is a 29-year-old female who presented to the ED yesterday evening for evaluation after she was found unresponsive on a local street. Patient reportedly was protecting her own airway and was responsive to stimuli for EMS, did not require Narcan administration. The patient admitted to cocaine and heroin use, but denied acute somatic complaint, no reported suicidal or homicidal ideation. The patient was placed on physician observation for re-evaluation for clinical sobriety. At this time the patient is awake and alert, hemodynamically stable, afebrile, with adequate oxygenation even when sleeping. Patient was re-evaluated by this provider and is easily arousable from sleep, alert and oriented, and still without somatic complaint. The patient advises she will contact her mother for a ride home. Patient was offered to speak to recovery Services and declined. At this time there is no indication for continued ED observation and the patient will be discharged with Narcan. Medical Decision Making Medical Decision Making [facility] Narrative: .Patient with hx cocaine opiate use with stable vitals sleeping in the ER will check urine for drug screening re-evaluate when she wakes up Arpit Yates MD 12/08/24 0151 patient is placed on physician observation till get sober Discharge Plan Discharge Clinical Impression: Polysubstance abuse Patient Disposition: Home, Self-Care Instructions: Polysubstance Use Disorder (ED) Additional Instructions: Thank you for choosing [facility]'s Emergency Department for your care today. At this time there is no evidence of an acute process requiring admission to the hospital or continued ED observation, and it is safe to discharge you home. You were seen in the emergency department today for evaluation of polysubstance. Please do not use recreational drugs as they are generally not good for your health and can put you at risk for heart attack, respiratory arrest, anoxic brain injury, severely decreased quality of life, and potentially an otherwise avoidable . Please make use of all available personal and community-based resources to attempt to become sober from recreational drugs. Please stay well hydrated and get plenty of rest. Please follow up with your primary care physician for re-evaluation, additional management of your symptoms, and continued preventative care. If you do not have a primary care physician, please call the [facility] at [phone] to establish a new primary care physician. While waiting to establish your new primary care physician, you can call our [facility] at [phone] for non-emergency needs. Please return to the emergency department if you develop a severe or sudden change in your symptoms, a fever over 100.4 that does not improve with Tylenol or Ibuprofen, recurrent vomiting, or any other new or worsening symptoms or concerns. Prescriptions: No Action cefuroxime axetil 500 mg tablet 500 mg PO Q12H 7 Days Qty: 14 0RF doxycycline monohydrate 100 mg tablet 100 mg PO BID 7 Days Qty: 14 0RF metoprolol tartrate 25 mg tablet 25 mg PO BID 30 Days Qty: 60 0RF Print Language: Iraqi
[2024-12-07 20:37] VITALS: BP 120/57; PULSE 93; RESP 18; TEMP 37.1; O2SAT 100
[2024-12-07 20:57] VITALS: BP 112/55; PULSE 80; RESP 16; O2SAT 98
[2024-12-07 22:09] VITALS: BP 104/65; PULSE 67; RESP 11; O2SAT 99
[2024-12-08] VITALS (9 sets, daily range): BP systolic 99–129; BP diastolic 63–88; PULSE 60–98; RESP 11–18; TEMP 35.9–36.7; O2SAT 95–100
--- NOTE | 2024-12-08 12:53 | HO.SUDE ---
Attempted to met with patient. She does answer t/w questions with her eyes closed, but does need to prompting. She was seen earlier this week by CARE team for similar concerns. Today she denies SI/ HI, she denies having OD'd. She declines to discuss substance abuse including frequency/ duration/ method. T/w ased if she would like referrals to detox/ to any substance abuse tx, she shook her head no.
[2024-12-08] MEDS: Naloxone HCl Nasal TAKE HOME 4 MG SPRAY 8 MG NOSTRILALT (20:03)
--- NOTE | 2024-12-08 20:03 | PC.NURSE ---
pt waiting for safe ride home.
== END 2024-12-08 20:11 | disposition home or self-care (01) ==
PROVIDERS: Emergency Provider Internal Medicine
DX: T40.1X1A Poisoning by heroin, accidental (unintentional), initial encounter (principal); T40.5X1A Poisoning by cocaine, accidental (unintentional), initial encounter; R40.4 Transient alteration of awareness; Y92.9 Unspecified place or not applicable
CPT/HCPCS: 93005; 99284; 99285

== ENCOUNTER → 2024-12-07 20:30 | Outpatient (BNV) | payer SELFPAY | PROVIDERS: Emergency Provider Internal Medicine; Visit Provider Internal Medicine Cardiovascular Disease | DX: T50.901A Poisoning by unspecified drugs, medicaments and biological substances, accidental (unintentional), initial encounter (principal) | CPT/HCPCS: 93010 ==

== ENCOUNTER 2024-12-14 01:41 | Emergency (ER) | payer SELFPAY ==
--- NOTE | 2024-12-14 | ECG_ITS ---
Test Reason : SVT Blood Pressure : */* mmHG Vent. Rate : 96 BPM Atrial Rate : 96 BPM P-R Int : 138 ms QRS Dur : 88 ms QT Int : 364 ms P-R-T Axes : 58 44 28 degrees QTcB Int : 459 ms Normal sinus rhythm Normal ECG When compared with ECG of 07-Dec-2024 20:30, Vent. rate has increased by 33 bpm QT has lengthened Referred By: Mita Neville Electronically Signed By: ARMINDA TAN MD
[2024-12-14 01:45] VITALS: BP 125/86; PULSE 102; O2SAT 100
[2024-12-14 01:46] VITALS: BMI 25.8
--- NOTE | 2024-12-14 01:54 | ED.ARRPALP ---
HPI - Arrhythmia/Palpitations General Chief Complaint: ETOH/Substance Use Stated Complaint: drug use, SVTs Time Seen by Provider: 12/14/24 01:51 Source: patient and EMS Mode of arrival: EMS Limitations: no limitations History of Present Illness ED Provider: Dr. Mita Neville HPI narrative: 29-year-old female with a history of SVT, polysubstance use, housing and security presenting by EMS after bystanders found her to be ?acting erratic in the park?. Patient admits to using ?a bag of heroin and cocaine?. EMS reports her initial rhythm was SVT with a rate of 200. Stay called in for a medical controlled to give adenosine. She received 2 doses of adenosine, 6 mg followed by 12 mg and finally converted to a sinus tachycardia. She arrives in the emergency department with a heart rate in the 110s. She denies chest pain or difficulty breathing. Denies other illicit substance use or alcohol use tonight. Admits that this happens to her somewhat frequently. She has been educated about the effects of cocaine on her heart. She denies recent illness. Denies IV drug injection. Related Data Previous Rx's ?Medication ?Instructions ?Recorded cefuroxime axetil 500 mg tablet 500 mg PO Q12H 7 days #14 tabs 10/13/24 doxycycline monohydrate 100 mg 100 mg PO BID 7 days #14 tabs 10/13/24 tablet metoprolol tartrate 25 mg tablet 25 mg PO BID 30 days #60 tabs 10/24/24 Allergies Allergy/AdvReac Type Severity Reaction Status Date / Time adhesive tape (ADHESIVE TAPE) Allergy Unknown UNKNOWN Verified 12/14/24 01:48 acetaminophen (From Tylenol) Allergy Rash Verified 12/14/24 01:48 Anesthetics - Gm Type- AdvReac Severe heart rate Verified 12/14/24 01:48 Parabens (ANESTHETICS - drops GM TYPE) amoxicillin AdvReac Anaphylaxis Verified 12/14/24 01:48 unspecified anesthetic Allergy Unknown lowers Uncoded 12/14/24 01:48 heart rate Review of Systems Review of Systems: As per HPI, full review of systems performed and negative but for the above mentioned pertinent positives and negatives. PMFSH Past Medical History Medical History Abdominal pain Diverticula of colon Colostomy hernia Hernia SVT (supraventricular tachycardia) Surgical History History of colostomy reversal History of reversal of ileostomy Hx of ileostomy Social History Social History Household Members: Family Housing: Apartment Do you presently have visiting nurse or other home services: No Unable to assess alcohol history related to: Unknown Alcohol intake: current Alcohol intake frequency: does not drink Comment: refused socks, gets up impulsive. Patient Tobacco Use Status: Never used Tobacco Smoked in Last 30 Days: No Substance Use Type: Crack/Cocaine and Heroin service: No Physical Exam Exam: Exam: GENERAL: Anxious, agitated, uncontrolled movements. SKIN: Normal skin color for ethnicity, warm, dry, multiple skin excoriations of various degrees of healing, no crepitus, no petechiae, no blistering. HEENT: Normocephalic, atraumatic, no stridor, posterior oropharynx nonerythematous, poor [place] dentition, dry mucous membranes, EOMI. NECK: Soft, supple, full ROM, midline structures nontender, no step-offs, no deformities, no lymphadenopathy. CHEST: Heart regular tachycardia, no murmurs, symmetric chest rise and fall, no crepitus. PULMONARY: Clear to auscultation bilaterally, no labored breathing, no wheezes/rhales/rhonchi. ABDOMINAL: Soft, nondistended, nontender, positive bowel sounds in all quadrants. : Deferred. MUSCULOSKELETAL: Normal tone, full range of motion, no deformities, no peripheral edema. NEURO: Alert and oriented to person, CN II through XII intact, equal strength and sensation bilateral upper and lower extremities, no focal neurologic deficits. PSYCHIATRIC: Anxious affect, agitated, poor eye contact and psychomotor agitation. Vital Signs: Vital Signs: Last Vital Signs Pulse 102 H 12/14/24 02:54 Resp 18 12/14/24 02:54 BP 101/70 12/14/24 02:54 Pulse Ox 97 12/14/24 02:54 O2 Del Method Room Air 12/14/24 02:54 BMI result Body Mass Index 25.8 Medications Administered Discontinued Medications Generic Name Dose Route Start Last Admin Trade Name Freq PRN Reason Stop Dose Admin Lactated Ringer's 1,000 mls @ 999 mls/hr 12/14/24 02:00 12/14/24 02:04 Lr IV 12/14/24 03:00 999 mls/hr .Q1H1M ONE Administration Medical Decision Making Medical Decision Making MDM Narrative: 29-year-old female with a history of SVT presenting with tachycardia, drug ingestion from the field. Differential diagnosis includes SVT, AFib with RVR, sinus tachycardia, adverse drug reaction from cocaine abuse, dehydration, electrolyte abnormality, renal dysfunction, among many others. Patient was cardioverted in the field with adenosine prior to arrival. Blood pressure is 101/70. She is mentating appropriately. We will give IV fluids. Patient is already asking to be discharged. 3:02 AM 12/14/2024 (Dr. Mita Neville, D.O.) Patient is clinically sober, has no significant distracting injury, and they appear to have intact judgement, insight and reason. In my clinical opinion they have medical decision making capacity. Signs and symptoms discussed with patient. They express understanding of signs/symptoms as explained to them and they repeated it back to me. Risks and benefits discussed with patient to include but not limited to , nursing home disability or loss of significant bodily functions. Alternatives to treatment plan discussed and offered. Patient encouraged to return should they change their mind. Close followup strongly encouraged in case they choose not to return. The patient wants leave Against Medical Advise at this time Differential Diagnosis Differential Diagnoses: The differential diagnosis associated with the presentation includes (As above) Admission/Observation Consideration of admission/observation: Escalation of care including admission/observation considered Independent Interpretation I performed an independent interpretation of an: EKG Interpretation: My independent interpretation of the ECG reveals normal sinus rhythm with rate of 96, normal axis, normal intervals, no ST elevations or depressions to suggest ischemic changes, relatively unchanged aside from rate from previous on 12/07/2024. Independent Historian Clinical information obtained from an independent historian. History obtained from or confirmed by: EMS External Record Review External record reviewed: Inpatient record Chronic Conditions Patient?s care impacted by: Other (SVT, polysubstance use) Social Determinants Patient?s care significantly limited by Social Determinants of Health including: Inadequate housing and Alcoholism and drug addiction in family Discharge Plan Discharge Clinical Impression: SVT (supraventricular tachycardia), Polysubstance abuse Patient Disposition: Left Against Medical Advice Additional Instructions: Patient is clinically sober, has no significant distracting injury, and they appear to have intact judgement, insight and reason. In my clinical opinion they have medical decision making capacity. Signs and symptoms discussed with patient. They express understanding of signs/symptoms as explained to them and they repeated it back to me. Risks and benefits discussed with patient to include but not limited to , nursing home disability or loss of significant bodily functions. Alternatives to treatment plan discussed and offered. Patient encouraged to return should they change their mind. Close followup strongly encouraged in case they choose not to return. The patient wants leave Against Medical Advise at this time. Prescriptions: No Action cefuroxime axetil 500 mg tablet 500 mg PO Q12H 7 Days Qty: 14 0RF doxycycline monohydrate 100 mg tablet 100 mg PO BID 7 Days Qty: 14 0RF metoprolol tartrate 25 mg tablet 25 mg PO BID 30 Days Qty: 60 0RF Stand Alone Forms: Against Medical Advice Print Language: South Korean
[2024-12-14] MEDS: Lactated Ringers 1,000 ML 999 ML IV (02:04)
--- NOTE | 2024-12-14 02:24 | PC.NURSE ---
Pt arrived and was already asking if she could check out. Asked if pt could wait to see physician and she would. Pt given beverage and ice cream per pt request.
[2024-12-14 02:54] VITALS: BP 101/70; PULSE 102; RESP 18; O2SAT 97
--- NOTE | 2024-12-14 03:04 | PC.NURSE ---
Pt requesting to leave AMA. Notified Dr. Neville who came to bedside to speak with patient. Pt states she is still leaving despite the fact that she could have something happened. Pt signed AMA paperwork.
== END 2024-12-14 03:39 | disposition left against medical advice (07) ==
LOC: HO.ED 03:39
PROVIDERS: Emergency Provider Emergency Medicine
DX: I47.10 Supraventricular tachycardia, unspecified (principal); F11.10 Opioid abuse, uncomplicated; F14.10 Cocaine abuse, uncomplicated; R11.0 Nausea
CPT/HCPCS: 93005; 96360; 99284; J7120

== ENCOUNTER → 2024-12-14 01:56 | Outpatient (BNV) | payer SELFPAY | PROVIDERS: Emergency Provider Emergency Medicine; Visit Provider Internal Medicine Cardiovascular Disease | DX: I47.10 Supraventricular tachycardia, unspecified (principal) | CPT/HCPCS: 93010 ==

== ENCOUNTER → 2024-12-17 09:07 | Outpatient (BNV) | payer SELFPAY | PROVIDERS: Emergency Provider Emergency Medicine; Visit Provider Internal Medicine | DX: I47.10 Supraventricular tachycardia, unspecified (principal) | CPT/HCPCS: 93010 ==

== ENCOUNTER 2024-12-17 17:42 | Emergency (ER) | payer SELFPAY ==
[2024-12-17] VITALS (16 sets, daily range): BP systolic 83–145; BP diastolic 32–108; PULSE 54–185; RESP 11–24; TEMP -17.7–0; O2SAT 95–100; BMI 26.1
--- NOTE | 2024-12-17 09:07 | ECG_ITS ---
Test Reason : TACHYCARDIA Blood Pressure : */* mmHG Vent. Rate : 176 BPM Atrial Rate : * BPM P-R Int : * ms QRS Dur : 82 ms QT Int : 286 ms P-R-T Axes : * 65 14 degrees QTcB Int : 489 ms Supraventricular tachycardia Nonspecific ST abnormality Abnormal ECG When compared with ECG of 14-Dec-2024 01:56, Vent. rate has increased by [address] now depressed in Inferior leads ST now depressed in Lateral leads Nonspecific T wave abnormality now evident in Lateral leads Referred By: Judith De Oliveira Electronically Signed By: GIANNA DOMINGUEZ
--- NOTE | 2024-12-17 17:59 | ED.GENADULT ---
[facility] - General Adult General Chief complaint: Overdose Stated complaint: Substance abuse and Combative Security needed Time Seen by Provider: 12/17/24 17:45 Source: patient Mode of arrival: EMS Limitations: altered mental status History of Present Illness ED Provider: Dr. De Oliveira [facility] narrative: 29-year-old female presenting to the hospital today via EMS for altered mentation. Patient admitted to smoking crack cocaine and PCP prior to arrival. Patient is agitated and aggressive on EMS stretcher history is limited Related Data Previous Rx's ?Medication ?Instructions ?Recorded cefuroxime axetil 500 mg tablet 500 mg PO Q12H 7 days #14 tabs 10/13/24 doxycycline monohydrate 100 mg 100 mg PO BID 7 days #14 tabs 10/13/24 tablet metoprolol tartrate 25 mg tablet 25 mg PO BID 30 days #60 tabs 10/24/24 Allergies Allergy/AdvReac Type Severity Reaction Status Date / Time adhesive tape (ADHESIVE TAPE) Allergy Unknown UNKNOWN Verified 12/17/24 18:11 acetaminophen (From Tylenol) Allergy Rash Verified 12/17/24 18:11 Anesthetics - Gm Type- AdvReac Severe heart rate Verified 12/17/24 18:11 Parabens (ANESTHETICS - drops GM TYPE) amoxicillin AdvReac Anaphylaxis Verified 12/17/24 18:11 unspecified anesthetic Allergy Unknown lowers Uncoded 12/14/24 01:48 heart rate Review of Systems Review of Systems: Pertinent review of systems as mentioned in HPI. All other system otherwise negative. [facility] Past Medical History [facility] Narrative: Medical history as mentioned in HPI Medical History Abdominal pain Diverticula of colon Colostomy hernia Hernia SVT (supraventricular tachycardia) Surgical History History of colostomy reversal History of reversal of ileostomy Hx of ileostomy Social History Social History Household Members: Family Housing: Apartment Do you presently have visiting nurse or other home services: No Unable to assess alcohol history related to: Unknown Alcohol intake: current Alcohol intake frequency: does not drink Comment: refused socks, gets up impulsive. Patient Tobacco Use Status: Never used Tobacco Use of substances other than those prescribed or required for medical reasons: Yes Substance Use Type: Crack/Cocaine and Heroin Advance Directives: No Advance Directives Information Provided: No Do you have a plan to hurt others: No Plan service: No Physical Exam ED Exam Exam: General: Appears aggressive and agitated. Appears to be under the influence Head: Normacephalic, atraumatic ENT: oral mucosa moist, neck supple, no tracheal deviation Cardiovascular: Tachycardic rate, regular rhythm, no murmurs, rubbing, gallops Respiratory: CTAB, no wheeze, rales, rhonchi Neurological: Agitated wheezing all 4 extremities Skin: Warm and dry Psychiatric: Agitated and fighting staff Vital Signs: Vital Signs - 24 hr 12/17/24 18:08 12/17/24 18:13 12/17/24 18:18 Temperature 0 F L Pulse Rate 185 H 176 H 177 H Respiratory Rate 24 H Blood Pressure 116/63 103/48 L 103/48 L Pulse Oximetry 96 Oxygen Delivery Method Room Air Oxygen Flow Rate 12/17/24 18:20 12/17/24 18:23 12/17/24 18:41 Temperature Pulse Rate 99 93 91 Respiratory Rate 18 18 Blood Pressure 83/33 L 89/36 L 87/32 L Pulse Oximetry 96 95 96 Oxygen Delivery Method Room Air Room Air Room Air Oxygen Flow Rate 12/17/24 19:04 12/17/24 19:13 12/17/24 19:18 Temperature Pulse Rate 83 80 82 Respiratory Rate 12 Blood Pressure 85/37 L 84/41 L 90/45 L Pulse Oximetry 98 Oxygen Delivery Method Nasal Cannula Oxygen Flow Rate 3 12/17/24 19:23 12/17/24 19:28 12/17/24 19:33 Temperature Pulse Rate 79 76 62 Respiratory Rate 12 Blood Pressure 97/50 L 83/51 L 106/66 Pulse Oximetry 100 Oxygen Delivery Method Nasal Cannula Oxygen Flow Rate 3 12/17/24 19:39 12/17/24 19:41 12/17/24 19:51 Temperature Pulse Rate 65 61 84 Respiratory Rate 18 11 L 16 Blood Pressure 90/55 L 109/70 145/108 H Pulse Oximetry 100 100 100 Oxygen Delivery Method Nasal Cannula Nasal Cannula Nasal Cannula Oxygen Flow Rate 3 3 3 12/17/24 19:51 12/17/24 21:31 12/18/24 00:01 Temperature Pulse Rate 84 54 62 Respiratory Rate 13 13 Blood Pressure 145/108 H 140/95 H 110/70 Pulse Oximetry 98 99 Oxygen Delivery Method Room Air Room Air Oxygen Flow Rate 1 12/18/24 01:30 12/18/24 02:37 12/18/24 04:51 Temperature 98.7 F Pulse Rate 53 58 90 Respiratory Rate 15 14 18 Blood Pressure 121/72 159/91 H 156/88 H Pulse Oximetry 97 97 98 Oxygen Delivery Method Room Air Room Air Oxygen Flow Rate 12/18/24 06:01 12/18/24 06:30 12/18/24 12:14 Temperature 98.0 F 98.1 F Pulse Rate 69 59 76 Respiratory Rate 16 16 16 Blood Pressure 142/86 H 109/59 L 136/92 H Pulse Oximetry 98 98 96 Oxygen Delivery Method Room Air Room Air Room Air Oxygen Flow Rate BMI result Body Mass Index 26.1 Course Reevaluation(s) Reevaluation #1: Patient signed out to me at 07:[address] Leonard, the patient has been medically cleared the signed out was to disharge pt when fully awake Time: 07:24 Reevaluation #2: 12/18/2024 12:26 I re-examined the patient this time she is awake alert oriented x3 gait normal ate lunch requesting discharge. At this time we will discharge her home this ended the ED observation status Time: 12:26 Medications Administered Generic Name Dose Route Start Last Admin Trade Name Freq PRN Reason Stop Dose Admin Norepinephrine Bitartrate 8 mg in 250 mls @ 0 mls/hr 12/17/24 19:15 12/17/24 19:51 Levophed IVCONT Infused .Q0M ROSITA Titration Protocol Per Protocol Discontinued Medications Generic Name Dose Route Start Last Admin Trade Name Freq PRN Reason Stop Dose Admin Diltiazem HCl 21 mg 12/17/24 18:11 12/17/24 18:18 Diltiazem Hcl 50 Mg/10 Ml Vial IVPUSH 12/17/24 18:12 21 mg ONCE ONE Administration Haloperidol Lactate 5 mg 12/17/24 17:45 12/17/24 17:55 Haloperidol Lactate 5 Mg/Ml Vial IM 12/17/24 17:46 5 mg ONCE ONE Administration Sodium Chloride 1,000 mls @ 999 mls/hr 12/17/24 18:30 12/17/24 19:30 Ns IV 12/17/24 19:30 Infused .Q1H1M ROSITA Infusion Sodium Chloride 1,000 mls @ 999 mls/hr 12/17/24 19:15 12/17/24 20:04 Ns IV 12/17/24 20:15 Infused .Q1H1M ROSITA Infusion Sodium Chloride 1,000 mls @ 999 mls/hr 12/17/24 19:45 12/17/24 20:41 Ns IV 12/17/24 20:45 Infused .Q1H1M ROSITA Infusion Calcium Gluconate 1 gm in 50 mls @ 50 mls/hr 12/17/24 19:39 12/17/24 21:30 Calcium Gluconate IV 12/17/24 20:38 Infused ONCE ONE Infusion Midazolam HCl 5 mg 12/17/24 17:45 12/17/24 17:55 Midazolam Hcl 5 Mg/Ml Vial IM 12/17/24 17:46 5 mg ONCE ONE Administration Medical Decision Making Medical Decision Making [facility] Narrative: 29-year-old female history of SVT and polysubstance abuse presented hospital today for evaluation of altered mentation and not being under the influence of crack cocaine and PCP. 5 mg of IM Haldol was given, 5 mg IM Versed was given patient for sedation. Patient noted to be in SVT. Heart rate in the 175. I did give her push of IV diltiazem this converted her back to normal sinus rhythm. IV fluid initiated for the patient at this time basic lab work will be obtained for the patient. Patient cardioverted back to normal sinus rhythm after IV diltiazem however noted to be hypotensive. Started on Levophed to help bridge her. Patient was subsequently weaned off Levophed. IV fluid hydration was provided to the patient. Blood pressure came back up after. Patient is arousable, we will out the patient has metabolized at this time. Patient will be signed out to oncoming provider pending metabolization Differential Diagnosis Differential Diagnoses: The differential diagnosis associated with the presentation includes Cocaine abuse, SVT, PCP abuse, alcohol intoxication Lab Data [facility] Lab Attestation statement: I reviewed the patient's lab results. 12/17/24 18:17 12/17/24 18:17 Labs: Lab Results 12/17/24 12/17/24 12/17/24 Range/Units 18:17 18:34 19:54 WBC 7.8 (4.8-10.8) X10*3/uL RBC 4.33 (4.20-5.50) X10*6/uL Hgb 11.5 L (12.0-16.0) g/dl Hct 35.1 L (37.0-47.0) % MCV 81.1 (80.0-98.0) fL MCH 26.6 L (27.0-33.0) pg MCHC 32.8 (31.0-35.0) g/dl RDW 15.5 (11.0-16.0) % Plt Count 314 (160-400) X10*3/uL MPV 10.9 (9.4-12.3) fL Immature Gran % (Auto) 0.3 (0.0-0.4) % Neut % (Auto) 61.1 (45-73) % Lymph % (Auto) 28.8 (20-40) % [place] % (Auto) 7.4 (2-11) % Eos % (Auto) 1.4 (0-4) % Baso % (Auto) 1.0 (0-2) % Lymph # (Auto) 2.3 (1.2-4.9) X10*3/uL [place] # (Auto) 0.6 (0.1-1.2) X10*3/uL Eos # (Auto) 0.1 (0.0-0.4) X10*3/uL Baso # (Auto) 0.1 (0.0-0.2) X10*3/uL Abs Immat Gran (auto) 0.02 (0.00-0.03) X10*3/uL Absolute Neuts (auto) 4.8 (2.0-8.3) x10*3/uL Absolute Nucleated RBC 0.000 (0.0-0.012) X10*3/uL Nucleated RBC % (auto) 0.0 (0.0-0.2) /100WBC Sodium 142 (135-145) mmol/L Potassium 3.8 (3.3-5.1) mmol/L Chloride 106 (96-108) mmol/L Carbon Dioxide 23 (22-29) mmol/L Anion Gap 17 (12-20) BUN 13 (9-16) mg/dL Creatinine 0.95 (0.5-1.4) mg/dL Estim Creat Clear Calc 82.6 Estimated GFR > 60 Random Glucose 96 (60-115) mg/dL Calcium 9.1 (8.4-10.2) mg/dL Total Creatine Kinase 425 H (26-140) U/L Salicylates < 5.0 L (15-30) mg/dL Urine Opiates Screen POSITIVE H (Not Detect) Ur Buprenorphine Scrn Not Detected (Not Detect) ng/mL Ur Oxycodone Screen Not Detected (Not Detect) ng/mL Urine Methadone Screen Not Detected (Not Detect) ng/mL Urine Fentanyl Screen POSITIVE H (Not Detect) Acetaminophen < 3 (<30) mcg/mL Ur Barbiturates Screen Not Detected (Not Detect) Ur Phencyclidine Scrn Not Detected (Not Detect) Ur Amphetamines Screen Not Detected (Not Detect) U Benzodiazepines Scrn POSITIVE H (Not Detect) Urine Cocaine Screen POSITIVE H (Not Detect) U Marijuana (THC) Screen Not Detected (Not Detect) Ethyl Alcohol < 10 mg/dL Independent Interpretation I performed an independent interpretation of an: EKG and Rhythm Strip Social Determinants Patient?s care significantly limited by Social Determinants of Health including: Inadequate housing, Unemployment and Other Social Determinant of Health Polysubstance use Critical Care Time Critical Care Time Critical Care Time: Yes Total Critical Care Time: 40 Attestation: Time is exclusive of separately billable procedures. Time includes: direct patient care, patient reassessment, coordination of patient care, interpretation of data (laboratory data, pulse oximetry, arterial blood gases and chest xrays), review of patient's medical records, medical consultation and documentation of patient care. Procedures excluded from critical care time: central intravenous line placement and electrocardiography. Discharge Plan Discharge Clinical Impression: SVT (supraventricular tachycardia) Cocaine intoxication Qualifiers: Complication of substance-induced condition: with delirium Qualified Code(s): F14.921 - Cocaine use, unspecified with intoxication delirium Patient Disposition: Home, Self-Care Instructions: Supraventricular Tachycardia (ED), Cocaine Use Disorder (ED) Prescriptions: No Action cefuroxime axetil 500 mg tablet 500 mg PO Q12H 7 Days Qty: 14 0RF doxycycline monohydrate 100 mg tablet 100 mg PO BID 7 Days Qty: 14 0RF metoprolol tartrate 25 mg tablet 25 mg PO BID 30 Days Qty: 60 0RF Print Language: Armenian
[2024-12-17 18:21] LABS: MANUAL DIFF FLAG NO
[2024-12-17 18:22] LABS: Hematocrit 35.1 % (37.0-47.0); Hemoglobin 11.5 g/dl (12.0-16.0); Imm Gran Abs Auto 0.02 X10*3/uL (0.00-0.03); Imm Gran Pct Auto 0.3 % (0.0-0.4); Lymphocytes Absolute Auto 2.3 X10*3/uL (1.2-4.9); Mean Corpuscular HGB Conc 32.8 g/dl (31.0-35.0); Mean Corpuscular Hemoglobin 26.6 pg (27.0-33.0); Mean Corpuscular Volume 81.1 fL (80.0-98.0); NRBC Abs Auto 0.000 X10*3/uL (0.0-0.012); NRBC Pct Auto 0.0 /100WBC (0.0-0.2); Platelet Count 314 X10*3/uL (160-400); Red Blood Count 4.33 X10*6/uL (4.20-5.50); White Blood Count 7.8 X10*3/uL (4.8-10.8)
[2024-12-17 18:41] LABS: Anion Gap 17 (12-20); Blood Urea Nitrogen 13 mg/dL (9-16); Calcium 9.1 mg/dL (8.4-10.2); Carbon Dioxide 23 mmol/L (22-29); Chloride 106 mmol/L (96-108); Creatinine Clr Calc Pharmacy 82.6; Estimated Glomerular Filt Rate > 60; Potassium 3.8 mmol/L (3.3-5.1); Sodium 142 mmol/L (135-145)
[2024-12-17 18:58] LABS: Acetaminophen LAB < 3 mcg/mL (<30); Salicylate < 5.0 mg/dL (15-30)
--- NOTE | 2024-12-17 18:59 | PC.NURSE ---
ED provider Alvino is aware of BP's in low 80's/30's, per MD continue with infusion of second bag of 1 L NS, monitor BP's at this time.
--- NOTE | 2024-12-17 19:11 | PC.NURSE ---
BP's remain in low 80's/40's. ED provider is aware. Plan to start Levophed drip at this time.
--- NOTE | 2024-12-17 19:40 | PC.NURSE ---
Verbal order received from MD De Oliveira to hang 3 rd bag of NS 1 L. 3 rd bag of NS 1 L hung and infusing w/o issues.
--- NOTE | 2024-12-17 19:54 | PC.NURSE ---
Levophed drip paused, current BP 130's/90's-145/108. P 58-84. O2 [id number] on 3 L NC. Patient is awake, requested to use a bedside commode. Patient assited to bedside commode, urine sample collected via clean catch and sent ti lab for processing. Patient is oriented to ED room and cll hyman use, patient verbalized understanding. Patient currently resting in hospital bed, offers no complaint at present, call hyman within patient's reach.
[2024-12-17 20:09] LABS: Cannabinoid Screen Urine Not Detected (Not Detect)
[2024-12-17] MEDS: Calcium Gluconate/NaCl,Iso-Osm 1 GM/50 ML PLAST..BAG IV (20:25)
--- NOTE | 2024-12-17 21:32 | PC.NURSE ---
Addendum entered by Alana Carson RN 12/17/24 21:35: ED provider Cheg informed of HR 48-55 while asleep, 82-85 when awake, no new orders at this time. Original Note: BP 140/95, P 48-55 while asleep, 82-85 while awake, supplemental O2 titrated down from 3 LPM to 1 LPM with stable O2 Sat readings 98-100%.
[2024-12-18] VITALS (8 sets, daily range): BP systolic 109–159; BP diastolic 59–92; PULSE 53–90; RESP 13–18; TEMP -17.7–37.1; O2SAT 0–99
--- NOTE | 2024-12-18 05:05 | PC.NURSE ---
Patient continues to sleep, easily arousable when called by name, RR 17, respirations even and unlabored, VSS, O2 Sat 98% RA. Call hyman in patient's reach, plan of care ongoing.
--- NOTE | 2024-12-18 08:46 | PC.NURSE ---
Care of Pt assumed at change of shift. Pt resting quietly with eyes closed. NAD HR is steady in the 60's; NSR noted. Awaiting dispo.
== END 2024-12-18 12:41 | disposition home or self-care (01) ==
PROVIDERS: Student in an Organized Health Care Education/Training Program; Emergency Provider Emergency Medicine
DX: F14.921 Cocaine use, unspecified with intoxication delirium (principal); I47.10 Supraventricular tachycardia, unspecified; F15.988 Other stimulant use, unspecified with other stimulant-induced disorder; R45.1 Restlessness and agitation
CPT/HCPCS: 36415; 80048; 80143; 80179; 80307; 82550; 85025; 93005; 96361; 96365; 96372; 96375; 99285; 99291; J0613; J1163; J1630; J2250

== ENCOUNTER 2025-01-03 12:05 | Emergency (ER) | payer SELFPAY ==
--- NOTE | 2025-01-03 12:09 | ECG_ITS ---
Test Reason : SVT Blood Pressure : */* mmHG Vent. Rate : 169 BPM Atrial Rate : * BPM P-R Int : * ms QRS Dur : 82 ms QT Int : 312 ms P-R-T Axes : * 49 43 degrees QTcB Int : 523 ms Poor data quality, interpretation may be adversely affected Supraventricular tachycardia Nonspecific ST and T wave abnormality Abnormal ECG When compared with ECG of 17-Dec-2024 18:06, No significant change was found Referred By: Generic ED Physician Electronically Signed By: ARMINDA TAN MD
[2025-01-03 12:24] VITALS: BP 118/56; BP 138/92; PULSE 179; PULSE 200; RESP 20; TEMP 36.9; O2SAT 100; O2SAT 99; BMI 26.3
[2025-01-03] MEDS: Adenosine 6 MG/2 ML VIAL IVPUSH (12:40)
--- NOTE | 2025-01-03 12:41 | ECG_ITS ---
Test Reason : REPEAT Blood Pressure : */* mmHG Vent. Rate : 86 BPM Atrial Rate : 86 BPM P-R Int : 136 ms QRS Dur : 90 ms QT Int : 382 ms P-R-T Axes : 41 62 39 degrees QTcB Int : 457 ms Normal sinus rhythm Normal ECG When compared with ECG of 03-Jan-2025 12:16, Normal sinus rhythm has replaced Supraventricular tachycardia Vent. rate has decreased by [address] no longer depressed in Inferior leads ST no longer depressed in Lateral leads Nonspecific T wave abnormality no longer evident in Inferior leads Nonspecific T wave abnormality no longer evident in Lateral leads Referred By: Jessica Singh Electronically Signed By: ARMINDA TAN MD
[2025-01-03] MEDS: Adenosine 6 MG/2 ML VIAL 12 MG IVPUSH (12:42)
--- NOTE | 2025-01-03 12:46 | ED.ARRPALP ---
HPI - Arrhythmia/Palpitations General Chief Complaint: Arrhythmia/Palpitations Stated Complaint: FAST HR Time Seen by Provider: 01/03/25 12:11 Source: patient, EMS and old records reviewed Mode of arrival: EMS Limitations: no limitations History of Present Illness ED Provider: SHELIA MOYA narrative: 29 yo female with PMH of UTI, SVT not on any medictions, opiate use disorder who was evaluated by police for wellness check - she denies SI/HI, medical concerns. She states she goes in and out of SVT. She has no CP/SOB. She wants to go home after we correct her SVT. I explained that we probably need to obtain labs and her L eye has some ecchymosis that is old she states she hit it on a charging station last night. She is alert and oriented but I suspect some degree of drug use at this time. She refuses anything but slowing HR down and states she gets this all the time. She plans to leave AMA on arrival but I was able to get her to let us lower her HR MD complaint: rapid heart beat Onset (ago): unknown Duration: constant Severity: severe Context: occurred during rest Arrhythmia history: SVT Associated symptoms: denies other symptoms Treatments prior to arrival: vagal maneuvers Related Data Previous Rx's ?Medication ?Instructions ?Recorded cefuroxime axetil 500 mg tablet 500 mg PO Q12H 7 days #14 tabs 10/13/24 doxycycline monohydrate 100 mg 100 mg PO BID 7 days #14 tabs 10/13/24 tablet metoprolol tartrate 25 mg tablet 25 mg PO BID 30 days #60 tabs 10/24/24 Allergies Allergy/AdvReac Type Severity Reaction Status Date / Time adhesive tape (ADHESIVE TAPE) Allergy Unknown UNKNOWN Verified 01/03/25 12:26 acetaminophen (From Tylenol) Allergy Rash Verified 01/03/25 12:26 Anesthetics - Gm Type- AdvReac Severe heart rate Verified 01/03/25 12:26 Parabens (ANESTHETICS - drops GM TYPE) amoxicillin AdvReac Anaphylaxis Verified 01/03/25 12:26 unspecified anesthetic Allergy Unknown lowers Uncoded 12/14/24 01:48 heart rate Review of Systems Review of Systems: Constitutional : No Fever, No Chills, No Fatigue ENT/Mouth : No sore throat, No Rhinorrhea Eyes: No Eye Pain, No Swelling, No Redness Cardiovascular : No Chest Pain, No SOB, No Dyspnea on Exertion, pos palpitations Respiratory : No Cough, No Sputum Gastrointestinal : No Nausea, No Vomiting, No Diarrhea, No abdominal Pain Genitourinary : No Dysuria, No Urinary Frequency, No Hematuria, Musculoskeletal : No joint pain, No Myalgias, No Joint Swelling Skin : No Skin Lesions, No rash Neuro : No Weakness, No Numbness, No Dizziness, no Headache All other systems reviewed and are negative [facility] Past Medical History Attestation statement: The following information was validated with the patient. Source: old records reviewed Medical History Abdominal pain Diverticula of colon Colostomy hernia Hernia SVT (supraventricular tachycardia) Surgical History History of colostomy reversal History of reversal of ileostomy Hx of ileostomy Social History Social History Household Members: Family Housing: Apartment Do you presently have visiting nurse or other home services: No Unable to assess alcohol history related to: Unknown Alcohol intake: current Alcohol intake frequency: does not drink Comment: refused socks, gets up impulsive. Patient Tobacco Use Status: Never used Tobacco Substance Use Type: Crack/Cocaine and Heroin Advance Directives: No Advance Directives Information Provided: Yes service: No Physical Exam Vital Signs: Vital Signs: Last Vital Signs Temp 98.3 F 01/03/25 14:32 Pulse 79 01/03/25 14:32 Resp 20 01/03/25 14:32 BP 106/75 01/03/25 14:32 Pulse Ox 100 01/03/25 14:32 O2 Del Method Room Air 01/03/25 14:32 BMI result Body Mass Index 26.3 Appearance: Alert. Oriented X3. No acute distress. Eyes: Pupils equal, round and reactive to light. ENT: Pharynx normal. atraumatic other than old L ecchymosis under L eye no other trauma noted Neck: Normal inspection. Neck supple. CVS: tachycardic heart rate and rhythm. Pulses normal. Respiratory: No respiratory distress. Breath sounds normal. Abdomen: Soft and nontender. Skin: Skin warm and dry. Normal skin color. Normal skin turgor. Extremities: No lower extremity edema. No calf ttp Neuro: Oriented X 3. No motor deficit. No sensory deficit. CN2-12 intact Course Course Course Narrative: awake alert up and walking eating ice cream asking to go home 241pm Medications Administered Discontinued Medications Generic Name Dose Route Start Last Admin Trade Name Brennan PRN Reason Stop Dose Admin Adenosine 6 mg 01/03/25 12:23 01/03/25 12:40 Adenosine 6 Mg/2 Ml Vial IVPUSH 01/03/25 12:24 6 mg STAT STA Administration Adenosine 12 mg 01/03/25 12:40 01/03/25 12:42 Adenosine 6 Mg/2 Ml Vial IVPUSH 01/03/25 12:41 12 mg STAT STA Administration Medical Decision Making Differential Diagnosis Differential Diagnoses: The differential diagnosis associated with the presentation includes SVT, drug use, lyte abnormality Admission/Observation Consideration of admission/observation: Escalation of care including admission/observation considered refuses to stay Patient is clinically sober, has no significant distracting injury, and they appear to have intact judgement, insight and reason. In my clinical opinion they have medical decision making capacity. Signs and symptoms discussed with patient. They express understanding of signs/symptoms as explained to them and they repeated it back to me. Risks and benefits discussed with patient to include but not limited to , terminal gauger disability or loss of significant bodily functions. Alternatives to treatment plan discussed and offered. Patient encouraged to return should they change their mind. Close followup strongly encouraged in case they choose not to return. The patient wants leave Against Medical Advise at this time Independent Interpretation I performed an independent interpretation of an: EKG Interpretation: Rate: 169 Rhythm: SVT [place]: normal Normal QRS complex. ST T wave : no KALEY qTC: 523 prior studies: in SVT The study has been interpreted contemporaneously by me. EKG #2 Rate:86 Rhythm: NSR [place]: normal Normal P waves. Normal ISAIAH. Normal QRS complex. ST T wave : inverted t waves V1, no KALEY qTC: 457 prior studies: no acute ischemia The study has been interpreted contemporaneously by me. . Independent Historian Clinical information obtained from an independent historian. History obtained from or confirmed by: EMS External Record Review External record reviewed: Outpatient record and Prior outpatient labs Critical Care Time Critical Care Time Critical Care Time: Yes Total Critical Care Time: 35 Attestation: repeat IV adenosine for SVT, review of records, repeat eval I attest to this time spent taking care of the patient Discharge Plan Discharge Clinical Impression: SVT (supraventricular tachycardia) Patient Disposition: Left Against Medical Advice Instructions: Supraventricular Tachycardia (ED), Against Medical Advice (ED) Additional Instructions: you were given medications to stop your SVT you refused treatment and labs, we cannot say what caused this return at any time for any other concerns rest and stay hydrated Prescriptions: No Action cefuroxime axetil 500 mg tablet 500 mg PO Q12H 7 Days Qty: 14 0RF doxycycline monohydrate 100 mg tablet 100 mg PO BID 7 Days Qty: 14 0RF metoprolol tartrate 25 mg tablet 25 mg PO BID 30 Days Qty: 60 0RF Print Language: Sinhala
[2025-01-03 12:53] VITALS: PULSE 79; RESP 16; O2SAT 99
[2025-01-03 12:57] VITALS: BP 97/64; PULSE 78; RESP 16; TEMP 36.7; O2SAT 100
[2025-01-03 14:32] VITALS: BP 106/75; PULSE 79; RESP 20; TEMP 36.8; O2SAT 100
[2025-01-03 15:01] VITALS: BP 106/75; PULSE 79; RESP 20; TEMP 36.8; O2SAT 100
== END 2025-01-03 15:02 | disposition left against medical advice (07) ==
PROVIDERS: Emergency Provider Emergency Medicine
DX: I47.10 Supraventricular tachycardia, unspecified (principal); I49.9 Cardiac arrhythmia, unspecified; R00.2 Palpitations; F14.90 Cocaine use, unspecified, uncomplicated; Z79.899 Other long term (current) drug therapy
CPT/HCPCS: 93005; 96374; 99283; 99291; J0153

== ENCOUNTER → 2025-01-03 12:09 | Outpatient (BNV) | payer SELFPAY | PROVIDERS: Emergency Provider Emergency Medicine; Visit Provider Internal Medicine Cardiovascular Disease | DX: I47.10 Supraventricular tachycardia, unspecified (principal) | CPT/HCPCS: 93010 ==

== ENCOUNTER 2025-01-22 10:29 | Emergency (ER) | payer SELFPAY ==
[2025-01-22 10:36] VITALS: BP 108/66; BP 96/70; PULSE 108; PULSE 124; RESP 16; TEMP 37.1; O2SAT 100; O2SAT 97; BMI 26.6
--- NOTE | 2025-01-22 10:43 | ED.GENADULT ---
HPI - General Adult General Stated complaint: OVERDOSE Time Seen by Provider: 01/22/25 10:39 Source: patient and EMS Mode of arrival: EMS Limitations: no limitations History of Present Illness ED Provider: ARLETTE Sorenson HPI narrative: This is a 29-year-old female past medical history significant for SVT, polysubstance abuse, opiate use disorder who presents to the emergency department status post being found unresponsive in a local alley. She says she did not fall, she does admit to using crack cocaine and she says she was resting. She tells me her heart rate was going fast and they gave her a medication now she feels better. She did not want to come to the emergency department therefore [facility] was called, attending had her come into the emergency department for evaluation and did not allow for her to refused. She arrives and she is refusing all intervention, treatment, further management she is adamant that she wants to leave. She did verbalize the understanding of potential risks associated with leaving including , stroke, cardiac arrest. Related Data Previous Rx's ?Medication ?Instructions ?Recorded cefuroxime axetil 500 mg tablet 500 mg PO Q12H 7 days #14 tabs 10/13/24 doxycycline monohydrate 100 mg 100 mg PO BID 7 days #14 tabs 10/13/24 tablet metoprolol tartrate 25 mg tablet 25 mg PO BID 30 days #60 tabs 10/24/24 Allergies Allergy/AdvReac Type Severity Reaction Status Date / Time adhesive tape (ADHESIVE TAPE) Allergy Unknown UNKNOWN Verified 01/22/25 10:43 acetaminophen (From Tylenol) Allergy Rash Verified 01/22/25 10:43 Anesthetics - Gm Type- AdvReac Severe heart rate Verified 01/22/25 10:43 Parabens (ANESTHETICS - drops GM TYPE) amoxicillin AdvReac Anaphylaxis Verified 01/22/25 10:43 unspecified anesthetic Allergy Unknown lowers Uncoded 01/22/25 10:43 heart rate Review of Systems Review of Systems: Yes all other systems are reviewed and are negative PMFSH Past Medical History Attestation statement: The following information was validated with the patient. Source: old records reviewed and nursing notes reviewed Medical History Abdominal pain Diverticula of colon Colostomy hernia Hernia SVT (supraventricular tachycardia) Surgical History History of colostomy reversal History of reversal of ileostomy Hx of ileostomy Social History Social History Household Members: Family Housing: Apartment Do you presently have visiting nurse or other home services: No Alcohol intake: current Alcohol intake frequency: does not drink Comment: refused socks, gets up impulsive. Patient Tobacco Use Status: Never used Tobacco Substance Use Type: Crack/Cocaine and Heroin service: No Physical Exam ED Exam Exam: Appearance: Alert.? Oriented X3.? No acute distress.? Head: Normocephalic, atraumatic, no step-offs or deformities Eyes: Pupils equal, round and reactive to light.? Neck: Normal inspection.? Neck supple.? CVS: Normal heart rate on the monitor tells me she doesnt want treatment and wants to leave Respiratory: No respiratory distress.? Abdomen: Soft and nontender.? Skin: Skin warm and dry.? Normal skin color.? Normal skin turgor.? Extremities: No lower extremity edema.? 5/5 strength to bilateral upper and lower extremities Neuro: Oriented X 3.? No motor deficit.? No sensory deficit. CN 2-12 intact Vital Signs: vss Course Reevaluation(s) Reevaluation #1: Patient to be leaving against medical advice she is refusing all intervention and treatment including possible hospital admission further management. Patient decided to leave against medical advice. I took the time to go over risks of leaving against medical advice including . Patient verbalizes understanding of this. Advised them to come back if they change their mind. Time: 10:48 Medical Decision Making Medical Decision Making [facility] Narrative: 1046 29-year-old female presents status post using crack cocaine found lying down in an alley initially they stated she was unresponsive however she tells me she was not. She was found to have SVT with a heart rate of 201 was given 6 of adenosine and patient's heart rate improved now it is in the mid 90s. Patient is adamant that she would like to leave against medical advice refusing physical exam, labs, imaging, further intervention possible admission. She verbalizes risks of leaving against medical advice. She is alert and oriented x4 and able to make her own decisions clinically sober. Physical exam no signs of acute cardiopulmonary distress and vital signs are stable. Neurological assessment nonfocal patient ambulatory with steady gait. She is following instruction Plan will discharge with Narcan she will be leaving against medical advice Differential Diagnosis Differential Diagnoses: The differential diagnosis associated with the presentation includes (Possible overdose, crack cocaine use, SVT. Unlikely STEMI, PE) Admission/Observation Consideration of admission/observation: Escalation of care including admission/observation considered (Likely ) Lab Data Refused Independent Interpretation I performed an independent interpretation of an: EKG (Refusing) and Rhythm Strip (Reviewed EMS rhythm strip SVT 201) Independent Historian Clinical information obtained from an independent historian. History obtained from or confirmed by: EMS External Record Review External record reviewed: Inpatient record, Office record, Outpatient record, Prior outpatient labs, Prior outpatient radiology, Primary care record and Outside ED record Chronic Conditions Patient?s care impacted by: Other (See HPI) Social Determinants Patient?s care significantly limited by Social Determinants of Health including: Inadequate housing, Low income, Alcoholism and drug addiction in family, Problems related to primary support group, Unemployment, Problems related to employment and Other Social Determinant of Health Critical Care Time Critical Care Time Critical Care Time: No Discharge Plan Discharge Clinical Impression: SVT (supraventricular tachycardia), Opioid use disorder, Left against medical advice Patient Disposition: Left Against Medical Advice Instructions: Supraventricular Tachycardia (ED), Opioid Withdrawal (ED), Against Medical Advice (ED), Opioid Use Disorder (ED) Additional Instructions: Take your medications as prescribed. If you were prescribed antibiotics today, it is important that you take your medication to their entirety, do not skip any doses, do not finish them early. Follow-up with your primary care provider this week. Return to the emergency department with new or worsening symptoms. Such as fevers, chills, chest pain, shortness of breath, nausea, vomiting, dizziness, headache, vision changes, lethargy In case of emergency call 911 Patient decided to leave against medical advice. I took the time to go over risks of leaving against medical advice including . Patient verbalizes understanding of this. Advised them to come back if they change their mind. You refused imaging to rule out head bleed or traumatic injuries to the neck. Also refusing an x-ray, lab work and possible admission. Prescriptions: No Action cefuroxime axetil 500 mg tablet 500 mg PO Q12H 7 Days Qty: 14 0RF doxycycline monohydrate 100 mg tablet 100 mg PO BID 7 Days Qty: 14 0RF metoprolol tartrate 25 mg tablet 25 mg PO BID 30 Days Qty: 60 0RF Stand Alone Forms: Against Medical Advice Print Language: Irish
[2025-01-22] MEDS: Naloxone HCl Nasal TAKE HOME 4 MG SPRAY 8 MG NOSTRILALT (10:47)
--- NOTE | 2025-01-22 10:48 | MHC.EDTECH ---
pt declining ekg and labs, declining all care, request to leave AMA, provider aware
--- NOTE | 2025-01-22 11:02 | PC.NURSE ---
Pt arrived to ED via EMS. Pt received 6mg adenosine en route for SVT. Hx of same. Pt reports crack use. Denies heroin or any other substances. Pt states she feels fine and wants to go home. VSS. Denies SI/HI/AVH. Provider at bedside, explained risks of leaving against medical advice which include . Pt gives verbal understanding. Signed AMA form. PIVs removed, pt given take home narcan. Pt ambulated out of unit.
[2025-01-22 11:06] VITALS: BP 96/70; PULSE 108; RESP 16; TEMP 37.1; O2SAT 100
== END 2025-01-22 11:06 | disposition left against medical advice (07) ==
PROVIDERS: Emergency Provider Emergency Medicine
DX: T40.601A Poisoning by unspecified narcotics, accidental (unintentional), initial encounter (principal); I47.10 Supraventricular tachycardia, unspecified; R40.4 Transient alteration of awareness; Y92.9 Unspecified place or not applicable; Z71.51 Drug abuse counseling and surveillance of drug abuser
CPT/HCPCS: 99282; 99283

== ENCOUNTER 2025-01-27 12:49 | Emergency (ER) | payer SELFPAY ==
[2025-01-27] VITALS (11 sets, daily range): BP systolic 93–146; BP diastolic 56–100; PULSE 68–203; RESP 14–23; TEMP 35.7–36.6; O2SAT 94–100; BMI 28.3
--- NOTE | ~2025-01-27 | XR_ITS ---
EXAMINATION: XR CHEST CLINICAL INFORMATION: cough COMPARISON: 11/26/2024. TECHNIQUE: Frontal view of the chest was obtained. FINDINGS: Defibrillator or pacer pads are in place. The cardiac, hilar, and mediastinal contours are normal. There are low lung volumes with mild bronchovascular crowding bilaterally. Lungs are otherwise clear. No pneumothorax or effusion. No focal osseous or soft tissue abnormality. XR/XR chest 1V IMPRESSION: No active pulmonary disease. Electronically signed by: Alex Butcher MD 01/27/2025 02:01 PM EDT
--- NOTE | 2025-01-27 13:06 | ECG_ITS ---
Test Reason : tachy Blood Pressure : */* mmHG Vent. Rate : 87 BPM Atrial Rate : 87 BPM P-R Int : 136 ms QRS Dur : 86 ms QT Int : 382 ms P-R-T Axes : 62 41 33 degrees QTcB Int : 459 ms Normal sinus rhythm Possible Left atrial enlargement Borderline ECG When compared with ECG of 03-Jan-2025 12:42, No significant change was found Referred By: Tom Bowman Electronically Signed By: GIANNA DOMINGUEZ
--- NOTE | 2025-01-27 13:08 | ED.AMS ---
HPI - Altered Mental Status General Chief Complaint: Overdose Stated Complaint: ?OD, FOUND IN STREET, NARCAN GIVEN, HR200 Time Seen by Provider: 01/27/25 12:54 History of Present Illness ED Provider: Tom Bowman MD HPI narrative: This is a 29-year-old female with known substance use disorder, crack cocaine use disorder found by police department altered lethargic looking received Narcan. Pulse found to be high 190s to 200s difficult to obtain full set of vitals patient was diaphoretic with fluctuating consciousness/delirium. She was protecting her airway during transport. The patient is minimally contributory to history due an due to her obvious intoxication on arrival. Related Data Home Medications ?Medication ?Instructions ?Recorded ?Confirmed No Known Home Meds 01/28/25 01/28/25 Allergies Allergy/AdvReac Type Severity Reaction Status Date / Time adhesive tape (ADHESIVE TAPE) Allergy Unknown UNKNOWN Verified 01/27/25 13:07 acetaminophen (From Tylenol) Allergy Rash Verified 01/27/25 13:07 Anesthetics - Gm Type- AdvReac Severe heart rate Verified 01/27/25 13:07 Parabens (ANESTHETICS - drops GM TYPE) amoxicillin AdvReac Anaphylaxis Verified 01/27/25 13:07 unspecified anesthetic Allergy Unknown lowers Uncoded 01/27/25 13:07 heart rate PMFSH Past Medical History Medical History Abdominal pain Diverticula of colon Colostomy hernia Hernia SVT (supraventricular tachycardia) Surgical History History of colostomy reversal History of reversal of ileostomy Hx of ileostomy Social History Social History Household Members: Family Housing: Apartment Do you presently have visiting nurse or other home services: No Alcohol intake: current Alcohol intake frequency: does not drink Comment: refused socks, gets up impulsive. Patient Tobacco Use Status: Never used Tobacco Use of substances other than those prescribed or required for medical reasons: Yes Substance Use Type: Crack/Cocaine and Heroin Advance Directives: No Advance Directives Information Provided: No Do you have a plan to hurt others: No Plan service: No Physical Exam ED Exam Exam: EXAM: Gen: Delirious with fluctuating consciousness. Occasionally responds occasionally starts snoring and sleeping. She is protecting her airway. She is diaphoretic and looks disheveled warm to the touch. Head: Atraumatic Eyes: Anicteric, Normal conjunctiva. ENT: Moist mucosa, no pallor. ? Neck: Supple. Skin: ?No observable rash or bruising on exposed or examined skin Respiratory: Breathing comfortably, No distress.Clear to auscultation bilaterally, symmetric chest expansion, No wheeze, rales, ronchi. Cardiovascular: Tachycardic, regular No murmurs or rub. Well perfused periphery, warm extremities. No edema. ? Abdominal: No focal tenderness. Soft, no objective distension. No palpable masses or obvious organomegaly. ?No guarding, no rebound tenderness or other peritoneal findings. : No flank tenderness. Neuro: Delirium. Gross movement of all extremities intact. ? MSK: No grossly visible deformity. Vital signs: See flowsheet Vital Signs: Vital Signs - 24 hr 01/27/25 13:30 01/27/25 14:42 01/27/25 15:30 Temperature 96.2 F L Pulse Rate 91 79 71 Respiratory Rate 18 16 14 Blood Pressure 93/56 L 97/59 L 112/75 Pulse Oximetry 99 100 95 Oxygen Delivery Method Room Air Room Air Room Air 01/27/25 16:00 01/27/25 16:30 01/27/25 17:00 Temperature Pulse Rate 77 77 Respiratory Rate 15 14 Blood Pressure 122/88 126/87 125/85 Pulse Oximetry 98 95 Oxygen Delivery Method Room Air Room Air 01/27/25 17:30 01/27/25 21:54 01/27/25 23:34 Temperature 97.9 F Pulse Rate 70 68 90 Respiratory Rate 14 16 14 Blood Pressure 113/65 146/96 H 115/71 Pulse Oximetry 99 97 97 Oxygen Delivery Method Room Air Room Air Room Air 01/28/25 01:30 01/28/25 02:15 01/28/25 05:52 Temperature 98.4 F 98.3 F 98.1 F Pulse Rate 94 78 78 Respiratory Rate 14 19 16 Blood Pressure 132/72 134/87 134/87 Pulse Oximetry 96 97 96 Oxygen Delivery Method Room Air Room Air Room Air 01/28/25 07:59 01/28/25 12:06 01/28/25 12:47 Temperature 99.2 F 0 F L Pulse Rate 73 84 84 Respiratory Rate 18 16 16 Blood Pressure 145/85 H 141/89 H 141/89 H Pulse Oximetry 99 99 99 Oxygen Delivery Method Room Air Room Air Room Air BMI result Body Mass Index 28.3 Course Reevaluation(s) Reevaluation #1: Ashley: I assumed care of this patient at change of shift this morning from the overnight provider. The patient is a 29-year-old female who has a history of cocaine use disorder. Also has a history of recurrent episodes of SVT. When I assumed care of the patient was sleeping. She slept for several hours. Ultimately she was awake unsteady on her feet and coherent. She denies any suicidality and does not wish to speak to anybody from the care team. She says she does not have a primary care doctor. She says she does not have a experimental box tester. She is given contact information for some local primary care offices. She is also given the contact information for [facility]. Additionally she is encouraged to follow up with the [facility] for her substance use issues. Medications Administered Discontinued Medications Generic Name Dose Route Start Last Admin Trade Name Brennan PRN Reason Stop Dose Admin Adenosine 6 mg 01/27/25 13:12 01/27/25 13:28 Adenosine 6 Mg/2 Ml Vial IVPUSH 01/27/25 13:13 6 mg STAT STA Administration Lactated Ringer's 1,000 mls @ 999 mls/hr 01/27/25 13:15 01/27/25 13:25 Lr IVCONT 01/27/25 14:15 999 mls/hr .Q1H1M ROSITA Administration Naloxone HCl 8 mg 01/27/25 21:02 01/28/25 06:21 Naloxone Hcl Nasal Take Home 4 Mg [place] NOSTRILALT 01/27/25 21:03 8 mg ONCE ONE Administration Medical Decision Making Medical Decision Making MDM Narrative: Medical Decision Makin-year-old female crack cocaine use disorder and chronic SVT with altered mental status received naloxone in the field arrives in SVT 180s to 200. Regular narrow complex no ischemic changes. She is normotensive and without hypoxia she is delirious on arrival. Unable to consent, I felt it reasonable for emergent chemical cardioversion given the patient's drug use current mental status and concern for possible hemodynamic compromise. Chemical cardioversion was achieved without complication, 6 mg adenosine. The patient did not require sedation given her underlying likely polysubstance intoxication and delirium. Pre procedural ECG shows SVT 166 QTC 461. No acute ischemic changes Postprocedure ECG shows: Sinus rhythm 90s rate no ischemic changes normal intervals otherwise Preliminary Favored Differential Diagnosis: SVT, polysubstance use disorder, opioid and/or crack cocaine intoxication, electrolyte derangement, dehydration among additional considered etiologies Testing Interpreted Independently: ?See above for ECG interpretation Radiology or Lab testing Results Reviewed: ?See below for details Consults: ?See below for details Independent Historians/External Chart Reviews: ?See below for details Social Determinants of Health Impacting MDM/Planning: ?See below for details Lab Data 01/27/25 13:28 01/27/25 13:28 Labs: Lab Results 01/27/25 01/27/25 Range/Units 13:28 13:37 WBC 9.4 (4.8-10.8) X10*3/uL RBC 4.38 (4.20-5.50) X10*6/uL Hgb 11.5 L (12.0-16.0) g/dl Hct 35.7 L (37.0-47.0) % MCV 81.5 (80.0-98.0) fL MCH 26.3 L (27.0-33.0) pg MCHC 32.2 (31.0-35.0) g/dl RDW 15.2 (11.0-16.0) % Plt Count 336 (160-400) X10*3/uL MPV 11.4 (9.4-12.3) fL Immature Gran % (Auto) 0.5 H (0.0-0.4) % Neut % (Auto) 54.1 (45-73) % Lymph % (Auto) 35.2 (20-40) % Gaston % (Auto) 8.4 (2-11) % Eos % (Auto) 1.3 (0-4) % Baso % (Auto) 0.5 (0-2) % Lymph # (Auto) 3.3 (1.2-4.9) X10*3/uL Gaston # (Auto) 0.8 (0.1-1.2) X10*3/uL Eos # (Auto) 0.1 (0.0-0.4) X10*3/uL Baso # (Auto) 0.1 (0.0-0.2) X10*3/uL Abs Immat Gran (auto) 0.05 H (0.00-0.03) X10*3/uL Absolute Neuts (auto) 5.1 (2.0-8.3) x10*3/uL Absolute Nucleated RBC 0.000 (0.0-0.012) X10*3/uL Nucleated RBC % (auto) 0.0 (0.0-0.2) /100WBC PT 12.5 H (10.9-12.4) SEC INR 1.1 (0.9-1.1) Sodium 141 (135-145) mmol/L Potassium 4.1 (3.3-5.1) mmol/L Chloride 107 (96-108) mmol/L Carbon Dioxide 27 (22-29) mmol/L Anion Gap 11 L (12-20) BUN 15 (9-16) mg/dL Creatinine 0.82 (0.5-1.4) mg/dL Estim Creat Clear Calc 88.5 Estimated GFR > 60 Random Glucose 85 (60-115) mg/dL Lactic Acid 0.8 (0.5-2.0) mmol/L Calcium 9.0 (8.4-10.2) mg/dL Magnesium 2.1 (1.6-2.6) mg/dL Total Bilirubin 0.3 (0.0-1.0) mg/dL TSH 2.82 (0.32-4.0) uIU/mL Ethyl Alcohol < 10 mg/dL Procedures Procedure Narrative Procedure Narrative: PROCEDURE NOTE Procedure: Chemical Cardioversion Performed by:Tom Bowman MD Indication: SVT [place] Protocol: a time out was performed and the correct patient and procedure were verified ? Patient was placed on continuous cardiac monitoring and continuous pulse oximetry. Supplemental oxygen was administered via nasal cannula. Electrodes were placed in an anterior/posterior fashion. After appropriate level of sedation was achieved, cardioversion was performed at 6 mg adenosine with successful conversion to sinus rhythm. Complications:? None, patient tolerated the procedure well ___ EMERGENCY ULTRASOUND INTERPRETATION-Limited Echocardiography [This study was ordered, performed, and interpreted by myself. The study reveals: Impression: NORMAL LV FUNCTION, NO RV DYSFUNCTION, NO PERICARDIAL EFFUSION] [Emergent Cardiac for Indication: Views Used: PLAX, PSSA, A4, SX, IVC Pericardial Effusion/Tamponade Findings: NONE RV Dilation (> LV diam in 4ch apical): NONE Global LV Fxn: NORMAL IVC Dilation and Resp Variation: NORMAL Performed by: MD Colby Images were stored CPT:13324] Discharge Plan Discharge Clinical Impression: Cocaine use disorder, SVT (supraventricular tachycardia) Patient Disposition: Home, Self-Care Instructions: Supraventricular Tachycardia (ED), Cocaine Use Disorder (ED) Additional Instructions: Please try to rest and take it easy today. It would be good for you to get a primary care doctor. Please try contacting the [facility]. This might be a good option for primary care. I have also included the contact information for a number of [facility] practices. You seemed to have a condition known as supraventricular tachycardia (also known as SVT). It would be good for you to see a experimental box tester. You has been given the contact information for [facility]. Please call them for a follow up appointment. I think you also have problems with cocaine use. This can be a very challenging condition. There is a Clinic at [facility] called the [facility] which is very helpful for substance use issues. I would recommend contacting them for an appointment as well. Return to the Emergency room if worse. Opiate use disorder You were seen in our Emergency Department today for treatment of opiate use disorder. You may have been dosed with medication for opiate use disorder (MOUD) in the form of suboxone or methadone. You may experience feeling some withdrawal symptoms and this is normal. The? dose in the Emergency Department is a starting dose and meant to be titrated up once you follow up with a clinic. Please do not feel discouraged, it is a process. The nurse has reviewed with you where to follow up and what information to bring with you, to continue treatment. You also may have been given naloxone (narcan) to take home with you. This medication is used to potentially treat opiate overdose. If you decide you want to stop or cut down on how much you?re using, you can call or walk into our outpatient Addiction Treatment office: [facility] (M-F 9am-5p) [address] [place] [address], [phone] You may have been provided with safer injection?items, please take time to take care of YOU and your health. Use new supplies whenever possible to lessen the chances of infections and other illnesses.? ?If you need more supplies, please go [facility],? [address] [place], [place] you can call or text to coordinate delivery of safer supplies. You were also provided a list of several treatment providers in the area.? If you experience any worsening symptoms you cannot control please return to the ED or call 911. Please follow up at your next appointment. Things to look out for are fevers, chest pain, shortness of breath, severe pain, dizziness, fainting or any other concerns. Prescriptions: No Action No Known Home Meds Referrals: [facility] [Provider Group, Family Practice] [facility] [Provider Group] [facility] [Provider Group] [facility] [Provider Group] [facility] [Provider Group, Cardiology] [facility] [Provider Group] Interventions: ED Discharge Assessment Last Done: 01/28/25 12:47 Discharge Date/Time: 01/28/25 12:54 Print Language: Thai
--- NOTE | 2025-01-27 13:20 | PC.NURSE ---
Pt in SVT @ 198bpm. Dr. Bowman aware and brought to bedside. Pads applied, EKG completed, IV access obtained for adenosine dose. Awaiting MD orders.
[2025-01-27] MEDS: Lactated Ringers 1,000 ML 999 ML IVCONT (13:25)
[2025-01-27] MEDS: Adenosine 6 MG/2 ML VIAL IVPUSH (13:28)
[2025-01-27 13:34] LABS: MANUAL DIFF FLAG NO
[2025-01-27 13:41] LABS: Hematocrit 35.7 % (37.0-47.0); Hemoglobin 11.5 g/dl (12.0-16.0); INTERNATIONAL NORM RATIO 1.1 (0.9-1.1); Imm Gran Abs Auto 0.05 X10*3/uL (0.00-0.03); Imm Gran Pct Auto 0.5 % (0.0-0.4); Lymphocytes Absolute Auto 3.3 X10*3/uL (1.2-4.9); Mean Corpuscular HGB Conc 32.2 g/dl (31.0-35.0); Mean Corpuscular Hemoglobin 26.3 pg (27.0-33.0); Mean Corpuscular Volume 81.5 fL (80.0-98.0); NRBC Abs Auto 0.000 X10*3/uL (0.0-0.012); NRBC Pct Auto 0.0 /100WBC (0.0-0.2); Platelet Count 336 X10*3/uL (160-400); Prothrombin Time 12.5 SEC (10.9-12.4); Red Blood Count 4.38 X10*6/uL (4.20-5.50); White Blood Count 9.4 X10*3/uL (4.8-10.8)
[2025-01-27 13:58] LABS: Anion Gap 11 (12-20); Blood Urea Nitrogen 15 mg/dL (9-16); Calcium 9.0 mg/dL (8.4-10.2); Carbon Dioxide 27 mmol/L (22-29); Chloride 107 mmol/L (96-108); Creatinine Clr Calc Pharmacy 88.5; Estimated Glomerular Filt Rate > 60; Magnesium 2.1 mg/dL (1.6-2.6); Potassium 4.1 mmol/L (3.3-5.1); Sodium 141 mmol/L (135-145)
[2025-01-27 14:11] LABS: Thyroid Stimulating Hormone 2.82 uIU/mL (0.32-4.0)
[2025-01-28 01:30] VITALS: BP 132/72; PULSE 94; RESP 14; TEMP 36.9; O2SAT 96
[2025-01-28 02:15] VITALS: BP 134/87; PULSE 78; RESP 19; TEMP 36.8; O2SAT 97
--- NOTE | 2025-01-28 05:34 | PC.NURSE ---
per internal medicine specialist pt belongings in [facility]
[2025-01-28 05:52] VITALS: BP 134/87; PULSE 78; RESP 16; TEMP 36.7; O2SAT 96
[2025-01-28] MEDS: Naloxone HCl Nasal TAKE HOME 4 MG SPRAY 8 MG NOSTRILALT (06:21)
[2025-01-28 07:59] VITALS: BP 145/85; PULSE 73; RESP 18; TEMP 37.3; O2SAT 99
--- NOTE | 2025-01-28 10:42 | PHA.MEDREC ---
Pharmacy Consult ? Medication Reconciliation Pharmacy has completed the medication reconciliation. no claims, pt doesn't take any regular medications at home.
[2025-01-28 12:06] VITALS: BP 141/89; PULSE 84; RESP 16; O2SAT 99
--- NOTE | 2025-01-28 12:08 | PC.NURSE ---
Pt moved to 22h. ALert/awake. VSS. Requested and given sandwich and ice cream.
[2025-01-28 12:47] VITALS: BP 141/89; PULSE 84; RESP 16; TEMP -17.7; TEMP 0; O2SAT 99
== END 2025-01-28 12:54 | disposition home or self-care (01) ==
PROVIDERS: Emergency Medicine; Emergency Provider Emergency Medicine
DX: T40.5X1A Poisoning by cocaine, accidental (unintentional), initial encounter (principal); I47.10 Supraventricular tachycardia, unspecified; R10.9 Unspecified abdominal pain; K46.9 Unspecified abdominal hernia without obstruction or gangrene; X58.XXXA Exposure to other specified factors, initial encounter; Y93.9 Activity, unspecified; Y92.9 Unspecified place or not applicable; Y99.9 Unspecified external cause status
CPT/HCPCS: 36415; 71045; 80048; 80307; 82247; 83605; 83735; 84443; 85025; 85610; 87040; 93005; 96361; 96374; 99285; J0153; J7120

== ENCOUNTER → 2025-01-27 13:06 | Outpatient (BNV) | payer SELFPAY | PROVIDERS: Emergency Provider Emergency Medicine; Visit Provider Internal Medicine | DX: R00.0 Tachycardia, unspecified (principal) | CPT/HCPCS: 93010 ==

== ENCOUNTER → 2025-01-27 13:06 | Outpatient (BNV) | payer SELFPAY | PROVIDERS: Emergency Provider Emergency Medicine; Visit Provider Radiology Diagnostic Radiology | DX: R05.9 Cough, unspecified (principal) | CPT/HCPCS: 71045 ==

== ENCOUNTER 2025-03-29 10:43 | Outpatient (REF) | payer MEDICAID, SELFPAY ==
--- OUTSIDE RECORDS SUMMARY | 2025-03-29 09:30 | XMS_ITS | Encounter Summary ---
Author Organization [employer] Address [address] [place] [address], [place] [address] Care Team Providers Care Char House Supervisor Name Role Phone Jessika Prasad RN Unavailable [phone] Yennifer Marquez Unavailable Malgorzata Nathan MD Primary Care Provider + Encounter Details Date Type Department Care Team (Late st Contact Info) Description 03/29/2025 9:30 AM EST Office Visit [facility] MED[facility]INE [address] [place], [place] [phone] Malgorzata Nathan MD [address] [place], [place] [phone] PTSD (post-traumatic stress disorder) (Primary Dx); Uncomplicated opioid dependence (CMS/HCC) (HCC); SVT (supraventricular tachycardia) (CMS/HCC); Diverticulosis of large intestine without hemorrhage; H/O left hemicolectomy; H/O umbilical hernia repair; History of cardiac ablation; History of Social History Tobacco Use Types Packs/Day Years Used Date Smoking Tobacco: Former Cigarettes Smokeless Tobacco: Never Tobacco Cessation:Counseling Given: Not Answered Alcohol Answer Date Recorded How often do you have a drink containing alcohol ? 0 03/29/2025 Average Number of Drinks Not on file 025 How often do you have six or more drinks on one occasion? 0 03/29/2025 Comments Unknown Sex and Gender Information Value Date Recorded Sex Assigned at Female 02/24/2022 10:14 AM EDT Legal Sex Female 10:14 AM EDT Gender Identity Female 03/29/2025 9:48 AM EST Sexual Orientation Bisexual 03/29/2025 9: 48 AM EST documented as of this encounter Last Filed Vital Signs Vital Sign Reading Time Taken Comments Blood Pressure 122/68 03/29/2025 9:54 AM EST Pulse 74 03/29/2025 9:54 AM EST Temperature 36.2 C (97.2 F) 03/29/2025 9:54 AM EST Respiratory Rate 18 03/29/2025 9:54 AM EST Oxygen Saturation - - Inhaled Oxygen Concentration - - Weight 82.5 kg (181 lb 12.8 oz) 03/29/2025 9:54 AM EST Height 162.6 cm (5' 4 ) 03/29/2025 9:54 AM EST Body Mass Index 31.21 03/29/2025 9:54 AM EST documented in this encounter Plan of Treatment Upcoming Encounters Date Type Department Care Team (Late st Contact Info) Description 05/30/2025 11:45 AM EST Office Visit [facility] MED[facility] [address] [place] [address] Malgorzata Nathan MD [address] [place] [address] Pending Results Name Type Priority Associated Diagnoses Date /Time Comprehensive Metabolic Panel Lab Routine SVT (supraventricular tachycardia) ([facility]) 03/29/2025 10:46 AM EST Lipid Panel with Reflex to Direct LDL Lab Routine SVT (supraventricular tachycardia) ([facility]) 03/29/2025 10:46 AM EST TSH with Reflex to Free T4 Lab Routine SVT (supraventricular tachycardia) ([facility]) 03/29/2025 10:46 AM EST Scheduled Orders Name Type Priority Associated Diagnoses Orde r Schedule T-SPOT .TB Lab Routine PTSD (post-traumatic stress disorder) Expected: 03/29/2025 (Approximate), Expires: 03/29/2026 documented as of this encounter Procedures Procedure Name Priority Date/Time Associated Diagnosis Comments TSH W/REFLEX TO FT4 Routine 03/29/2025 1 0:46 AM EST SVT (supraventricular tachycardia) (CMS/HCC) LIPID PANEL WITH REFLEX TO DIRECT LDL Routine 03/29/2025 10:46 AM EST SVT (supraventricular tachycardia) (CMS/HCC) CBC WITH AUTO DIFFERENTIAL Routine 03/29/2025 10:46 AM EST Uncomplicated opioid dependence (CMS/HCC) (HCC) SVT (supraventricular tachycardia) (CMS/HCC) COMPREHENSIVE METABOLIC PANEL Routine 03/29/2025 10:46 AM EST SVT (supraventricular tachycardia) (CMS/HCC) documented in this encounter Results * (ABNORMAL) CBC auto differential (03/29/2025 10:46 AM EST) White Blood Count 5.6 4.8 - 10.8 X10*3/uL [facility] Red Blood Count 3.81(L) 4.20 - 5.50 X10*6/uL [facility] Hemoglobin 10.1(L) 12.0 - 16.0 g/dl [facility] Hematocrit 32.0(L) 37.0 - 47.0 % [facility] Mean Corpuscular Volume 84.0 80.0 - 98.0 fL [facility] Mean Corpuscular Hemoglobin 26.5(L) 27.0 - 33.0 pg [facility] Mean Corpuscular HGB Conc 31.6 31.0 - 35.0 g/dl [facility] Red Cell Distribution Width 14.7 11.0 - 16.0 % [facility] Platelet Count 242 160 - 400 X10*3/uL [facility] Mean Platelet Volume 12.2 9.4 - 12.3 fL [facility] Neutrophils Percent Auto 49.3 45 - 73 % [facility] Imm Gran Pct Auto 1.8(H) 0.0 - 0.4 % [facility] Lymphocytes Percent Auto 33.9 20 - 40 % [facility] Monocytes Percent Auto 11.9(H) 2 - 11 % [facility] Eosinophils Percent Auto 2.0 0 - 4 % [facility] Basophils Percent Auto 1.1 0 - 2 % [facility] NRBC Pct Auto 0.0 0.0 - 0.2 /100WBC [facility] Neutrophils Absolute Auto 2.8 2.0 - 8.3 x10*3/uL [facility] Imm Gran Abs Auto 0.10(H) 0.00 - 0.03 X10*3/uL [facility] Lymphocytes Absolute Auto 1.9 1.2 - 4.9 X10*3/uL [facility] Monocytes Absolute Auto 0.7 0.1 - 1.2 X10*3/uL [facility] Eosinophils Absolute Auto 0.1 0.0 - 0.4 X10*3/uL [facility] Basophils Absolute Auto 0.1 0.0 - 0.2 X10*3/uL [facility] NRBC Abs Auto 0.000 0.0 - 0.012 X10*3/uL [facility] Blood Venous blood specimen / Unknown 03/29/2025 10:46 AM EST 03/29/2025 11:22 AM EST us Malgorzata Nathan MD LAB BLOOD ORDERABLES Fin al Result Performing Organization Address City/State/[facility] Co de Phone Number [facility] [address] [place] [phone] documented in this encounter Visit Diagnoses Diagnosis PTSD (post-traumatic stress disorder)- Primary Posttraumatic stress disorder Uncomplicated opioid dependence (CMS/HCC) (HCC) SVT (supraventricular tachycardia) ([facility]/HCC) Other specified cardiac dysrhythmias Diverticulosis of large intestine without hemorrhage H/O left hemicolectomy H/O umbilical hernia repair History of cardiac ablation History of Other postprocedural status documented in this encounter Care Teams Char House Supervisor Relationship Specialty Start Date End Date Malgorzata Nathan MD [address] [place] [phone] PCP - General Internal Medicine 03/29/25 Jessika Prasad RN [address] [place] [phone] Registered Nurse Family Medicine 03/15/25 Yennifer Marquez 03/15/25 documented as of this encounter
[2025-03-29 11:25] LABS: MANUAL DIFF FLAG NO
[2025-03-29 11:28] LABS: Hematocrit 32.0 % (37.0-47.0); Hemoglobin 10.1 g/dl (12.0-16.0); Imm Gran Abs Auto 0.10 X10*3/uL (0.00-0.03); Imm Gran Pct Auto 1.8 % (0.0-0.4); Lymphocytes Absolute Auto 1.9 X10*3/uL (1.2-4.9); Mean Corpuscular HGB Conc 31.6 g/dl (31.0-35.0); Mean Corpuscular Hemoglobin 26.5 pg (27.0-33.0); Mean Corpuscular Volume 84.0 fL (80.0-98.0); NRBC Abs Auto 0.000 X10*3/uL (0.0-0.012); NRBC Pct Auto 0.0 /100WBC (0.0-0.2); Platelet Count 242 X10*3/uL (160-400); Red Blood Count 3.81 X10*6/uL (4.20-5.50); White Blood Count 5.6 X10*3/uL (4.8-10.8)
[2025-03-29 11:50] LABS: Alanine Aminotransferase 63 U/L (0-31); Albumin Level 4.1 g/dL (3.5-5.0); Alkaline Phosphatase 61 U/L (39-117); Anion Gap 11 (12-20); Aspartate Amino Transferase 54 U/L (5-31); Blood Urea Nitrogen 13 mg/dL (9-16); Calcium 9.3 mg/dL (8.4-10.2); Carbon Dioxide 28 mmol/L (22-29); Chloride 107 mmol/L (96-108); Cholesterol 161 mg/dL (<200); Estimated Glomerular Filt Rate > 60; HDL Cholesterol 37 mg/dL (>40); Potassium 4.3 mmol/L (3.3-5.1); Sodium 142 mmol/L (135-145); Total Protein 6.5 g/dL (6.5-8.0); Triglycerides 224 mg/dL (<150)
--- OUTSIDE RECORDS SUMMARY | 2025-03-29 12:22 | XMS_ITS | Encounter Summary ---
Author Organization [employer] Address [address] [facility] [address] [place] [address] Care Team Providers Care Visiting Housekeeper Name Role Phone Jessika Prasad RN Unavailable [phone] Yennifer Marquez Unavailable Malgorzata Nathan MD Primary Care Provider + Encounter Details Date Type Department Care Team (Latest Contact Info) Description 03/29/2025 Travel Social History Tobacco Use Types Packs/Day Years Used Date Smoking Tobacco: Former Cigarettes Smokeless Tobacco: Never Alcohol Answer Date Recorded How often do [...] AM EST documented as of this encounter Plan of Treatment Upcoming Encounters Date Type Department Care Team (Late st Contact Info) Description 05/30/2025 11:45 AM EST Office Visit [facility] [address] [place] [address] Malgorzata Nathan MD [address] [place] [address] documented as of this encounter Visit Diagnoses Not on filedocumented in this encounter Care Teams Visiting Housekeeper Relationship Specialty Start Date End Date Malgorzata Nathan MD [address] [place] [phone] PCP - General Internal Medicine 03/29/25 Jessika Prasad RN [address] [place] [phone] Registered Nurse Family Medicine 03/15/25 Yennifer Marquez 03/15/25 documented as of this encounter
--- OUTSIDE RECORDS SUMMARY | 2025-03-29 12:22 | XMS_ITS | Encounter Summary ---
Author Organization [employer] Address [address] [place] [address] [address] Care Team Providers Care Financial Recruiter Name Role Phone Jessika Prasad RN Unavailable [phone] Yennifer Marquez Unavailable Malgorzata Nathan MD Primary Care Provider + Reason for Visit * Reason Onset Date Comments Call Back Request 03/29/2025 Encounter Details Date Type Department Care Team (Late st Contact Info) Description 03/29/2025 Telephone [facility] MEDICINE [address] [place], [place] [phone] Malgorzata Nathan MD [address] [place], [place] [phone] Call Back Request Social History Tobacco Use Types Packs/Day Years [...] AM EST documented as of this encounter Miscellaneous Notes * Telephone Encounter - Augustine Alvarez - 03/29/2025 11:58 AM EST Tc violette Keating with [facility] requesting a call back to discuss which pharmacy would be best to send pt's medication. Please contact Zuri at [phone]. documented in this encounter Plan of Treatment Upcoming Encounters Date Type Department Care Team (Late st Contact Info) Description 05/30/2025 11:45 AM EST Office Visit [facility] MEDICINE [address] [place] [phone] Malgorzata Nathan MD [address] [place] [phone] documented as of this encounter Visit Diagnoses Not on filedocumented in this encounter Care Teams Financial Recruiter Relationship Specialty Start Date End Date Malgorzata Nathan MD [address] [place] [phone] PCP - General Internal Medicine 03/29/25 Jessika Prasad, AMANDA [address] [place] [phone] Registered Nurse Family Medicine 03/15/25 Yennifer Marquez 03/15/25 documented as of this encounter
--- OUTSIDE RECORDS SUMMARY | 2025-03-29 12:22 | XMS_ITS | Encounter Summary ---
Author Organization [employer] Address [address] [place] [address] [place] [address] Care Team Providers Care Welder Tech Name Role Phone Jessika Prasad RN Unavailable [phone] Yennifer Marquez Unavailable Malgorzata Nathan MD Primary Care Provider + Reason for Visit * Reason Onset Date Comments new pt 03/14/2025 Encounter Details Date Type Department Care Team (Late st Contact Info) Description 03/14/2025 Telephone [facility] [address] [place], [place] [phone] Ernesto Nesbitt MD [address] [place], [place] [phone] new pt Social History Tobacco Use Types Packs/Day Years Used Date Smoking Tobacco: Never Assessed Comments Unknown Sex and Gender Information Value Date Recorded Sex Assigned at Female 02/24/2022 10:14 AM EDT Legal Sex Female 10:14 AM EDT Gender Identity Female 03/29/2025 9:48 AM EST Sexual Orientation Bisexual 03/29/2025 9: 48 AM EST documented as of this encounter Miscellaneous Notes * Telephone Encounter - Adry Alvarez - 03/14/2025 10:59 AM EST Tc from sharan ([facility]) requesting reschedule appointment . Please contract sharan at [phone] documented in this encounter Plan of Treatment Upcoming Encounters Date Type Department Care Team (Late st Contact Info) Description 05/30/2025 11:45 AM EST Office Visit [facility] [address] [place] [address] Malgorzata Nathan MD [address] [place] [address] documented as of this encounter Visit Diagnoses Not on filedocumented in this encounter Care Teams Welder Tech Relationship Specialty Start Date End Date Malgorzata Nathan MD [address] [place] [id number] PCP - General Internal Medicine 03/29/25 Jessika Prasad, AMANDA [address] [place] [id number] Registered Nurse Family Medicine 03/15/25 Yennifer Marquez 03/15/25 documented as of this encounter
--- OUTSIDE RECORDS SUMMARY | 2025-03-29 12:22 | XMS_ITS ---
Author Organization [employer] Address [address] [place] [address] [address] [place] [address] Care Team Providers Care Generation Engineer Name Role Phone Jesskia Prasad RN Unavailable [phone] Yennifer Marquez Unavailable Malgorzata Nathan MD Primary Care Provider + CM Complex Status:Identified (Enrolling) Start date:03/15/2025 Enrollment reason:ADT Feed Overview ED- Pt went to [facility] ED on 03/13/25. Case Team Name Relationship Phone Jessika Prasad RN(Responsible Staff) Registered Nurse Continued Care and Services Coordination
--- OUTSIDE RECORDS SUMMARY | 2025-03-29 12:22 | XMS_ITS ---
Author Organization [employer] Address [address] [place] [address] [address] [place] [address] Care Team Providers Care Pattern And Chain Maker Name Role Phone Jessika Prasad RN Unavailable [phone] Yennifer Marquez Unavailable Malgorzata Nathan MD Primary Care Provider + CHW Complex Status:Identified (Enrolling) Start date:03/15/2025 Enrollment reason:ADT Feed Overview ED- Pt went to [facility] ED on 03/13/25. Please outreach to patient. Case Team Name Relationship Phone Yennifer Marquez(Responsible Staff) [phone] Continued Care and Services Coordination
--- OUTSIDE RECORDS SUMMARY | 2025-03-29 12:22 | XMS_ITS | Clinical Summary ---
Author Organization [employer] Address [address] [place] [address] [address] [address] Care Team Providers Care Medical Technologist Blood Bank Name Role Phone Jessika Prasad RN Unavailable [phone] Yennifer Marquez Unavailable Malgorzata Nathan MD Primary Care Provider + Allergies Active Allergy Reactions Criticality Noted Date Comments Acetaminophen 03/29/2025 Fish Allergy 03/29/2025 Penicillins 03/29/2025 Active Problems Problem Noted Date Diagnosed Date SVT (supraventricular tachycardia) 03/29/2025 Uncomplicated opioid dependence (CMS/HCC) 2024 PTSD (post-traumatic stress disorder) 03/29/2025 Encounters Date Type Department Care Team Description 03/29/2025 9:30 AM EST Office Visit [facility] [address] [place] [phone] Malgorzata Nathan MD PTSD (post-traumatic stress disorder) (Primary Dx); Uncomplicated opioid dependence (CMS/HCC) (HCC); SVT (supraventricular tachycardia) (CMS/HCC); Diverticulosis of large intestine without hemorrhage; H/O left hemicolectomy; H/O umbilical hernia repair; History of cardiac ablation; History of 03/29/2025 Telephone [facility] [address] [place] [address] Malgorzata Nathan MD Call Back Request 03/29/2025 Travel 03/15/2025 Patient Outreach [facility] [address] [place] [address] Yennifer Marquez 03/15/2025 Patient Outreach [facility] [address] [place] [address] Yennifer Marquez Care Coordination (C3 CM-W Yennifer Marquez chart review ) 03/15/2025 Patient Outreach [facility] [address] [place] [address] Jessika Prasad, AMANDA Care Management (C3CM -CHART REVIEW ) 03/15/2025 Patient Outreach [facility] [place] [address] Miranda Willson, AMANDA 03/14/[address] [address] Ernesto Nesbitt MD new pt from Last 3 Months Social History Tobacco Use Types Packs/Day Years [...] Orientation Bisexual 03/29/2025 9: 48 AM EST Last Filed Vital Signs Vital Sign Reading [...] Mass Index 31.21 03/29/2025 9:54 AM EST Plan of Treatment Upcoming Encounters Date Type Department Care Team (Late st Contact Info) Description 05/30/2025 11:45 AM EST Office Visit [facility] [address] [place] [address] Malgorzata Nathan MD [address] [place] [address] Health Maintenance Due Date Last Done Comments Depression Screening 1994 HIV Screening 1994 SDOH Screening 1994 Disability Screening 1994 Family Planning (PISQ) 2009 HPV Vaccines (1 - 3-dose series) 2009 Hepatitis C Screening 2012 Hepatitis B Vaccines (1 of 3 - 19+ 3-dose series) 2013 Pap Smear 10/29/2015 Cervical Cancer Screening 2024 HPV/Cotest 2024 COVID-19 Vaccine ( season) 2024 04/30/2021, 06/17/2020 Influenza Vaccine (#1) 2024 , 06/12/2020, 06/12/2020, Additional history exists Alcohol/Substance Use Screening 03/29/2026 03/29/2025 Tobacco Screening 03/29/2026 03/29/2025 DTaP/Tdap/Td Vaccines (4 - Td or Tdap) 11/28/2033 11/29/2023, 02/02/2023, 05/01/2016 Zoster Vaccines (1 of 2) 2044 RSV Patients and Patients Aged 60 years or older (1 - 1-dose 75+ series) 2069 Hepatitis A Vaccines Completed 07/19/2024, 11/09/19 24 HIB Vaccines Aged Out No longer eligi ble based on patient's age to complete this topic IPV Vaccines Aged Out No longer eligi ble based on patient's age to complete this topic Meningococcal B Vaccine Aged Out No l onger eligible based on patient's age to complete this topic Meningococcal Vaccine Aged Out No hazel andry eligible based on patient's age to complete this topic Pneumococcal Vaccine: Pediatrics (0 to 5 Years) and At-Risk Patients (6 to 49) Years Aged Out No longer eligible based on patient's age to complete this topic RSV under 20 months Aged Out No longe r eligible based on patient's age to complete this topic Rotavirus Vaccines Aged Out No longer eligible based on patient's age to complete this topic Procedures Procedure Name Priority Date/Time Associated Diagnosis Comments CBC WITH AUTO DIFFERENTIAL Routine 03/29/2025 10:46 AM EST Uncomplicated opioid dependence (CMS/HCC) (HCC) SVT (supraventricular tachycardia) (CMS/HCC) TSH W/REFLEX TO FT4 Routine 03/29/2025 1 0:46 AM EST SVT (supraventricular tachycardia) (CMS/HCC) LIPID PANEL WITH REFLEX TO DIRECT LDL Routine 03/29/2025 10:46 AM EST SVT (supraventricular tachycardia) (CMS/HCC) COMPREHENSIVE METABOLIC PANEL Routine 03/29/2025 10:46 AM EST SVT (supraventricular tachycardia) (CMS/HCC) from Last 3 Months Results * (ABNORMAL) CBC auto differential (03/29/2025 10:46 AM EST) White Blood Count 5.6 4.8 - 10.8 X10*3/uL [facility] Red Blood Count 3.81(L) 4.20 - 5.50 X10*6/uL [facility] Hemoglobin 10.1(L) 12.0 - 16.0 g/dl [facility] Hematocrit 32.0(L) 37.0 - 47.0 % [facility] Mean Corpuscular Volume 84.0 80.0 - 98.0 fL [facility] Mean Corpuscular Hemoglobin 26.5(L) 27.0 - 33.0 pg [facility] Mean Corpuscular HGB Conc 31.6 31.0 - 35.0 g/dl [facility] Red Cell Distribution Width 14.7 11.0 - 16.0 % [facility] Platelet Count 242 160 - 400 X10*3/uL [facility] Mean Platelet Volume 12.2 9.4 - 12.3 fL [facility] Neutrophils Percent Auto 49.3 45 - 73 % [facility] Imm Gran Pct Auto 1.8(H) 0.0 - 0.4 % [facility] Lymphocytes Percent Auto 33.9 20 - 40 % [facility] Monocytes Percent Auto 11.9(H) 2 - 11 % [facility] Eosinophils Percent Auto 2.0 0 - 4 % [facility] Basophils Percent Auto 1.1 0 - 2 % [facility] NRBC Pct Auto 0.0 0.0 - 0.2 /100WBC [facility] Neutrophils Absolute Auto 2.8 2.0 - 8.3 x10*3/uL [facility] Imm Gran Abs Auto 0.10(H) 0.00 - 0.03 X10*3/uL [facility] Lymphocytes Absolute Auto 1.9 1.2 - 4.9 X10*3/uL [facility] Monocytes Absolute Auto 0.7 0.1 - 1.2 X10*3/uL [facility] Eosinophils Absolute Auto 0.1 0.0 - 0.4 X10*3/uL [facility] Basophils Absolute Auto 0.1 0.0 - 0.2 X10*3/uL [facility] NRBC Abs Auto 0.000 0.0 - 0.012 X10*3/uL [facility] Blood Venous blood specimen / Unknown 03/29/2025 10:46 AM EST 03/29/2025 11:22 AM EST us Malgorzata Nathan MD LAB BLOOD ORDERABLES Fin al Result [facility] [address] [place] [address] [phone] from Last 3 Months Insurance [facility] C3 Care Teams Medical Technologist Blood Bank Relationship Specialty Start Date End Date Malgorzata Nathan MD [address] [place] [address] PCP - General Internal Medicine 03/29/25 Jessika Prasad RN [address] [place] [address] Registered Nurse Family Medicine 03/15/25 Yennifer Marquez 03/15/25
[2025-03-29 12:28] LABS: Reflex LDLD? No
[2025-03-31 19:14] LABS: TS Negative Control Passed; TS Panel A 0; TS Panel B 0; TS Positive Control Passed; TSpotTB Negative (Negative)
== END 2025-03-29 10:44 | disposition home or self-care (01) ==
LOC: HO.HHCL 10:43
PROVIDERS: PCP Internal Medicine; Visit Provider Internal Medicine
DX: Z11.1 Encounter for screening for respiratory tuberculosis (principal); F11.20 Opioid dependence, uncomplicated; I47.10 Supraventricular tachycardia, unspecified; F43.10 Post-traumatic stress disorder, unspecified
CPT/HCPCS: 36415; 80053; 80061; 84443; 85025; 86481